=== PATIENT | female | born 1950 | race Caucasian/White ===

== ENCOUNTER → 2016-07-13 | Outpatient (CLI) | payer MEDICARE, OTHER ==
[2016-07-13 13:38] LABS: ALBUMIN 3.5 GM/DL (3.2-5.2); ALBUMIN/GLOBULIN RATIO 0.97 (1.00-1.93); BILIRUBIN,TOTAL 0.3 MG/DL (0.2-1.0); CALCIUM LEVEL 8.8 MG/DL (8.8-10.2); CREATININE FOR GFR 1.16 MG/DL (0.55-1.02); GLOMERULAR FILTRATION RATE 49.8 (>45); POTASSIUM SERUM 4.9 MEQ/L (3.5-5.1); TOTAL PROTEIN 7.1 GM/DL (6.4-8.2)
== END ==
LOC: M LAB 11:50
PROVIDERS: ATTEND Family Medicine
DX: E11.21 Type 2 diabetes mellitus with diabetic nephropathy (principal)

== ENCOUNTER → 2017-02-19 | Outpatient (CLI) | payer MEDICARE, MEDICAID ==
[2017-02-19 13:31] LABS: BASO # 0.1 10^3/uL (0.0-0.2); BASO % 0.8 % (0.0-1.0); EOS # 0.1 10^3/uL (0.0-0.50); EOS % 1.1 % (0.0-3.0); IMMATURE GRANULOCYTE % 0.3 % (0-0); LYMPH # 1.5 10^3/uL (1.5-4.5); LYMPH % 23.6 % (24.0-44.0); MEAN CORPUSCULAR HEMOGLOBIN 29.3 pg (27.0-33.0); MEAN CORPUSCULAR HGB CONC 33.2 g/dl (32.0-36.5); MEAN CORPUSCULAR VOLUME 88.4 fl (80.0-96.0); MONO # 0.5 10^3/uL (0.0-0.8); MONO % 8.2 % (0.0-5.0); NEUTROPHILS # 4.2 10^3/uL (1.8-7.7); PLATELET COUNT, AUTOMATED 325 10^3/uL (150-450); RED CELL DISTRIBUTION WIDTH 13.1 % (11.5-14.5); WHITE BLOOD COUNT 6.4 10^3/uL (4.0-10.0)
[2017-02-19 21:23] LABS: CALCIUM LEVEL 8.6 MG/DL (8.8-10.2); CREATININE FOR GFR 1.19 MG/DL (0.55-1.02); GLOMERULAR FILTRATION RATE 48.2 (>45); POTASSIUM SERUM 4.9 MEQ/L (3.5-5.1)
== END ==
LOC: M LAB 12:28
PROVIDERS: ATTEND Nurse Practitioner Family
DX: E11.65 Type 2 diabetes mellitus with hyperglycemia (principal)

== ENCOUNTER 2017-05-04 17:17 | Emergency (ER) | payer MEDICARE, MEDICAID ==
[~2017-05-04] VITALS: Ht 152.4 cm; Wt 90.9 kg
[2017-05-04] MEDS ORDERED: SIMV40TA2 (17:34)
[2017-05-04] MEDS ORDERED: INSUDET SQ (17:34)
[2017-05-04] MEDS ORDERED: RAMI5CA (17:34)
[2017-05-04] MEDS ORDERED: INSUHUMDS SQ (17:34)
[2017-05-04 18:42] LABS: MICROSCOPIC INDICATED? MAN YES (NO)
[2017-05-04 18:52] LABS: BACTERIA, URINE LARGE AMOUNT; HYALINE CAST, URINE NONE SEEN /lpf (0-1); SQUAMOUS EPITHELIAL CELL URINE SMALL AMOUNT /hpf (SMALL AMT); WBC, URINE TNTC /hpf (0-3)
[2017-05-04 18:53] LABS: MICROSCOPIC EXAM PERFORMED
[2017-05-04] MEDS ORDERED: NITROFURANTOIN (MACROBID) 100 MG CAP PO ONE (19:15)
[2017-05-04] MEDS ORDERED: MACR100C43 PO (19:17)
[2017-05-04 19:43] VITALS: BP 146/78
== END 2017-05-04 19:47 | disposition home or self-care (01) ==
LOC: M ED 17:17
DX: N39.0 Urinary tract infection, site not specified (principal); E11.9 Type 2 diabetes mellitus without complications; Z79.4 Long term (current) use of insulin

== ENCOUNTER → 2017-05-19 | Outpatient (REF) | payer MEDICARE, MEDICAID | LOC: M SFHCADAM 14:45 | DX: N39.0 Urinary tract infection, site not specified (principal) | CPT/HCPCS: 87086 ==

== ENCOUNTER → 2017-09-21 | Outpatient (REF) | payer MEDICARE, MEDICAID ==
[2017-09-21 19:53] LABS: MEAN CORPUSCULAR HEMOGLOBIN 28.3 pg (27.0-33.0); MEAN CORPUSCULAR HGB CONC 32.5 g/dl (32.0-36.5); MEAN CORPUSCULAR VOLUME 87.1 fl (80.0-96.0); PLATELET COUNT, AUTOMATED 434 10^3/uL (150-450); RED BLOOD COUNT 4.59 10^6/uL (4.00-5.40); RED CELL DISTRIBUTION WIDTH 13.1 % (11.5-14.5); WHITE BLOOD COUNT 7.6 10^3/uL (4.0-10.0)
[2017-09-21 20:06] LABS: ESTIMATED AVERAGE GLUCOSE 246 MG/DL (60-110); HEMOGLOBIN A1c 10.2 %
[2017-09-21 20:11] LABS: ALBUMIN 3.5 GM/DL (3.2-5.2); ALBUMIN/GLOBULIN RATIO 0.88 (1.00-1.93); ALKALINE PHOSPHATASE 78 U/L (45-117); ALT/SGPT 31 U/L (12-78); ANION GAP 6 MEQ/L (8-16); AST/SGOT 22 U/L (7-37); BILIRUBIN,TOTAL 0.2 MG/DL (0.2-1.0); BLOOD UREA NITROGEN 33 MG/DL (7-18); CALCIUM LEVEL 9.1 MG/DL (8.8-10.2); CARBON DIOXIDE LEVEL 29 MEQ/L (21-32); CHLORIDE LEVEL 103 MEQ/L (98-107); CHOLESTEROL LEVEL 209 MG/DL (<200); CHOLESTEROL RISK RATIO 4.976 (<5); CREATININE FOR GFR 1.51 MG/DL (0.55-1.30); FREE T4 0.92 NG/DL (0.76-1.46); GLOMERULAR FILTRATION RATE 36.6 (>45); GLUCOSE, FASTING 373 MG/DL (70-100); HDL CHOLESTEROL 42 MG/DL (>40); NON-HDL-C 167 MG/DL; SODIUM LEVEL 138 MEQ/L (136-145); THYROID STIMULATING HORMONE 0.668 uIU/ML (0.358-3.740); TOTAL PROTEIN 7.5 GM/DL (6.4-8.2); TRIGLYCERIDES LEVEL 474 MG/DL (<150)
[2017-09-21 20:19] LABS: POTASSIUM SERUM 5.6 MEQ/L (3.5-5.1)
[2017-09-21 20:43] LABS: MAU/CREAT RATIO 493.7 MCG/MG (0.0-30.0)
== END ==
LOC: M SFHCADAM 15:51
DX: E11.21 Type 2 diabetes mellitus with diabetic nephropathy (principal); E78.2 Mixed hyperlipidemia; N18.3 Chronic kidney disease, stage 3 (moderate)
CPT/HCPCS: 84443

== ENCOUNTER → 2018-03-22 | Outpatient (REF) | payer MEDICARE, MEDICAID ==
[2018-03-22 20:34] LABS: HEMATOCRIT 37.9 % (36.0-47.0); HEMOGLOBIN 12.6 g/dl (12.0-15.5); MEAN CORPUSCULAR HGB CONC 33.2 g/dl (32.0-36.5); MEAN CORPUSCULAR VOLUME 87.3 fl (80.0-96.0); PLATELET COUNT, AUTOMATED 376 10^3/uL (150-450); RED BLOOD COUNT 4.34 10^6/uL (4.00-5.40); WHITE BLOOD COUNT 7.2 10^3/uL (4.0-10.0)
[2018-03-22 20:50] LABS: ESTIMATED AVERAGE GLUCOSE 315 MG/DL (60-110); HEMOGLOBIN A1c 12.6 %
[2018-03-22 21:45] LABS: ALBUMIN 3.4 GM/DL (3.2-5.2); ALBUMIN/GLOBULIN RATIO 0.89 (1.00-1.93); ALKALINE PHOSPHATASE 86 U/L (45-117); ALT/SGPT 28 U/L (12-78); ANION GAP 6 MEQ/L (8-16); AST/SGOT 22 U/L (7-37); BILIRUBIN,TOTAL 0.2 MG/DL (0.2-1.0); BLOOD UREA NITROGEN 26 MG/DL (7-18); CARBON DIOXIDE LEVEL 27 MEQ/L (21-32); CHLORIDE LEVEL 103 MEQ/L (98-107); CHOLESTEROL LEVEL 195 MG/DL (<200); CHOLESTEROL RISK RATIO 4.239 (<5); CREATININE FOR GFR 1.32 MG/DL (0.55-1.30); FREE T4 0.87 NG/DL (0.76-1.46); GLOMERULAR FILTRATION RATE 42.6 (>45); GLUCOSE, FASTING 429 MG/DL (70-100); HDL CHOLESTEROL 46 MG/DL (>40); NON-HDL-C 149 MG/DL; POTASSIUM SERUM 5.6 MEQ/L (3.5-5.1); SODIUM LEVEL 136 MEQ/L (136-145); THYROID STIMULATING HORMONE 0.712 uIU/ML (0.358-3.740); TOTAL 25(OH) VITAMIN D 15.3 NG/ML (30.0-100.0); TOTAL PROTEIN 7.2 GM/DL (6.4-8.2); TRIGLYCERIDES LEVEL 453 MG/DL (<150)
== END ==
LOC: M SFHCADAM 15:49
DX: N18.3 Chronic kidney disease, stage 3 (moderate) (principal); E11.21 Type 2 diabetes mellitus with diabetic nephropathy; E78.2 Mixed hyperlipidemia
CPT/HCPCS: 84443

== ENCOUNTER → 2018-09-20 | Outpatient (REF) | payer MEDICARE, MEDICAID ==
[~2018-09-20] MED LIST: INSUDET SQ; INSUHUMDS SQ; MACR100C43 PO; RAMI1CAP24; SIMV40TA2
[2018-09-20 20:38] LABS: CREATININE, URINE 90.1 MG/DL; MAU/CREAT RATIO 1420.6 MCG/MG (0.0-30.0)
== END ==
LOC: M SFHCADAM 14:13
PROVIDERS: ATTEND Family Medicine
DX: E11.21 Type 2 diabetes mellitus with diabetic nephropathy (principal); N18.3 Chronic kidney disease, stage 3 (moderate)
CPT/HCPCS: 82043; 90732; 99487; G0009; G0463

== ENCOUNTER → 2019-03-14 | Outpatient (REF) | payer MEDICARE, MEDICAID ==
[2019-03-14 16:29] LABS: HEMATOCRIT 40.3 % (36.0-47.0); MEAN CORPUSCULAR HEMOGLOBIN 28.3 pg (27.0-33.0); MEAN CORPUSCULAR HGB CONC 32.3 g/dl (32.0-36.5); MEAN CORPUSCULAR VOLUME 87.6 fl (80.0-96.0); PLATELET COUNT, AUTOMATED 364 10^3/uL (150-450); WHITE BLOOD COUNT 9.2 10^3/uL (4.0-10.0)
[2019-03-14 16:38] LABS: ALBUMIN 3.2 GM/DL (3.2-5.2); BILIRUBIN,TOTAL 0.3 MG/DL (0.2-1.0); CALCIUM LEVEL 9.2 MG/DL (8.8-10.2); CHOLESTEROL RISK RATIO 4.04 (<5); CREATININE FOR GFR 1.37 MG/DL (0.55-1.30); GLOMERULAR FILTRATION RATE 40.7 (>45); POTASSIUM SERUM 4.8 MEQ/L (3.5-5.1); TOTAL PROTEIN 7.2 GM/DL (6.4-8.2)
[2019-03-14 18:10] LABS: CREATININE, URINE 65.1 MG/DL; MAU/CREAT RATIO 1643.6 MCG/MG (0.0-30.0)
== END ==
LOC: M LABDRAWP 14:19
PROVIDERS: ATTEND Internal Medicine Endocrinology, Diabetes & Metabolism
DX: E11.65 Type 2 diabetes mellitus with hyperglycemia (principal)

== ENCOUNTER → 2019-11-30 | Outpatient (CLI) | payer MEDICARE, MEDICAID ==
[~2019-11-30] MED LIST changes: -SIMV40TA2; +SIMV40TA20
[2019-11-30 13:55] LABS: HEMATOCRIT 40.9 % (36.0-47.0); HEMOGLOBIN 13.4 g/dl (12.0-15.5); MEAN CORPUSCULAR HEMOGLOBIN 28.9 pg (27.0-33.0); MEAN CORPUSCULAR HGB CONC 32.8 g/dl (32.0-36.5); MEAN CORPUSCULAR VOLUME 88.1 fl (80.0-96.0); PLATELET COUNT, AUTOMATED 376 10^3/uL (150-450); RED BLOOD COUNT 4.64 10^6/uL (4.00-5.40); WHITE BLOOD COUNT 6.8 10^3/uL (4.0-10.0)
[2019-11-30 14:38] LABS: ALBUMIN 3.3 GM/DL (3.2-5.2); BILIRUBIN,TOTAL 0.2 MG/DL (0.2-1.0); CALCIUM LEVEL 9.3 MG/DL (8.8-10.2); CHOLESTEROL RISK RATIO 3.957 (<5); CREATININE FOR GFR 1.43 MG/DL (0.55-1.30); FREE T4 0.89 NG/DL (0.76-1.46); GLOMERULAR FILTRATION RATE 38.7 (>45); POTASSIUM SERUM 5.5 MEQ/L (3.5-5.1); THYROID STIMULATING HORMONE 0.934 uIU/ML (0.358-3.740); TOTAL PROTEIN 7.4 GM/DL (6.4-8.2)
[2019-11-30 16:10] LABS: HEMOGLOBIN A1c 12.1 %
== END ==
LOC: M LAB 13:24
PROVIDERS: ATTEND Family Medicine
DX: E11.21 Type 2 diabetes mellitus with diabetic nephropathy (principal); E78.2 Mixed hyperlipidemia; F32.9 Major depressive disorder, single episode, unspecified; N18.3 Chronic kidney disease, stage 3 (moderate)

== ENCOUNTER → 2020-03-11 | Outpatient (REF) | payer MEDICARE, MEDICAID ==
[2020-03-11 17:48] LABS: HEMOGLOBIN 14.3 g/dl (12.0-15.5); MEAN CORPUSCULAR HEMOGLOBIN 28.5 pg (27.0-33.0); MEAN CORPUSCULAR HGB CONC 31.8 g/dl (32.0-36.5); MEAN CORPUSCULAR VOLUME 89.8 fl (80.0-96.0); PLATELET COUNT, AUTOMATED 435 10^3/uL (150-450); RED BLOOD COUNT 5.01 10^6/uL (4.00-5.40); WHITE BLOOD COUNT 7.9 10^3/uL (4.0-10.0)
[2020-03-11 18:12] LABS: HEMOGLOBIN A1c 10.8 %
[2020-03-11 18:25] LABS: ALBUMIN 3.4 GM/DL (3.2-5.2); BILIRUBIN,TOTAL 0.3 MG/DL (0.2-1.0); CALCIUM LEVEL 9.5 MG/DL (8.8-10.2); CHOLESTEROL RISK RATIO 3.49 (<5); CREATININE FOR GFR 1.41 MG/DL (0.55-1.30); FREE T4 0.95 NG/DL (0.76-1.46); GLOMERULAR FILTRATION RATE 39.3 (>39); POTASSIUM SERUM 5.2 MEQ/L (3.5-5.1); THYROID STIMULATING HORMONE 0.713 uIU/ML (0.358-3.740); TOTAL PROTEIN 7.5 GM/DL (6.4-8.2)
== END ==
LOC: M PLALAB 15:07
PROVIDERS: ATTEND Family Medicine
DX: E11.21 Type 2 diabetes mellitus with diabetic nephropathy (principal); E78.2 Mixed hyperlipidemia; F32.9 Major depressive disorder, single episode, unspecified; N18.30 Chronic kidney disease, stage 3 unspecified
CPT/HCPCS: 36415; 80053; 80061; 83036; 84439; 84443; 85027; 99490; G2058

== ENCOUNTER 2020-05-21 22:25 | Observation (INO) | payer MEDICAID, MEDICARE ==
[~2020-05-21] VITALS: Ht 152.4 cm; Wt 93.9 kg
[~2020-05-21 22:25] MED LIST changes: +INSUDET SC; -INSUDET SQ; +INSUHUMDS SC; -INSUHUMDS SQ; -RAMI1CAP24; +RAMI1CAP24 PO; -SIMV40TA20; +SIMV40TA20 PO
[2020-05-21] MEDS ORDERED: NS 1,000 ML IV ONE (23:00)
[2020-05-21 23:26] LABS: BASO % 0.4 % (0.0-1.0); HEMATOCRIT 40.2 % (36.0-47.0); HEMOGLOBIN 12.4 g/dl (12.0-15.5); LYMPH # 0.7 10^3/uL (1.5-5.0); LYMPH % 10.5 % (24.0-44.0); MEAN CORPUSCULAR HEMOGLOBIN 27.3 pg (27.0-33.0); MEAN CORPUSCULAR HGB CONC 30.8 g/dl (32.0-36.5); MEAN CORPUSCULAR VOLUME 88.5 fl (80.0-96.0); MONO # 0.7 10^3/uL (0.0-0.8); MONO % 10.1 % (0.0-5.0); NEUTROPHILS # 5.5 10^3/uL (1.5-8.5); NEUTROPHILS % 78.7 % (36.0-66.0); PLATELET COUNT, AUTOMATED 318 10^3/uL (150-450); RED BLOOD COUNT 4.54 10^6/uL (4.00-5.40)
[2020-05-21 23:37] LABS: INR 0.96
[2020-05-21 23:38] LABS: PARTIAL THROMBOPLASTIN TIME 34.8 SECONDS (24.2-38.5)
[2020-05-21 23:46] LABS: ERYTHROCYTE SEDIMENTATION RATE 63 mm/hr (0-30)
[2020-05-22 00:10] LABS: ALBUMIN 2.3 GM/DL (3.2-5.2); ALT/SGPT 22 U/L (12-78); BILIRUBIN,DIRECT 0.1 MG/DL (0.0-0.2); BILIRUBIN,TOTAL 0.3 MG/DL (0.2-1.0); BLOOD UREA NITROGEN 30 MG/DL (7-18); CALCIUM LEVEL 7.9 MG/DL (8.8-10.2); CARBON DIOXIDE LEVEL 24 MEQ/L (21-32); CHLORIDE LEVEL 103 MEQ/L (98-107); CK-MB VALUE MASS < 1.0 NG/ML (<3.6); CPK CREATINE PHOSPHOKINASE 70 U/L (26-192); CREATININE FOR GFR 1.46 MG/DL (0.55-1.30); GLOMERULAR FILTRATION RATE 37.7 (>39); GLUCOSE, FASTING 359 MG/DL (70-100); LIPASE 100 U/L (73-393); MB/CK RELATIVE INDEX 1.43 (< OR =4); POTASSIUM SERUM 4.9 MEQ/L (3.5-5.1); SODIUM LEVEL 130 MEQ/L (136-145); TOTAL PROTEIN 7.3 GM/DL (6.4-8.2); TROPONIN I < 0.02 NG/ML (< 0.10)
--- NOTE | 2020-05-22 00:43 | REPVR ---
PROCEDURE INFORMATION: Exam: XR Chest, 1 View Exam date and time: 05/22/2020 12:10 AM Age: 70 years old Clinical indication: Other: Weakness TECHNIQUE: Imaging protocol: XR of the chest Views: 1 view. COMPARISON: CR Chest, 2 view PA, Lat 02/05/2016 1:05 PM FINDINGS: Lungs: There are no interval infiltrates. Pleural space: Unremarkable. No pleural effusion. No pneumothorax. Heart/Mediastinum: The heart and mediastinum are unchanged in view of lordotic projection. Bones/joints: Unremarkable. Soft tissues: There are generous overlying soft tissues. IMPRESSION: Negative stable chest since 02/05/2016. Electronically signed by: Edin Dumas On 05/22/2020 00:43:37 AM
[2020-05-22] MEDS ORDERED: NS 500 ML IV ONE (03:15)
[2020-05-22] MEDS ORDERED: CETACAINE SPRAY 5GM TOP ONE (05:30)
[2020-05-22] MEDS ORDERED: ACET500T15 PO (07:21)
--- NOTE | 2020-05-22 07:34 | ECGEPIP ---
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
[2020-05-22] MEDS ORDERED: DEXTROSE 50% 50 ML SYRINGE IV PRN (10:00)
[2020-05-22] MEDS ORDERED: GLUCOSE 4GM CHEW TABLET PO PRN (10:00)
[2020-05-22] MEDS ORDERED: GLUCAGON INJ 1MG VIAL SC PRN (10:00)
[2020-05-22] MEDS ORDERED: LEVEMIR (INSULIN DETEMIR) 1 UNITS/0.01ML SC ONE (10:15)
[2020-05-22 11:47] LABS: D-DIMER QUANT 818.97 ng/ml (<500)
[2020-05-22 11:56] LABS: FERRITIN 373 NG/ML (8-252); LDH LACTATE DEHYDROGENASE 271 U/L (84-246)
[2020-05-22 11:58] LABS: HEMOGLOBIN A1c 12.2 %
--- NOTE | 2020-05-22 13:08 | HPE ---
HISTORY AND PHYSICAL DATE OF ADMISSION: 05/21/2020 PRINCIPAL DIAGNOSES: 1. COVID infection. 2. Generalized weakness. 3. Intractable diarrhea. HISTORY: Alee Coleman is a 70-year-old patient. I see her (when she shows for appointments) at [facility]. She will be admitted with the COVID infection. It was found incidentally after we had been called to admit her for generalized weakness and intractable diarrhea. She presented to the emergency room with severe weakness. She has had a bit of a sore throat. In the emergency room she had severe intractable diarrhea, to the point where she had to be taken into the [facility] area for hygienic correction. She had a COVID screening done on admission, which was positive. Currently has no shortness of breath or significant respiratory symptoms. Patient has type 2 diabetes. She is followed by Dr. Chelsea Paz. She is among the most noncompliant patients I have at my practice. Significant noncompliance with office visits. In the last year she has made about one-third of the scheduled appointments with either me or the diabetic nurse case manager. Last hemoglobin A1c on 03/11/2020 was 10.8, which was actually good for her; it usually runs in the 12s. She has a history of hyperlipidemia, diabetic marker albuminuria, for which she is on ramipril, diabetic neuropathy, chronic lower extremity edema, hypertensive heart disease, vitamin D deficiency, chronic mild anemia, for which she has declined endoscopic evaluation. She was sent home with immuno fecal occult blood testing, which she did not return. ALLERGIES: AVANDIA caused edema. JANUVIA caused dizziness. LISINOPRIL caused dizziness. METFORMIN caused abdominal pain and diarrhea. SURGICAL HISTORY: 1. Right ankle fracture in 1986. 2. Tonsillectomy. 3. Appendectomy. 4. She claims colonoscopy. FAMILY HISTORY: Father has lymphoma. Mother bladder cancer. SOCIAL HISTORY: Nonsmoker. No alcohol. She is single. Does not work. Does not exercise. REVIEW OF SYSTEMS: No rectal bleeding or epistaxis, hematemesis, melena, chest pain, shortness of breath, fever, chills. MEDICATIONS: - Levemir 90 units twice a day - Humalog sliding scale coverage - simvastatin 40 mg every night - ramipril 5 mg daily PHYSICAL EXAMINATION: She always looks chronically ill. HEENT: Pupils equal, round, reactive to light. Pharynx was not examined due to her mask. NECK: Supple. LUNGS: Clear. HEART: Regular rate and rhythm. ABDOMEN: Soft, obese, nontender. No masses. Trace peripheral edema. Decreased sensation in her lower extremities. Decreased pulses in both feet. LABORATORY DATA: White count 7, hemoglobin 12.4, platelets 318. Sodium 138, potassium 4.9, BUN 30, creatinine 1.4 (baseline creatinine 1.4). Hemoglobin A1c 12.2%. C-reactive protein 12.7. Procalcitonin 0.07. LDH 271. Fibrinogen 608. D-dimer 818. Chest x-ray: No active disease. EKG: No ischemic changes. IMPRESSION: 1. COVID infection with intractable diarrhea. Her BUN/ creatinine is elevated. She is a little bit dry. Renal function is at baseline. Ordered intravenous (IV) fluids. She can have a consistent carbohydrate diet. 2. Poorly controlled diabetes secondary to gross noncompliance. Hemoglobin A1c is 12.2%. She is followed by Dr. Paz for her diabetes. She also sees Dr. Cavazos for podiatric care. 3. COVID infection. Her inflammatory markers are mildly elevated. I have these repeated later today. She will be admitted to the COVID unit. 4. Hypertensive heart disease. Hold her angiotensin-converting enzyme (SHELBIE) inhibitor and diuretics. IV fluids have been ordered.
[2020-05-22] MEDS: LR 1,000 ML IV SCH ×2 (13:37→21:33)
[2020-05-22] MEDS: ACETAMINOPHEN TAB 650MG DOSE (2X325MG) PO PRN ×2 (13:52→21:33)
[2020-05-22] MEDS: HumaLOG INSULIN (NovoLOG) PER UNIT SC SCH ×3 (15:45→21:00)
[2020-05-22 15:48] VITALS: BP 146/65
[2020-05-22 20:00] VITALS: BP 128/78
[2020-05-22] MEDS: SIMVASTATIN 40 MG TAB PO SCH (21:33)
[2020-05-22 22:14] LABS: BASO % 0.4 % (0.0-1.0); EOS % 0.2 % (0.0-3.0); HEMATOCRIT 35.7 % (36.0-47.0); HEMOGLOBIN 11.2 g/dl (12.0-15.5); LYMPH # 1.5 10^3/uL (1.5-5.0); LYMPH % 28.6 % (24.0-44.0); MEAN CORPUSCULAR HEMOGLOBIN 28.1 pg (27.0-33.0); MEAN CORPUSCULAR HGB CONC 31.4 g/dl (32.0-36.5); MEAN CORPUSCULAR VOLUME 89.5 fl (80.0-96.0); MONO # 0.6 10^3/uL (0.0-0.8); MONO % 11.5 % (0.0-5.0); NEUTROPHILS # 3.1 10^3/uL (1.5-8.5); NEUTROPHILS % 58.7 % (36.0-66.0); PLATELET COUNT, AUTOMATED 299 10^3/uL (150-450); RED BLOOD COUNT 3.99 10^6/uL (4.00-5.40); WHITE BLOOD COUNT 5.2 10^3/uL (4.0-10.0)
[2020-05-22 22:25] LABS: D-DIMER QUANT 863.47 ng/ml (<500)
[2020-05-22 22:41] LABS: C REACTIVE PROTEIN QUANTITATIV 11.8 MG/DL (0.00-0.30)
[2020-05-23 04:00] VITALS: BP 131/60
[2020-05-23] MEDS: HumaLOG INSULIN (NovoLOG) PER UNIT SC SCH ×4 (07:30→20:24)
[2020-05-23 07:39] LABS: HEMATOCRIT 35.8 % (36.0-47.0); HEMOGLOBIN 11.2 g/dl (12.0-15.5); MEAN CORPUSCULAR HEMOGLOBIN 27.7 pg (27.0-33.0); MEAN CORPUSCULAR HGB CONC 31.3 g/dl (32.0-36.5); MEAN CORPUSCULAR VOLUME 88.6 fl (80.0-96.0); PLATELET COUNT, AUTOMATED 309 10^3/uL (150-450); RED BLOOD COUNT 4.04 10^6/uL (4.00-5.40); WHITE BLOOD COUNT 6.2 10^3/uL (4.0-10.0)
[2020-05-23 08:03] LABS: CALCIUM LEVEL 7.6 MG/DL (8.8-10.2); CREATININE FOR GFR 1.36 MG/DL (0.55-1.30); GLOMERULAR FILTRATION RATE 40.9 (>39); POTASSIUM SERUM 4.7 MEQ/L (3.5-5.1)
[2020-05-23] MEDS: LR 1,000 ML IV SCH ×2 (08:45→18:45)
[2020-05-23 14:00] VITALS: BP 146/67
[2020-05-23] MEDS ORDERED: INSUDET SC (14:25)
[2020-05-23] MEDS: SIMVASTATIN 40 MG TAB PO SCH (20:22)
[2020-05-23 20:57] VITALS: BP 139/62
--- NOTE | 2020-05-24 02:23 | DS.PDOC ---
Discharge Summary General Date of Admission May 21, 2020 at 22:26 Date of Discharge May 23, 2020 Attending Physician: ALLYSON IRVING DO Discharge Summary PROCEDURES PERFORMED DURING STAY: None ADMITTING DIAGNOSES: 1. COVID infection 2. Uncontrolled Diabetes Mellitus 3. Diarrhea 4. Hypertension DISCHARGE DIAGNOSES: 1. COVID infection 2. Uncontrolled Diabetes Mellitus 3. Diarrhea 4. Hypertension COMPLICATIONS/CHIEF COMPLAINT: Covid-19. HISTORY OF PRESENT ILLNESS: Mrs. Coleman is a 70 year old female who was placed in observation for COVID infection, generalized weakness, and intractable diarrhea. She had severe intractable diarrhea to the point where she had to be taken into the [facility] area for hygienic correction. Otherwise, she has poorly controlled diabetes mellitus. HOSPITAL COURSE: During her hospitalization, she received no antibiotics, no steroids, no oxygen, and no remdesivir. She did not have any diarrhea. This morning, she denied dyspnea, cough, or chest pain. She did report fatigue. I explained that she has a viral infection, and she will feel fatigued, but there was nothing additional were are doing here at the hospital. We discussed about discharged, and she requested to stay one night and be discharged the next morning. PFS spoke with patient and patient requested that I call her son. I spoke with the son and he was agreeable. Patient understands that she will be discharged today. DISCHARGE MEDICATIONS: Please see below. ALLERGIES: Please see below. PHYSICAL EXAMINATION ON DISCHARGE: VITAL SIGNS: Please see below. GENERAL: Comfortable, in no apparent distress HEENT: Head normocephalic, atraumatic, EOMI, sclera clear NECK: Supple CARDIOVASCULAR EXAMINATION: Regular rate and rhythm RESPIRATORY EXAMINATION: Lungs clear to auscultation bilaterally ABDOMINAL EXAMINATION: Soft, nontender, normal bowel sounds EXTREMITIES: No pitting edema bilaterally NEUROLOGICAL EXAMINATION: CN 3-12 grossly intact PSYCHIATRIC EXAMINATION: Anxious LABORATORY DATA: Please see below. IMAGING: (Radiology interpretation) CXR 05/22/2020 Negative stable chest since 02/05/2016 PROGNOSIS: Stable ACTIVITY: As tolerated. DIET: Diabetes Mellitus DISCHARGE PLAN: Home with home services DISPOSITION: Home with home services. DISCHARGE INSTRUCTIONS: 1. Follow up with your PCP within a week DISCHARGE CONDITION: Stable. Total time spent on discharge planning, discharge summary, and medication reconciliation: 45 minutes Vital Signs/I&Os Vital Signs Date Time Temp Pulse Resp B/P (MAP) Pulse Ox O2 Delivery O2 Flow Rate FiO2 05/23/20 20:57 98.1 91 18 139/62 (87) 94 Room Air I&O- Last 24 Hours up to 6 AM 05/24/20 06:00 Intake Total 720 ml Output Total 1050 ml Balance -330 ml Laboratory Data Labs 24H Laboratory Tests 2 05/23/20 07:22: Nucleated Red Blood Cells % (auto) 0.0, Anion Gap 7L, Glomerular Filtration Rate 40.9, Calcium Level 7.6L 05/23/20 11:50: Bedside Glucose (Misc Panel) 192H 05/23/20 17:11: Bedside Glucose (Misc Panel) 213H 05/23/20 20:23: Bedside Glucose (Misc Panel) 158H CBC/BMP Laboratory Tests 05/23/20 07:22 FSBS Laboratory Tests Test 05/23/20 11:50 05/23/20 17:11 05/23/20 20:23 Range/Units Bedside Glucose (Misc Panel) 192 213 158 83-110 MG/DL Microbiology Microbiology 05/21/20 Respiratory Virus Panel (PCR) (PETE) - Final, Complete SARS-CoV-2 (COVID 19) 05/21/20 Blood Culture - Preliminary, Resulted No Growth after 48 hours. All Specime... 05/21/20 Blood Culture - Preliminary, Resulted No Growth after 48 hours. All Specime... Discharge Medications Scheduled Insulin Detemir (Levemir) 100 Unit/1 Ml Vial, 45 UNITS SC DAILY Ramipril (Ramipril) 5 Mg Cap, 5 MG PO DAILY, (Reported) Simvastatin (Simvastatin) 40 Mg Tab, 40 MG PO DAILY, (Reported) Scheduled PRN Acetaminophen (Acetaminophen) 500 Mg Tablet, 500 MG PO Q6H PRN for HEADACHE, (Reported) Insulin Human Lispro (Humalog) 1 Units/0.01 Ml Inj, 1 DOSE SC AC PRN for BS >400, (Reported) Allergies Coded Allergies: No Known Allergies (Verified , 01/18/03) ALLYSON IRVING DO May 24, 2020 02:23
[2020-05-25] MEDS ORDERED: INSUDET SC (01:06)
== END 2020-05-24 03:04 | disposition home or self-care (01) ==
LOC: M ED 22:25 → M ED INP 22:26 → M 4MAIN 05-22 15:35
PROVIDERS: ADMIT Family Medicine; ATTEND Family Medicine
DX: U07.1 COVID-19 (principal); R19.7 Diarrhea, unspecified; R53.1 Weakness; E11.40 Type 2 diabetes mellitus with diabetic neuropathy, unspecified; Z91.19 Patient's noncompliance with other medical treatment and regimen; I11.9 Hypertensive heart disease without heart failure; E78.49 Other hyperlipidemia; E55.9 Vitamin D deficiency, unspecified; Z88.8 Allergy status to other drugs, medicaments and biological substances; R79.89 Other specified abnormal findings of blood chemistry; Z79.4 Long term (current) use of insulin; Z79.899 Other long term (current) drug therapy; R79.1 Abnormal coagulation profile
CPT/HCPCS: 36415; 71045; 80048; 80076; 82550; 82553; 82728; 83036; 83605; 83615; 83690; 84145; 84484; 85025; 85027; 85379; 85384; 85610; 85652; 85730; 86140; 87040; 87486; 87581; 87633; 87798; 93005; 93041; 96360; 96361; 99285; G0378

== ENCOUNTER 2020-05-24 23:00 | Emergency (ER) | payer MEDICARE ==
[~2020-05-24 23:00] MED LIST changes: +ACET500T15 PO
[2020-05-24] MEDS ORDERED: ACETAMINOPHEN TAB 650MG DOSE (2X325MG) PO ONE (23:30)
--- NOTE | 2020-05-24 23:36 | REPVR ---
PROCEDURE INFORMATION: Exam: XR Chest, 1 View Exam date and time: 05/24/2020 11:21 PM Age: 70 years old Clinical indication: Shortness of breath; Additional info: Coronavirus workup TECHNIQUE: Imaging protocol: XR of the chest Views: 1 view. COMPARISON: CR PORTABLE CHEST X-RAY 05/22/2020 12:13 AM FINDINGS: Lungs: There is decreased inflation of the lungs. Linear atelectasis or scar in the right base is unchanged. Question of minimal hazy infiltrates in the left mid lung and left base. Pleural space: Unremarkable. No pleural effusion. No pneumothorax. Heart/Mediastinum: The heart and mediastinum are unchanged. Bones/joints: Unremarkable. IMPRESSION: Question of minimal hazy infiltrates in the left mid lung and left base, slightly more pronounced since 05/22/2020 with decreased inflation. Electronically signed by: Edin Dumas On 05/24/2020 23:37:23 PM
[2020-05-25 00:10] LABS: BASO % 0.4 % (0.0-1.0); HEMATOCRIT 37.7 % (36.0-47.0); HEMOGLOBIN 11.8 g/dl (12.0-15.5); LYMPH # 1.1 10^3/uL (1.5-5.0); MEAN CORPUSCULAR HEMOGLOBIN 28.1 pg (27.0-33.0); MEAN CORPUSCULAR HGB CONC 31.3 g/dl (32.0-36.5); MEAN CORPUSCULAR VOLUME 89.8 fl (80.0-96.0); MONO # 0.8 10^3/uL (0.0-0.8); MONO % 7.9 % (0.0-5.0); NEUTROPHILS # 7.8 10^3/uL (1.5-8.5); NEUTROPHILS % 79.6 % (36.0-66.0); PLATELET COUNT, AUTOMATED 342 10^3/uL (150-450); WHITE BLOOD COUNT 9.8 10^3/uL (4.0-10.0)
[2020-05-25 00:34] LABS: ALT/SGPT 50 U/L (12-78); BILIRUBIN,TOTAL 0.4 MG/DL (0.2-1.0); BLOOD UREA NITROGEN 16 MG/DL (7-18); CALCIUM LEVEL 7.6 MG/DL (8.8-10.2); CARBON DIOXIDE LEVEL 21 MEQ/L (21-32); CHLORIDE LEVEL 105 MEQ/L (98-107); CREATININE FOR GFR 1.19 MG/DL (0.55-1.30); FERRITIN 602 NG/ML (8-252); GLOMERULAR FILTRATION RATE 47.7 (>39); GLUCOSE, FASTING 321 MG/DL (70-100); LDH LACTATE DEHYDROGENASE 527 U/L (84-246); POTASSIUM SERUM 5.4 MEQ/L (3.5-5.1); SODIUM LEVEL 133 MEQ/L (136-145); TOTAL PROTEIN 6.1 GM/DL (6.4-8.2); TROPONIN I < 0.02 NG/ML (< 0.10)
[2020-05-25] MEDS ORDERED: INSUDET SC (01:06)
[2020-05-25 02:03] VITALS: BP 169/73
== END 2020-05-25 03:50 | disposition home or self-care (01) ==
LOC: M ED 23:00 → CANBEDREQ 05-25 01:39 → M ED 05-25 03:50
DX: U07.1 COVID-19 (principal); R53.1 Weakness; R53.83 Other fatigue; R06.02 Shortness of breath; E11.9 Type 2 diabetes mellitus without complications; I10 Essential (primary) hypertension; E66.9 Obesity, unspecified; Z79.4 Long term (current) use of insulin; Z79.899 Other long term (current) drug therapy

== ENCOUNTER 2020-07-09 15:14 | Inpatient (IN) | payer MEDICARE, MEDICAID ==
[~2020-07-09] VITALS: Ht 152.4 cm; Wt 89.5 kg
[2020-07-09] MEDS: LEVEMIR (INSULIN DETEMIR) 1 UNITS/0.01ML SC SCH (00:40)
--- OUTSIDE RECORDS SUMMARY | 2020-07-09 16:04 | CCD ---
Author Author [facility] Organization [facility] Address Unknown Phone Unavailable Care Team Providers Care Brace Maker Name Role Phone Noel Ochoa Unavailable PROBLEMS Type Condition ICD9-CM Code [id number] Code Onset Dates Condition S tatus SNOMED Code Notes Problem Major depressive disorder, single episode, unspecified F32.9 Active 96709335 Problem Anxiety disorder, unspecified F41.9 Active 19 1526164 Problem detention (current) use of insulin Z79.4 Activ e 658891589 Problem Mixed hyperlipidemia E78.2 Active 114054032 Problem Chronic kidney disease, stage 3 (moderate) N18.3 Active 279187437 Problem Encounter for immunization Z23 Active 87382 4003 Problem Screening for malignant neoplasm of breast Z12.39 Active 202315890 Problem Anemia, unspecified D64.9 Active 957703584 Problem Screening for osteoporosis Z13.820 Active 34585 6005 Problem Type 2 diabetes mellitus with diabetic nephropathy E11.21 Active 527159186 Problem DKA, type 2, not at goal E11.10 Active 5245251 6 Problem Noncompliance of patient with dietary regimen Z91. 11 Active 842474933 Problem Venous insufficiency (chronic) (peripheral) I87.2 Active 70798103916854471 Problem Medicare annual wellness visit, subsequent Z00.00 Active 293964636 Problem Encounter for well adult exam with abnormal findings Z00.01 Active 281357843 Problem Type 2 diabetes mellitus with hyperglycemia E11.65 Active 713304136753690 Problem Type 2 diabetes mellitus with diabetic chronic kidney disease E11.22 Active 777732300993 Problem Severe obesity (BMI 35.0-39.9) with comorbidity E6 6.01 Active 06233798068326 Problem Vitamin D deficiency, unspecified E55.9 Active 72545934 Problem Essential (primary) hypertension I10 Active 39352062 Problem Annual physical exam Z00.00 Active 114084551 Problem Morbid (severe) obesity due to excess calories E66 .01 Active 335701070 Problem Body mass index (BMI) 40.0-44.9, adult Z68.41 A ctive 833665883 Problem Chronic kidney disease, stage 3 unspecified N18.30 Active 718112399 ALLERGIES Allergen (clinical drug ingredient) Drug/Non Drug Allergy do cumented on EMR Reaction Allergy Type Onset Date Status sitagliptin Januvia(ND Code:[address]-51) dizziness Drug Allergy Active SHELBIE (lisin) dizziness Non Drug Allergy Active metformin abd pain/diarrhea Non Drug Allergy A ctive rosiglitazone Avandia([facility] Code:[address]-52) edema Drug Allergy Active ENCOUNTERS from 1950 to 2020-05-23 Encounter Location Date Provider Diagnosis [address] [place] [address] 08 Apr, 2020 Edgar Ochoa Medicare annual wellness visit, subsequent Z00.00 ; Type 2 diabetes mellitus with diabetic nephropathy E11.21 ; Type 2 diabetes mellitus with hyperglycemia E11.65 ; Mixed hyperlipidemia E78.2 ; Major depressive disorder, single episode, unspecified F32.9 ; Essential (primary) hypertension I10 ; Chronic kidney disease, stage 3 (moderate) N18.3 ; Body mass index (BMI) 40.0-44.9, adult Z68.41 ; Morbid (severe) obesity due to excess calories E66.01 ; Chronic kidney disease, stage 3 unspecified N18.30 and Type 2 diabetes mellitus with diabetic chronic kidney disease E11.22 IMMUNIZATIONS Vaccine Route Administration Date Status Influenza (18 yrs & older) Flublok IM Intramuscular Mar 28, 2019 Administered Influenza (High Dose 65 & up) IM Intramuscular Mar 24, 2017 A dministered Influenza (High Dose 65 & up) IM Intramuscular Mar 08, 2015 A dministered Zoster 0.65mL (Zostavax) Unknown July 23, 2011 Adminis tered Pneumococcal Adult 0.5mL (Pneumovax 23) IM Intramuscular September 20, 2018 Administered Pneumococcal 0.5mL (Prevnar 13) IM Intramuscular Mar 08, 2015 Administered Influenza (6mo & up) Fluzone IM Intramuscular Feb 15, 2013 Ad ministered Influenza (6mo & up) Fluzone IM Intramuscular Mar 17, 2011 Ad ministered Influenza (6mo & up) Fluzone IM Intramuscular Apr 04, 2010 Ad ministered SOCIAL HISTORY Tobacco Use: Social History Observation Description Date Details (start date - stop date) Never Smoker Sex Assigned At : Social History Observation Description Sex Assigned At Unknown Audit Question Answer Notes Total Score: 0 Interpretation: Alcohol Education Sexual Hx: Question Answer Notes Had sex in the last 12 months (vaginal, oral, or anal)? Yes Have you ever had an STD? No with Men only Drug and Alcohol Question Answer Notes Total Score: 0 Interpretation: No problems reported Alcohol Screening: Question Answer Notes Did you have a drink containing alcohol in the past year? No Points 0 Interpretation Negative Tobacco Use: Question Answer Notes Are you a: never smoker REASON FOR REFERRAL No Information VITAL SIGNS Weight 203 lbs Apr, Height 62 in Apr, BMI 37.13 kg/m2 Apr, Heart Rate 101 /min Apr, Respiratory Rate 18 /min Apr, Temperature 97.7 degrees Fahrenheit Apr, Oximetry 99 Apr, Blood pressure systolic 128 mm Hg Apr, Blood pressure diastolic 72 mm Hg Apr, MEDICATIONS Medication SIG (Take, Route, Frequency, Duration) Notes Start Da te End Date Status Ramipril 5 MG TAKE 1 CAPSULE BY MOUTH EVERY DAY for 90 Active Tylenol Extra Strength 500 mg 1 tab(s) Orally every 6 hrs as needed for pain for 30 day(s) Active Lancet Device - as directed _ 6 times a day E11.21 for 30 Days Apr, Active Simvastatin 40 TAKE 1 TABLET BY MOUTH AT BEDTIME DAILY for 90 Not-Taking Blood Glucose Test - ONE TOUCH In Vitro DX:E11.21 four times daily for 100 days Aug, Active Glucometer as directed ELL.21 for 99 days Nov, Active Simvastatin 40 MG TAKE 1 TABLET BY MOUTH EVERY NIGHT AT BEDTIME for 9 0 Active Humalog 100 UNIT/ML 25 u/ DX 0.42 Subcutaneous 2 times a day Jun, Active One Touch Ultra 2 Strips ` 1 each topically/ diagnosis code 250.42 five times a day for 30 day(s) September, Active Lancets one touch/diag code 250.42 1 each DX: E11.9 si x times a day for 100 days Active BD Insulin Syringe U-100 1 ML 1 each subcutaneously DX :E11.21 twice a day for levemir/ 4 x's a day as needed for humalog sliding scale for 90 day(s) Jun, Active COMPRESSION STOCKINGS 15-20 mmHg as directed R60.0 Daily for 99 months Mar, Not-Taking Blood Glucose Test - as directed In Vitro dx:E11. 21 six times daily for 100 days Aug, Active BD Lancet Ultrafine 33G - 1 each six times a day DX: E11.9 90 day(s ) for 84 Active Lancets - as directed _ _6 times a day E11.21 for 30 Days Apr, Active Blood Glucose Monitor - as directed DX: E11.65 _ for 99 months Mar, Active Levemir 100 UNIT/ML 90 units Subcutaneous twice a day/DX code:E1 1.21 Jun, Active Ramipril 5 TAKE 1 CAPSULE BY MOUTH EVERY DAY for 90 Not-Taking PROCEDURES No Information RESULTS No Results REASON FOR VISIT foyer/4 month MEDICAL (GENERAL) HISTORY Type Description Date Medical History hyperlipidemia Medical History type 2 diabetes- followed by endocrinology in [place] until 2017, then Dr Tae Paz Medical History diabetic microalbuminuria, d id not tolerate lisinopril, is able to tolerate ramipril Medical History neuropathy Medical History chronic edema legs Medical History hypertension Medical History vitamin D deficiency Medical History R ankle fracture 1986 Medical History gallstones Medical History mild anemia Medical History declines colonoscpy, mammogr ams. has iFOBT sent to her by [employer], not returned by pt. risks again reviewed 04/04 Surgical History rt ankle compound fx 1986 Surgical History repeatedly declines colonoscopy Surgical History tonsillectomy Surgical History adenoidectomy Goals Section No Information Health Concerns No Information MEDICAL EQUIPMENT No Information MENTAL STATUS No Information FUNCTIONAL STATUS No Information ASSESSMENTS Encounter Date Diagnosis Assessment Notes Treatment Notes Treatm ent Clinical Notes Apr, Medicare annual wellness visit, subsequent (ICD- 10 - Z00.00) age appropriate anticipatory guidance given, per USPSTF recommendations; immunizations up to date. discussed plans for implementing improvement in identified areas Apr, Type 2 diabetes mellitus wit h diabetic nephropathy (ICD-10 - E11.21) poor control. getting CCM. risks reviewed. control has been subadequate for as long as I've known her, unliklely to change Apr, Type 2 diabetes mellitus with hyperglycemia (ICD -10 - E11.65) Apr, Mixed hyperlipidemia (ICD-10 - E78.2) based upon updated AHA/ACC cholesterol guidelines 2013, pt's LDL is reduced by current statin tx by sufficient percentage based on 10 year ASCVD risk stratification; no adjustments in statin tx needed Apr, Major depressive disorder, s amada episode, unspecified (ICD-10 - F32.9) Apr, Essential (primary) hypertension (ICD-10 - I10) Per JNC 8 guidelines, goal BP < 140/90 (150/90 if age >60), is meeting goal on current regimen. Advised heart-healthy diet, sodium restriction Apr, Chronic kidney disease, stage 3 (moderate) (ICD- 10 - N18.3) avoid NSAIDs, other nephrotoxic drugs; monitor with periodic lab work; adjust meds for GFR Apr, Body mass index (BMI) 40.0-44.9, adult (ICD-10 - Z68.41) Apr, Morbid (severe) obesity due to excess calories ( ICD-10 - E66.01) Apr, Chronic kidney disease, stage 3 unspecified (ICD -10 - N18.30) Apr, Type 2 diabetes mellitus wit h diabetic chronic kidney disease (ICD- 10 - E11.22) PLAN OF TREATMENT Treatment Notes Assessment Notes Clinical Notes Medicare annual wellness visit, subsequent age appropriate anticipatory guidance given, per USPSTF recommendations; immunizations up to date. discussed plans for implementing improvement in identified areas Type 2 diabetes mellitus with diabetic nephropathy poor control. getting CCM. risks reviewed. control has been subadequate for as long as I've known her, unliklely to change Mixed hyperlipidemia based upon updated AHA/ACC cholesterol guidelines 2013, pt's LDL is reduced by current statin tx by sufficient percentage based on 10 year ASCVD risk stratification; no adjustments in statin tx needed Essential (primary) hypertension Per JNC 8 guidelines, goal BP < 140/90 (150/90 if age >60), is meeting goal on current regimen. Advised heart-healthy diet, sodium restriction Chronic kidney disease, stage 3 (moderate) avoid NSAIDs, other nephrotoxic drugs; monitor with periodic lab work; adjust meds for GFR Future Test Test Name Order Date Basic Metabolic Profile (BMP) 20200722 HEMOGLOBIN A1c 20200722 Next Appt Details 4 Months Reason: Insurance Providers Payer Name Payer Address Payer Phone Insured Name Patient Relati onship to Insured Coverage Start Date Coverage End Date [facility] [address] [facility] [phone] DAISY JASSO self MEDICAID [employer] [address] [facility] [id number] DAISY JASSO self MEDICARE Part A and B [address] [facility] [id number] [phone] DAISY JASSO self
--- OUTSIDE RECORDS SUMMARY | 2020-07-09 16:04 | CCD ---
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 Name Role Phone Hemant BRODY DPM Unavailable Unavailable Hemant BRODY DPM Unavailable Unavailable Hemant BRODY DPM Unavailable Unavailable Hemant BRODY DPM Unavailable Unavailable Hemant BRODY DPM Unavailable Unavailable Hemant BRODY DPM Unavailable Unavailable Hemant BRODY DPM Unavailable Unavailable Hemant BRODY DPM Unavailable Unavailable Hemant BRODY DPM Unavailable Unavailable Hemant BRODY DPM Unavailable Unavailable Hemant BRODY DPM Unavailable Unavailable Hemant BRODY DPM Unavailable Unavailable Hemant BRODY DPM Unavailable Unavailable Hemant BRODY DPM Unavailable Unavailable Hemant BRODY DPM Unavailable Unavailable Hemant BRODY DPM Unavailable Unavailable Hemant BRODY DPM Unavailable Unavailable MAJAK, R LIANA DPM Unavailable Unavailable MAJAK, R LIANA DPM Unavailable Unavailable MAJAK, R LIANA DPM Unavailable Unavailable MAJAK, R LIANA DPM Unavailable Unavailable MAJAK, R LIANA DPM Unavailable Unavailable MAJAK, R LIANA DPM Unavailable Unavailable MAJAK, R LIANA DPM Unavailable Unavailable MAJAK, R LIANA DPM Unavailable Unavailable MAJAK, R LIANA DPM Unavailable Unavailable MAJAK, R LIANA DPM Unavailable Unavailable MAJAK, R LIANA DPM Unavailable Unavailable MAJAK, R LIANA DPM Unavailable Unavailable MAJAK, R LIANA DPM Unavailable Unavailable Fish, Aleah Tran MD Unavailable Unavailable Fish, Aleah Tran MD Unavailable Unavailable Fish, Aleah Tran MD Unavailable Unavailable Fish, Aleah Tran MD Unavailable Unavailable Fish, Aleah Tran MD Unavailable Unavailable Fish, Aleah Tran MD Unavailable Unavailable Fish, Aleah Tran MD Unavailable Unavailable Fish, Aleah Tran MD Unavailable Unavailable Fish, Aleah Tran MD Unavailable Unavailable Fish, Aleah Tran MD Unavailable Unavailable Fish, Aleah Tran MD Unavailable Unavailable Fish, Aleah Tran MD Unavailable Unavailable Fish, Aleah Tran MD Unavailable Unavailable Fish, Aleah Tran MD Unavailable Unavailable Fish, Aleah Tran MD Unavailable Unavailable Fish, Aleah Tran MD Unavailable Unavailable Fish, Aleah Tran MD Unavailable Unavailable Fish, Aleah Tran MD Unavailable Unavailable Fish, Aleah Tran MD Unavailable Unavailable Fish, Aleah Tran MD Unavailable Unavailable Fish, Aleah Tran MD Unavailable Unavailable Fish, Aleah Tran MD Unavailable Unavailable Fish, Aleah Tran MD Unavailable Unavailable Fish, Aleah Tran MD Unavailable Unavailable Fish, Aleah Tran MD Unavailable Unavailable Fish, Aleah Tran MD Unavailable Unavailable Fish, Aleah Tran MD Unavailable Unavailable Fish, Aleah Tran MD Unavailable Unavailable Fish, Aleah Tran MD Unavailable Unavailable Fish, Aleah Tran MD Unavailable Unavailable Fish, Aleah Tran MD Unavailable Unavailable Fish, Aleah Tran MD Unavailable Unavailable Fish, Aleah Tran MD Unavailable Unavailable Fish, Aleah Tran MD Unavailable Unavailable Fish, Aleah Tran MD Unavailable Unavailable Fish, Aleah Tran MD Unavailable Unavailable Fish, Aleah Tran MD Unavailable Unavailable Fish, Aleah Tran MD Unavailable Unavailable Fish, Aleah Tran MD Unavailable Unavailable Fish, Aleah Tran MD Unavailable Unavailable Fish, Aleah Tran MD Unavailable Unavailable Fish, Aleah Tran MD Unavailable Unavailable Fish, Aleah Tran MD Unavailable Unavailable Fish, Aleah Tran MD Unavailable Unavailable Fish, Aleah Tran MD Unavailable Unavailable Fish, Aleah Tran MD Unavailable Unavailable Fish, Aleah Tran MD Unavailable Unavailable Fish, B Chelsea MD Unavailable Unavailable Fish, B Chelsea MD Unavailable Unavailable Fish, B Chelsea MD Unavailable Unavailable Fish, B Chelsea MD Unavailable Unavailable Fish, B Chelsea MD Unavailable Unavailable Fish, B Chelsea MD Unavailable Unavailable Fish, B Chelsea MD Unavailable Unavailable Fish, B Chelsea MD Unavailable Unavailable Fish, B Chelsea MD Unavailable Unavailable Fish, B Chelsea MD Unavailable Unavailable Fish, B Chelsea MD Unavailable Unavailable Fish, B Chelsea MD Unavailable Unavailable Fish, B Chelsea MD Unavailable Unavailable Fish, B Chelsea MD Unavailable Unavailable Fish, B Chelsea MD Unavailable Unavailable Fish, B Chelsea MD Unavailable Unavailable Fish, B Chelsea MD Unavailable Unavailable Re-disclosure Warning The records that you are about to access may contain information from federally-assisted alcohol or drug abuse programs. If such information is present, then the following federally mandated warning applies: This information has been disclosed to you from records protected by federal confidentiality rules (42 CFR part 2). The federal rules prohibit you from making any further disclosure of this information unless further disclosure is expressly permitted by the written consent of the person to whom it pertains or as otherwise permitted by 42 CFR part 2. A general authorization for the release of medical or other information is NOT sufficient for this purpose. The Federal rules restrict any use of the information to criminally investigate or prosecute any alcohol or drug abuse patient.The records that you are about to access may contain highly sensitive health information, the redisclosure of which is protected by Article 27-F of the [place] Public [employer] law. If you continue you may have access to information: Regarding HIV / AIDS; Provided by facilities licensed or operated by the [place] Office of Mental Health; or Provided by the [place] Office for People With Developmental Disabilities. If such information is present, then the following [place] mandated warning applies: This information has been disclosed to you from confidential records which are protected by state law. State law prohibits you from making any further disclosure of this information without the specific written consent of the person to whom it pertains, or as otherwise permitted by law. Any unauthorized further disclosure in violation of state law may result in a fine or custodial sentence or both. A general authorization for the release of medical or other information is NOT sufficient authorization for further disc losure. Family History Family Member Name Family Member Gender Family Member Status Date o f Status Description Data Source(s) Unknown Male Problem MEDENT ([facility]) Unknown Male Problem MEDENT ([facility]) Unknown Unknown Problem MEDENT ([facility]) Unknown Unknown Problem MEDENT ([facility]) Unknown Unknown Problem MEDENT ([facility]) Encounters Encounter Providers Location Date Indications Data Source(s ) Office Visit, Est Pt., Level 4 PC [address] [place] [address] 04/23/2020 12:00:00 AM EST eCW1 ([facility]) Unknown [address] [facility] [address] 04/19/2020 12:00:00 AM EST eCW1 ([facility]) Outpatient Attender: LIANA BRODY [facility] Office 07/2019 01:45:00 PM EST MEDENT ([facility] Unknown [address] [facility] [address] 04/15/2020 12:00:00 AM EST eCW1 ([facility]) Unknown [address] [facility] [address] 03/12/2020 12:00:00 AM EDT eCW1 ([facility]) Outpatient [address] [facility] [address] 03/11/2020 12:00:00 AM EDT eCW1 ([facility]) Outpatient Attender: Chelsea Paz MD Physical Therapy 03/07 02:15:00 PM EDT MEDENT ([facility]) Outpatient Attender: Chelsea Paz MD Physical Therapy 12/31 11:30:00 AM EDT MEDENT ([facility]) TeleMedicine Est. Pt. Level [address] [place] [phone] 11/29/2019 12:00:00 AM EDT eCW1 ([facility]) [facility] [place] [address] [facility] [place] [address] 10/19/2019 12:00:00 AM EDT eCW1 ([facility]) [facility] Ramone [address] [facility] [address] 10/10/2019 12:00:00 AM EDT eCW1 ([facility]) [facility] [place]anya [address] [facility] [address] 08/29/2019 12:00:00 AM EDT eCW1 ([facility]) [facility] [address] [facility] [address] 08/29/2019 12:00:00 AM EDT eCW1 ([facility]) [facility] [place]anya [address] [facility] [address] 06/07/2019 12:00:00 AM EST eCW1 ([facility]) Medications Medication Brand Name Start Date Product Form Dose Route Admi nistrative Instructions Pharmacy Instructions Status Indications Reaction Description Data Source(s) Lancet Device - Lancet Device - 04/16/2020 12:00:00 AM EST active Lancet Device - eCW1 ([facility]) Lancets - Lancets - 04/16/2020 12:00:00 AM EST act silvio Lancets - eCW1 ([facility]) Lancet Device - Lancet Device - 04/16/2020 12:00:00 AM EST active Lancet Device - eCW1 ([facility]) Lancets - Lancets - 04/16/2020 12:00:00 AM EST act silvio Lancets - eCW1 ([facility]) Lancets - Lancets - 04/16/2020 12:00:00 AM EST act silvio Lancets - eCW1 ([facility]) Lancet Device - Lancet Device - 04/16/2020 12:00:00 AM EST active Lancet Device - eCW1 ([facility]) BD Insulin Syringe Ultra-Fine/1ML/30G X 12.7mm 02/08/2020 12:00:00 AM EDT active MEDENT ([facility]) BD Pen Needle/Mini/Ultra-Fine/31G X 5mm 02/07/2020 12:00:00 AM E DT active [facility] ([facility]) Insurance Providers Payer name Policy type / Coverage type Policy ID Covered democrat ID Covered democrat's relationship to ritchie Policy Ritchie Plan Information EMEDNY [id number] SP [id number] [facility] [id number] SP [id number] MEDICARE COMPLETE [id number] SP [id number] MEDICARE [id number] SP [id number] [facility] [id number] SP [id number] MEDICAID [id number] SP [id number] ANSI-Medicare Part B [id number] ANSI-Not a Secondary Insurance [id number] ANSI-Medicaid [id number] ANSI-Not a Secondary Insurance [id number] ANSI-Medicare Part B [id number] ANSI-Medicaid [id number] ANSI-Medicaid [id number] ANSI-Medicare Part B [id number] ANSI-Not a Secondary Insurance [id number] ANSI-Medicaid [id number] ANSI-Medicare Part B [id number] ANSI-Not a Secondary Insurance [id number] ANSI-Medicare Part B [id number] ANSI-Medicaid [id number] ANSI-Not a Secondary Insurance [id number] Medicaid [place] Medig[place] Part B [id number] Self [id number] [facility] Medicare Dual Complete Commercial [id number] Self [id number] [facility] ([facility]) Medigap Part B [id number] Self [id number] [facility] Community Plan Medigap Part B [id number] Self [id number] ANSI-Not a Secondary Insurance [id number] ANSI-Medicare Part B [id number] ANSI-Medicaid [id number] ANSI-Medicaid [id number] ANSI-Medicare Part B [id number] ANSI-Not a Secondary Insurance [id number] [place] Part [place] [id number] Self [id number] [facility] Medicare Dual Complete Commercial [id number] Self [id number] [place]ig[place] Part [place] [id number] Self [id number] [facility] Medicare Dual Complete Commercial [id number] Self [id number] ANSI-Not a Secondary Insurance [id number] ANSI-Medicaid [id number] ANSI-Medicare Part B [id number] ANSI-Not a Secondary Insurance [id number] ANSI-Medicaid [id number] ANSI-Medicare Part B [id number] ANSI-Medicare Part B [id number] ANSI-Medicaid [id number] ANSI-Not a Secondary Insurance [id number] [facility] Self () Workers Compensation [id number] Self [id number] [facility] () Workers Compensation [id number] Self [id number] Medicaid [place] Medig[place] Part B [id number] Self [id number] [facility] Community Plan Commercial [id number] Self [id number] ANSI-Medicare Part B [id number] ANSI-Medicaid [id number] ANSI-Not a Secondary Insurance [id number] ANSI-Medicaid [id number] Medicaid [facility] Part B [id number] Self [id number] [facility] Medicare Dual Complete Commercial [id number] Self [id number] ANSI-Medicaid [id number] ANSI-Not a Secondary Insurance [id number] [facility] [id number] SP [id number] MEDICARE [id number] SP [id number] Medicaid [facility] Part B [id number] Self [id number] [facility] ([facility]) Commercial [id number] Self [id number] Blue Choice Commercial [id number] Self [id number] [place] Primary [id number] Self [id number] [place] Commercial [id number] Self [id number] [facility] Commercial [id number] Self [id number] Blue Choice Commercial [id number] Self [id number] [place] Primary [id number] Self [id number] [facility] Commercial [id number] Self [id number] [facility] [id number] Self [id number] [facility] Medicare Advantage Commercial [id number] Self [id number] Medicaid [facility] Part B [id number] Self [id number] [facility] Community Plan Commercial [id number] Self [id number] MEDICARE COMPLETE [id number] SP [id number] UNHC COMMUNITY PLAN MCDO [id number] SP [id number] MEDICARE COMPLETE [id number] SP [id number] MEDICARE [id number] SP [id number] A UNHC COMMUNITY PLAN MCDHMO [id number] SP [id number] [facility] [facility] O [id number] S [id number] [employer] [facility] [id number] SP [id number] [place] Primary Self Unitedhealthcarecommunity Commercial Self Blue Choice Commercial Self Unitedhealthcarecommunity Commercial Self MEDICARE [id number] SP [id number] A [facility] P [id number] S [id number] [facility] COMMUNITY [facility]AN [facility] [id number] SP [id number] HMO BLUE [id number] SP [id number] BLUE CROSS TRAMMELL PLAN [id number] SP [id number] [place] SELF INSURED [id number] SP [id number] BLUE CROSS TRAMMELL PLAN [id number] SP [id number] [employer] BCBS P [id number] S [id number] Problems, Conditions, and Diagnoses Code Display Name Description Problem Type Effective Dates Data Source(s) N18.30 [id number] Chronic kidney disease, stage 3 unspecifi ed Problem 04/23/2020 12:00:00 AM EST eCW1 ([facility]) E11.22 [id number] 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 Problem 04/23/2020 12:00:00 AM EST eCW1 ([facility]) Z00.00 [id number] Medicare annual wellness visit, subsequen t Problem 04/23/2020 12:00:00 AM EST eCW1 ([facility]) Surgeries/Procedures Procedure Description Date Indications Data Source(s) Diabetic Foot Exam 03/07/2020 12:00:00 AM EDT MEDENT ([facility] ) CHRON CARE MGMT SRVC 20 MIN 08/29/2019 12:00:00 AM EDT eCW1 ([facility]) Ccm add 20min 08/29/2019 12:00:00 AM EDT eCW1 ([facility]) Results ID Date Data Source [id number] 05/21/2020 11:09:00 PM EST [facility] Name Value Range Interpretation Code Description Data Faith rce(s) Supporting Document(s) Respiratory pathogens identified [Type] in Nasopharynx by Probe and target amplification method SARS-CoV-2 (COVID 19) [facility] [place] This lab was ordered by [facility] a nd reported by [facility]. ID Date Data Source [id number] 03/07/2020 02:27:00 PM EDT MEDENT ([facility]) Name Value Range Interpretation Code Description Data Faith rce(s) Supporting Document(s) Hemoglobin A1c/Hemoglobin.total in Blood 10.8 MEDENT ([facility]) Glucose [Mass/volume] in Serum or Plasma 278 MEDENT ([facility]) Procedure Social History Code Duration Value Status Description Data Source(s ) Smoking 04/23/2020 12:00:00 AM EST Never Smoker completed Never S moker eCW1 ([facility]) Smoking 04/23/2020 12:00:00 AM EST Never Smoker completed Never S moker eCW1 ([facility]) Smoking 01/01/2020 12:00:00 AM EDT Patient has never smoked co mpleted Patient has never smoked MEDENT ([facility]) Smoking 11/29/2019 12:00:00 AM EDT Never Smoker completed Never S moker eCW1 ([facility]) Smoking 11/29/2019 12:00:00 AM EDT Never Smoker completed Never S moker eCW1 ([facility]) Smoking 11/29/2019 12:00:00 AM EDT Never Smoker completed Never S moker eCW1 ([facility]) Smoking 11/29/2019 12:00:00 AM EDT Never Smoker completed Never S moker eCW1 ([facility]) Vital Signs ID Date Data Source UNK Name Value Range Interpretation Code Description Data Source(s) Diastolic blood pressure 72 mm[Hg] 72 mm[Hg] eCW1 ([facility]) Systolic blood pressure 128 mm[Hg] 128 mm[Hg] e CW1 ([facility]) Body temperature 97.7 [degF] 97.7 [degF] eCW1 ( [facility]) Respiratory rate 18 /min 18 /min eCW1 ([facility]) Heart rate 101 /min 101 /min eCW1 ([facility]) Body mass index (BMI) [Ratio] 37.13 kg/m2 37.13 kg/m2 W1 ([facility]) Body height 62 [in_i] 62 [in_i] eCW1 ([facility]) Body weight 203 [lb_av] 203 [lb_av] eCW1 ([facility]) Body mass index (BMI) [Ratio] 38.3 kg/m2 38.3 k g/m2 MEDENT ([facility] Heart rate 91 /min 91 /min MEDENT ([facility] Diastolic blood pressure 78 mm[Hg] 78 mm[Hg] MEDENT ([facility] Systolic blood pressure 124 mm[Hg] 124 mm[Hg] M EDENT ([facility] Body weight 196.00 [lb_av] 196.00 [lb_av] MEDEN T ([facility] Body height 60 [in_i] 60 [in_i] MEDENT ([facility] 5'0" Oxygen saturation in Arterial blood by Pulse oximetry 99 % 99 % MEDENT ([facility] ) Body mass index (BMI) [Ratio] 37.7 kg/m2 37.7 k g/m2 MEDENT ([facility] ) Body weight 196.31 [lb_av] 196.31 [lb_av] MEDEN T ([facility] ) Body height 60.5 [in_i] 60.5 [in_i] MEDENT ([facility] 5'0.50" Body temperature 97.3 [degF] 97.3 [degF] MEDENT ([facility] ) Heart rate 75 /min 75 /min MEDENT ([facility] ) Diastolic blood pressure 70 mm[Hg] 70 mm[Hg] MEDENT ([facility]) Systolic blood pressure 122 mm[Hg] 122 mm[Hg] M EDENT ([facility]) Body mass index (BMI) [Ratio] 38.5 kg/m2 38.5 k g/m2 MEDENT ([facility] ) Body weight 200.50 [lb_av] 200.50 [lb_av] MEDEN T ([facility] ) Body height 60.5 [in_i] 60.5 [in_i] MEDENT ([facility]) 5'0.50" Heart rate 76 /min 76 /min MEDENT ([facility]) Diastolic blood pressure 60 mm[Hg] 60 mm[Hg] MEDENT ([facility]) Systolic blood pressure 124 mm[Hg] 124 mm[Hg] M EDENT ([facility]) Patient Treatment Plan of Care Planned Activity Planned Date Details Description Data Source (s) Lancets - 04/16/2020 12:00:00 AM EST e CW1 ([facility]) Lancet Device - 04/16/2020 12:00:00 AM EST eCW1 ([facility])
[2020-07-09] MEDS ORDERED: HumuLIN R (REGULAR) INSULIN (NovoLIN R) **100U/ML** PER UNIT IV ONE (16:15)
[2020-07-09 16:23] LABS: BASO # 0.1 10^3/uL (0.0-0.2); BASO % 0.4 % (0.0-1.0); EOS % 0.2 % (0.0-3.0); HEMATOCRIT 36.3 % (36.0-47.0); HEMOGLOBIN 11.3 g/dl (12.0-15.5); LYMPH % 6.4 % (24.0-44.0); MEAN CORPUSCULAR HEMOGLOBIN 27.9 pg (27.0-33.0); MEAN CORPUSCULAR HGB CONC 31.1 g/dl (32.0-36.5); MEAN CORPUSCULAR VOLUME 89.6 fl (80.0-96.0); MONO # 1.2 10^3/uL (0.0-0.8); MONO % 7.5 % (2.0-8.0); NEUTROPHILS # 13.2 10^3/uL (1.5-8.5); NEUTROPHILS % 84.9 % (36.0-66.0); PLATELET COUNT, AUTOMATED 544 10^3/uL (150-450); RED BLOOD COUNT 4.05 10^6/uL (4.00-5.40); WHITE BLOOD COUNT 15.6 10^3/uL (4.0-10.0)
[2020-07-09] MEDS ORDERED: ISOVUE-370 76% 100ML VIAL As Ordered ONE (17:00)
[2020-07-09] MEDS ORDERED: NS 1,000 ML IV ONE (17:00)
[2020-07-09 17:05] LABS: C REACTIVE PROTEIN QUANTITATIV 26.3 MG/DL (0.00-0.30); MAGNESIUM LEVEL 2.2 MG/DL (1.8-2.4)
[2020-07-09 17:28] LABS: HEMOGLOBIN A1c 12.8 %
[2020-07-09] MEDS ORDERED: NORCO, ANEXSIA 5/325MG TABLET (HYDROcodone/ACETAMINOPHEN) PO ONE (18:00)
[2020-07-09] MEDS ORDERED: ACETAMINOPHEN 325 MG TAB PO ONE (18:30)
--- NOTE | 2020-07-09 18:53 | REPVR ---
PROCEDURE INFORMATION: Exam: CT Right Lower Extremity Without Contrast, Foot Exam date and time: 07/09/2020 5:21 PM Age: 70 years old Clinical indication: Pain; Foot; Right; Additional info: Right foot trauma TECHNIQUE: Imaging protocol: CT of the Right lower extremity without contrast was performed. Exam focused on the foot. Radiation optimization: All CT scans at this facility use at least one of these dose optimization techniques: automated exposure control; mA and/or kV adjustment per patient size (includes targeted exams where dose is matched to clinical indication); or iterative reconstruction. COMPARISON: No relevant prior studies available. FINDINGS: Bones/joints: There is a probable subtle acute small nondisplaced cortical fracture through the medial aspect of the posterior malleolus. Mild osteophytes at the tibiotalar joint and spur formation at the medial and lateral malleoli as well as at the syndesmosis anteriorly. There are multiple corticated ossicles distal to the medial malleolus from remote trauma. Small subcortical cysts in the posterolateral and anteromedial talar dome and in the distal aspect of the lateral malleolus. Additional subcortical ganglion cysts in the cuneiform so particularly the proximal medial aspect of the medial cuneiform. Small cysts at the 3rd through 5th metatarsal bases. Mild narrowing where the lateral malleolus abuts the talus near the dome. Small sclerotic lesions in the talus and lateral malleolus, likely bone islands. Mild degenerative change at the 1st metatarsophalangeal joint. No dislocation. There is a small nondisplaced incomplete fracture line through the dorsal aspect of the 5th metatarsal proximally, likely an incomplete stress fracture with minimal periosteal reaction as on series 2033, image 23. There are either small subcortical cysts or small chronic erosions in the medial aspect of the 1st metatarsal head. Soft tissues: There is either bandage material or a large blister at the medial plantar aspect of the great toe, more pronounced in the plantar aspect, measuring up to 4.5 cm medial-lateral by 0.8 cm dorsal to plantar by 4.2 cm proximal to distal. This has Hounsfield units of 10, and slightly increased density raises the possibility of infected material, blood products, proteinaceous content, or potentially callus formation. Immediately deep to this the near what used to be the skin surface before being covered by a presumed blister is a slightly bent linear metallic structure which is most likely a broken off needle, typical in appearance of an insulin needle. This is between the bases of the 1st and 2nd toes as on series 2031 images 55 through 57. There is surrounding enhancing cellulitis through the plantar aspect of the forefoot and bases of the toes. [place] edema and/or cellulitis at the dorsum of the foot and throughout the remainder of the toes. No soft tissue air. Vasculature: Atherosclerotic vascular calcifications seen in the posterior tibial artery. And in small vessels of the foot. IMPRESSION: 1. Probable large blister at the plantar and slightly medial aspects of the great toe, with likely broken off needle (most likely an insulin needle) near the underlying skin surface. This suspected blister could be infected or hemorrhagic, with infected blister favored, and underlying cellulitis. 2. Soft tissue edema throughout the foot, suspected to be cellulitis at the plantar aspect of the 1st and 2nd toes and bases of the toes. Other areas could be bland edema and/or cellulitis. No soft tissue air. 3. Questionable small nondisplaced cortical fracture through the medial aspect of the posterior malleolus, and evidence of old trauma at the ankle. 4. Findings suggestive of a small nondisplaced incomplete stress fracture through the cortex at the dorsal aspect of the proximal 5th metatarsal. Subtle lucency is seen through the cortex with small amount of adjacent periosteal reaction. Suggest correlation for focal pain and tenderness. Electronically signed by: Honey Stubbs On 07/09/2020 18:53:28 PM
--- NOTE | 2020-07-09 19:29 | HPEPDOC ---
[facility] Medical History & Physical Date of Admission Jul 09, 2020 Date of Service: Jul 09, 2020 Primary Care Physician: Noel Ochoa MD Attending Physician: ARNAUD RENO MD History and Physical TIME OF SERVICE: 830PM CHIEF COMPLAINT: pain HISTORY OF PRESENT ILLNESS: This 70 ry old F hit her right toe on a dresser about 2 days ago; thereafter the toe became painful and swollen; today she pain was excruciating therefore she came to the hospital. She was told that imaging studies showed that she had stepped on a needle which she presumes is one of the needles from her insulin syringe, but she doesnt recall stepping on int. She denies having fevers, chills nausea or vomiting but has had persistent dyspnea since being diagnosed with COVID-19 in May. REVIEW OF SYSTEMS: 12-point review of systems negative except as listed in HPI PAST MEDICAL/ SURGICAL HISTORY: IDDM with microalbuminuria neuropathy DLP Essential HTN Chronic anemia (declined c-scope) Hx of vitamin D deficiency Class 2 Obesity Right ankle surgery after compound fx Tonsillectomy Adenoidectomy SOCIAL HISTORY: She doesnt smoke FAMILY HISTORY: Lymphoma, Bladder CA, DM2, Vaginal CA ALLERGIES: Please see below. HOME MEDICATIONS: Please see below. PHYSICAL EXAMINATION: VITAL SIGNS: Please see below. GENERAL APPEARANCE: well nourished / doesnt appear toxic HEENT: EOMI CARDIOVASCULAR: RRR/NMRG LUNGS: CTAB on RA/ no coughing ABDOMEN: obese /soft & NT w palpation MUSCULOSKELETAL: NCAT / DONNIE x 4 extremities / right hallux and distal part of right foot swollen INTEGUMENT: the skin on the plantar aspect of the right hallux is blue/purple in color / there appears to be a hematoma at the plantar aspect of the right hallux NEUROLOGICAL:CN 2-12 grossly intact /speech not dysarthric PSYCHIATRIC: A&Ox 3 / able to understand and follow all commands LABORATORY DATA: 07/09/20 16:04 Immature Granulocyte % (Auto) 0.6, Neutrophils (%) (Auto) 84.9H, Lymphocytes (%) (Auto) 6.4L, Monocytes (%) (Auto) 7.5, Eosinophils (%) (Auto) 0.2, Basophils (%) (Auto) 0.4, Neutrophils # (Auto) 13.2H, Lymphocytes # (Auto) 1.0L, Monocytes # (Auto) 1.2H, Eosinophils # (Auto) 0.0, Basophils # (Auto) 0.1, Nucleated Red Blood Cells % (auto) 0.0, Estimated Mean Plasma Glucose 321H, Hemoglobin A1c 12.8, Magnesium Level 2.2, C-Reactive Protein, Quantitative 26.30H 07/09/20 16:05: POC Glucose (Misc Panel) 562*H, POC Sodium (Misc Panel) 132L, POC Potassium (Misc Panel) 4.5, POC Chloride (Misc Panel) 99, POC Total CO2 (Misc Panel) 23.0, POC Blood Urea Nitrogen (Misc Panel 21, POC Ionized Calcium (Misc Panel) 4.2L, POC Creatinine (Misc Panel) 1.0, POC Hematocrit (Misc Panel) 36.0L 07/09/20 18:21: Bedside Glucose (Misc Panel) 443H IMAGING: CT foot IMPRESSION: 1. Probable large blister at the plantar and slightly medial aspects of the great toe, with likely broken off needle (most likely an insulin needle) near the underlying skin surface. This suspected blister could be infected or hemorrhagic, with infected blister favored, and underlying cellulitis.2. Soft tissue edema throughout the foot, suspected to be cellulitis at the plantar aspect of the 1st and 2nd toes and bases of the toes. Other areas could be bland edema and/or cellulitis. No soft tissue air.3. Questionable small nondis placed cortical fracture through the medial aspect of the posterior malleolus, and evidence of old trauma at the ankle. 4. Findings suggestive of a small nondisplaced incomplete stress fracture through the cortex at the dorsal aspect of the proximal 5th metatarsal. Subtle lucency is seen through the cortex with small amount of adjacent periosteal reaction. Suggest correlation for focal pain and tenderness MICROBIOLOGY: COVID 19 neg / blood cx pending.. ASSESSMENT: is a 70 yr old F w IDDM w neuropathy, HTN, Chronic anemia, & Obesity who sustained trauma to her right foot and will be admitted for management of sepsis, infected right hallux hematoma 2/2 stepping on an insulin needle & right fore-foot cellulitis. PLAN: 1 Sepsis 2/2 Infected right hallux hematoma 2/2 stepping on an insulin needle SIRS criteria include RR of 22, HR of 110 and WBC # of 15.6 qSOFA Score = 1 = not high risk Lactic acid <2 Plan: admit to medical floor / telemetry / will keep her on bed rest with fall precautions/ Zosyn and vancomycin / will hold of IVF bc her BP is high /f/u blood cx, / Acetaminophen PRN for fever / target MAP at of least 65 to 70 / f/u Is and Os with target UOP of at least 0.5 ml/kg/H / f/u FSBS Q6H w target serum glucose 140-180 while acutely ill / NPO after midnight and consult for surgery to remove needle 2 Right 1st and 2nd toe cellulitis Plan: abx as above / [place] PRN for pain 3 Stress fracture of the right proximal 5th metatarsal Plan: pending eval by the day time team may consider Ortho consult if indicated / [place] PRN for pain 4 Possible nondisplaced cortical fracture of the posterior malleolus Plan: pending eval by the day time team may consider Ortho consult if indicated / [place] PRN for pain 5 Chronic Normocytic anemia Likely 2/2 AVRIL Plan: f/u Iron studies and stool occult 6 Reactive Thrombocytosis Likely 2/2 AVRIL Plan: see above 7 Uncontrolled IDDM with microalbuminuria & neuropathy The neuropathy likely contributed to her lack of awareness that she stepped on a needle. The only symptom she had related to hyperglycemia is increased thirst. Plan: diabetic diet tonight then NPO after midnight/ f/u accuchecks / hypoglycemia protocol / sliding scale insulin / decrease long acting insulin from 90 units BID to 45 units BID while she is NPO / f/u A1C (target A1C is <7 to 6.5%) / she can f/u with to discuss switching from basal bolus injection to continuous subcutaneous insulin infusion which has been shown to produced small improvements in A1C, improve QOL and reduce episodes of severe hypoglycemia 8 Uncontrolled Essential HTN Plan: resume ACEI 9 DLP Plan: resume statin 10 Class 2 Obesity Complicates care Since the patients BMI > 40 she is a candidate for bariatric surgery Plan: she can f/u w his or her PCP for sleep apnea screening, program project analyst consult, to discuss staring Saxenda, which is indicated in patients with a BMI >27 with co-existing DM, HTN or dyslipidemia to help with weight control as an adjunct to exercise & referral to a Bariatric Surgeon / recommend cardiovascular exercise for 40 min 4-5 days a week DVT px w SCDs Dispo: home after at least 2 midnights stay Home Medications Scheduled Insulin Detemir (Levemir) 100 Unit/1 Ml Vial, 90 UNITS SC BID Insulin Human Lispro (Humalog) 1 Units/0.01 Ml Inj, 1 DOSE SC AC PER SLIDING SCALE Ramipril (Ramipril) 5 Mg Cap, 5 MG PO DAILY Simvastatin (Simvastatin) 40 Mg Tab, 40 MG PO DAILY Scheduled PRN Acetaminophen (Acetaminophen) 500 Mg Tablet, 1,000 MG PO Q6H PRN for PAIN Allergies Coded Allergies: No Known Allergies (Verified , 01/18/03) A-FIB/CHADSVASC A-FIB History Current/History of A-Fib/PAF?: No Current PO Anticoag Therapy: No ARNAUD RENO MD Jul 09, 2020 19:29
[2020-07-09] MEDS ORDERED: MAALOX 30 ML SUSP *UDC PO PRN (19:30)
[2020-07-09] MEDS ORDERED: GLUCAGON INJ 1MG VIAL SC PRN (19:30)
[2020-07-09] MEDS ORDERED: MOM 30ML SUSPENSION UDC PO PRN (19:30)
[2020-07-09] MEDS ORDERED: GLUCOSE 4GM CHEW TABLET PO PRN (19:30)
[2020-07-09] MEDS ORDERED: ramipriL 5 MG CAP PO ONE (20:00)
--- OUTSIDE RECORDS SUMMARY | 2020-07-09 20:23 | CCD ---
Author Author [facility] Organization [facility] Address Unknown Phone Unavailable Care Team Providers Care Manager Country Name Role Phone Hemant BRODY DPM Unavailable [...] is protected by Article 27-F of the [facility] Public Health law. If you continue you may have access to information: Regarding HIV / AIDS; Provided by facilities licensed or operated by the [facility] Office of Mental Health; or Provided by the [facility] Office for People With Developmental Disabilities. If such information is present, then the following [facility] mandated warning applies: This information has been [...] law may result in a fine or fpc sentence or both. A general authorization for the release of medical or other information is NOT sufficient authorization for further disc losure. Family History Family Member Name Family Member Gender Family Member Status Date o f Status Description Data Source(s) Unknown Male Problem MEDENT ([facility]) Unknown Male Problem MEDENT ([facility]) Unknown Unknown Problem MEDENT ([facility]) Unknown Unknown Problem MEDENT ([facility]) Unknown Unknown Problem MEDENT ([facility]) Encounters Encounter Providers Location Date Indications Data Source(s ) Office Visit, Est Pt., Level 4 PC [address] [place] [address] 04/23/2020 12:00:00 AM EST eCW1 ([facility]) [place] [address] [facility] [address] 04/19/2020 12:00:00 AM EST eCW1 ([facility]) Outpatient Attender: LIANA BRODY [facility] Office 07/2019 01:45:00 PM EST MEDENT ([facility] Unknown [address] [facility] [address] 04/15/2020 12:00:00 AM EST eCW1 ([facility]) Unknown [address] [facility] [address] 03/12/2020 12:00:00 AM EDT eCW1 ([facility]) Outpatient [address] [facility] [address] 03/11/2020 12:00:00 AM EDT eCW1 ([facility]) Outpatient Attender: Chelsea Paz MD Physical Therapy 03/07 02:15:00 PM EDT MEDENT ([facility]) Outpatient Attender: Chelsea Paz MD Physical Therapy 12/31 11:30:00 AM EDT MEDENT ([facility]) TeleMedicine Est. Pt. Level [address] [place] [address] 11/29/2019 12:00:00 AM EDT eCW1 ([facility]) [facility] Latanya [address] [facility] [place] [address] 10/19/2019 12:00:00 AM EDT eCW1 ([facility]) [facility] Ramone [address] [facility] [address] 10/10/2019 12:00:00 AM EDT eCW1 ([facility]) [facility] Latanya [address] [facility] [address] 08/29/2019 12:00:00 AM EDT eCW1 ([facility]) [facility] [address] [facility] [address] 08/29/2019 12:00:00 AM EDT eCW1 ([facility]) [facility] Latanya [address] [facility] [address] 06/07/2019 12:00:00 AM EST eCW1 ([facility]) Medications Medication Brand Name Start Date Product Form Dose Route Admi nistrative Instructions Pharmacy Instructions Status Indications Reaction Description Data Source(s) Lancet Device - Lancet Device - 04/16/2020 12:00:00 AM EST active Lancet Device - eCW1 ([facility]) Lancets - Lancets - 04/16/2020 12:00:00 AM EST act sivlio Lancets - eCW1 ([facility]) Lancet Device - Lancet Device - 04/16/2020 12:00:00 AM EST active Lancet Device - eCW1 ([facility]) Lancets - Lancets - 04/16/2020 12:00:00 AM EST act silvio Lancets - eCW1 ([facility]) Lancets - Lancets - 04/16/2020 12:00:00 AM EST act silvio Lancets - eCW1 ([facility]) Lancet Device - Lancet Device - 04/16/2020 12:00:00 AM EST active Lancet Device - eCW1 ([facility]) BD Insulin Syringe Ultra-Fine/1ML/30G X 12.7mm 02/08/2020 12:00:00 AM EDT active MEDENT ([facility]) BD Pen Needle/Mini/Ultra-Fine/31G X 5mm 02/07/2020 12:00:00 AM E DT active MEDENT ([facility]) Insurance Providers Payer name Policy type / Coverage type Policy ID Covered republican ID Covered republican's relationship to ritchie Policy Ritchie Plan Information EMEDNY [id number] SP [id number] [facility] [id number] SP [id number] MEDICARE COMPLETE [id number] SP [id number] MEDICARE [id number] SP [id number] [facility] [id number] SP [id number] MEDICAID [id number] SP [id number] ANSI-Medicare Part B [id number] ANSI-Not a Secondary Insurance [id number] ANSI-Medicaid [id number] ANSI-Not a Secondary Insurance [id number] ANSI-Medicare Part B [id number] ANSI-Medicaid [id number] ANSI-Medicaid [id number] ANSI-Medicare Part B [id number] ANSI-Not a Secondary Insurance [id number] ANSI-Medicaid [id number] ANSI-Medicare Part B [id number] ANSI-Not a Secondary Insurance [id number] ANSI-Medicare Part B [id number] ANSI-Medicaid [id number] ANSI-Not a Secondary Insurance [id number] Medicaid [place] Medig[place] Part B [id number] Self [id number] [facility] Medicare Dual Complete Commercial [id number] Self [id number] [facility] ([facility]) Medigap Part B [id number] Self [id number] [facility] Community Plan Medigap Part B [id number] Self [id number] ANSI-Not a Secondary Insurance [id number] ANSI-Medicare Part B [id number] ANSI-Medicaid [id number] ANSI-Medicaid [id number] ANSI-Medicare Part B [id number] ANSI-Not a Secondary Insurance [id number] [place] Part [place] [id number] Self [id number] [facility] Medicare Dual Complete Commercial [id number] Self [id number] [place] Part [place] [id number] Self [id number] [facility] Medicare Dual Complete Commercial [id number] Self [id number] ANSI-Not a Secondary Insurance [id number] ANSI-Medicaid [id number] ANSI-Medicare Part B [id number] ANSI-Not a Secondary Insurance [id number] ANSI-Medicaid [id number] ANSI-Medicare Part B [id number] ANSI-Medicare Part B [id number] ANSI-Medicaid [id number] ANSI-Not a Secondary Insurance [id number] [facility] Self () Workers Compensation [id number] Self [id number] [facility] () Workers Compensation [id number] Self [id number] Medicaid [place] Medig[place] Part B [id number] Self [id number] [facility] Community Plan Commercial [id number] Self [id number] ANSI-Medicare Part B [id number] ANSI-Medicaid [id number] ANSI-Not a Secondary Insurance [id number] ANSI-Medicaid [id number] Medicaid [employer] Part B [id number] Self [id number] [facility] Medicare Dual Complete Commercial [id number] Self [id number] ANSI-Medicaid [id number] ANSI-Not a Secondary Insurance [id number] [facility] [id number] SP [id number] MEDICARE [id number] SP [id number] Medicaid [employer] Part B [id number] Self [id number] [place] ([facility]) Commercial [id number] Self [id number] Blue Choice Commercial [id number] Self [id number] [place] [id number] Self [id number] [place] [facility] Commercial [id number] Self [id number] [employer] Commercial [id number] Self [id number] Blue Choice Commercial [id number] Self [id number] [place] Primary [id number] Self [id number] [employer] Commercial [id number] Self [id number] Medicaid [facility] Part [facility] [id number] Self [id number] [facility] Medicare Advantage Commercial [id number] Self [id number] Medicaid [employer] Part B [id number] Self [id number] [facility] Community Plan Commercial [id number] Self [id number] MEDICARE COMPLETE [id number] SP [id number] UNHC COMMUNITY PLAN MCDO [id number] SP [id number] MEDICARE COMPLETE [id number] SP [id number] MEDICARE [id number] SP [id number] A UNHC COMMUNITY PLAN MCDHMO [id number] SP [id number] [place] [employer] O [id number] S [id number] [employer] [facility] [id number] SP [id number] [place] Primary Self Unitedhealthcarecommunity Commercial Self Blue Choice Commercial Self Unitedhealthcarecommunity Commercial Self MEDICARE [id number] SP [id number] A [facility] P [id number] S [id number] [facility] COMMUNITY PLAN [facility] [id number] SP [id number] HMO BLUE [id number] SP [id number] BLUE CROSS TRAMME[employer] PLAN [id number] SP [id number] [place] SELF INSURED [id number] SP [id number] BLUE CROSS TRAMMELL PLAN [id number] SP [id number] [employer] BCBS P [id number] S [id number] Problems, Conditions, and Diagnoses Code Display Name Description Problem Type Effective Dates Data Source(s) N18.30 [id number] Chronic kidney disease, stage 3 unspecifi ed Problem 04/23/2020 12:00:00 AM EST eCW1 ([facility]) E11.22 [id number] 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 Problem 04/23/2020 12:00:00 AM EST eCW1 ([facility]) Z00.00 [id number] Medicare annual wellness visit, subsequen t Problem 04/23/2020 12:00:00 AM EST eCW1 ([facility]) Surgeries/Procedures Procedure Description Date Indications Data Source(s) Diabetic Foot Exam 03/07/2020 12:00:00 AM EDT MEDENT ([facility] CHRON CARE MGMT SRVC 20 MIN 08/29/2019 12:00:00 AM EDT eCW1 ([facility]) Ccm add 20min 08/29/2019 12:00:00 AM EDT eCW1 ([facility]) Results ID Date Data Source [id number] 05/21/2020 11:09:00 PM EST [facility] Name Value Range Interpretation Code Description Data Faith rce(s) Supporting Document(s) Respiratory pathogens identified [Type] in Nasopharynx by Probe and target amplification method SARS-CoV-2 (COVID 19) [facility] [place] This lab was ordered by [facility] a nd reported by [facility]. ID Date Data Source [id number] 03/07/2020 02:27:00 PM EDT MEDENT ([facility]) Name Value Range Interpretation Code Description Data Faith rce(s) Supporting Document(s) Hemoglobin A1c/Hemoglobin.total in Blood 10.8 MEDENT ([facility]) Glucose [Mass/volume] in Serum or Plasma 278 MEDENT ([facility]) Procedure Social History Code Duration Value Status Description Data Source(s ) Smoking 04/23/2020 12:00:00 AM EST Never Smoker completed Never S moker eCW1 ([facility]) Smoking 04/23/2020 12:00:00 AM EST Never Smoker completed Never S moker eCW1 ([facility]) Smoking 01/01/2020 12:00:00 AM EDT Patient has never smoked co mpleted Patient has never smoked MEDENT ([facility]) Smoking 11/29/2019 12:00:00 AM EDT Never Smoker completed Never S moker eCW1 ([facility]) Smoking 11/29/2019 12:00:00 AM EDT Never Smoker completed Never S moker eCW1 ([facility]) Smoking 11/29/2019 12:00:00 AM EDT Never Smoker completed Never S moker eCW1 ([facility]) Smoking 11/29/2019 12:00:00 AM EDT Never Smoker completed Never S moker eCW1 ([facility]) Vital Signs ID Date Data Source UNK Name Value Range Interpretation Code Description Data Source(s) Diastolic blood pressure 72 mm[Hg] 72 mm[Hg] eCW1 ([facility]) Systolic blood pressure 128 mm[Hg] 128 mm[Hg] e CW1 ([facility]) Body temperature 97.7 [degF] 97.7 [degF] eCW1 ( [facility]) Respiratory rate 18 /min 18 /min eCW1 ([facility]) Heart rate 101 /min 101 /min eCW1 ([facility]) Body mass index (BMI) [Ratio] 37.13 kg/m2 37.13 kg/m2 W1 ([facility]) Body height 62 [in_i] 62 [in_i] eCW1 ([facility]) Body weight 203 [lb_av] 203 [lb_av] eCW1 ([facility]) Body mass index (BMI) [Ratio] 38.3 kg/m2 [...] Pulse oximetry 99 % 99 % MEDENT ([facility] ) Body mass index (BMI) [Ratio] 37.7 kg/m2 37.7 k g/m2 MEDENT ([facility] ) Body weight 196.31 [lb_av] 196.31 [lb_av] MEDEN T ([facility] ) Body height 60.5 [in_i] 60.5 [in_i] MEDENT ([facility] 5'0.50" Body temperature 97.3 [degF] 97.3 [degF] MEDENT ([facility] ) Heart rate 75 /min 75 /min MEDENT ([facility] ) Diastolic blood pressure 70 mm[Hg] 70 mm[Hg] MEDENT ([facility]) Systolic blood pressure 122 mm[Hg] 122 mm[Hg] M EDENT ([facility]) Body mass index (BMI) [Ratio] 38.5 kg/m2 38.5 k g/m2 MEDENT ([facility] ) Body weight 200.50 [lb_av] 200.50 [lb_av] MEDEN T ([facility] ) Body height 60.5 [in_i] 60.5 [in_i] MEDENT ([facility]) 5'0.50" Heart rate 76 /min 76 /min MEDENT ([facility]) Diastolic blood pressure 60 mm[Hg] 60 mm[Hg] MEDENT ([facility]) Systolic blood pressure 124 mm[Hg] 124 mm[Hg] M EDENT ([facility]) Patient Treatment Plan of Care Planned Activity Planned Date Details Description Data Source (s) Lancets - 04/16/2020 12:00:00 AM EST e CW1 ([facility]) Lancet Device - 04/16/2020 12:00:00 AM EST eCW1 ([facility])
[2020-07-09] MEDS: PIPERACILLIN/TAZOBACTAM SOD 4.5 GM in D5W MINI-BAG PLUS 50 ML IV SCH (21:15)
[2020-07-09 21:19] LABS: RSV AMPLIFICATION NEGATIVE (NEGATIVE)
[2020-07-09 21:21] LABS: PERCENT SATURATION 9.9 % (13.2-45.0)
[2020-07-09 21:30] LABS: FOLATE 9.8 NG/ML (>5.4)
[2020-07-09] MEDS ORDERED: VANCOMYCIN HCL 1,000 MG, VIAL MATE ADAPTER 1 EACH in D5W 250 ML IV ONE (22:00)
[2020-07-09 22:45] VITALS: BP 119/63
[2020-07-09] MEDS: VANCOMYCIN HCL 1,000 MG, VIAL MATE ADAPTER 1 EACH in D5W 250 ML IV SCH (23:25)
[2020-07-10] VITALS (8 sets, daily range): BP systolic 121–155; BP diastolic 54–68
[2020-07-10] MEDS: HumaLOG INSULIN (NovoLOG) PER UNIT SC SCH ×5 (00:33→21:00)
[2020-07-10] MEDS: NORCO, ANEXSIA 5/325MG TABLET (HYDROcodone/ACETAMINOPHEN) PO PRN (02:29)
[2020-07-10] MEDS: PIPERACILLIN/TAZOBACTAM SOD 4.5 GM in D5W MINI-BAG PLUS 50 ML IV SCH ×4 (02:30→21:12)
[2020-07-10] MEDS: NS 1,000 ML IV SCH ×3 (02:31→21:12)
[2020-07-10 06:26] LABS: CALCIUM LEVEL 7.9 MG/DL (8.8-10.2); CREATININE FOR GFR 1.28 MG/DL (0.55-1.30); GLOMERULAR FILTRATION RATE 43.9 (>39); POTASSIUM SERUM 3.8 MEQ/L (3.5-5.1)
[2020-07-10 06:37] LABS: HEMATOCRIT 35.2 % (36.0-47.0); HEMOGLOBIN 10.8 g/dl (12.0-15.5); MEAN CORPUSCULAR HEMOGLOBIN 28.1 pg (27.0-33.0); MEAN CORPUSCULAR HGB CONC 30.7 g/dl (32.0-36.5); MEAN CORPUSCULAR VOLUME 91.7 fl (80.0-96.0); RED BLOOD COUNT 3.84 10^6/uL (4.00-5.40); WHITE BLOOD COUNT 12.6 10^3/uL (4.0-10.0)
[2020-07-10 06:38] LABS: PLATELET COUNT, AUTOMATED 437 10^3/uL (150-450)
[2020-07-10 07:03] LABS: HEMOGLOBIN A1c 12.6 %
--- NOTE | 2020-07-10 07:39 | IPNPDOC ---
Text Note Date of Service The patient was seen on 07/10/20. NOTE Subjective: Patient was seen and examined this morning at bedside. Patient continues to have foot and her right big toe and bottom of her foot. She says she stubbed her foot on the dresser and she wasn't aware that there might be a needle lodged in her foot. She denies any fevers or chills other than her leg pain she is otherwise feeling well. There is no acute overnight events reported to me. She denies chest pain or shortness of breath. Objective: Constitutional: Awake and alert, in no apparent distress ENT: Sclera are clear. Respiratory: Lungs CTA bilaterally. No respiratory distress. Cardiovascular: RRR S1 and S2 are normal, no murmur Gastrointestinal: Abdomen is soft, non distended, non tender, BS present. Musculoskeletal: Lower extremity pitting edema. Neurologic: No focal neurological deficit. Mental Status: A&O x3, normal affect Skin: Her right hallux blue/color looks like hematoma on the plantar aspect as well as some surrounding erythema and localized swelling she has reduced sensation over the right hallux but not in her other toes. Assessment/plan: is a 70 yr old F w IDDM w neuropathy, HTN, Chronic anemia, & Obesity who sustained trauma to her right foot and will be admitted for management of sepsis, infected right hallux hematoma 2/2 stepping on an insulin needle & right foot cellulitis. # Sepsis 2/2 Infected right hallux hematoma 2/2 stepping on an insulin needle. met SIRS. Vanc and Zosyn for now. BCx pending. Eval by Dr Cavazos today, may go to OR to remove foreign body. # Right 1st and 2nd toe cellulitis: abx as above # Stress fracture of the right proximal 5th metatarsal and Possible nondisplaced cortical fracture of the posterior malleolus eval by . May need OP ortho Fu. # Chronic Normocytic anemia, Likely 2/2 AVRIL f/u Iron studies and with PCP # Reactive Thrombocytosis Likely 2/2 AVRIL # DM: ISS. Frequent Accu-Cheks. Hypoglycemic precautions. Levemir BID. # Hypertension: Continue home meds. Monitor and titrate # HLD: statin. # Class 2 Obesity: BMI 37.5. Complicates care. Fu PCP. DVT px w SCDs A Yousef Hospitalist VS,[place], I+O Gabriel LARA I+O Laboratory Tests 07/09/20 16:04 07/10/20 05:35 Vital Signs Date Time Temp Pulse Resp B/P (MAP) Pulse Ox O2 Delivery O2 Flow Rate FiO2 07/10/20 07:19 98.4 91 18 121/54 (76) 95 Room Air I&O- Last 24 Hours up to 6 AM 07/10/20 06:00 Intake Total 1590 ml Output Total 0 ml Balance 1590 ml YANNA BARDALES MD Jul 10, 2020 07:39
[2020-07-10] MEDS: LEVEMIR (INSULIN DETEMIR) 1 UNITS/0.01ML SC SCH ×2 (08:42→21:00)
[2020-07-10] MEDS: SIMVASTATIN 40 MG TAB PO SCH (08:43)
[2020-07-10] MEDS ORDERED: ramipriL 5 MG CAP PO SCH (09:00)
--- NOTE | 2020-07-10 12:01 | CR ---
CONSULTATION DATE: 07/10/2020 REASON FOR CONSULTATION: Right foot infection. HISTORY OF PRESENT ILLNESS: Ms. Coleman is a pleasant 70-year-old female who was admitted to hospital with a right foot infection. She believes she hit her toe two days ago. It became red and swollen, very painful. Imaging studies were done which show foreign body consistent with insulin needle. PAST MEDICAL HISTORY: Significant for: 1. Diabetes with neuropathy. 2. Hypertension. 3. Hyperlipidemia. 4. Vitamin D deficiency. 5. Obesity. SURGICAL HISTORY: 1. Tonsillectomy. 2. Adenoidectomy. 3. Right ankle surgery. SOCIAL HISTORY: Negative for smoking. ALLERGIES: No known drug allergies. REVIEW OF SYSTEMS: Positive for fevers and chills. VITAL SIGNS: Maximum temperature (T-max) 99.5. LABORATORY DATA: Labs are reviewed. White count on admission 15.6, today 12.6, hemoglobin 10.6 IMAGING DATA: CT imaging studied. There is a metallic foreign body at the base of the right hallux. PHYSICAL EXAMINATION: LOWER EXTREMITY EXAMINATION: Pedal pulses are palpable. There is erythema and edema with a purulent fluid just at the right hallux with an entry point ulceration. ASSESSMENT: Diabetic female with puncture wound, cellulitis, abscess. PLAN: Blister was drained and the entry site was inspected, but foreign body was unable to be identified. Culture swabs were taken. Will bring her to the operating room for incision and drainage and removal of foreign body.
[2020-07-10] MEDS: VANCOMYCIN HCL 1,000 MG, VIAL MATE ADAPTER 1 EACH in D5W 250 ML IV SCH (16:18)
[2020-07-10] MEDS ORDERED: LIDOCAINE 1% MDV 20ML VIAL As Ordered ONE (16:48)
[2020-07-10] MEDS ORDERED: BUPIVACAINE HCL 0.5% 10ML VIAL As Ordered ONE (16:49)
[2020-07-10] MEDS: DEXTROSE 50% 50 ML SYRINGE IV PRN (18:29)
[2020-07-10] MEDS ORDERED: LIDOCAINE 2% 100MG/5ML SDV (FOR ANES.) As Ordered ONE (18:38)
[2020-07-10] MEDS ORDERED: ONDANSETRON 4MG/2ML VIAL As Ordered ONE (18:38)
[2020-07-10] MEDS ORDERED: fentaNYL 100 MCG/2 ML INJECTION (J3010) As Ordered ONE (18:39)
[2020-07-10] MEDS ORDERED: MIDAZOLAM INJ 2MG/2ML VIAL (J2250 PER 1MG) As Ordered ONE (18:39)
[2020-07-10] MEDS ORDERED: propofoL 500 MG/50 ML VIAL As Ordered ONE (18:39)
[2020-07-10] MEDS ORDERED: ONDANSETRON 4MG/2ML VIAL IV PRN (20:25)
[2020-07-10] MEDS ORDERED: fentaNYL 100 MCG/2 ML INJECTION (J3010) IV PRN (20:25)
[2020-07-10] MEDS ORDERED: LR 1,000 ML IV SCH (20:25)
[2020-07-10] MEDS ORDERED: METOCLOPRAMIDE INJ 10MG/2ML VIAL (J2765 PER 1) IV PRN (20:25)
[2020-07-10] MEDS ORDERED: PERCOCET 5MG/325MG TAB PO PRN (20:25)
[2020-07-10] MEDS: ACETAMINOPHEN TAB 650MG DOSE (2X325MG) PO PRN (23:02)
[2020-07-11] VITALS (7 sets, daily range): BP systolic 124–178; BP diastolic 60–88
[2020-07-11] MEDS: NORCO, ANEXSIA 5/325MG TABLET (HYDROcodone/ACETAMINOPHEN) PO PRN ×3 (00:15→18:26)
[2020-07-11] MEDS: PIPERACILLIN/TAZOBACTAM SOD 4.5 GM in D5W MINI-BAG PLUS 50 ML IV SCH ×4 (02:58→20:36)
[2020-07-11] MEDS: ACETAMINOPHEN TAB 650MG DOSE (2X325MG) PO PRN ×2 (04:15→10:47)
[2020-07-11 06:14] LABS: CALCIUM LEVEL 8.2 MG/DL (8.8-10.2); CREATININE FOR GFR 1.4 MG/DL (0.55-1.30); GLOMERULAR FILTRATION RATE 39.6 (>39)
[2020-07-11 07:35] LABS: HEMATOCRIT 32.4 % (36.0-47.0); HEMOGLOBIN 9.9 g/dl (12.0-15.5); MEAN CORPUSCULAR HEMOGLOBIN 27.2 pg (27.0-33.0); MEAN CORPUSCULAR HGB CONC 30.6 g/dl (32.0-36.5); PLATELET COUNT, AUTOMATED 498 10^3/uL (150-450); RED BLOOD COUNT 3.64 10^6/uL (4.00-5.40); WHITE BLOOD COUNT 17.9 10^3/uL (4.0-10.0)
[2020-07-11] MEDS: SIMVASTATIN 40 MG TAB PO SCH (08:17)
[2020-07-11] MEDS: LEVEMIR (INSULIN DETEMIR) 1 UNITS/0.01ML SC SCH ×2 (08:18→20:36)
[2020-07-11] MEDS: HumaLOG INSULIN (NovoLOG) PER UNIT SC SCH ×4 (08:18→20:35)
[2020-07-11] MEDS: NS 1,000 ML IV SCH ×2 (08:18→16:25)
--- NOTE | 2020-07-11 09:40 | RO ---
OPERATIVE NOTE DATE OF OPERATION: 07/10/2020 PREOPERATIVE DIAGNOSIS: Right foot infection, foreign body. POSTOPERATIVE DIAGNOSIS: Right foot infection, foreign body. PROCEDURE: Right foot incision and drainage with removal of foreign body. SURGEON: Mingo Cavazos MD AWNING FRAME MAKER: None. ANESTHESIA: Monitored anesthesia care. Preop injection of 20 mL of 1:1 mix of 1% Lidocaine plain and 0.5% Marcaine plain. ESTIMATED BLOOD LOSS: Minimal. MATERIALS: None. COMPLICATIONS: None. SPECIMEN: Foreign body and necrotic tissue. INDICATION FOR PROCEDURE: Alee Coleman is a 70-year-old female who was admitted with worsening right foot infection for approximately two days. She believes she stepped on a needle which was confirmed on CT and x-rays. Decision was made to bring her to the operating room for incision and drainage. Patient, site and side were identified and marked preoperatively. Consent was reviewed and obtained. All risks, complications and alternatives to the procedure were explained to the patient in detail, and all questions were answered. DESCRIPTION OF PROCEDURE: The patient was brought to the operating room on a stretcher in the supine position. Monitored anesthesia care was delivered by the anesthesia team. Preop injection of 20 mL of 1:1 mix of 1% Lidocaine plain and 0.5% Marcaine plain injected in the right foot. The right foot was prepped and draped in sterile fashion. Tourniquet was applied to the right ankle and inflated to 250 mmHg. A linear incision was made with a #15 blade along the entry wound. A metallic foreign body was identified and removed in total. There was significant purulent drainage to both the inner space and under the plantar surface of the first metatarsal head. Some necrotic tissue was removed using a rongeur and the incision was irrigated with bulb syringe and normal saline until no further purulent tissue could be expressed. The site was packed with saline-soaked gauze and sterile dressings were applied. The patient was brought to PACU with vital signs stable and neurovascular status intact. She will be readmitted to the floor for continued antibiotics and monitoring. We will follow.
[2020-07-11] MEDS: VANCOMYCIN HCL 1,000 MG, VIAL MATE ADAPTER 1 EACH in D5W 250 ML IV SCH (09:43)
--- NOTE | 2020-07-11 12:28 | IPNPDOC ---
Text Note Date of Service The patient was seen on 07/11/20. NOTE Subjective: Patient was seen and examined this morning at bedside. Patient says she's feeling better her foot pain is better. She had a fever overnight but she didn't feel feverish or have chills. She feels her leg is better when she elevates it. There was no acute overnight events reported to me. She denies chest pain or shortness of breath. Objective: Constitutional: Awake and alert, in no apparent distress ENT: Sclera are clear. Respiratory: Lungs CTA bilaterally. No respiratory distress. Cardiovascular: RRR S1 and S2 are normal, no murmur Gastrointestinal: Abdomen is soft, non distended, non tender, BS present. Musculoskeletal: Lower extremity pitting edema. Neurologic: No focal neurological deficit. Mental Status: A&O x3, normal affect Skin: Right foot now dressed post op, not examined today. Assessment/plan: is a 70 yr old F w IDDM w neuropathy, HTN, Chronic anemia, & Obesity who sustained trauma to her right foot and will be admitted for management of sepsis, infected right hallux hematoma 2/2 stepping on an insulin needle & right foot cellulitis. # Sepsis 2/2 Infected right hallux hematoma 2/2 stepping on an insulin needle. met SIRS. Vanc and Zosyn for now. Dr Cavazos took her to OR to remove foreign body and debride the foot on 07/10/20. Repeat Bcx. Febrile overnight. WBC elevated could post post operative reactive. Clinically doing better. If continued to be febrile with unresolving leukocytosis will consult ID. # Right 1st and 2nd toe cellulitis: abx as above # Stress fracture of the right proximal 5th metatarsal and Possible nondisplaced cortical fracture of the posterior malleolus eval by . May need OP ortho Fu. # Chronic Normocytic anemia, Likely 2/2 AVRIL f/u Iron studies and with PCP # Reactive Thrombocytosis Likely 2/2 AVRIL # DM: ISS. Frequent Accu-Cheks. Hypoglycemic precautions. Levemir BID. # Hypertension: Continue home meds. Monitor and titrate # HLD: statin. # Class 2 Obesity: BMI 37.5. Complicates care. Fu PCP. DVT px w SCDs A [facility] Hospitalist VS,Fishbone, I+O VS, Fishbone, I+O Laboratory Tests 07/11/20 05:20 Vital Signs Date Time Temp Pulse Resp B/P (MAP) Pulse Ox O2 Delivery O2 Flow Rate FiO2 07/11/20 11:48 18 07/11/20 11:38 100.4 93 178/88 (118) 93 Room Air I&O- Last 24 Hours up to 6 AM 07/11/20 06:00 Intake Total 1320 ml Output Total 300 ml Balance 1020 ml YANNA BARDALES MD Jul 11, 2020 12:28
[2020-07-12] VITALS: BP 144/65
[2020-07-12] MEDS: NS 1,000 ML IV SCH ×3 (00:04→20:00)
[2020-07-12] MEDS: NORCO, ANEXSIA 5/325MG TABLET (HYDROcodone/ACETAMINOPHEN) PO PRN ×3 (02:18→20:55)
[2020-07-12] MEDS: PIPERACILLIN/TAZOBACTAM SOD 4.5 GM in D5W MINI-BAG PLUS 50 ML IV SCH ×4 (02:18→20:53)
[2020-07-12 04:00] VITALS: BP 142/63
[2020-07-12] MEDS: VANCOMYCIN HCL 1,000 MG, VIAL MATE ADAPTER 1 EACH in D5W 250 ML IV SCH (04:09)
[2020-07-12 04:42] LABS: HEMATOCRIT 27.6 % (36.0-47.0); HEMOGLOBIN 8.8 g/dl (12.0-15.5); MEAN CORPUSCULAR HEMOGLOBIN 28.4 pg (27.0-33.0); MEAN CORPUSCULAR HGB CONC 31.9 g/dl (32.0-36.5); PLATELET COUNT, AUTOMATED 453 10^3/uL (150-450)
[2020-07-12 04:57] LABS: CALCIUM LEVEL 7.6 MG/DL (8.8-10.2); CREATININE FOR GFR 1.48 MG/DL (0.55-1.30); GLOMERULAR FILTRATION RATE 37.1 (>39); POTASSIUM SERUM 4.2 MEQ/L (3.5-5.1)
[2020-07-12] MEDS: ACETAMINOPHEN TAB 650MG DOSE (2X325MG) PO PRN ×2 (05:46→12:10)
[2020-07-12 08:00] VITALS: BP 131/59
[2020-07-12] MEDS: SIMVASTATIN 40 MG TAB PO SCH (08:27)
[2020-07-12] MEDS: HumaLOG INSULIN (NovoLOG) PER UNIT SC SCH ×4 (08:27→20:54)
[2020-07-12] MEDS: LEVEMIR (INSULIN DETEMIR) 1 UNITS/0.01ML SC SCH ×2 (08:28→20:54)
--- NOTE | 2020-07-12 10:00 | IPNPDOC ---
Text Note Date of Service The patient was seen on 07/12/20. NOTE Subjective: Patient was seen and examined this morning at bedside. She tried working with physical therapy yesterday but it was uncomfortable for her. She says she feels better although of note is she did have a fever overnight and her white count is still elevated. But clinically she appears well sitting up and then have breakfast. Having regular bowel movements not having any chest pain or shortness of breath. There is no acute events reported to me. Objective: Constitutional: Awake and alert, in no apparent distress ENT: Sclera are clear. Respiratory: Lungs CTA bilaterally. No respiratory distress. Cardiovascular: RRR S1 and S2 are normal, no murmur Gastrointestinal: Abdomen is soft, non distended, non tender, BS present. Musculoskeletal: Lower extremity pitting edema. Neurologic: No focal neurological deficit. Mental Status: A&O x3, normal affect Skin: Right foot now dressed post op, not examined today. Assessment/plan: is a 70 yr old F w IDDM w neuropathy, HTN, Chronic anemia, & Obesity who sustained trauma to her right foot and will be admitted for management of sepsis, infected right hallux hematoma 2/2 stepping on an insulin needle & right foot cellulitis. # Sepsis 2/2 Infected right hallux hematoma 2/2 stepping on an insulin needle. met SIRS. Vanc only, Dc vanc given wound culture results and worsening renal function. Dr Cavazos took her to OR to remove foreign body and debride the foot on 07/10/20. Repeat Bcx. Febrile overnight again. WBC still elevated. Clinically doing better. Will discuss with Dr Casarez today. # Right 1st and 2nd toe cellulitis: abx as above # LATOYA: could be from vancomycin which was discontinued. Avoid nephrotoxins. IVFs. Trend BMP. If continues to worsen consult nephrology. # Stress fracture of the right proximal 5th metatarsal and Possible nondisplaced cortical fracture of the posterior malleolus eval by . May need OP ortho Fu. # Chronic Normocytic anemia, Likely 2/2 AVRIL f/u Iron studies and with PCP # Reactive Thrombocytosis Likely 2/2 AVRIL # DM: ISS. Frequent Accu-Cheks. Hypoglycemic precautions. Levemir BID. # Hypertension: Continue home meds. Monitor and titrate # HLD: statin. # Class 2 Obesity: BMI 37.5. Complicates care. Fu PCP. DVT px w SCDs A [facility] Hospitalist VSGabriel, I+O VSGabriel I+O Laboratory Tests 07/12/20 04:12 Vital Signs Date Time Temp Pulse Resp B/P (MAP) Pulse Ox O2 Delivery O2 Flow Rate FiO2 07/12/20 08:00 97.6 72 20 131/59 (83) 93 Room Air I&O- Last 24 Hours up to 6 AM 07/12/20 06:00 Intake Total 3765 ml Output Total 300 ml Balance 3465 ml YANNA BARDALES MD Jul 12, 2020 10:00
[2020-07-12 12:00] VITALS: BP 160/74
[2020-07-12] MEDS: NYSTATIN 100,000 UNITS/GM TOPICAL PWD 15 GM TOP SCH ×2 (12:09→20:55)
[2020-07-12 16:00] VITALS: BP 158/82
--- NOTE | 2020-07-12 18:14 | CR ---
INFECTIOUS DISEASE CONSULTATION DATE: 07/12/2020 CONSULTATION REQUESTED BY: Dr. Penaloza. REASON FOR CONSULTATION: Evaluation of right foot infection with abscess in a patient with diabetes. HISTORY OF PRESENT ILLNESS: Mrs. Coleman is a pleasant 70-year-old obese female, who hit her right toe on a dresser at night about two days prior to admission. She developed severe pain and swelling. The patient had a fever after admission. She had an x-ray which showed an insulin needle in her foot and she was complaining of excruciating pain. She was taken to the Operating Room by Dr. Cavazos yesterday for an I and D and removal of the foreign body. Cultures are positive for E. coli and MSSA. Patient continues to be febrile in spite of being on appropriate antibiotics and has severe pain. She does feel a little better than yesterday. She also stated that she had COVID-19 in May, was hospitalized for five days at [facility], and has had persistent dyspnea since then. 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 PAST SURGICAL HISTORY: Right ankle surgery after a compound fracture many years ago; status post ORIF and then removal of the hardware a year later, tonsillectomy, adenoidectomy, recent I and D of the toe by Dr. Cavazos between the first and second toe. FAMILY HISTORY: Lymphoma, bladder cancer and diabetes. SOCIAL HISTORY: She does not smoke. She lives at home, is independent. ALLERGIES: No known drug allergies. MEDICATIONS: 1. Zosyn 4.5 grams I.V. every 6 hours. 2. Vancomycin 1 gram I.V. every 18 hours. 3. Simvastatin 40 mg p.o. daily. 4. Insulin sliding scale. 5. Nystatin under the breast b.i.d. 6. Milk of Magnesia p.r.n. 7. Levemir 45 units subcutaneously b.i.d. LABORATORY DATA: White count on admission 15.6 and today 17. Hemoglobin 8.8, hematocrit 27.6, platelets 453,000. Sodium 136, potassium 4.2, chloride 110, bicarb 20, BUN 21, creatinine 1.48, glucose 243, calcium 7.6. HbA1c 12.6. CRP 24.4 down from 26.3. Wound culture has E. Coli and Staph Aureus, MSSA and anaerobic cultures are negative. Blood cultures three sets are negative. IMAGING STUDIES: Foot CT showed a foreign body and large blister at the plantar aspect of the foot where the broken insulin needle was near the surface, consistent with an infected blister and cellulitis. Soft tissue edema throughout the foot. A nondisplaced cortical fracture of the posterior malleolus. There is nondisplaced incomplete stress fracture to the cortex of the fifth metatarsal. PHYSICAL EXAMINATION: GENERAL: She is a pleasant healthy looking female, in no acute distress. VITAL SIGNS: Temperature 98.7, pulse 88, respirations 18, blood pressure 158/82, O2 sat 96% on room air. HEART: Normal S1, S2. No murmurs, rubs or gallops. LUNGS: Clear. No wheezes, rales or rhonchi. ABDOMEN: Morbidly obese, soft, nontender. BACK: No CVA or lumbosacral tenderness. EXTREMITIES: No cyanosis, clubbing or edema. Thin lower extremity +2 dorsalis pedis pulses bilaterally. Right foot has an open incision measuring about 6 cm between the third and the second toe. The ball of the foot is purplish in color and very tender to touch. The toe is erythematous. The plantar aspect of the foot about 3 cm has erythema diffusely. There is packing in the wound with the depth of the wound about 2 cm. There was no purulent discharge in the wound. IMPRESSION: A 78-year-old female admitted with abscess of the right foot, diabetic foot infection and an insulin needle that was removed from the wound. Patient's cultures were positive for MSSA and E. Coli. Patient has been treated appropriately with I.V. Zosyn. Vancomycin was discontinued as there was no MRSA in the wound. She has persistent fever, although today seems to have improved. Her CRP remains quite elevated. PLAN: Continue with I.V. Zosyn. Agree with discontinuing Vancomycin. Start Probiotics three times a day to decrease the risk of C. difficile. If fever recurs tomorrow, would suggest obtaining an MRI of the foot to see if there is bone involvement or any further debridement that needs to be done. Will discuss the case with Dr. Cavazos to see if he suspects osteomyelitis. The CT did not suggest any bone involvement.
[2020-07-12 20:00] VITALS: BP 152/90
[2020-07-12] MEDS: LACTOBACILLUS ACIDOPHILUS CAP (BACID) PO SCH (20:54)
[2020-07-13] VITALS: BP 156/94
[2020-07-13] MEDS: PIPERACILLIN/TAZOBACTAM SOD 4.5 GM in D5W MINI-BAG PLUS 50 ML IV SCH ×4 (03:17→20:28)
[2020-07-13] MEDS: NORCO, ANEXSIA 5/325MG TABLET (HYDROcodone/ACETAMINOPHEN) PO PRN ×3 (03:18→17:03)
[2020-07-13 04:00] VITALS: BP 166/98
[2020-07-13 04:41] LABS: HEMATOCRIT 29.2 % (36.0-47.0); HEMOGLOBIN 9.1 g/dl (12.0-15.5); MEAN CORPUSCULAR HEMOGLOBIN 27.5 pg (27.0-33.0); MEAN CORPUSCULAR HGB CONC 31.2 g/dl (32.0-36.5); MEAN CORPUSCULAR VOLUME 88.2 fl (80.0-96.0); PLATELET COUNT, AUTOMATED 516 10^3/uL (150-450); RED BLOOD COUNT 3.31 10^6/uL (4.00-5.40); WHITE BLOOD COUNT 16.2 10^3/uL (4.0-10.0)
[2020-07-13 05:06] LABS: C REACTIVE PROTEIN QUANTITATIV 17.4 MG/DL (0.00-0.30); CALCIUM LEVEL 8.6 MG/DL (8.8-10.2); CREATININE FOR GFR 1.35 MG/DL (0.55-1.30); GLOMERULAR FILTRATION RATE 41.3 (>39); POTASSIUM SERUM 4.2 MEQ/L (3.5-5.1)
[2020-07-13 05:12] LABS: ERYTHROCYTE SEDIMENTATION RATE 128 mm/hr (0-30)
[2020-07-13] MEDS: HumaLOG INSULIN (NovoLOG) PER UNIT SC SCH ×4 (07:30→20:49)
[2020-07-13 07:45] VITALS: BP 150/70
[2020-07-13] MEDS: SIMVASTATIN 40 MG TAB PO SCH (08:07)
[2020-07-13] MEDS: LACTOBACILLUS ACIDOPHILUS CAP (BACID) PO SCH ×3 (08:07→20:29)
[2020-07-13] MEDS: NYSTATIN 100,000 UNITS/GM TOPICAL PWD 15 GM TOP SCH ×2 (08:10→20:29)
[2020-07-13] MEDS: LEVEMIR (INSULIN DETEMIR) 1 UNITS/0.01ML SC SCH ×2 (08:10→20:29)
[2020-07-13] MEDS: NS 1,000 ML IV SCH ×2 (08:11→20:29)
--- NOTE | 2020-07-13 08:17 | IPNPDOC ---
Text Note Date of Service The patient was seen on 07/13/20. NOTE Subjective: Patient was sitting in the bed. She is pleasant, and seems to be feeling a little better. She still has aching pain in the foot & occasional sharp stabs, especially when she tries to move the toes (particularily the great toe). Otherwise, she has no other complaints or issues at this time. Remainder of ROS was negative. Objective: Constitutional: Awake and alert, in no apparent distress ENT: Sclera are clear. Respiratory: Lungs CTA bilaterally. No respiratory distress. Cardiovascular: RRR, no murmur, rubs, gallops Gastrointestinal: Abdomen is soft, non distended, non tender, BS present. Musculoskeletal: 1+ Lower extremity pitting edema. Neurologic: No focal neurological deficit. Mental Status: A&O x3, normal affect Skin: Right foot with dressing in place, without removing the dressing I peeked into the distal edge. The large toe is mildly erythematous and edematous, the would appears clean and without discharge, very tender to touch. Assessment/plan: is a 70 yr old F w IDDM w neuropathy, HTN, Chronic anemia, & Obesity who sustained trauma to her right foot and will be admitted for management of sepsis, infected right hallux hematoma 2/2 stepping on an insulin needle & right foot cellulitis. # Sepsis 2/2 Infected right hallux hematoma 2/2 stepping on an insulin needle. met SIRS. Was started on Vanc only, but subsequently Dc vanc given wound culture results and worsening renal function. Dr Cavazos took her to OR to remove foreign body and debride the foot on 07/10/20. Repeat Bcx. No fevers overnight, WBC & CRP trending down, therefore will hold off on MRI today & continue with Zosyn monotherapy. ID has been consulted, their input is greatly appreciated. # Right 1st and 2nd toe cellulitis: abx as above # LATOYA: could be from vancomycin which was discontinued. Avoid nephrotoxins. Trend BMP. Improving today, but not yet back to normal. IVF lowered to 75/hr today. # Stress fracture of the right proximal 5th metatarsal and Possible nondisplaced cortical fracture of the posterior malleolus eval by . May need OP ortho Fu. # Chronic Normocytic anemia, Likely 2/2 AVRIL f/u Iron studies and with PCP # Reactive Thrombocytosis Likely 2/2 AVRIL # DM: ISS. Frequent Accu-Cheks. Hypoglycemic precautions. Levemir BID. # Hypertension: Continue home meds. Monitor and titrate # HLD: statin. # Class 2 Obesity: BMI 37.5. Complicates care. Fu PCP. DVT px w SCDs VS,Fishbone, I+O VS, Fishbone, I+O Laboratory Tests 07/13/20 04:08 Vital Signs Date Time Temp Pulse Resp B/P (MAP) Pulse Ox O2 Delivery O2 Flow Rate FiO2 07/13/20 07:45 99.2 86 18 92 Room Air 07/13/20 04:00 166/98 (120) I&O- Last 24 Hours up to 6 AM 07/13/20 06:00 Intake Total 2840 ml Output Total 1800 ml Balance 1040 ml MARJ MAO DO Jul 13, 2020 08:17
[2020-07-13 12:00] VITALS: BP 154/78
[2020-07-13 16:00] VITALS: BP 158/82
[2020-07-13 20:00] VITALS: BP 154/80
[2020-07-14] VITALS (8 sets, daily range): BP systolic 148–176; BP diastolic 78–102
[2020-07-14] MEDS: PIPERACILLIN/TAZOBACTAM SOD 4.5 GM in D5W MINI-BAG PLUS 50 ML IV SCH ×4 (00:45→20:40)
[2020-07-14] MEDS: ACETAMINOPHEN TAB 650MG DOSE (2X325MG) PO PRN ×2 (00:45→11:58)
[2020-07-14] MEDS: NORCO, ANEXSIA 5/325MG TABLET (HYDROcodone/ACETAMINOPHEN) PO PRN ×4 (00:46→20:41)
[2020-07-14 05:16] LABS: HEMATOCRIT 28.6 % (36.0-47.0); HEMOGLOBIN 8.9 g/dl (12.0-15.5); MEAN CORPUSCULAR HGB CONC 31.1 g/dl (32.0-36.5); MEAN CORPUSCULAR VOLUME 89.9 fl (80.0-96.0); PLATELET COUNT, AUTOMATED 466 10^3/uL (150-450); RED BLOOD COUNT 3.18 10^6/uL (4.00-5.40); WHITE BLOOD COUNT 13.9 10^3/uL (4.0-10.0)
[2020-07-14 05:54] LABS: C REACTIVE PROTEIN QUANTITATIV 14.3 MG/DL (0.00-0.30); CALCIUM LEVEL 8.3 MG/DL (8.8-10.2); CREATININE FOR GFR 1.35 MG/DL (0.55-1.30); GLOMERULAR FILTRATION RATE 41.3 (>39); POTASSIUM SERUM 4.4 MEQ/L (3.5-5.1)
[2020-07-14] MEDS: HumaLOG INSULIN (NovoLOG) PER UNIT SC SCH ×4 (07:30→21:00)
[2020-07-14] MEDS: NYSTATIN 100,000 UNITS/GM TOPICAL PWD 15 GM TOP SCH ×2 (08:17→21:00)
[2020-07-14] MEDS: LACTOBACILLUS ACIDOPHILUS CAP (BACID) PO SCH ×3 (08:17→20:41)
[2020-07-14] MEDS: SIMVASTATIN 40 MG TAB PO SCH (08:18)
[2020-07-14] MEDS: LEVEMIR (INSULIN DETEMIR) 1 UNITS/0.01ML SC SCH ×2 (09:07→20:41)
[2020-07-14] MEDS: NS 1,000 ML IV SCH (11:59)
--- NOTE | 2020-07-14 12:14 | REP ---
INDICATION: Suspect Osteomyelitis. COMPARISON: CT 07/09/2020. TECHNIQUE: Multiple sequences obtained in the axial, coronal and sagittal planes prior to and following the intravenous administration of 9 cc ProHance. FINDINGS: In the 1st proximal and distal phalanges there is low signal on T1 and high signal on T2 weighted images diffusely, with associated diffuse marrow enhancement, consistent with osteomyelitis. The remaining osseous structures appear unremarkable with no acute fracture or evidence for osteomyelitis. Diffuse edema is seen throughout the soft tissues of the right foot. There is ill-defined enhancement throughout the soft tissues in the region of the 1st toe and medial forefoot compatible with cellulitis. No discrete abscess collection is seen. There is a small joint effusion at the 1st metatarsophalangeal joint. Mild diffuse arthritic changes are seen at the intertarsal and tarsal/metatarsal joints.There appears to be a soft tissue ulceration in the plantar soft tissues at the lateral base of the 1st toe. Metallic artifact is seen in the region of the distal 2nd metatarsal, where there is a linear metallic foreign body along the lateral aspect, seen on the prior CT scan. 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 Associated diffuse cellulitis in that region. No discrete abscess collection. <Electronically signed by Tano Cuevas > 07/14/20 1210
--- NOTE | 2020-07-14 14:50 | REP ---
INDICATION: infection, eval for remaining metallic foreign body COMPARISON: CT 07/09/2020, MRI today. TECHNIQUE: Four views right foot. FINDINGS: There is no acute fracture or dislocation. No osseous destruction is seen, although on today's MRI there was evidence of osteomyelitis of the phalanges of the 1st toe. There is air in the soft tissues of the lateral aspect of the 1st toe. There is a linear metallic foreign body approximately 9 mm in length adjacent to the distal 2nd metatarsal. There is a tiny inferior calcaneal spur. IMPRESSION: No radiographic evidence of acute osseous change. However, on today's MRI there was evidence of osteomyelitis of the 1st toe phalanges. Thin linear metallic structure 9 mm in length is seen along the distal aspect of the 2nd metatarsal. <Electronically signed by Tano Cuevas > 07/14/20 [id number]
--- NOTE | 2020-07-14 15:40 | IPNPDOC ---
Text Note Date of Service The patient was seen on 07/14/20. NOTE Subjective: Patient is still complaining of pain in the foot, she actually reports that it is somewhat worse today than yesterday, and she seems to be getting the sharp stabbing pains in the center of her foot more often. She did spike a fever overnight, therefore an MRI with contrast was ordered to determine if she had osteomyelitis. The MRI did show some involvement of the bone, and it appears that a metallic density is still in the foot. Dr. Leonard is aware. Other then fever she denies any chills, nausea, vomiting, muscle aches. She just has the increased pain as described above. Objective: Constitutional: Awake and alert, in no apparent distress ENT: Sclera are clear. Respiratory: Lungs CTA bilaterally. No respiratory distress. Cardiovascular: RRR, no murmur, rubs, gallops Gastrointestinal: Abdomen is soft, non distended, non tender, BS present. Musculoskeletal: 1+ Lower extremity pitting edema. Neurologic: No focal neurological deficit. Mental Status: A&O x3, normal affect Skin: Right foot with dressing in place, I did not remove it today. Assessment/plan: is a 70 yr old F w IDDM w neuropathy, HTN, Chronic anemia, & Obesity who sustained trauma to her right foot and will be admitted for management of sepsis, infected right hallux hematoma 2/2 stepping on an insulin needle & right foot cellulitis. # Sepsis 2/2 Infected right hallux hematoma 2/2 stepping on an insulin needle. met SIRS. Was started on Vanc only, but subsequently D/c vanc given wound culture results and worsening renal function. Dr Cavazos took her to OR to remove foreign body and debride the foot on 07/10/20. Repeat Bcx negative. ID has been consulted, their input is greatly appreciated. -Patient spiked a fever last night, MRI performed today indicated involvement of the bone. Dr. Capri Lima has been notified, and he plans on taking her to the OR tomorrow. We will make her nothing by mouth after midnight in anticipation of this. # Right 1st and 2nd toe cellulitis: abx as above # LATOYA: could be from vancomycin which was discontinued. Avoid nephrotoxins. Im proved, but we will continue with IV fluids for today in this patient of her going to the OR tomorrow. # History of chronic kidney disease: It appears that she is likely back to her baseline creatinine of approximately 1.3 # Stress fracture of the right proximal 5th metatarsal and Possible nondispl aced cortical fracture of the posterior malleolus eval by . May need OP ortho Fu. # Chronic Normocytic anemia, Likely 2/2 AVRIL f/u Iron studies and with PCP # Reactive Thrombocytosis Likely 2/2 AVRIL # DM: ISS. Frequent Accu-Cheks. Hypoglycemic precautions. Levemir BID. # Hypertension: Continue home meds. Monitor and titrate # HLD: statin. # Class 2 Obesity: BMI 37.5. Complicates care. Fu PCP. DVT px w SCDs VS,Fishbone, I+O VS, Fishbone, I+O Laboratory Tests 07/14/20 04:52 Vital Signs Date Time Temp Pulse Resp B/P (MAP) Pulse Ox O2 Delivery O2 Flow Rate FiO2 07/14/20 15:06 18 Room Air 07/14/20 12:00 98.7 87 158/92 (114) 94 I&O- Last 24 Hours up to 6 AM 07/14/20 06:00 Intake Total 2620 ml Output Total 1300 ml Balance 1320 ml MARJ MAO DO Jul 14, 2020 15:40
--- NOTE | 2020-07-14 15:51 | IPN ---
PROGRESS NOTE DATE: 07/14/2020 SUBJECTIVE: The patient is seen and examined. She was noted to have fever overnight. She states her foot has been sore, has not really improved in the last 2 days; had initially improved after initial incision and drainage. LABORATORY STUDIES: Reviewed. White blood cell count is elevated at 13.9, slowly trending down. Most recent ESR was 128. CRP 14.3. IMAGING: Studies were taken. The foot MRI shows findings suggestive of osteomyelitis of the hallux and some cellulitis. No discreet abscess is noted. There was some suggestion that there was metallic artifact near 2nd metatarsal head. A repeat foot x-ray was taken to confirm this, which is again seen near the second metatarsal. OBJECTIVE: On lower extremity examination, the erythema and edema of the foot as a whole are reduced, however this is significant erythema, edema and pain surrounding largely the first metatarsal phalangeal joint and interspace. There is some necrotic tissue in wound. No purulence is expressed ASSESSMENT: Diabetic female with abscess from foreign body, possible osteomyelitis. PLAN: Will bring her to the Operating Room for repeat incision and drainage and inspection for retained foreign body and likely bone biopsy. She is to be n.p.o. after morning breakfast. [facility]ITAL[facility]
[2020-07-15] VITALS: BP 166/74
[2020-07-15] MEDS: PIPERACILLIN/TAZOBACTAM SOD 4.5 GM in D5W MINI-BAG PLUS 50 ML IV SCH ×4 (02:48→19:31)
[2020-07-15 04:00] VITALS: BP 158/84
[2020-07-15 04:41] LABS: HEMATOCRIT 29.3 % (36.0-47.0); HEMOGLOBIN 9.3 g/dl (12.0-15.5); MEAN CORPUSCULAR HEMOGLOBIN 27.8 pg (27.0-33.0); MEAN CORPUSCULAR HGB CONC 31.7 g/dl (32.0-36.5); MEAN CORPUSCULAR VOLUME 87.5 fl (80.0-96.0); PLATELET COUNT, AUTOMATED 540 10^3/uL (150-450); RED BLOOD COUNT 3.35 10^6/uL (4.00-5.40); WHITE BLOOD COUNT 14.2 10^3/uL (4.0-10.0)
[2020-07-15] MEDS: NORCO, ANEXSIA 5/325MG TABLET (HYDROcodone/ACETAMINOPHEN) PO PRN ×2 (04:45→19:31)
[2020-07-15 05:00] LABS: C REACTIVE PROTEIN QUANTITATIV 14.2 MG/DL (0.00-0.30); CALCIUM LEVEL 8.5 MG/DL (8.8-10.2); CREATININE FOR GFR 1.38 MG/DL (0.55-1.30); GLOMERULAR FILTRATION RATE 40.2 (>39); POTASSIUM SERUM 4.1 MEQ/L (3.5-5.1)
[2020-07-15] MEDS: NS 1,000 ML IV SCH ×3 (05:06→17:19)
[2020-07-15] MEDS: HumaLOG INSULIN (NovoLOG) PER UNIT SC SCH ×4 (07:30→20:34)
[2020-07-15 07:36] VITALS: BP 180/78
[2020-07-15] MEDS: LEVEMIR (INSULIN DETEMIR) 1 UNITS/0.01ML SC SCH ×2 (07:44→20:34)
[2020-07-15] MEDS: SIMVASTATIN 40 MG TAB PO SCH (08:04)
[2020-07-15] MEDS: LACTOBACILLUS ACIDOPHILUS CAP (BACID) PO SCH ×3 (08:04→20:34)
[2020-07-15] MEDS: NYSTATIN 100,000 UNITS/GM TOPICAL PWD 15 GM TOP SCH ×2 (08:04→20:33)
[2020-07-15] MEDS ORDERED: LEVEMIR (INSULIN DETEMIR) 1 UNITS/0.01ML SC ONE (09:00)
[2020-07-15] MEDS: ACETAMINOPHEN TAB 650MG DOSE (2X325MG) PO PRN (11:59)
[2020-07-15 12:00] VITALS: BP 170/82
[2020-07-15] MEDS ORDERED: LIDOCAINE 1% MDV 20ML VIAL As Ordered ONE (15:35)
[2020-07-15] MEDS ORDERED: BUPIVACAINE HCL 0.5% 10ML VIAL As Ordered ONE (15:35)
[2020-07-15] MEDS ORDERED: propofoL 200 MG/20 ML VIAL As Ordered ONE (16:19)
[2020-07-15] MEDS ORDERED: fentaNYL 100 MCG/2 ML INJECTION (J3010) As Ordered ONE (16:19)
[2020-07-15] MEDS ORDERED: MIDAZOLAM INJ 2MG/2ML VIAL (J2250 PER 1MG) As Ordered ONE (16:19)
[2020-07-15] MEDS ORDERED: oxyCODONE 5MG TAB PO PRN (17:25)
[2020-07-15] MEDS ORDERED: LR 1,000 ML IV SCH (17:25)
[2020-07-15] MEDS ORDERED: fentaNYL 100 MCG/2 ML INJECTION (J3010) IV PRN (17:25)
[2020-07-15] MEDS ORDERED: ONDANSETRON 4MG/2ML VIAL IV PRN (17:25)
[2020-07-15] MEDS ORDERED: HYDROMORPHONE HCL 0.5 MG/ 0.5 ML SYRINGE (J1170 PER 1) IV PRN (17:25)
[2020-07-15 18:09] VITALS: BP 170/88
--- NOTE | 2020-07-15 19:36 | IPNPDOC ---
Text Note Date of Service The patient was seen on 07/15/20. NOTE Subjective: The patient reports that she does still have a considerable amount of pain in her foot. She will be nothing by mouth after breakfast this morning, and will be taken to the OR later this afternoon for evaluation regarding osteomyelitis and additional foreign body. She knows and understands the plan, she does not have any particular questions at this time. She does not have any other acute complaints at this time, the remainder of her review systems is negative. Objective: Constitutional: Awake and alert, in no apparent distress ENT: Sclera are clear. Respiratory: Lungs CTA bilaterally. No respiratory distress. Cardiovascular: RRR, no murmur, rubs, gallops Gastrointestinal: Abdomen is soft, non distended, non tender, BS present. Musculoskeletal: 1+ Lower extremity pitting edema. Neurologic: No focal neurological deficit. Mental Status: A&O x3, normal affect Skin: Right foot with dressing in place, I did not remove it today. Assessment/plan: is a 70 yr old F w IDDM w neuropathy, HTN, Chronic anemia, & Obesity who sustained trauma to her right foot and will be admitted for management of sepsis, infected right hallux hematoma 2/2 stepping on an insulin needle & right foot cellulitis. # Sepsis 2/2 Infected right hallux hematoma 2/2 stepping on an insulin needle. met SIRS. Was started on Vanc only, but subsequently D/c vanc given wound culture results and worsening renal function. Dr Cavazos took her to OR to remove foreign body and debride the foot on 07/10/20. Repeat Bcx negative. ID has been consulted, their input is greatly appreciated. -Plan apparently is to take her to the OR today for evaluation regarding osteomyelitis and second foreign body # Right 1st and 2nd toe cellulitis: abx as above # LATOYA in setting of CKD: could be from vancomycin which was discontinued. Avoid nephrotoxins. She appears to be at her baseline creatinine now, however we will continue her IV fluids since she will be nothing by mouth and is going to the OR today. # History of chronic kidney disease: It appears that she is likely back to her baseline creatinine of approximately 1.3 # Stress fracture of the right proximal 5th metatarsal and Possible nondisplaced cortical fracture of the posterior malleolus eval by . May need OP ortho Fu. # Chronic Normocytic anemia, Likely 2/2 AVRIL f/u Iron studies and with PCP # Reactive Thrombocytosis Likely 2/2 AVRIL # DM: ISS. Frequent Accu-Cheks. Hypoglycemic precautions. Levemir BID. # Hypertension: Continue home meds. Monitor and titrate # HLD: statin. # Class 2 Obesity: BMI 37.5. Complicates care. Fu PCP. DVT px w SCDs VS,Fishbone, I+O VS, Fishbone, I+O Laboratory Tests 07/15/20 04:06 Vital Signs Date Time Temp Pulse Resp B/P (MAP) Pulse Ox O2 Delivery O2 Flow Rate FiO2 07/15/20 18:09 96.6 91 18 170/88 (115) 97 07/15/20 17:30 Room Air I&O- Last 24 Hours up to 6 AM 07/15/20 06:00 Intake Total 2880 ml Output Total 1100 ml Balance 1780 ml MARJ MAO DO Jul 15, 2020 19:36
[2020-07-15 20:00] VITALS: BP 153/66
[2020-07-15] MEDS ORDERED: MORPHINE 2 MG/ML 1ML VIAL (J2270) IV ONE (21:50)
[2020-07-16] VITALS: BP 166/72
[2020-07-16] MEDS: PIPERACILLIN/TAZOBACTAM SOD 4.5 GM in D5W MINI-BAG PLUS 50 ML IV SCH ×4 (02:23→20:01)
[2020-07-16] MEDS: ACETAMINOPHEN TAB 650MG DOSE (2X325MG) PO PRN ×3 (02:26→13:19)
[2020-07-16 04:00] VITALS: BP 162/72
[2020-07-16 04:41] LABS: HEMATOCRIT 26.6 % (36.0-47.0); HEMOGLOBIN 8.5 g/dl (12.0-15.5); MEAN CORPUSCULAR HEMOGLOBIN 27.6 pg (27.0-33.0); MEAN CORPUSCULAR VOLUME 86.4 fl (80.0-96.0); PLATELET COUNT, AUTOMATED 513 10^3/uL (150-450); RED BLOOD COUNT 3.08 10^6/uL (4.00-5.40)
[2020-07-16 05:00] LABS: C REACTIVE PROTEIN QUANTITATIV 14.1 MG/DL (0.00-0.30); CALCIUM LEVEL 7.5 MG/DL (8.8-10.2); CREATININE FOR GFR 1.46 MG/DL (0.55-1.30); GLOMERULAR FILTRATION RATE 37.7 (>39); POTASSIUM SERUM 4.2 MEQ/L (3.5-5.1)
[2020-07-16 06:59] VITALS: BP 179/82
[2020-07-16] MEDS: NYSTATIN 100,000 UNITS/GM TOPICAL PWD 15 GM TOP SCH ×2 (08:05→20:02)
[2020-07-16] MEDS: HumaLOG INSULIN (NovoLOG) PER UNIT SC SCH ×4 (08:05→20:12)
[2020-07-16] MEDS: LACTOBACILLUS ACIDOPHILUS CAP (BACID) PO SCH ×3 (08:06→20:01)
[2020-07-16] MEDS: SIMVASTATIN 40 MG TAB PO SCH (08:06)
[2020-07-16] MEDS: LEVEMIR (INSULIN DETEMIR) 1 UNITS/0.01ML SC SCH ×2 (08:06→20:02)
--- NOTE | 2020-07-16 09:46 | RO ---
OPERATIVE NOTE DATE OF OPERATION: 07/15/2020 PREOPERATIVE DIAGNOSIS: Right foot infection. POSTOPERATIVE DIAGNOSIS: Right foot infection. PROCEDURE: Right foot incision and drainage. SURGEON: Mingo Cavazos MD TOB[employer] PACKING MACHINE OPERATOR: ANESTHESIA: Monitored anesthesia care. Preop injection of 20 mL 1:1 mix of 1% Lidocaine plain and 0.5% Marcaine plain. ESTIMATED BLOOD LOSS: 10 mL. MATERIALS: 3-0 nylon. INJECTABLES: None. COMPLICATIONS: None. CONDITION: Stable. INDICATION: Alee Coleman is a 70-year-old female who underwent previous incision and drainage with removal of foreign body. She was noted to have persisting fevers, elevated white blood cell count, and increased elevated CRP as well as persisting redness and pain around the plantar aspect of her right foot. It was decided to bring her to the operating room for further irrigation and debridement. The patient's site and side were identified and marked in the preoperative area. Consent was reviewed and obtained. The risks, complications and alternatives to the procedure were explained to the patient in detail and all questions were answered. DESCRIPTION OF PROCEDURE: The patient was brought to the operating room and placed on the operating room table in the supine position. Monitored anesthesia care was delivered by the anesthesia team. Preop injection of 20 mL of 1:1 mix of 1% Lidocaine plain and 0.5% Marcaine plain was injected in the right foot. The right foot was prepped and draped in sterile fashion. A tourniquet was applied to the right ankle and inflated to 250 mmHg. The wound was inspected. There was some necrotic and purulent tissue in the first inner space as well as tenseness into the plantar second and third inner space. A linear incision was made at the plantar second and third inner space and purulence was expressed. The plantar first inner space incision was extended proximally and distally and there was some purulence tracking along the flexor hallucis longus tendon. Using a C-arm, the small metallic wire was triangulated but was not identified in the surgical field and was unable to be found without causing further undo damage. The area where the wire was located did not appear to be a source of the infection and there was not significant purulence or necrotic tissue in that area. The site was irrigated with pulse lavage and normal saline 2000 mL. Partial wound closure was performed with 3-0 nylon. The remaining wounds were packed with saline gauze. The patient was brought to PACU with vital signs stable and neurovascular status intact. She will be readmitted to the floor for continued antibiotics and monitoring. We will follow.
--- NOTE | 2020-07-16 10:05 | IPN ---
PROGRESS NOTE DATE: 07/16/2020 SUBJECTIVE: Alee is seen on PCU. She is a patient of mine from the office. She has poorly controlled diabetes, among the most poorly controlled diabetics in my career. She goes long stretches without taking her medications including her insulin and she frequently drops out of care. She has been referred to our chronic condition management service but no-shows for most of those appointments as well. She has not had a hemoglobin A1c under 10 in the last 4 years. She has seen a number of endocrinologists but does not follow up consistently with their care. The patient was admitted with a diabetic foot ulcer and has undergone two procedures for retained metallic foreign body after stepping on a diabetic needle. She is septic with a presumed osteomyelitis. Infectious Disease is consulted. She has developed acute kidney injury superimposed on chronic kidney disease, presumably from Vancomycin. Renal function has returned to baseline. She apparently has a stress fracture of the right proximal fifth metatarsal and possible nondisplaced cortical fracture of the posterior malleolus. PAST MEDICAL HISTORY: The patient's other history includes: 1. Hyperlipidemia. 2. Hypertension. 3. Obesity. 4. Anemia of chronic inflammation. REVIEW OF SYSTEMS: She denies fever or chills. Overall she feels better since her surgery. She is agreeable to ARU if accepted. PHYSICAL EXAMINATION: VITAL SIGNS: Blood pressure 179/82, pulse 88, respirations 18, 94% O2 saturation, afebrile. HEENT: Alert, conversant, in no distress. LUNGS: Clear upper. ABDOMEN: Soft, nontender, trace peripheral edema. EXTREMITIES: Foot is dressed. IMPRESSION: 1. Infected diabetic foot from retained metallic foreign body - currently on Zosyn. Infectious Disease has been consulted. Appreciate Podiatry's help as well. I think the patient would benefit from ARU. 2. Diabetes Blood sugars are normal. I.'s within forced compliance. We might have to back off on her insulin. She had a blood sugar of 76 last night. Her compliance was poor at home, and as her blood sugar improves, it would be expected that we would have to reduce her insulin use in the hospital. 3. Hypertension her blood pressure is mildly elevated. If it does not improve, we will adjust her medications. 4. Hyperlipidemia - continue her Simvastatin 40 mg daily. 5. Acute kidney injury her renal function is watched on a daily basis. Creatinine is actually not significantly improved, it is still 1.46. She was on reese inhibitor therapy as an outpatient for her blood pressure, which has been held. If renal function declines further, we will ask Nephrology to see her. ARU review has been ordered.
[2020-07-16] MEDS: NORCO, ANEXSIA 5/325MG TABLET (HYDROcodone/ACETAMINOPHEN) PO PRN (11:20)
--- NOTE | 2020-07-16 11:48 | IPN ---
PROGRESS NOTE DATE: 07/16/2020 SUBJECTIVE: The patient is seen and examined at bedside. States her foot is feeling better, but still sore. Denies new complaints. OBJECTIVE: Vitals are reviewed. T-max was 99. On lower extremity examination erythema and edema are reduced. No purulence noted in the wound. LABORATORY DATA: Reviewed. White cell count slightly elevated today up to 15. CRP is 14.1. ASSESSMENT: A 78-year-old female with abscess status post incision and drainage. PLAN: We will bring her to the operating room tomorrow for a partial wound closure and implantation of antibiotic beads. She is to be n.p.o. at midnight. Will follow.
[2020-07-16 12:00] VITALS: BP 173/78
[2020-07-16 16:00] VITALS: BP 147/72
--- NOTE | 2020-07-16 18:13 | IPN ---
INFECTIOUS DISEASE PROGRESS NOTE DATE: 07/16/2020 SUBJECTIVE: Alee was seen today in the PCU. She was telling me that she does not have a bed in her apartment which is very small and she has a broken reclining chair. She is concerned about going home as she does not have adequate care. She also is worried about not being able to wait bear on that foot. She denies any fevers, chills, nausea, vomiting or diarrhea. Her foot pain is getting better, but she still has significant pain. The patient is even wondering about moving to an independent living situation. She has had no fever or chills. Last temperature was on 07/14. She went back to the Operating Room yesterday where there was more I&D done and an incision was cut between the second and third metatarsals and more pus was expressed. The patient is going back to the O.R. tomorrow for antibiotic beads and closure of her wound. LABORATORY STUDIES: White count 15, hemoglobin 8.5, hematocrit 26.6, platelet count 513, ESR 128, sodium 136, potassium 4.2, chloride 105, bicarbonate 23, BUN 17, creatinine 1.46, glucose 189, calcium 7.5, CRP 14.1. No repeat wound cultures were done from the O.R. yesterday. Cultures from 07/10 were positive for E-coli and MSSA. IMPRESSION: 1. Diabetic foot infection, probable osteomyelitis of the first proximal phalanx and distal phalanges associated with diffuse cellulitis in that area. She has had two I&D's done with culture positive for MSSA and E-coli on admission. 2. Insulin dependent diabetes with very poor control, patient of Dr. Ochoa. 3. Poor housing situation. PLAN: 1. Continue with IV Zosyn. 2. Continue to monitor inflammatory markers. 3. I would at least suggest 2-3 weeks of IV antibiotics and possible acute rehab or care home as the patient will not be able to do home IV antibiotics. She has a very poor living situation. She does not have a bed and has only a reclining chair to sleep in which is broken. I have discussed the case with her primary attending as well as Angélica, her nurse, who will consult PFS and discuss the situation. 4. I would suggest also placing mid/ picc line for continued IV antibiotic. ANN
[2020-07-16 20:00] VITALS: BP 147/68
[2020-07-16] MEDS ORDERED: ONDANSETRON 4 MG ORAL DISINTEGRATING TAB SL PRN (22:05)
[2020-07-17] VITALS: BP_SYST 0
[2020-07-17] MEDS: PIPERACILLIN/TAZOBACTAM SOD 4.5 GM in D5W MINI-BAG PLUS 50 ML IV SCH ×4 (01:38→20:49)
[2020-07-17] MEDS: ACETAMINOPHEN TAB 650MG DOSE (2X325MG) PO PRN (01:41)
[2020-07-17 04:00] VITALS: BP 147/68
[2020-07-17 04:34] LABS: HEMATOCRIT 27.9 % (36.0-47.0); HEMOGLOBIN 8.9 g/dl (12.0-15.5); MEAN CORPUSCULAR HEMOGLOBIN 27.9 pg (27.0-33.0); MEAN CORPUSCULAR HGB CONC 31.9 g/dl (32.0-36.5); MEAN CORPUSCULAR VOLUME 87.5 fl (80.0-96.0); PLATELET COUNT, AUTOMATED 564 10^3/uL (150-450); RED BLOOD COUNT 3.19 10^6/uL (4.00-5.40); WHITE BLOOD COUNT 9.3 10^3/uL (4.0-10.0)
[2020-07-17 05:09] LABS: CALCIUM LEVEL 8.7 MG/DL (8.8-10.2); CREATININE FOR GFR 1.32 MG/DL (0.55-1.30); GLOMERULAR FILTRATION RATE 42.4 (>39)
[2020-07-17] MEDS: DEXTROSE 50% 50 ML SYRINGE IV PRN ×3 (05:16→10:39)
[2020-07-17] MEDS ORDERED: NS 1,000 ML IV SCH (05:30)
[2020-07-17] MEDS ORDERED: D5W/0.45% SODIUM CHLORIDE 1,000 ML IV SCH ×2 (05:50→19:15)
[2020-07-17] MEDS: HumaLOG INSULIN (NovoLOG) PER UNIT SC SCH ×4 (07:30→21:00)
[2020-07-17] MEDS: LEVEMIR (INSULIN DETEMIR) 1 UNITS/0.01ML SC SCH ×2 (09:00→20:50)
[2020-07-17] MEDS: NYSTATIN 100,000 UNITS/GM TOPICAL PWD 15 GM TOP SCH ×2 (09:34→21:12)
[2020-07-17] MEDS: SIMVASTATIN 40 MG TAB PO SCH (09:34)
[2020-07-17] MEDS: LACTOBACILLUS ACIDOPHILUS CAP (BACID) PO SCH ×3 (09:34→20:49)
--- NOTE | 2020-07-17 09:43 | IPN ---
PROGRESS NOTE DATE: 07/17/2020 SUBJECTIVE: Alee is seen in the PCU. She is going back to the Operating Room today for antibiotic beads. She is seen by Infectious Disease, recommends 2-3 weeks of IV antibiotics, needs acute rehab or chcf and also a very poor living situation, does not even have a bed and a reclining chair is broken. OBJECTIVE: VITAL SIGNS: Afebrile, vital signs are stable. GENERAL APPEARANCE: Alert, conversant, in no distress. LUNGS: Clear. HEART: Regular rate and rhythm. ABDOMEN: Soft, nontender. EXTREMITIES: The left lower extremity is dressed. LABORATORY DATA: White count is 9.3, hemoglobin is 8.9. Blood sugar was 51 this morning. IMPRESSION: 1. Osteomyelitis of the right foot. Treatment per Podiatry and Infectious Disease, appreciate their input. 2. Diabetes, as noted above. Her compliance as an outpatient is frankly invisible, now on an enforced diabetic diet with enforced insulin dosing, she is becoming hypoglycemic. Will reduce the dose of her Detemir insulin to 25 units twice a day, continue sliding scale with coverage. 3. Hyperlipidemia, continue her simvastatin. 4. Acute kidney injury, renal function is approaching her baseline. She is still off her SHELBIE inhibitor. 5. History of hypertension. She is off SHELBIE inhibitor therapy because of her renal situation. If blood pressure stays elevated, will probably add some amlodipine. 6. Hypoglycemia secondary to enforced diabetic diet and enforced compliance with insulin. Insulin dosing has been reduced.
[2020-07-17] MEDS ORDERED: DEXTROSE 50% 50 ML SYRINGE IV STA (10:47)
[2020-07-17 12:00] VITALS: BP 170/80
[2020-07-17] MEDS: NORCO, ANEXSIA 5/325MG TABLET (HYDROcodone/ACETAMINOPHEN) PO PRN (12:52)
[2020-07-17 16:00] VITALS: BP 160/72
[2020-07-17] MEDS ORDERED: ONDANSETRON 4MG/2ML VIAL IV PRN (17:00)
[2020-07-17] MEDS ORDERED: PERCOCET 5MG/325MG TAB PO PRN (17:00)
[2020-07-17] MEDS ORDERED: METOCLOPRAMIDE INJ 10MG/2ML VIAL (J2765 PER 1) IV PRN (17:00)
[2020-07-17] MEDS ORDERED: fentaNYL 100 MCG/2 ML INJECTION (J3010) IV PRN (17:00)
[2020-07-17] MEDS ORDERED: MIDAZOLAM INJ 2MG/2ML VIAL (J2250 PER 1MG) As Ordered ONE (17:18)
[2020-07-17] MEDS ORDERED: fentaNYL 100 MCG/2 ML INJECTION (J3010) As Ordered ONE (17:18)
[2020-07-17] MEDS ORDERED: LIDOCAINE 2% 100MG/5ML SDV (FOR ANES.) As Ordered ONE (17:22)
[2020-07-17] MEDS ORDERED: propofoL 200 MG/20 ML VIAL As Ordered ONE ×2 (17:22→18:10)
[2020-07-17] MEDS ORDERED: LIDOCAINE 1% MDV 20ML VIAL As Ordered ONE (17:23)
[2020-07-17] MEDS ORDERED: BUPIVACAINE HCL 0.5% 10ML VIAL As Ordered ONE (17:23)
[2020-07-17] MEDS ORDERED: VANCOMYCIN 500MG/10ML VIAL As Ordered ONE (17:29)
[2020-07-17] MEDS ORDERED: NORCO, ANEXSIA 5/325MG TABLET (HYDROcodone/ACETAMINOPHEN) As Ordered ONE (19:18)
[2020-07-17] MEDS ORDERED: NORCO, ANEXSIA 5/325MG TABLET (HYDROcodone/ACETAMINOPHEN) PO PRN (19:30)
[2020-07-17 19:45] VITALS: BP 110/54
[2020-07-18] MEDS: PIPERACILLIN/TAZOBACTAM SOD 4.5 GM in D5W MINI-BAG PLUS 50 ML IV SCH ×5 (01:30→20:17)
[2020-07-18 02:00] VITALS: BP 136/78
[2020-07-18] MEDS: NORCO, ANEXSIA 5/325MG TABLET (HYDROcodone/ACETAMINOPHEN) PO PRN ×2 (05:53→17:36)
[2020-07-18 06:00] VITALS: BP 146/75
[2020-07-18 06:38] LABS: HEMATOCRIT 26.8 % (36.0-47.0); HEMOGLOBIN 8.4 g/dl (12.0-15.5); MEAN CORPUSCULAR HEMOGLOBIN 28.1 pg (27.0-33.0); MEAN CORPUSCULAR HGB CONC 31.3 g/dl (32.0-36.5); MEAN CORPUSCULAR VOLUME 89.6 fl (80.0-96.0); PLATELET COUNT, AUTOMATED 592 10^3/uL (150-450); RED BLOOD COUNT 2.99 10^6/uL (4.00-5.40); WHITE BLOOD COUNT 8.2 10^3/uL (4.0-10.0)
[2020-07-18 06:57] LABS: CALCIUM LEVEL 8.7 MG/DL (8.8-10.2); CREATININE FOR GFR 1.58 MG/DL (0.55-1.30); GLOMERULAR FILTRATION RATE 34.4 (>39)
--- NOTE | 2020-07-18 08:14 | RO ---
OPERATIVE NOTE DATE OF OPERATION: 07/17/2020 PREOPERATIVE DIAGNOSIS: Right foot infection and ulceration. POSTOPERATIVE DIAGNOSIS: Right foot infection and ulceration. PROCEDURE: Right foot incision and drainage with antibiotic bead placement. SURGEON: Mingo Cavazos DPM ROOFING SALES REPRESENTATIVE: None. ANESTHESIA: Monitored anesthesia care, preop injection of 20 mL of 1:1 mix of 1% Lidocaine plain and 0.5% Marcaine plain. ESTIMATED BLOOD LOSS: Minimal. MATERIALS: Tobramycin antibiotic beads mixed with Vancomycin powder, 3-0 nylon. INJECTABLES: None. COMPLICATIONS: None. CONDITION: Stable. INDICATIONS: Alee Coleman is a 70-year-old diabetic female who had abscess and underwent incision and drainage. She states her pain has improved but is still sore over the last few days. Decision made to bring her to the operating room for repeat incision and drainage with antibiotic bead placement. The patient's site and side were identified and marked in preoperative area. Consent was reviewed and obtained. All risks, complications and alternatives to the procedure were explained to the patient in detail, all questions were answered. DESCRIPTION OF PROCEDURE: The patient was brought to the operating room on a stretcher. In the supine position monitored anesthesia care was delivered by the anesthesia team. Preop injection of 20 mL of 1:1 mixture of 1% Lidocaine plain and 0.5% Marcaine plain were injected into the right foot. The right foot was prepped and draped in usual sterile fashion. No tourniquet was used during the procedure. Previous incisions were inspected. There was no active purulence noted. There was some necrotic tissue which was removed using a rongeur. Site was irrigated with normal saline with bulb syringe. Once wound base was improved the antibiotic beads were placed in the wound bed. The plantar 2nd interspace incision was closed with 3-0 nylon and partial closure to the plantar 1st metatarsal incision was performed. Sterile dressings were applied. The patient was brought to PACU with vital signs stable, neurovascular status intact. She will continue on antibiotics. Most likely will be a good candidate for rehab placement.
[2020-07-18] MEDS ORDERED: INSUDET SC (08:25)
[2020-07-18] MEDS ORDERED: ZOSY1SOL6 IV (08:25)
[2020-07-18] MEDS ORDERED: RISATAB3 PO (08:25)
[2020-07-18] MEDS ORDERED: INSUHUMDS SC ×2 (08:25)
[2020-07-18] MEDS ORDERED: HYDR-3715 PO (08:25)
[2020-07-18 09:00] VITALS: BP 152/90
[2020-07-18] MEDS: LEVEMIR (INSULIN DETEMIR) 1 UNITS/0.01ML SC SCH ×2 (09:23→20:17)
[2020-07-18] MEDS: HumaLOG INSULIN (NovoLOG) PER UNIT SC SCH ×4 (09:24→20:24)
[2020-07-18] MEDS: LACTOBACILLUS ACIDOPHILUS CAP (BACID) PO SCH ×3 (09:25→20:17)
[2020-07-18] MEDS: SIMVASTATIN 40 MG TAB PO SCH (09:25)
[2020-07-18] MEDS: NYSTATIN 100,000 UNITS/GM TOPICAL PWD 15 GM TOP SCH ×2 (09:27→20:24)
--- NOTE | 2020-07-18 10:24 | DSES ---
DISCHARGE SUMMARY DATE OF ADMISSION: 07/09/2020 DATE OF DISCHARGE: 07/18/2020 PRINCIPAL DIAGNOSIS: Osteomyelitis of the right foot. SECONDARY DIAGNOSES: 1. Diabetes. Poor compliance as outpatient. 2. Diabetic neuropathy. 3. Hyperlipidemia. 4. Acute kidney injury. 5. Chronic kidney disease stage III. 6. Hypertensive heart disease. 7. Hypoglycemia secondary to enforced diabetic diet and enforced compliance with insulin regimen. CONSULTANTS: 1. Mingo Cavazos MD 2. Selene Casarez MD PRINCIPAL PROCEDURE: Right foot incision and drainage with removal of metallic foreign body on 07/10/2020, and right foot incision and drainage of wound on 07/15/2020 (small metallic wire located radiographically but could not be found surgically, not felt to be the source or site of infection). HISTORY: Alee Coleman is a patient of mine who is notable for very poor compliance with diabetic regimen who was admitted with a diabetic foot ulcer. She apparently stepped on one of her insulin syringes and it had embedded in her foot, showed up with osteomyelitis. She frequently drops out of care. She often does not take her insulin. She does not follow a diabetic diet. She has a hemoglobin A1c under 10 in the last four years. HOSPITAL COURSE: She was admitted to a medical bed, underwent incision and drainage, was placed on intravenous antibiotics with IV Zosyn, grew out Methicillin-sensitive Staph and Esherisha (E.) coli from the wound. She had two procedures as noted above. She went back to the operating room yesterday and had antibiotic beads placed into the wound. She saw Dr. Casarez yesterday and it was thought that two to three weeks of IV antibiotics would be in order and was stable for transfer to ARU today. SIGNIFICANT LABS TODAY: White count 8.2, hemoglobin 8.4, platelets 592. Sodium 136, potassium 4, BUN 15, creatinine 1.5, glucose 251. Hemoglobin A1c was 12.8 on admission, apparently it was repeated the next day and it was 12.6 which was interesting. She had occasional hypoglycemic episodes with blood sugars down to 56 requiring decreasing doses of basal insulin. DISPOSITION: She is discharged to ARU on Zosyn 4.5 gm every 6 six, Detemir Insulin 25 units twice a day, probiotic, [place] 5/325 every 6 hours as needed, Simvastatin 20 mg daily, sliding scale Insulin with coverage for hypoglycemic protocol, Milk of Magnesia as needed. She has not required restarting her Ramipril 5 mg daily that she uses as an outpatient. She is currently on day nine of an anticipated 21-day course of Zosyn. At the time of this dictation there are no pending labs.
[2020-07-18 14:00] VITALS: BP 145/75
[2020-07-18] MEDS ORDERED: LIDOCAINE 1% MDV 20ML VIAL As Ordered ONE (14:40)
--- NOTE | 2020-07-18 17:05 | REP ---
PROCEDURE NAME: MIDLINE INSERTION W/ SITERITE CLINICAL INFORMATION: prolonged IV atbx, poor IV access. COMPARISON: None. PROCEDURE DESCRIPTION: The procedure was performed by ASHLYN Torres, under the direct supervision of Dr. Cuevas. The risks and benefits of the procedure were explained to the patient and an informed consent was obtained both verbally and written. Directly prior to the start of the procedure a formal time-out was completed in the procedure room. The left cephalic, and basilic veins were localized using ultrasound guidance. The skin was prepped and draped in sterile fashion. Two mL of 1% lidocaine 10 mg/mL was used as a local anesthetic in total. Using ultrasound guidance multiple attempts were made to gain access to 1 of the left upper arm veins. All attempts failed and the procedure was stopped. The patient does not want the right arm to be utilized and the decision was made to wait 24 hours before Re attempting. The patient tolerated the procedure well and there were no immediate complications. CONCLUSION: Attempted mid line insertion into the left basilic and cephalic vein. <Electronically signed by Usha Vazquez > 07/18/20 1652 <Electronically signed by Tano Cuevas > 07/18/20 1701
[2020-07-18 19:48] VITALS: BP 158/90
[2020-07-18] MEDS: ACETAMINOPHEN TAB 650MG DOSE (2X325MG) PO PRN (20:18)
[2020-07-19] MEDS: PIPERACILLIN/TAZOBACTAM SOD 4.5 GM in D5W MINI-BAG PLUS 50 ML IV SCH ×2 (01:35→08:23)
[2020-07-19 05:26] LABS: HEMOGLOBIN 8.2 g/dl (12.0-15.5); MEAN CORPUSCULAR HEMOGLOBIN 27.8 pg (27.0-33.0); MEAN CORPUSCULAR HGB CONC 31.5 g/dl (32.0-36.5); MEAN CORPUSCULAR VOLUME 88.1 fl (80.0-96.0); PLATELET COUNT, AUTOMATED 616 10^3/uL (150-450); RED BLOOD COUNT 2.95 10^6/uL (4.00-5.40); WHITE BLOOD COUNT 7.9 10^3/uL (4.0-10.0)
[2020-07-19 05:52] LABS: C REACTIVE PROTEIN QUANTITATIV 8.73 MG/DL (0.00-0.30); CREATININE FOR GFR 1.53 MG/DL (0.55-1.30); GLOMERULAR FILTRATION RATE 35.7 (>39); POTASSIUM SERUM 4.4 MEQ/L (3.5-5.1)
[2020-07-19 06:31] VITALS: BP 178/80
[2020-07-19] MEDS: SIMVASTATIN 40 MG TAB PO SCH (08:23)
[2020-07-19] MEDS: LACTOBACILLUS ACIDOPHILUS CAP (BACID) PO SCH ×3 (08:24→20:16)
[2020-07-19] MEDS: NORCO, ANEXSIA 5/325MG TABLET (HYDROcodone/ACETAMINOPHEN) PO PRN ×2 (08:24→18:47)
[2020-07-19] MEDS: NYSTATIN 100,000 UNITS/GM TOPICAL PWD 15 GM TOP SCH ×2 (08:25→20:16)
[2020-07-19] MEDS: HumaLOG INSULIN (NovoLOG) PER UNIT SC SCH ×4 (08:32→20:16)
[2020-07-19] MEDS: LEVEMIR (INSULIN DETEMIR) 1 UNITS/0.01ML SC SCH ×2 (08:33→20:16)
--- NOTE | 2020-07-19 08:39 | IPN ---
PROGRESS NOTE DATE: 07/19/2020 SUBJECTIVE: Alee apparently did not go to the ARU yesterday, they had trouble getting midline vascular access established and are trying again today before transfer. Overall, she feels well. Blood sugars are still moderately elevated, and it does not look like she has had any hypoglycemic events recently, so I am titrating up her basal insulin. OBJECTIVE: VITAL SIGNS: Stable. LUNGS: Clear. HEART: Regular rate and rhythm. ABDOMEN: Soft and nontender. EXTREMITIES: Foot is dressed. LABORATORY DATA: BMP is stable. Creatinine is 1.5. CBC is stable. Hemoglobin is 8.2. IMPRESSION/PLAN: 1. Diabetes. Will increase her detemir insulin to 3 units twice a day. Continue her sliding scale. 2. History of hypertension. She was on Ramipril as an outpatient. This has been held during this admission. Blood pressure is still reasonably well controlled. 3. Osteomyelitis. She is now on day 10 out of a 21 day course of Zosyn.
--- NOTE | 2020-07-19 13:00 | IPN ---
INFECTIOUS DISEASE PROGRESS NOTE DATE: 07/19/2020 SUBJECTIVE: Alee was seen this morning with the nurse at the bedside. She could not have the midline placed yesterday. They could not find a vein. They were going to try today, but patient is reluctant to having a midline or a peripherally inserted central catheter (PICC) line. She does not like to have any foreign bodies in her. She still has peripheral IVs that are acceptable and she is willing to have those, even though she has required multiple sticks at that time. She has been afebrile. No fever or chills. No nausea, vomiting or diarrhea. PHYSICAL EXAMINATION: Temperature is 98.3, pulse 90, respirations 20, blood pressure 178/80, oxygen saturation 96% on room air. HEART: Normal S1, S2. No murmurs, rubs or gallops. LUNGS: Clear. No wheezes, rales or rhonchi. ABDOMEN: Morbidly obese. Soft, nontender. EXTREMITIES: No edema, clubbing or cyanosis. Right foot incision between first and second and between second and third metatarsal, there are two incisions that have been closed except for a small area at the ball of the foot that has antibiotic beads. There are no purulent areas. There is no redness or cellulitis around the wound. That has all resolved. LABORATORY DATA: White count 7.9, hemoglobin 8.2, hematocrit 26 Sodium 139, potassium 4.4, chloride 106, bicarbonate 26, BUN 24, creatinine 1.53, glucose 181, calcium 8. C-reactive protein (CRP) 8.73. Erythrocyte sedimentation rate (ESR) 35.7. IMPRESSION: 1. Acute osteomyelitis with abscess of right foot with osteomyelitis at the first proximal and distal phalanges on MRI foot Culture positive for methicillin sensitive Streptococcus aureus (MSSA) and Staphylococcus aureus. Patient doing well on IV Zosyn. She will be transferred to acute rehabilitation for rehabilitation and IV antibiotics. 2. Insulin dependent diabetes with poor control. Patient advised that she needs to be more compliant with her diabetes diet as well as her insulin. Plan : transfer to acute rehabilitation unit (ARU) for IV Zosyn. Will decrease the dose to 3.375 grams IV every 6 hours. Patient will be treated with another couple weeks IV while in acute rehabilitation, then discharged home on oral medication to finish the six week course. Monitor CBC, basic profile, CRP, ESR weekly. Discontinue order for PICC line or midline as the patient does not want it. Will continue using peripheral IV until we run out of access, then will reconsider. MTDD
[2020-07-19] MEDS: PIPERACILLIN/TAZOBACTAM SOD 3.375 GM in D5W MINI-BAG PLUS 50 ML IV SCH ×2 (13:19→21:19)
[2020-07-20] MEDS: NORCO, ANEXSIA 5/325MG TABLET (HYDROcodone/ACETAMINOPHEN) PO PRN ×3 (01:08→17:11)
[2020-07-20] MEDS: PIPERACILLIN/TAZOBACTAM SOD 3.375 GM in D5W MINI-BAG PLUS 50 ML IV SCH ×4 (01:41→20:46)
[2020-07-20 05:41] VITALS: BP 152/83
[2020-07-20 06:12] LABS: HEMATOCRIT 27.5 % (36.0-47.0); HEMOGLOBIN 8.8 g/dl (12.0-15.5); MEAN CORPUSCULAR HEMOGLOBIN 28.2 pg (27.0-33.0); MEAN CORPUSCULAR VOLUME 88.1 fl (80.0-96.0); PLATELET COUNT, AUTOMATED 702 10^3/uL (150-450); RED BLOOD COUNT 3.12 10^6/uL (4.00-5.40)
[2020-07-20 06:31] LABS: CALCIUM LEVEL 8.4 MG/DL (8.8-10.2); CREATININE FOR GFR 1.38 MG/DL (0.55-1.30); GLOMERULAR FILTRATION RATE 40.2 (>39); POTASSIUM SERUM 4.8 MEQ/L (3.5-5.1)
[2020-07-20] MEDS: LACTOBACILLUS ACIDOPHILUS CAP (BACID) PO SCH ×3 (08:10→20:46)
[2020-07-20] MEDS: SIMVASTATIN 40 MG TAB PO SCH (08:10)
[2020-07-20] MEDS: HumaLOG INSULIN (NovoLOG) PER UNIT SC SCH ×4 (08:11→20:47)
[2020-07-20] MEDS: NYSTATIN 100,000 UNITS/GM TOPICAL PWD 15 GM TOP SCH ×2 (08:12→20:47)
--- NOTE | 2020-07-20 08:40 | IPN ---
PROGRESS NOTE DATE: 07/20/2020 SUBJECTIVE: Alee is seen on [address] [facility]. Her insurance rejected her for ARU. She cannot go home, she does not have a bed, she sleeps in a chair. Her hygiene is poor and she does not have any support services at home. Blood sugars are trending down, we have been adjusting her insulin on a daily basis. She has been both hyper and hypoglycemic during this admission. OBJECTIVE: VITAL SIGNS: Afebrile. Vital signs are stable. LUNGS: Clear. HEART: Regular rate and rhythm. ABDOMEN: Soft, nontender. EXTREMITIES: Trace peripheral edema. Her right foot is dressed. LABORATORY DATA: White count 8, hemoglobin 8.8, platelets 702,000, sodium 138, potassium 4.8, BUN 24, creatinine 1.38. Glucose this morning is 148. Glucose range has been in the 200s the last 24 hours. IMPRESSION: 1. Osteomyelitis of right foot. Continue her IV Zosyn, this is day #11. She was seen by Dr. Casarez from Infectious Disease yesterday who adjusted the dose of her Zosyn. Recommended "another couple of weeks" of IV antibiotics followed by oral medicine to finish a six week course. IV access has been a problem, midline insertion was unsuccessful. Apparently, it took a significant amount of effort to get a peripheral IV in, if she loses that she will have to reconsider the midline. 2. Diabetes, poor control as an outpatient. Good control with an enforced diet and insulin therapy. I will slightly increase her basal insulin dose. She has been hypoglycemic this admission, so I am increasing these doses with caution. 3. Poor social situation. I spent quite a bit of time on the phone with the reviewer yesterday who declined patient for ARU. She should not go home. Her situation there is not good and not conducive towards her healing this foot. She really needs a supervised medical arrangement until this is healed.
[2020-07-20] MEDS: LEVEMIR (INSULIN DETEMIR) 1 UNITS/0.01ML SC SCH ×2 (09:52→20:46)
[2020-07-20 14:39] VITALS: BP 153/70
[2020-07-20] MEDS: ACETAMINOPHEN TAB 650MG DOSE (2X325MG) PO PRN (20:47)
[2020-07-20 22:00] VITALS: BP 150/80
[2020-07-21] MEDS: PIPERACILLIN/TAZOBACTAM SOD 3.375 GM in D5W MINI-BAG PLUS 50 ML IV SCH ×4 (02:26→21:26)
[2020-07-21] MEDS: NORCO, ANEXSIA 5/325MG TABLET (HYDROcodone/ACETAMINOPHEN) PO PRN ×2 (03:20→17:04)
[2020-07-21 06:00] VITALS: BP 164/84
[2020-07-21 06:23] LABS: HEMATOCRIT 27.2 % (36.0-47.0); HEMOGLOBIN 8.7 g/dl (12.0-15.5); MEAN CORPUSCULAR HEMOGLOBIN 27.8 pg (27.0-33.0); MEAN CORPUSCULAR VOLUME 86.9 fl (80.0-96.0); PLATELET COUNT, AUTOMATED 655 10^3/uL (150-450); RED BLOOD COUNT 3.13 10^6/uL (4.00-5.40); WHITE BLOOD COUNT 7.5 10^3/uL (4.0-10.0)
[2020-07-21 06:45] LABS: CALCIUM LEVEL 8.4 MG/DL (8.8-10.2); CREATININE FOR GFR 1.41 MG/DL (0.55-1.30); GLOMERULAR FILTRATION RATE 39.3 (>39); POTASSIUM SERUM 4.7 MEQ/L (3.5-5.1)
[2020-07-21] MEDS: SIMVASTATIN 40 MG TAB PO SCH (08:10)
[2020-07-21] MEDS: LACTOBACILLUS ACIDOPHILUS CAP (BACID) PO SCH ×3 (08:10→21:26)
[2020-07-21] MEDS: LEVEMIR (INSULIN DETEMIR) 1 UNITS/0.01ML SC SCH ×2 (08:11→21:26)
[2020-07-21] MEDS: HumaLOG INSULIN (NovoLOG) PER UNIT SC SCH ×4 (08:11→21:00)
[2020-07-21] MEDS: NYSTATIN 100,000 UNITS/GM TOPICAL PWD 15 GM TOP SCH ×2 (08:12→21:00)
--- NOTE | 2020-07-21 10:58 | IPN ---
PROGRESS NOTE DATE: 07/21/2020 SUBJECTIVE: Alee is seen on [facility], no change in clinical status. OBJECTIVE: VITAL SIGNS: Stable. LUNGS: Clear. HEART: Regular rate and rhythm. ABDOMEN: Soft, nontender. EXTREMITIES: Foot is dressed. LABORATORY DATA: CBC is unchanged. Electrolytes are unchanged. Creatinine is 1.4 which is baseline. Blood sugars have been under better control. No hypoglycemia. No significant hyperglycemia over the last day. PLAN: Tomorrow I think podiatry is revisiting her. She was rejected for ARU. PFS will have to get involved with placement tomorrow. Her diabetes has finally come under somewhat controlled which unfortunately will be short-lived upon discharge if she continues her current lifelong pattern.
[2020-07-21 14:48] VITALS: BP 154/72
[2020-07-21] MEDS: ACETAMINOPHEN TAB 650MG DOSE (2X325MG) PO PRN (21:26)
[2020-07-21 22:00] VITALS: BP 171/80
[2020-07-22] MEDS: PIPERACILLIN/TAZOBACTAM SOD 3.375 GM in D5W MINI-BAG PLUS 50 ML IV SCH ×4 (02:19→20:28)
[2020-07-22] MEDS: NORCO, ANEXSIA 5/325MG TABLET (HYDROcodone/ACETAMINOPHEN) PO PRN ×3 (02:20→15:06)
[2020-07-22 06:00] VITALS: BP 115/53
[2020-07-22 06:13] LABS: HEMATOCRIT 29.3 % (36.0-47.0); HEMOGLOBIN 9.2 g/dl (12.0-15.5); MEAN CORPUSCULAR HEMOGLOBIN 27.5 pg (27.0-33.0); MEAN CORPUSCULAR HGB CONC 31.4 g/dl (32.0-36.5); MEAN CORPUSCULAR VOLUME 87.5 fl (80.0-96.0); PLATELET COUNT, AUTOMATED 723 10^3/uL (150-450); RED BLOOD COUNT 3.35 10^6/uL (4.00-5.40); WHITE BLOOD COUNT 6.5 10^3/uL (4.0-10.0)
[2020-07-22 06:38] LABS: CREATININE FOR GFR 1.56 MG/DL (0.55-1.30); GLOMERULAR FILTRATION RATE 34.9 (>39)
[2020-07-22 08:28] LABS: C REACTIVE PROTEIN QUANTITATIV 3.09 MG/DL (0.00-0.30)
[2020-07-22] MEDS: LACTOBACILLUS ACIDOPHILUS CAP (BACID) PO SCH ×3 (08:37→20:29)
[2020-07-22] MEDS: SIMVASTATIN 40 MG TAB PO SCH (08:37)
[2020-07-22] MEDS: LEVEMIR (INSULIN DETEMIR) 1 UNITS/0.01ML SC SCH ×2 (08:38→20:28)
[2020-07-22] MEDS: HumaLOG INSULIN (NovoLOG) PER UNIT SC SCH ×4 (08:38→20:28)
[2020-07-22] MEDS: NYSTATIN 100,000 UNITS/GM TOPICAL PWD 15 GM TOP SCH ×2 (08:39→20:29)
--- NOTE | 2020-07-22 09:54 | IPN ---
PROGRESS NOTE DATE: 07/22/2020 SUBJECTIVE: Alee is seen on [address] [facility]. Her blood sugars have come under better control. Her osteomyelitis of the right foot is being treated with Zosyn 3.375 grams every 6 hours and she has a probiotic provided as well. Her insurance rejected her application for ARU on Wednesday. This now becomes an outpatient management issue. Her home situation is not hygienic or healthful. She does not have a bed, she sleeps in a recliner, there is no one to help her. She walked around with an insulin needle embedded in her foot long enough to get osteomyelitis. OBJECTIVE: VITAL SIGNS: Afebrile. Vital signs are stable. GENERAL APPEARANCE: Alert, conversant, in no distress. LUNGS: Clear. HEART: Regular rate and rhythm. ABDOMEN: Soft, nontender. EXTREMITIES: Trace peripheral edema. Foot is dressed. LABORATORY DATA: CBC is stable. Chem profile is stable. Creatinine is stable at 1.56. Blood sugars are finally under reasonably good control in the 150 to 200 range. IMPRESSION: 1. Osteomyelitis of her right foot. She needs six weeks of IV antibiotics. She currently just has a peripheral IV access. She declined a midline access catheter on Wednesday, when she loosens this peripheral IV access, she will need to reconsider that decision as peripheral IV access is apparently exceedingly difficult to obtain on her. Continue her Zosyn. I think Dr. Cavazos is coming by tomorrow to recheck her foot. Infectious Disease is also involved. 2. Diabetes, under increasingly good control. As noted previously, outpatient control is challenging for Alee. I am nudging up the dose of her basal insulin, continue sliding scale. 3. Hyperlipidemia, continue her current dose of simvastatin. 4. Peripheral neuropathy, she has a heat treating operator seeing her in the hospital and will see her as an outpatient.
--- NOTE | 2020-07-22 12:02 | IPN ---
PROGRESS NOTE DATE: 07/22/2020 SUBJECTIVE: The patient is seen and examined. She denies new complaints. She states her foot is continuing to feel better. OBJECTIVE: Vitals are reviewed. T-max 99.8. LABORATORY DATA: Labs are reviewed. White cell count is 6.5, CRP has trended down to 3.09. Lower extremity examination: Erythema and edema are nearly resolved. Wound base has antibiotic beads in it, no necrotic tissue. ASSESSMENT: A 73-year-old diabetic female status post incision and drainage with antibiotic bead placement. PLAN: Patient's insurance apparently will not cover acute rehab. She states she no longer wants to go to a nursing facility. She would rather go home. Per notes, her home situation is not ideal. Ultimately, if patient refused nursing facility, she will have to be discharged home, she will have to have home health nurses come in ideally three times a week for wound care. Would continue IV antibiotics while patient is in hospital. She could be discharged on oral antibiotics if agreeable with Infectious Disease. Continue current wound care.
[2020-07-22 14:00] VITALS: BP 135/83
[2020-07-22] MEDS: ACETAMINOPHEN TAB 650MG DOSE (2X325MG) PO PRN (20:29)
[2020-07-22 22:00] VITALS: BP 128/78
[2020-07-23] MEDS: NORCO, ANEXSIA 5/325MG TABLET (HYDROcodone/ACETAMINOPHEN) PO PRN ×3 (01:37→20:28)
[2020-07-23] MEDS: PIPERACILLIN/TAZOBACTAM SOD 3.375 GM in D5W MINI-BAG PLUS 50 ML IV SCH ×4 (01:38→20:28)
[2020-07-23 05:34] LABS: HEMATOCRIT 30.4 % (36.0-47.0); HEMOGLOBIN 9.5 g/dl (12.0-15.5); MEAN CORPUSCULAR HEMOGLOBIN 27.7 pg (27.0-33.0); MEAN CORPUSCULAR HGB CONC 31.3 g/dl (32.0-36.5); MEAN CORPUSCULAR VOLUME 88.6 fl (80.0-96.0); PLATELET COUNT, AUTOMATED 677 10^3/uL (150-450); RED BLOOD COUNT 3.43 10^6/uL (4.00-5.40); WHITE BLOOD COUNT 6.5 10^3/uL (4.0-10.0)
[2020-07-23 06:01] LABS: CALCIUM LEVEL 8.4 MG/DL (8.8-10.2); CREATININE FOR GFR 1.65 MG/DL (0.55-1.30); GLOMERULAR FILTRATION RATE 32.7 (>39); POTASSIUM SERUM 5.5 MEQ/L (3.5-5.1)
[2020-07-23 06:15] VITALS: BP 112/66
[2020-07-23] MEDS: HumaLOG INSULIN (NovoLOG) PER UNIT SC SCH ×4 (07:54→20:28)
[2020-07-23 08:08] VITALS: BP 155/70
[2020-07-23] MEDS: LACTOBACILLUS ACIDOPHILUS CAP (BACID) PO SCH ×3 (08:52→20:27)
[2020-07-23] MEDS: SIMVASTATIN 40 MG TAB PO SCH (08:52)
[2020-07-23] MEDS: LEVEMIR (INSULIN DETEMIR) 1 UNITS/0.01ML SC SCH ×2 (08:54→20:27)
[2020-07-23] MEDS: NYSTATIN 100,000 UNITS/GM TOPICAL PWD 15 GM TOP SCH ×2 (08:55→20:28)
[2020-07-23] MEDS ORDERED: PATIROMER SORBITEX CALCIUM 8.4 GM POWDER PACKET (VELTASSA) PO ONE ×2 (09:00→15:05)
[2020-07-23 13:58] LABS: CALCIUM LEVEL 9.3 MG/DL (8.8-10.2); CREATININE FOR GFR 1.52 MG/DL (0.55-1.30); POTASSIUM SERUM 5.4 MEQ/L (3.5-5.1)
[2020-07-23 14:00] VITALS: BP 171/79
--- NOTE | 2020-07-23 19:40 | IPNPDOC ---
Subjective Date Seen The patient was seen on 07/23/20. Subjective Chief Complaint/HPI Mrs. Coleman is a 70 year old female who is here with osteomyelitis of the right foot. This morning, she denies any chest pain or dyspnea. Otherwise, potassium was elevated this morning, gave a dose of [place] Objective Physical Examination General Exam: Positive: Alert, Cooperative Eye Exam: Positive: EOMI; Negative: Sclera icteric ENT Exam: Positive: Atraumatic Neck Exam: Positive: Supple Chest Exam: Positive: Clear to auscultation Heart Exam: Positive: Rate Normal, Regular Rhythm Abdomen Exam: Positive: Normal bowel sounds, Soft; Negative: Tenderness Neuro Exam: Positive: Normal Speech Psych Exam: Positive: Anxiety Assessment /Plan Assessment Mrs. Coleman is a 70 year old female who is here with osteomyelitis of the right foot. Patient was initially taken to the OR on 07/11/2020 for infected foreign body removal. Patient was again taken to the OR on 07/16/2020 and 07/18/2020 for I&D and antibiotic bead placement. Patient will need a total of 6 weeks of antibiotics. Plan/VTE VTE Prophylaxis Ordered?: Yes Plan 1. Osteomyelitis and abscess of right foot -S/P surgery on 07/11, 07/16, and 07/18 by Podiatry -ID following, patient will need a total of 6 weeks of antibiotics -Currently on Zosyn for MSSA 2. Diabetes mellitus -HbA1c 12.6 -Continue basal insulin and sliding sale insulin -On carbohydrate consistent diet 3. LATOYA on CKD -Creatinine mildly elevated -Baseline creatinine around 1.2 -Creatinine today 1.52 -Supportive care -Trend CMP 4. Poor social situation -Patient not safe to go home -[facility]U declined -Will need to figure out placement 5. DVT ppx -SCD and TEDs VS, I&O, 24H, Fishbone Vital Signs/I&O Vital Signs Date Time Temp Pulse Resp B/P (MAP) Pulse Ox O2 Delivery O2 Flow Rate FiO2 07/23/20 14:00 98.6 82 18 171/79 (109) 96 Room Air I&O- Last 24 Hours up to 6 AM 07/23/20 06:00 Intake Total 790 ml Balance 790 ml Laboratory Data 24H LABS Laboratory Tests 2 07/22/20 19:34: Bedside Glucose (Misc Panel) 323H 07/23/20 05:12: Nucleated Red Blood Cells % (auto) 0.0, Anion Gap 5L, Glomerular Filtration Rate 32.7L, Calcium Level 8.4L 07/23/20 11:22: Bedside Glucose (Misc Panel) 207H 07/23/20 12:53: Anion Gap 7L, Glomerular Filtration Rate 36.0L, Calcium Level 9.3 07/23/20 16:41: Bedside Glucose (Misc Panel) 239H CBC/BMP Laboratory Tests 07/23/20 05:12 07/23/20 12:53 07/23/20 15:31 ALLYSON IRVING 9, 2021 19:40
[2020-07-23 22:00] VITALS: BP 171/77
[2020-07-24] MEDS: PIPERACILLIN/TAZOBACTAM SOD 3.375 GM in D5W MINI-BAG PLUS 50 ML IV SCH ×5 (01:59→22:14)
[2020-07-24 06:00] VITALS: BP 161/73
[2020-07-24 06:32] LABS: HEMATOCRIT 30.3 % (36.0-47.0); HEMOGLOBIN 9.5 g/dl (12.0-15.5); MEAN CORPUSCULAR HEMOGLOBIN 27.5 pg (27.0-33.0); MEAN CORPUSCULAR HGB CONC 31.4 g/dl (32.0-36.5); MEAN CORPUSCULAR VOLUME 87.8 fl (80.0-96.0); PLATELET COUNT, AUTOMATED 667 10^3/uL (150-450); RED BLOOD COUNT 3.45 10^6/uL (4.00-5.40); WHITE BLOOD COUNT 5.3 10^3/uL (4.0-10.0)
[2020-07-24 07:01] LABS: C REACTIVE PROTEIN QUANTITATIV 3.19 MG/DL (0.00-0.30); CALCIUM LEVEL 9.2 MG/DL (8.8-10.2); CREATININE FOR GFR 1.55 MG/DL (0.55-1.30); GLOMERULAR FILTRATION RATE 35.2 (>39)
[2020-07-24] MEDS: LACTOBACILLUS ACIDOPHILUS CAP (BACID) PO SCH ×3 (07:53→22:14)
[2020-07-24] MEDS: NORCO, ANEXSIA 5/325MG TABLET (HYDROcodone/ACETAMINOPHEN) PO PRN ×2 (07:53→22:16)
[2020-07-24] MEDS: LEVEMIR (INSULIN DETEMIR) 1 UNITS/0.01ML SC SCH ×2 (07:54→22:16)
[2020-07-24] MEDS: NYSTATIN 100,000 UNITS/GM TOPICAL PWD 15 GM TOP SCH ×2 (07:54→22:15)
[2020-07-24] MEDS: HumaLOG INSULIN (NovoLOG) PER UNIT SC SCH ×4 (07:54→21:00)
[2020-07-24] MEDS: SIMVASTATIN 40 MG TAB PO SCH (07:54)
[2020-07-24 14:00] VITALS: BP 172/86
[2020-07-24 14:34] LABS: CALCIUM LEVEL 9.3 MG/DL (8.8-10.2); CREATININE FOR GFR 1.65 MG/DL (0.55-1.30); GLOMERULAR FILTRATION RATE 32.7 (>39); POTASSIUM SERUM 4.8 MEQ/L (3.5-5.1)
--- NOTE | 2020-07-24 17:48 | IPNPDOC ---
Subjective Date Seen The patient was seen on 07/24/20. Subjective Chief Complaint/HPI Mrs. Coleman is a 70 year old female who is here with osteomyelitis of the right foot. This morning, her potassium continued to be mildly elevated. Will make her diet low potassium. Otherwise, she denies any chest pain or dyspnea. Revisited the idea of midline, but she was adamant against midline. Spoke with her about disposition, but she wants to hear from Dr. Cavazos. Reached out to Dr. Cavazos, and he spoke with patient. She would be amenable to local rehab. If not available the home with home services. Objective Physical Examination General Exam: Positive: Alert, Cooperative Eye Exam: Positive: EOMI; Negative: Sclera icteric ENT Exam: Positive: Atraumatic Neck Exam: Positive: Supple Chest Exam: Positive: Clear to auscultation Heart Exam: Positive: Rate Normal, Regular Rhythm Abdomen Exam: Positive: Normal bowel sounds, Soft; Negative: Tenderness Neuro Exam: Positive: Normal Speech Psych Exam: Positive: Anxiety Assessment /Plan Assessment Mrs. Coleman is a 70 year old female who is here with osteomyelitis of the right foot. Patient was initially taken to the OR on 07/11/2020 for infected foreign body removal. Patient was again taken to the OR on 07/16/2020 and 07/18/2020 for I&D and antibiotic bead placement. Patient will need a total of 6 weeks of antibiotics. Plan/VTE VTE Prophylaxis Ordered?: Yes Plan 1. Osteomyelitis and abscess of right foot -S/P surgery on 07/11, 07/16, and 07/18 by Podiatry -ID following, patient will need a total of 6 weeks of antibiotics -Currently on Zosyn for MSSA 2. Diabetes mellitus -HbA1c 12.6 -Continue basal insulin and sliding sale insulin -On carbohydrate consistent diet and low potassium diet. 3. LATOYA on CKD -Creatinine mildly elevated -Supportive care -Trend CMP 4. Poor social situation -Patient not safe to go home -[facility]U declined -Will need to figure out placement 5. Hypertension -Blood pressure elevated the past 2 days -Discontinue simvastatin and start amlodipine 6. Dyslipidemia -Switch simvastatin to rosuvastatin -Rosuvastatin would not interact with amlodipine 7. DVT ppx -SCD and TEDs Disposition: [facility] looking at patient for rehab, but patient would need to be off of IV antibiotics per PFS. Will touch base with ID tomorrow when we would be able to do oral antibiotics. VS, I&O, 24H, Fishbone Vital Signs/I&O Vital Signs Date Time Temp Pulse Resp B/P (MAP) Pulse Ox O2 Delivery O2 Flow Rate FiO2 07/24/20 14:00 97.8 86 21 172/86 (114) 97 Room Air I&O- Last 24 Hours up to 6 AM 07/24/20 06:00 Intake Total 2120 ml Balance 2120 ml Laboratory Data 24H LABS Laboratory Tests 2 07/23/20 20:17: Bedside Glucose (Misc Panel) 237H 07/24/20 05:45: Nucleated Red Blood Cells % (auto) 0.0, Anion Gap 6L, Glomerular Filtration Rate 35.2L, Calcium Level 9.2, C-Reactive Protein, Quantitative 3.19H 07/24/20 11:50: Bedside Glucose (Misc Panel) 217H 07/24/20 13:51: Anion Gap 5L, Glomerular Filtration Rate 32.7L, Calcium Level 9.3 CBC/BMP Laboratory Tests 07/24/20 05:45 07/24/20 13:51 ALLYSON IRVING DO Jul 24, 2020 17:48
[2020-07-24 22:00] VITALS: BP 173/88
[2020-07-25] MEDS: ACETAMINOPHEN TAB 650MG DOSE (2X325MG) PO PRN (01:33)
[2020-07-25] MEDS: PIPERACILLIN/TAZOBACTAM SOD 3.375 GM in D5W MINI-BAG PLUS 50 ML IV SCH ×3 (01:33→14:57)
[2020-07-25 06:00] VITALS: BP 119/60
[2020-07-25 07:10] LABS: HEMATOCRIT 31.7 % (36.0-47.0); HEMOGLOBIN 10.2 g/dl (12.0-15.5); MEAN CORPUSCULAR HEMOGLOBIN 27.9 pg (27.0-33.0); MEAN CORPUSCULAR HGB CONC 32.2 g/dl (32.0-36.5); MEAN CORPUSCULAR VOLUME 86.8 fl (80.0-96.0); PLATELET COUNT, AUTOMATED 655 10^3/uL (150-450); RED BLOOD COUNT 3.65 10^6/uL (4.00-5.40); WHITE BLOOD COUNT 4.7 10^3/uL (4.0-10.0)
[2020-07-25] MEDS: HumaLOG INSULIN (NovoLOG) PER UNIT SC SCH ×4 (07:30→21:00)
[2020-07-25 07:33] LABS: CALCIUM LEVEL 9.1 MG/DL (8.8-10.2); CREATININE FOR GFR 1.58 MG/DL (0.55-1.30); GLOMERULAR FILTRATION RATE 34.4 (>39); POTASSIUM SERUM 4.6 MEQ/L (3.5-5.1)
[2020-07-25 08:10] LABS: ERYTHROCYTE SEDIMENTATION RATE 108 mm/hr (0-30)
[2020-07-25] MEDS: LEVEMIR (INSULIN DETEMIR) 1 UNITS/0.01ML SC SCH ×2 (08:36→21:48)
[2020-07-25] MEDS: amLODIPine 5 MG TAB PO SCH (08:36)
[2020-07-25] MEDS: LACTOBACILLUS ACIDOPHILUS CAP (BACID) PO SCH ×3 (08:36→21:47)
[2020-07-25] MEDS: ROSUVASTATIN 10 MG TAB (CRESTOR) PO SCH (08:36)
[2020-07-25] MEDS: NYSTATIN 100,000 UNITS/GM TOPICAL PWD 15 GM TOP SCH ×2 (08:37→21:48)
--- NOTE | 2020-07-25 14:02 | IPNPDOC ---
Subjective Date Seen The patient was seen on 07/25/20. Subjective Chief Complaint/HPI Mrs. Coleman is a 70 year old female who is here with osteomyelitis of the right foot. This morning, denies chest pain or dyspnea. Touched base with ID. Patient can be switched to Keflex 1g q8h for 28 days upon discharge. Discussed with PFS for discharge planning. Potential placement in [facility]. Objective Physical Examination General Exam: Positive: Alert, Cooperative Eye Exam: Positive: EOMI; Negative: Sclera icteric ENT Exam: Positive: Atraumatic Neck Exam: Positive: Supple Chest Exam: Positive: Clear to auscultation Heart Exam: Positive: Rate Normal, Regular Rhythm Abdomen Exam: Positive: Normal bowel sounds, Soft; Negative: Tenderness Neuro Exam: Positive: Normal Speech Psych Exam: Positive: Anxiety Assessment /Plan Assessment Mrs. Coleman is a 70 year old female who is here with osteomyelitis of the right foot. Patient was initially taken to the OR on 07/11/2020 for infected foreign body removal. Patient was again taken to the OR on 07/16/2020 and 07/18/2020 for I&D and antibiotic bead placement. Patient will need a total of 6 weeks of antibiotics. Anticipated end date on 08/22/2020. Continue Zosyn while inpatient. Switch to cephalexin 1gm q8h on discharge Plan/VTE VTE Prophylaxis Ordered?: Yes Plan 1. Osteomyelitis and abscess of right foot -S/P surgery on 07/11, 07/16, and 07/18 by Podiatry -ID following, patient will need a total of 6 weeks of antibiotics -Currently on Zosyn for MSSA -On discharge, can be switched to Keflex 1gm q8h for 28 days, anticipated end date on 09/11 2. Diabetes mellitus -HbA1c 12.6 -Continue basal insulin and sliding sale insulin -On carbohydrate consistent diet and low potassium diet. 3. LATOYA on CKD -Creatinine mildly elevated -Supportive care -Trend CMP 4. Poor social situation -Patient not safe to go home -[facility] declined -Will need to figure out placement 5. Hypertension -Blood pressure elevated the past 2 days -Discontinue simvastatin and start amlodipine 6. Dyslipidemia -Switch simvastatin to rosuvastatin -Rosuvastatin would not interact with amlodipine 7. DVT ppx -SCD and TEDs Disposition: Potential placement at [facility] tomorrow. VS, I&O, 24H, [place] Vital Signs/I&O Vital Signs Date Time Temp Pulse Resp B/P (MAP) Pulse Ox O2 Delivery O2 Flow Rate FiO2 07/25/20 08:36 141/67 07/25/20 06:00 98.7 72 20 97 Room Air I&O- Last 24 Hours up to 6 AM 07/25/20 06:00 Intake Total 1260 ml Balance 1260 ml Laboratory Data 24H LABS Laboratory Tests 2 07/24/20 16:30: Bedside Glucose (Misc Panel) 126H 07/24/20 20:32: Bedside Glucose (Misc Panel) 200H 07/25/20 06:38: Nucleated Red Blood Cells % (auto) 0.0, Erythrocyte Sedimentation Rate 108H, Anion Gap 8, Glomerular Filtration Rate 34.4L, Calcium Level 9.1 07/25/20 11:50: Bedside Glucose (Misc Panel) 195H CBC/BMP Laboratory Tests 07/25/20 06:38 ALLYSON IRVING 11, 2021 14:02
[2020-07-25 14:25] VITALS: BP 141/68
[2020-07-25] MEDS: CEPHALEXIN 500 MG CAP PO SCH (21:46)
[2020-07-25] MEDS: NORCO, ANEXSIA 5/325MG TABLET (HYDROcodone/ACETAMINOPHEN) PO PRN (21:49)
[2020-07-25 22:00] VITALS: BP 150/72
[2020-07-26] MEDS: CEPHALEXIN 500 MG CAP PO SCH ×3 (05:43→21:22)
[2020-07-26 06:00] VITALS: BP 161/78
[2020-07-26 06:18] LABS: HEMATOCRIT 30.7 % (36.0-47.0); HEMOGLOBIN 9.7 g/dl (12.0-15.5); MEAN CORPUSCULAR HEMOGLOBIN 27.6 pg (27.0-33.0); MEAN CORPUSCULAR HGB CONC 31.6 g/dl (32.0-36.5); MEAN CORPUSCULAR VOLUME 87.5 fl (80.0-96.0); PLATELET COUNT, AUTOMATED 641 10^3/uL (150-450); RED BLOOD COUNT 3.51 10^6/uL (4.00-5.40); WHITE BLOOD COUNT 4.2 10^3/uL (4.0-10.0)
[2020-07-26 06:40] LABS: CALCIUM LEVEL 9.1 MG/DL (8.8-10.2); CREATININE FOR GFR 1.56 MG/DL (0.55-1.30); GLOMERULAR FILTRATION RATE 34.9 (>39); POTASSIUM SERUM 5.1 MEQ/L (3.5-5.1)
[2020-07-26] MEDS: HumaLOG INSULIN (NovoLOG) PER UNIT SC SCH ×4 (07:31→20:57)
[2020-07-26] MEDS: NORCO, ANEXSIA 5/325MG TABLET (HYDROcodone/ACETAMINOPHEN) PO PRN (07:34)
--- NOTE | 2020-07-26 08:11 | IPN ---
PROGRESS NOTE DATE: 07/23/2020 SUBJECTIVE: OBJECTIVE: HEART: Normal S1, S2. No murmurs, rubs, or gallop. LUNGS: Clear. No wheezes, rales, or rhonchi. ABDOMEN: Obese, soft, and nontender. EXTREMITIES: No clubbing, cyanosis, or edema. Right foot showed two healing incisions without surrounding cellulitis. There is an open wound about 2 x 2 cm with antibiotic beads at the bases. LABORATORY DATA: July 23 white count 6.5, hemoglobin 9.5, hematocrit 30.4, platelets 677,000. Sodium 133, potassium 5.4, chloride 99, bicarb 27, BUN 32, creatinine 1.52, glucose 226, calcium 9.3. CRP 3.09. Wound cultures were positive MSSA and E. coli. IMPRESSION: 1. Acute osteomyelitis of the right foot status post incision and drainage (I&D) on two different occasions. The patient has been on IV Zosyn for a total of 14 days doing much better. She has refused a midline and she is not a candidate for acute rehab. Due to her clinical improvement, I think the patient could be switched to oral antibiotics to finish her six week course. I would suggest Keflex 1 gram p.o. t.i.d. That will improve bioavailability. 2. Insulin-dependent diabetes with poor control. PLAN: Case will be discussed with Dr. Cavazos tomorrow regarding home antibiotics. If he agrees, will switch her to p.o. Keflex 1 gram p.o. t.i.d. Continue with probiotics two to three times a day. The patient will need four more weeks of oral antibiotics. Will monitor CBC, ESR, CRP, and basic profile weekly. She will need to follow-up with infectious disease in two weeks.
[2020-07-26] MEDS: LACTOBACILLUS ACIDOPHILUS CAP (BACID) PO SCH ×3 (08:25→21:22)
[2020-07-26] MEDS: ROSUVASTATIN 10 MG TAB (CRESTOR) PO SCH (08:25)
[2020-07-26] MEDS: LEVEMIR (INSULIN DETEMIR) 1 UNITS/0.01ML SC SCH ×2 (08:26→21:22)
[2020-07-26] MEDS: amLODIPine 5 MG TAB PO SCH (08:26)
[2020-07-26] MEDS: NYSTATIN 100,000 UNITS/GM TOPICAL PWD 15 GM TOP SCH ×2 (08:26→21:23)
[2020-07-26] MEDS ORDERED: CRES10TA PO (09:02)
[2020-07-26] MEDS ORDERED: AMLO1TAB24 PO (09:02)
[2020-07-26] MEDS ORDERED: INSUDET SC (09:02)
[2020-07-26] MEDS ORDERED: CEPH500C PO (09:02)
--- NOTE | 2020-07-26 12:36 | IPNPDOC ---
Subjective Date Seen The patient was seen on 07/26/20. Subjective Chief Complaint/HPI Mrs. Coleman is a 70 year old female who is here with osteomyelitis of the right foot. This morning, she was feeling better. Denies chest pain or dyspnea. She was arranged to go to [facility] today, but tested positive for COVID. She was COVID positive in April. She was given COVID vaccine later on. She had negative respiratory panel on admission. Will have to wait until Wednesday to retest Objective Physical Examination General Exam: Positive: Alert, Cooperative Eye Exam: Positive: EOMI; Negative: Sclera icteric ENT Exam: Positive: Atraumatic Neck Exam: Positive: Supple Chest Exam: Positive: Clear to auscultation Heart Exam: Positive: Rate Normal, Regular Rhythm Abdomen Exam: Positive: Normal bowel sounds, Soft; Negative: Tenderness Neuro Exam: Positive: Normal Speech Psych Exam: Positive: Anxiety Assessment /Plan Assessment Mrs. Coleman is a 70 year old female who is here with osteomyelitis of the right foot. Patient was initially taken to the OR on 07/11/2020 for infected foreign body removal. Patient was again taken to the OR on 07/16/2020 and 07/18/2020 for I&D and antibiotic bead placement. Patient will need a total of 6 weeks of antibiotics. Anticipated end date on 08/22/2020. Continue Zosyn while inpatient. Switch to cephalexin 1gm q8h on discharge. Planning to go to [facility] for rehab, but she had tested positive for COVID. She was positive in April 2020 and subsequently had COVID vaccination later. Cannot retest until Wednesday. Plan/VTE VTE Prophylaxis Ordered?: Yes Plan 1. Osteomyelitis and abscess of right foot -S/P surgery on 07/11, 07/16, and 07/18 by Podiatry -ID following, patient will need a total of 6 weeks of antibiotics -Currently on Zosyn for MSSA -On discharge, can be switched to Keflex 1gm q8h for 28 days, anticipated end date on 09/11 2. Diabetes mellitus -HbA1c 12.6 -Continue basal insulin and sliding sale insulin -On carbohydrate consistent diet and low potassium diet. 3. LATOYA on CKD -Creatinine mildly elevated -Supportive care -Trend CMP 4. Poor social situation -Patient not safe to go home -ARU declined -Will need to figure out placement 5. Hypertension -Blood pressure elevated the past 2 days -Discontinue simvastatin and start amlodipine 6. Dyslipidemia -Switch simvastatin to rosuvastatin -Rosuvastatin would not interact with amlodipine 7. COVID positive -She was positive in Apr 2020 and subsequently had COVID vaccination later -She has had negative respiratory panel, but may be false negative due to swabbing technique -Cannot retest until Wednesday 8. DVT ppx -SCD and TEDs Disposition: Made [facility] status today. Will retest for COVID on Wednesday to see if she can go to [facility]. VS, I&O, 24H, Fishbone Vital Signs/I&O Vital Signs Date Time Temp Pulse Resp B/P (MAP) Pulse Ox O2 Delivery O2 Flow Rate FiO2 07/26/20 08:26 78 161/78 07/26/20 08:04 18 07/26/20 06:00 97.5 98 Room Air I&O- Last 24 Hours up to 6 AM 07/26/20 06:00 Intake Total 930 ml Balance 930 ml Laboratory Data 24H LABS Laboratory Tests 2 07/25/20 16:52: Bedside Glucose (Misc Panel) 156H 07/25/20 20:43: Bedside Glucose (Misc Panel) 222H 07/26/20 05:16: Nucleated Red Blood Cells % (auto) 0.0, Anion Gap 8, Glomerular Filtration Rate 34.9L, Calcium Level 9.1 07/26/20 09:34: Coronavirus (COVID-19)(PCR) POSITIVEA 07/26/20 12:22: Bedside Glucose (Misc Panel) 241H CBC/BMP Laboratory Tests 07/26/20 05:16 ALLYSON IRVING DO Jul 26, 2020 12:36
[2020-07-26 14:00] VITALS: BP 126/64
[2020-07-26 22:00] VITALS: BP 146/65
[2020-07-27 06:00] VITALS: BP 131/70
[2020-07-27] MEDS: CEPHALEXIN 500 MG CAP PO SCH ×3 (06:07→21:00)
[2020-07-27 06:47] LABS: HEMATOCRIT 31.1 % (36.0-47.0); HEMOGLOBIN 9.8 g/dl (12.0-15.5); MEAN CORPUSCULAR HEMOGLOBIN 27.6 pg (27.0-33.0); MEAN CORPUSCULAR HGB CONC 31.5 g/dl (32.0-36.5); MEAN CORPUSCULAR VOLUME 87.6 fl (80.0-96.0); PLATELET COUNT, AUTOMATED 609 10^3/uL (150-450); RED BLOOD COUNT 3.55 10^6/uL (4.00-5.40); WHITE BLOOD COUNT 5.6 10^3/uL (4.0-10.0)
[2020-07-27 07:12] LABS: CALCIUM LEVEL 9.4 MG/DL (8.8-10.2); CREATININE FOR GFR 1.46 MG/DL (0.55-1.30); GLOMERULAR FILTRATION RATE 37.7 (>39); POTASSIUM SERUM 5.1 MEQ/L (3.5-5.1)
[2020-07-27] MEDS: ROSUVASTATIN 10 MG TAB (CRESTOR) PO SCH (08:39)
[2020-07-27] MEDS: LACTOBACILLUS ACIDOPHILUS CAP (BACID) PO SCH ×3 (08:39→20:56)
[2020-07-27] MEDS: LEVEMIR (INSULIN DETEMIR) 1 UNITS/0.01ML SC SCH ×2 (08:39→20:57)
[2020-07-27] MEDS: HumaLOG INSULIN (NovoLOG) PER UNIT SC SCH ×4 (08:39→20:57)
[2020-07-27] MEDS: NYSTATIN 100,000 UNITS/GM TOPICAL PWD 15 GM TOP SCH ×2 (08:40→20:58)
[2020-07-27] MEDS: amLODIPine 5 MG TAB PO SCH (08:40)
[2020-07-27] MEDS: ACETAMINOPHEN TAB 650MG DOSE (2X325MG) PO PRN (08:41)
[2020-07-27 14:00] VITALS: BP 132/61
[2020-07-27 22:00] VITALS: BP 141/66
[2020-07-28] MEDS: CEPHALEXIN 500 MG CAP PO SCH ×3 (05:50→20:58)
[2020-07-28 06:00] VITALS: BP 153/76
[2020-07-28] MEDS: HumaLOG INSULIN (NovoLOG) PER UNIT SC SCH ×4 (08:40→20:58)
[2020-07-28] MEDS: ROSUVASTATIN 10 MG TAB (CRESTOR) PO SCH (08:41)
[2020-07-28] MEDS: LEVEMIR (INSULIN DETEMIR) 1 UNITS/0.01ML SC SCH ×2 (08:41→20:59)
[2020-07-28] MEDS: LACTOBACILLUS ACIDOPHILUS CAP (BACID) PO SCH ×3 (08:41→20:57)
[2020-07-28] MEDS: amLODIPine 5 MG TAB PO SCH (08:41)
[2020-07-28] MEDS: NYSTATIN 100,000 UNITS/GM TOPICAL PWD 15 GM TOP SCH ×2 (08:42→20:59)
[2020-07-28 14:00] VITALS: BP 137/71
[2020-07-28 22:00] VITALS: BP 136/70
[2020-07-29 06:01] VITALS: BP 139/70
[2020-07-29] MEDS: CEPHALEXIN 500 MG CAP PO SCH ×3 (06:03→20:29)
[2020-07-29] MEDS: HumaLOG INSULIN (NovoLOG) PER UNIT SC SCH ×4 (07:30→20:30)
[2020-07-29] MEDS: LACTOBACILLUS ACIDOPHILUS CAP (BACID) PO SCH ×3 (08:01→20:29)
[2020-07-29] MEDS: LEVEMIR (INSULIN DETEMIR) 1 UNITS/0.01ML SC SCH ×2 (08:01→20:30)
[2020-07-29] MEDS: amLODIPine 5 MG TAB PO SCH (08:05)
[2020-07-29] MEDS: ROSUVASTATIN 10 MG TAB (CRESTOR) PO SCH (08:06)
[2020-07-29] MEDS: NYSTATIN 100,000 UNITS/GM TOPICAL PWD 15 GM TOP SCH ×2 (08:10→20:29)
[2020-07-29 08:30] VITALS: BP 145/61
[2020-07-29 22:00] VITALS: BP 142/62
--- NOTE | 2020-07-30 01:01 | DS.PDOC ---
Discharge Summary General Date of Admission Jul 09, 2020 at 20:17 Date of Discharge Jul 30, 2020 Specialist/[facility]ult[facility], Dr. Dirk GARCIA, Dr. Casarez Discharge Summary PROCEDURES PERFORMED DURING STAY: 1. Incision and drainage of right foot with removal of foreign body on 07/11/2020 2. Right foot incision and drainage on 07/15/2020 3. Right foot incision and drainage with antibiotic bead placement on 07/17/2020 ADMITTING DIAGNOSES: 1. Sepsis secondary to infected right hallux hematoma secondary to stepping on insulin needle 2. Right first and second toe cellulitis 3. Stress fracture of the right proximal 5th metatarsal 4. Chronic normocytic anemia 5. IDDM with microalbuminuria and neuropathy 6. Hypertension 7. Dyslipidemia 8. Obesity class 2 DISCHARGE DIAGNOSES: 1. Sepsis secondary to infected right hallux hematoma secondary to stepping on insulin needle 2. Right first and second toe cellulitis 3. Stress fracture of the right proximal 5th metatarsal 4. Chronic normocytic anemia 5. IDDM with microalbuminuria and neuropathy 6. Hypertension 7. Dyslipidemia 8. Obesity class 2 9. Acute on chronic kidney disease COMPLICATIONS/CHIEF COMPLAINT: Sepsis, Foreign Body Foot/Toe. HISTORY OF PRESENT ILLNESS: Patient is a 70 year old female with poorly controlled diabetes mellitus who presents with a painful swollen toe. About 2 days prior to admission, she stub her right toe into the dresser which subsequently caused the pain and swelling. On day of admission, the pain was excruciating and she came to the ED. Imaging demonstrated she had stepped on one of her insulin needles. Patient was admitted for sepsis secondary to right toe cellulitis and osteomyelitis. HOSPITAL COURSE: During patient's hospital course, patient was taken to the OR three times for I&D and removal of foreign object. In addition antibiotic beads were placed. Cultures from the I&D grew E.coli and MSSA. Infectious disease was consulted for bed bug exterminator antibiotic management. Agreed to John while inpatient. Patient would need 6 weeks of antibiotics with anticipated end date being 08/22/2020. It was felt that she would be a good candidate for [facility], but her bed offer at [facility] was declined. It was felt she had a poor living situation at home. She lives alone and had thrown away her bed after it was soiled. She was sle eping on her couch. She has not been managing her diabetes, and her HbA1c was 12.8%. PFS looked for short term rehab. During this time, a PICC line was offered but patient refused. She did not want a foreign object in her. Spoke with ID. After two weeks, patient could be switched from IV Zosyn to PO cefazolin. Patient was to be transferred to [facility] on 07/26/2020, but her COVID test was positive. Patient was COVID positive in May. On admission, she was tested COVID negative. Repeated COVID test on 07/29/2020, and she tested COVID negative. DISCHARGE MEDICATIONS: Please see below. ALLERGIES: Please see below. PHYSICAL EXAMINATION ON DISCHARGE: VITAL SIGNS: Please see below. To be completed by discharging provider LABORATORY DATA: Please see below. IMAGING: XR right foot No radiographic evidence of acute osseous change. However, on today's MRI there was evidence of osteomyelitis of the 1st toe phalanges. Thin linear metallic structure 9 mm in length is seen along the distal aspect of the 2nd metatarsal. CT right foot 1. Probable large blister at the plantar and slightly medial aspects of the great toe, with likely broken off needle (most likely an insulin needle) near the underlying skin surface. This suspected blister could be infected or hemorrhagic, with infected blister favored, and underlying cellulitis. 2. Soft tissue edema throughout the foot, suspected to be cellulitis at the plantar aspect of the 1st and 2nd toes and bases of the toes. Other areas could be bland edema and/or cellulitis. No soft tissue air. 3. Questionable small nondisplaced cortical fracture through the medial aspect of the posterior malleolus, and evidence of old trauma at the ankle. 4. Findings suggestive of a small nondisplaced incomplete stress fracture through the cortex at the dorsal aspect of the proximal 5th metatarsal. Subtle lucency is seen through the cortex with small amount of adjacent periosteal reaction. Suggest correlation for focal pain and tenderness. MRI right foot Osteomyelitis of the 1st proximal and distal phalanges. Associated diffuse cellulitis in that region. No discrete abscess collection. PROGNOSIS: Good ACTIVITY: As tolerated. DIET: Carbohydrate consistent diet DISCHARGE PLAN: [facility] DISPOSITION: [facility]. DISCHARGE INSTRUCTIONS: 1. Continue antibiotics until 08/22/2020 2. Follow up with ID in 2 weeks 3. Follow up with Podiatry in 2 weeks 4. Follow up with PCP 1 week after discharge from [facility] DISCHARGE CONDITION: Stable. TIME SPENT ON DISCHARGE: Greater than 45 minutes. Vital Signs/I&Os Vital Signs Date Time Temp Pulse Resp B/P (MAP) Pulse Ox O2 Delivery O2 Flow Rate FiO2 07/29/20 22:00 98.7 82 18 142/62 (88) 97 Room Air I&O- Last 24 Hours up to 6 AM 07/29/20 06:00 Intake Total 1700 ml Output Total 6 ml Balance 1694 ml Laboratory Data Labs 24H Laboratory Tests 2 07/29/20 05:58: Bedside Glucose (Misc Panel) 94 07/29/20 11:39: Bedside Glucose (Misc Panel) 236H 07/29/20 16:46: Bedside Glucose (Misc Panel) 244H 07/29/20 17:32: C-Reactive Protein, Quantitative 1.30H 07/29/20 20:25: Bedside Glucose (Misc Panel) 210H FSBS Laboratory Tests Test 07/29/20 05:58 07/29/20 11:39 07/29/20 16:46 07/29/20 20:25 Range/Units Bedside Glucose (Misc Panel) 94 236 244 210 83-110 MG/DL Microbiology Microbiology 07/29/20 Respiratory Virus Panel (PCR) (PETE) - Final, Complete Discharge Medications Scheduled Amlodipine Besylate (Amlodipine Besylate) 5 Mg Tablet, 5 MG PO DAILY Cephalexin (Cephalexin) 500 Mg Capsule, 1,000 MG PO Q8H Insulin Detemir (Levemir) 100 Unit/1 Ml Vial, 38 UNITS SC BID Insulin Human Lispro (Humalog) 1 Units/0.01 Ml Inj, 1 DOSE SC AC, (Reported) PER SLIDING SCALE Insulin Human Lispro (Humalog) 100 Unit/1 Ml Vial, 0 UNITS SC QHS Insulin Human Lispro (Humalog) 100 Unit/1 Ml Vial, 0 UNITS SC AC L.acidoph/L.bulg/B.bif/S.therm (Laura-Bid Caplet) 1 Each Tablet, 1 EA PO TID Rosuvastatin Calcium (Crestor) 10 Mg Tablet, 20 MG PO DAILY Scheduled PRN Acetaminophen (Acetaminophen) 500 Mg Tablet, 1,000 MG PO Q6H PRN for PAIN, (Reported) Hydrocodone/Acetaminophen (Hydrocodone-Acetamin 5-325 mg) 1 Each Tablet, 1 TAB PO Q6HP PRN for MILD/MODERATE PAIN (PS 1-7) Allergies Coded Allergies: No Known Allergies (Verified , 01/18/03) ALLYSON IRVING DO Jul 30, 2020 01:01
[2020-07-30] MEDS: CEPHALEXIN 500 MG CAP PO SCH (05:21)
[2020-07-30] MEDS: ACETAMINOPHEN TAB 650MG DOSE (2X325MG) PO PRN (05:22)
[2020-07-30] MEDS: HumaLOG INSULIN (NovoLOG) PER UNIT SC SCH ×2 (07:22→12:27)
[2020-07-30] MEDS: NYSTATIN 100,000 UNITS/GM TOPICAL PWD 15 GM TOP SCH (09:00)
[2020-07-30 09:40] VITALS: BP 145/61
[2020-07-30] MEDS: LACTOBACILLUS ACIDOPHILUS CAP (BACID) PO SCH (09:40)
[2020-07-30] MEDS: ROSUVASTATIN 10 MG TAB (CRESTOR) PO SCH (09:40)
[2020-07-30] MEDS: amLODIPine 5 MG TAB PO SCH (09:40)
[2020-07-30] MEDS: LEVEMIR (INSULIN DETEMIR) 1 UNITS/0.01ML SC SCH (09:41)
--- NOTE | 2020-07-30 10:59 | DS.PDOC ---
Discharge Summary General Date of Admission Jul 09, 2020 at 20:17 Date of Discharge 07/30/20 DISCHARGED T0 [facility] Discharge Summary HOSPITALIST DISCHARGE SUMMARY ADDENDUM DICTATED IF NEEDED URGENTLY,PLS CALL HYPERTYPE TO STAT TRANSCRIBE DC SUMMARY ADDENDUM BY DR. MCCLELLAND JOB #[id number] Vital Signs/I&Os Vital Signs Date Time Temp Pulse Resp B/P (MAP) Pulse Ox O2 Delivery O2 Flow Rate FiO2 07/29/20 22:00 98.7 82 18 142/62 (88) 97 Room Air I&O- Last 24 Hours up to 6 AM 07/30/20 06:00 Intake Total 1510 ml Balance 1510 ml Laboratory Data Labs 24H Laboratory Tests 2 07/29/20 11:39: Bedside Glucose (Misc Panel) 236H 07/29/20 16:46: Bedside Glucose (Misc Panel) 244H 07/29/20 17:32: C-Reactive Protein, Quantitative 1.30H 07/29/20 20:25: Bedside Glucose (Misc Panel) 210H 07/30/20 06:02: Bedside Glucose (Misc Panel) 137H FSBS Laboratory Tests Test 07/29/20 11:39 07/29/20 16:46 07/29/20 20:25 07/30/20 06:02 Range/Units Bedside Glucose (Misc Panel) 236 244 210 137 83-110 MG/DL Microbiology Microbiology 07/29/20 Respiratory Virus Panel (PCR) (PETE) - Final, Complete Discharge Medications Scheduled Amlodipine Besylate (Amlodipine Besylate) 5 Mg Tablet, 5 MG PO DAILY Cephalexin (Cephalexin) 500 Mg Capsule, 1,000 MG PO Q8H Insulin Detemir (Levemir) 100 Unit/1 Ml Vial, 38 UNITS SC BID Insulin Human Lispro (Humalog) 1 Units/0.01 Ml Inj, 1 DOSE SC AC, (Reported) PER SLIDING SCALE Insulin Human Lispro (Humalog) 100 Unit/1 Ml Vial, 0 UNITS SC QHS Insulin Human Lispro (Humalog) 100 Unit/1 Ml Vial, 0 UNITS SC AC L.acidoph/L.bulg/B.bif/S.therm (Laura-Bid Caplet) 1 Each Tablet, 1 EA PO TID Rosuvastatin Calcium (Crestor) 10 Mg Tablet, 20 MG PO DAILY Scheduled PRN Acetaminophen (Acetaminophen) 500 Mg Tablet, 1,000 MG PO Q6H PRN for PAIN, (Reported) Hydrocodone/Acetaminophen (Hydrocodone-Acetamin 5-325 mg) 1 Each Tablet, 1 TAB PO Q6HP PRN for MILD/MODERATE PAIN (PS 1-7) Allergies Coded Allergies: No Known Allergies (Verified , 01/18/03) SUKHWINDER MCCLELLAND MD Jul 30, 2020 08:15
--- NOTE | 2020-07-30 11:52 | DSES ---
DISCHARGE SUMMARY ADDENDUM This is a Discharge Addendum to Discharge Summary done by Dr. Jhony Cowan. DISCHARGE PHYSICAL EXAMINATION: Vital signs: Temperature 98.7, pulse 82, respiratory rate 18, blood pressure 142/62, 97% on room air. General: Awake, alert, oriented times 3, answering questions appropriately, in no distress. Neck: No JVD, thyromegaly or cervical lymphadenopathy. Lungs: Clear to auscultation. No wheezes, rhonchi or rales. Abdomen: Soft, nontender, nondistended, positive bowel sounds times 4 quadrants, no guarding or rebound. Extremities: No cyanosis, clubbing or edema. Right foot has 2 incisions without erythema bandaged. DISCHARGE LABORATORY DATA: 07/27/2020 CBC and metabolic panel have been reviewed, please see below. ASSESSMENT/PLAN: Patient had no acute issues overnight, no fever or chills, no new issues per nursing. Patient is discharged in stable condition. Time spent on discharge: Thirty minutes.
== END 2020-07-30 12:50 | DRG 872 ==
LOC: M ED 15:14 → EDBD 15:14 → M ED INP 20:17 → ENRESERV 22:32 → M PCU 22:45 → M MS5PR 07-17 17:05
PROVIDERS: ADMIT Internal Medicine; ATTEND General Practice
PROC: 0JCQ0ZZ Extirpation of Matter from Right Foot Subcutaneous Tissue and Fascia, Open Approach (ICD-10-PCS; principal; 2020-07-10 16:00)
PROC: 0Y9M0ZZ Drainage of Right Foot, Open Approach (ICD-10-PCS; 2020-07-15)
PROC: 0HDMXZZ Extraction of Right Foot Skin, External Approach (ICD-10-PCS; 2020-07-17)
PROC: B54MZZZ Ultrasonography of Right Upper Extremity Veins (ICD-10-PCS; 2020-07-18)
DX: A41.9 Sepsis, unspecified organism (principal); N17.9 Acute kidney failure, unspecified; M86.171 Other acute osteomyelitis, right ankle and foot; L03.031 Cellulitis of right toe; E11.40 Type 2 diabetes mellitus with diabetic neuropathy, unspecified; D50.9 Iron deficiency anemia, unspecified; I10 Essential (primary) hypertension; E55.9 Vitamin D deficiency, unspecified; M84.377A Stress fracture, right toe(s), initial encounter for fracture; E11.65 Type 2 diabetes mellitus with hyperglycemia; S91.141A Puncture wound with foreign body of right great toe without damage to nail, initial encounter; E11.649 Type 2 diabetes mellitus with hypoglycemia without coma; E78.5 Hyperlipidemia, unspecified; E66.9 Obesity, unspecified; T36.8X5A Adverse effect of other systemic antibiotics, initial encounter; E11.69 Type 2 diabetes mellitus with other specified complication; W46.0XXA Contact with hypodermic needle, initial encounter; Z79.4 Long term (current) use of insulin; Z68.37 Body mass index [BMI] 37.0-37.9, adult; Z79.899 Other long term (current) drug therapy; Y92.009 Unspecified place in unspecified non-institutional (private) residence as the place of occurrence of the external cause; Z86.16 Personal history of COVID-19; B96.20 Unspecified Escherichia coli [E. coli] as the cause of diseases classified elsewhere; B95.61 Methicillin susceptible Staphylococcus aureus infection as the cause of diseases classified elsewhere; Z91.14 Patient's other noncompliance with medication regimen; Z91.19 Patient's noncompliance with other medical treatment and regimen; Z53.20 Procedure and treatment not carried out because of patient's decision for unspecified reasons; Z59.8 Other problems related to housing and economic circumstances; W22.03XA Walked into furniture, initial encounter; Y99.8 Other external cause status

== ENCOUNTER → 2020-07-31 | Outpatient (REF) ==
[~2020-07-31] MED LIST changes: +AMLO1TAB24 PO; +CEPH500C PO; +CRES10TA PO; +HYDR-3715 PO; +RISATAB3 PO; +ZOSY1SOL6 IV
[2020-07-31 10:14] LABS: HEMATOCRIT 30.8 % (36.0-47.0); HEMOGLOBIN 9.8 g/dl (12.0-15.5); MEAN CORPUSCULAR HEMOGLOBIN 28.1 pg (27.0-33.0); MEAN CORPUSCULAR HGB CONC 31.8 g/dl (32.0-36.5); MEAN CORPUSCULAR VOLUME 88.3 fl (80.0-96.0); PLATELET COUNT, AUTOMATED 576 10^3/uL (150-450); RED BLOOD COUNT 3.49 10^6/uL (4.00-5.40); WHITE BLOOD COUNT 7.9 10^3/uL (4.0-10.0)
[2020-07-31 10:32] LABS: C REACTIVE PROTEIN QUANTITATIV 1.16 MG/DL (0.00-0.30); CREATININE FOR GFR 1.63 MG/DL (0.55-1.30); GLOMERULAR FILTRATION RATE 33.2 (>39); POTASSIUM SERUM 5.1 MEQ/L (3.5-5.1)
[2020-07-31 10:39] LABS: ERYTHROCYTE SEDIMENTATION RATE 109 mm/hr (0-30)
== END ==
LOC: SKLAB2 16:04
PROVIDERS: ATTEND Internal Medicine
DX: M86.9 Osteomyelitis, unspecified (principal)

== ENCOUNTER → 2020-08-26 | Outpatient (CLI) | payer MEDICARE, MEDICAID ==
--- NOTE | 2020-08-26 13:28 | REPPI ---
INDICATION: ACUTE OSTEOMYELITIS OF RIGHT FOOT. COMPARISON: 07/14/2020 a four view exam. TECHNIQUE: AP and lateral FINDINGS: There are degenerative changes seen throughout the foot status quo. The linear metallic radiodensity superimposed over the distal aspect of the 2nd metatarsal is unchanged. There is evidence of diffuse soft tissue swelling of the toes particularly the 1st digit. In the central aspect of the proximal phalanx of the 1st digit there is a small area of bone lucency. IMPRESSION: Small lucency seen in the mid aspect of the proximal phalanx of the 1st digit seen along with diffuse soft tissue swelling consistent with the patient's diagnosis of osteomyelitis. <Electronically signed by Carlos Ruelas > 08/26/20 [id number]
== END ==
LOC: M PLAIMG 12:09
PROVIDERS: ATTEND Internal Medicine Infectious Disease
DX: M86.171 Other acute osteomyelitis, right ankle and foot (principal); E11.21 Type 2 diabetes mellitus with diabetic nephropathy
CPT/HCPCS: 36415; 73620; 80053; 83036; 85025; 85652; 86140; 99490; G0463

== ENCOUNTER → 2020-08-26 | Outpatient (REF) | payer MEDICARE, MEDICAID ==
[2020-08-26 14:23] LABS: BASO # 0.1 10^3/uL (0.0-0.2); BASO % 1.2 % (0.0-1.0); EOS # 0.1 10^3/uL (0.0-0.5); EOS % 1.6 % (0.0-3.0); HEMATOCRIT 34.6 % (36.0-47.0); HEMOGLOBIN 11.1 g/dl (12.0-15.5); LYMPH # 1.5 10^3/uL (1.5-5.0); LYMPH % 21.3 % (24.0-44.0); MEAN CORPUSCULAR HEMOGLOBIN 28.1 pg (27.0-33.0); MEAN CORPUSCULAR HGB CONC 32.1 g/dl (32.0-36.5); MEAN CORPUSCULAR VOLUME 87.6 fl (80.0-96.0); MONO # 0.4 10^3/uL (0.0-0.8); MONO % 6.2 % (2.0-8.0); NEUTROPHILS # 4.8 10^3/uL (1.5-8.5); PLATELET COUNT, AUTOMATED 418 10^3/uL (150-450); RED BLOOD COUNT 3.95 10^6/uL (4.00-5.40); WHITE BLOOD COUNT 6.9 10^3/uL (4.0-10.0)
[2020-08-26 14:36] LABS: HEMOGLOBIN A1c 10.4 %
[2020-08-26 14:58] LABS: ALBUMIN 3.4 GM/DL (3.2-5.2); BILIRUBIN,TOTAL 0.3 MG/DL (0.2-1.0); C REACTIVE PROTEIN QUANTITATIV 3.28 MG/DL (0.00-0.30); CALCIUM LEVEL 9.1 MG/DL (8.8-10.2); CREATININE FOR GFR 1.38 MG/DL (0.55-1.30); GLOMERULAR FILTRATION RATE 40.2 (>39); POTASSIUM SERUM 5.2 MEQ/L (3.5-5.1); TOTAL PROTEIN 8.1 GM/DL (6.4-8.2)
[2020-08-26 15:30] LABS: ERYTHROCYTE SEDIMENTATION RATE 71 mm/hr (0-30)
== END ==
LOC: M SFHCPLAZ 12:15
PROVIDERS: ATTEND Internal Medicine Infectious Disease
DX: M86.171 Other acute osteomyelitis, right ankle and foot (principal); E11.21 Type 2 diabetes mellitus with diabetic nephropathy

== ENCOUNTER → 2020-10-24 | Outpatient (REF) | payer MEDICARE, MEDICAID ==
[2020-10-24 18:49] LABS: HEMATOCRIT 35.7 % (36.0-47.0); HEMOGLOBIN 11.5 g/dl (12.0-15.5); MEAN CORPUSCULAR HGB CONC 32.2 g/dl (32.0-36.5); MEAN CORPUSCULAR VOLUME 86.9 fl (80.0-96.0); PLATELET COUNT, AUTOMATED 385 10^3/uL (150-450); RED BLOOD COUNT 4.11 10^6/uL (4.00-5.40); WHITE BLOOD COUNT 7.7 10^3/uL (4.0-10.0)
[2020-10-24 19:01] LABS: BILIRUBIN,TOTAL 0.2 MG/DL (0.2-1.0); CALCIUM LEVEL 8.8 MG/DL (8.8-10.2); CHOLESTEROL RISK RATIO 4.698 (<5); CREATININE FOR GFR 1.42 MG/DL (0.55-1.30); FREE T4 0.81 NG/DL (0.76-1.46); GLOMERULAR FILTRATION RATE 38.9 (>39); POTASSIUM SERUM 4.8 MEQ/L (3.5-5.1); THYROID STIMULATING HORMONE 0.659 uIU/ML (0.358-3.740); TOTAL PROTEIN 6.9 GM/DL (6.4-8.2)
[2020-10-24 19:27] LABS: HEMOGLOBIN A1c 9.7 %
== END ==
LOC: M SFHCADAM 14:28
PROVIDERS: ATTEND Family Medicine
DX: E11.22 Type 2 diabetes mellitus with diabetic chronic kidney disease (principal); E78.2 Mixed hyperlipidemia; M86.171 Other acute osteomyelitis, right ankle and foot; F32.9 Major depressive disorder, single episode, unspecified
CPT/HCPCS: 80053; 80061; 83036; 84439; 84443; 85027; G0463

== ENCOUNTER 2021-02-24 06:15 | Inpatient (IN) | payer MEDICARE, MEDICAID ==
[~2021-02-24] VITALS: Ht 152.4 cm; Wt 98.5 kg
[2021-02-24] MEDS ORDERED: NS 1,000 ML IV ONE (06:40)
[2021-02-24 07:06] LABS: BASO # 0.1 10^3/uL (0.0-0.2); HEMATOCRIT 41.4 % (36.0-47.0); HEMOGLOBIN 12.8 g/dl (12.0-15.5); LYMPH # 0.8 10^3/uL (1.5-5.0); LYMPH % 10.4 % (24.0-44.0); MEAN CORPUSCULAR HEMOGLOBIN 28.1 pg (27.0-33.0); MEAN CORPUSCULAR HGB CONC 30.9 g/dl (32.0-36.5); MONO # 0.5 10^3/uL (0.0-0.8); MONO % 6.7 % (2.0-8.0); NEUTROPHILS # 6.5 10^3/uL (1.5-8.5); NEUTROPHILS % 81.2 % (36.0-66.0); PLATELET COUNT, AUTOMATED 476 10^3/uL (150-450); RED BLOOD COUNT 4.55 10^6/uL (4.00-5.40); WHITE BLOOD COUNT 8.1 10^3/uL (4.0-10.0)
[2021-02-24 07:54] LABS: OSMOLALITY SERUM 351 MOSM/KG (280-301)
[2021-02-24 07:59] LABS: ALBUMIN 2.4 GM/DL (3.2-5.2); ALT/SGPT 20 U/L (12-78); BILIRUBIN,DIRECT 0.1 MG/DL (0.0-0.2); BILIRUBIN,TOTAL 0.3 MG/DL (0.2-1.0); BLOOD UREA NITROGEN 49 MG/DL (7-18); CALCIUM LEVEL 8.5 MG/DL (8.8-10.2); CARBON DIOXIDE LEVEL 23 MEQ/L (21-32); CHLORIDE LEVEL 89 MEQ/L (98-107); CK-MB VALUE MASS 2.6 NG/ML (<3.6); CPK CREATINE PHOSPHOKINASE 184 U/L (26-192); CREATININE FOR GFR 1.89 MG/DL (0.55-1.30); ETHYL ALCOHOL (ETHANOL) < 0.003 % (0.000-0.010); GLOMERULAR FILTRATION RATE 27.9 (>39); LIPASE 332 U/L (73-393); MB/CK RELATIVE INDEX 1.41 (< OR =4); SODIUM LEVEL 121 MEQ/L (136-145); TOTAL PROTEIN 7.2 GM/DL (6.4-8.2); TROPONIN I < 0.02 NG/ML (< 0.10)
[2021-02-24] MEDS ORDERED: LIDOCAINE 2% 5ML JELLY UROJET TOP ONE ×2 (08:00→08:20)
--- NOTE | 2021-02-24 08:03 | REP ---
INDICATION: syncope COMPARISON: 05/22/2020 TECHNIQUE: Portable AP view of the chest FINDINGS: The mediastinum and cardiac silhouette are stable and within normal limits for portable technique. The lung alvarenga are clear without acute consolidation, effusion, or pneumothorax. Skeletal structures are intact. IMPRESSION: No acute cardiopulmonary process appreciated. <Electronically signed by Kevon Paulson > 02/24/21 0723
[2021-02-24 08:14] LABS: POTASSIUM SERUM 8.2 MEQ/L (3.5-5.1)
[2021-02-24] MEDS ORDERED: SODIUM BICARBONATE 8.4% INJ 50 ML SYRINGE IV STA (08:19)
[2021-02-24] MEDS ORDERED: DEXTROSE 50% 50 ML SYRINGE IV STA (08:19)
[2021-02-24] MEDS ORDERED: SOD POLYSTYRENE SULFONATE SUSP 15 GM/60 ML UD PO ONE (08:20)
[2021-02-24] MEDS ORDERED: IPRATROPIUM 0.5MG/ALBUTEROL 2.5MG INH SOL UD 3ML (DUONEB) NEB ONE (08:20)
[2021-02-24] MEDS ORDERED: HumuLIN R (REGULAR) INSULIN (NovoLIN R) **100U/ML** PER UNIT IV ONE (08:20)
[2021-02-24] MEDS ORDERED: CALCIUM GLUCONATE 1,000 MG in D5W MINI-BAG PLUS 100 ML IV ONE (08:20)
[2021-02-24] MEDS ORDERED: INSUDET SC (08:39)
[2021-02-24] MEDS ORDERED: SIMV40TA20 PO (08:39)
[2021-02-24] MEDS ORDERED: HOME MED LIST COMPLETE! XX SCH (08:40)
--- NOTE | 2021-02-24 09:26 | REP ---
INDICATION: syncope COMPARISON: 09/11/2014 TECHNIQUE: Axial noncontrast images from the skull base to the thoracic inlet with coronal reformations. This CT examination was performed using the following dose reduction techniques: Automated exposure control, adjustment of mA and/or kv according to the patient's size, and use of iterative reconstruction technique. FINDINGS: Atrophy with periventricular leukomalacia and microvascular ischemic changes are appreciated. The ventricles and sulci are symmetric. Cuevas-white differentiation is maintained. There is no evidence for acute intracranial hemorrhage, mass/mass effect, pathology or infarction. No extra-axial fluid collection. Calvarium is intact. Paranasal sinuses and mastoid air cells are clear. IMPRESSION: Atrophy and microvascular ischemic changes. No acute intracranial hemorrhage, infarction, or mass/mass effect. <Electronically signed by Kevon Paulson > 02/24/21 0909
[2021-02-24 10:00] LABS: AMPHETAMINES LEVEL URINE NEGATIVE (NEGATIVE); BARBITURATES URINE NEGATIVE (NEGATIVE); BENZODIAZEPINES URINE NEGATIVE (NEGATIVE); CANNABINOIDS URINE NEGATIVE (NEGATIVE); COCAINE METABOLITE URINE NEGATIVE (NEGATIVE); METHADONE URINE NEGATIVE (NEGATIVE); OPIATES URINE NEGATIVE (NEGATIVE); PHENCYCLIDINE URINE NEGATIVE (NEGATIVE)
[2021-02-24 10:01] LABS: GLUCOSE, FASTING 1205 MG/DL (70-100)
[2021-02-24 10:36] LABS: RSV AMPLIFICATION NEGATIVE (NEGATIVE)
[2021-02-24] MEDS ORDERED: ACETAMINOPHEN TAB 650MG DOSE (2X325MG) PO PRN (11:45)
[2021-02-24 11:52] LABS: ALBUMIN 2.2 GM/DL (3.2-5.2); BILIRUBIN,TOTAL 0.3 MG/DL (0.2-1.0); CALCIUM LEVEL 8.4 MG/DL (8.8-10.2); CREATININE FOR GFR 1.76 MG/DL (0.55-1.30); GLOMERULAR FILTRATION RATE 30.3 (>39); POTASSIUM SERUM 6.1 MEQ/L (3.5-5.1); TOTAL PROTEIN 6.8 GM/DL (6.4-8.2)
[2021-02-24] MEDS ORDERED: LEVEMIR (INSULIN DETEMIR) 1 UNITS/0.01ML SC ONE ×2 (11:55→17:15)
[2021-02-24] MEDS ORDERED: HumaLOG INSULIN (NovoLOG) PER UNIT SC SCH ×2 (12:00→17:30)
[2021-02-24] MEDS ORDERED: SODIUM CHLORIDE 0.9% 1000ML IV ONE ×2 (12:00→14:10)
[2021-02-24] MEDS ORDERED: NS 1,000 ML IV SCH (14:10)
[2021-02-24 15:20] VITALS: BP 144/69
[2021-02-24] MEDS: HEPARIN SOD (PORCINE) 5000UNITS/ML 1ML VIAL/SYRINGE SC SCH ×2 (15:42→20:55)
[2021-02-24 15:52] VITALS: BP 153/72
[2021-02-24 15:53] VITALS: BP 144/70
[2021-02-24] MEDS ORDERED: GLUCAGON INJ 1MG VIAL SC PRN ×2 (16:25→22:10)
[2021-02-24] MEDS ORDERED: GLUCOSE 4GM CHEW TABLET PO PRN ×2 (16:25→22:10)
[2021-02-24] MEDS ORDERED: DEXTROSE 50% 50 ML SYRINGE IV PRN ×2 (16:25→22:10)
[2021-02-24] MEDS: NS 1,000 ML IV SCH (16:37)
[2021-02-24 16:43] LABS: CREATININE FOR GFR 1.6 MG/DL (0.55-1.30); GLOMERULAR FILTRATION RATE 33.8 (>39); POTASSIUM SERUM 4.9 MEQ/L (3.5-5.1)
--- NOTE | 2021-02-24 18:55 | HPEPDOC ---
[facility] Medical History & Physical Date of Admission Feb 24, 2021 Date of Service: Feb 24, 2021 Attending Physician: THIERRY PETERSON MD History and Physical CHIEF COMPLAINT: Lightheadedness HISTORY OF PRESENT ILLNESS: This is a 71 year old female who presents to the [facility] ER with chief complaints of dizziness and fall. The patient states that she takes her long-acting insulin (Levemir) and does not usually take her Humalog short acting insulin. She states that over the past few days she has had de creased p.o. intake and increased polyuria. She reports that yesterday evening she became lightheaded and sustained a fall however denies any loss of consciousness and was able to catch her self with an arm and did not report any head trauma. She also reports that she has been having more dyspnea on exertion ever since her foot surgery approximately 6 months ago. She also states that she has noticed some mild increased lower extremity edema. She denies cough, fever, any potassium supplementation or any increased artificial salt intake. She denies any known heart disease. In the ER, her fasting glucose was 1205 and her potassium was 8.2 at 06:53. She was given one IV fluid bolus of NS followed by Dextrose 50% 50mL IV, calcium gluconate, 7 units IV regular insulin and 30gm SPS suspension. Her repeat potassium at 10:57 is 6.1 and glucose is 939. EKG on presentation to the ER shows possible junctional rhythm with sinus tachycardia on exam. REVIEW OF SYSTEMS: General: Denies fever, shaking chills, unintentional weight loss. Extreme increased thirst. HEENT: States there is some blurry vision. Denies any hearing loss nasal congestion or sore throat or lumps and bumps in neck and axillary region Heart: Denies chest pain or chest pressure or discomfort, or palpitations. mild increase in lower extr edema Pulm: Denies cough or sputum production or shortness of breath GI: Denies nausea vomiting diarrhea abdominal pain or bloody stools : increased polyuria and increased thirst. PAST MEDICAL HISTORY: 1. IDDM with microalbuminuria neuropathy 2. CKD stage 3 3. DLP 4. Essential HTN 5. Chronic anemia 6. Obesity 7. Hx COVID-19 (May 2020) 8. Legal blindness PAST SURGICAL HISTORY: 1. Repair of compound fracture right ankle 1986 2. Tonsillectomy/Adenoidectomy in childhood SOCIAL HISTORY: Marital status: Single Children: 4 grown children Tobacco use: denies ETOH: rarely (reports ~1/year) Illicit drug use: denies IV drug use: denies FAMILY HISTORY: Father: Lymphoma Mother: Bladder CA Maternal aunt: Vaginal CA Paternal aunt: Lung cancer Maternal grandmother: Spinal cancer ALLERGIES: Please see below. HOME MEDICATIONS: Reviewed please see below PHYSICAL EXAMINATION: VITAL SIGNS: See below GENERAL: The patient is a well-developed, dehydrated looking, however in no ap parent distress. AAOx3 NEURO: No focal neurological deficits HEENT: Head is normocephalic and atraumatic. Extraocular muscles are intact. Pupils are equal, round, and reactive to light and accommodation. Nares appears normal. Dry mucous membranes. Decreased skin turgor PULM: Clear to auscultation bilaterally. No wheezing, rhonchi or rales appreciated. CARDIO: Normal S1, S2. no significant murmurs, gallops, rubs or clicks. Trace peripheral edema ABDOMEN: Obese, soft, nontender, and nondistended. Normal bowel sounds. No significant organomegaly appreciated. EXTREMITIES: No cyanosis, clubbing, rash, lesions. PSYCH: Appropriate mood and affect. LABORATORY DATA: See below. Head CT w/o contrast 02/24/21 IMPRESSION: Atrophy and microvascular ischemic changes. No acute intracranial hemorrhage, infarction, or mass/mass effect. CXR portable AP view 02/24/21 IMPRESSION: No acute cardiopulmonary process appreciated. MICROBIOLOGY: Please see below. ASSESSMENT AND PLAN: This is a 71 year old female who presents to the [facility] ER on 02/24 with complaints of dizziness and fall. Patient states that she only takes her long-acting (Levemir) insulin at home but has not been taking her short acting Humalog. She has had some decreased p.o. intake but reports polyuria as well as extreme thirst. She states that yesterday evening she had felt dizzy and fell. Patient denies loss of consciousness was able to catch herself with an arm and did not sustain any head injury. In the ER she was noted to have profound hypoglycemia along with hyperkalemia status post 1 L of normal saline bolus as well as calcium gluconate 1 dose of IV insulin and albuterol. The hospitalist service asked to admit the patient for further management of her Dizziness and fall Initial EKG shows some potential junctional rhythm along with hyperkalemia we did obtain another EKG which does show sinus rhythm without any significant ST-T abnormalities. Patient was very dehydrated with profound hyperglycemia and this is likely a presyncopal episode due to severe dehydration. Patient also reports decreased p.o. intake and increased polyuria which likely contributed to the dehydration. Will admit to ICU with telemetry for close monitoring to rule out arrhythmias and start aggressive fluid resuscitation. Patient did receive 1 bolus of normal saline. Will order for another 3 L and continue her on maintenance at 100 cc/h Will order for orthostatics LATOYA with profound hyperkalemia Patient is severely dehydrated and this is likely prerenal. Patient is status post 2 L normal saline bolus. She will be given another bolus and continue on maintenance fluids at 100 cc/h. We will continue to monitor her renal function with daily labs. K 8.2 on presentation and was given calcium gluconate for cardiac stabilization as well as sodium bicarb and 3 mL albuterol neb, 1 dose of 7 units IV insulin as well as SPS and Kayexalate. repeat potassium was 6.1 with the latest repeat 4.9. We will continue to monitor her electrolytes closely and replete as necessary. History of insulin-dependent diabetes, uncontrolled/hyperglycemia Patient's blood sugar on admission was 1205 with profound hyperkalemia. She was given 1 dose of insulin in the ER as well as a one-time dose of 50 units of Levemir. We will place her on Levemir 70 units twice daily with 1 dose given tonight and another given tomorrow and place her sliding scale with FSBS every 2 hours plus hypoglycemic protocol in place Patient is being fluid resuscitated currently. Her potassium has normalized and her sugars are improving as well. Dehydration Hyponatremia on admission however within normal limits with sodium corrected for hyperglycemia. Patient also had profound increased serum osmol and currently being fluid resuscitated with 3 l of normal saline boluses and maintenance fluids at 100 cc/h DVT prophylaxis Heparin CODE STATUS full Vital Signs Vital Signs Date Time Temp Pulse Resp B/P (MAP) Pulse Ox O2 Delivery O2 Flow Rate FiO2 02/24/21 15:53 102 144/70 (94) 02/24/21 12:16 95 02/24/21 11:01 98.6 25 Laboratory Data Labs 24H Laboratory Tests 2 02/24/21 06:53: Immature Granulocyte % (Auto) 0.7, Neutrophils (%) (Auto) 81.2H, Lymphocytes (%) (Auto) 10.4L, Monocytes (%) (Auto) 6.7, Eosinophils (%) (Auto) 0.0, Basophils (%) (Auto) 1.0, Neutrophils # (Auto) 6.5, Lymphocytes # (Auto) 0.8L, Monocytes # (Auto) 0.5, Eosinophils # (Auto) 0.0, Basophils # (Auto) 0.1, Nucleated Red Blood Cells % (auto) 0.0, Anion Gap 9, Glomerular Filtration Rate 27.9L, Osmolality 351H, Lactic Acid Level 2.7*H, Calcium Level 8.5L, Total Bilirubin 0.3, Direct Bilirubin 0.1, Aspartate Amino Transf (AST/SGOT) 26, Alanine Aminotransferase (ALT/SGPT) 20, Alkaline Phosphatase 108, Total Creatine Kinase 184, Creatine Kinase MB 2.6, Creatine Kinase MB Relative Index 1.41, Troponin I < 0.02, Total Protein 7.2, Albumin 2.4L, Albumin/Globulin Ratio 0.5L, Lipase 332, Ethyl Alcohol Level < 0.003 02/24/21 08:28: Coronavirus (COVID-19)(PCR) NEGATIVE, Influenza Type A (RT-PCR) NEGATIVE, Influenza Type B (RT-PCR) NEGATIVE, Respiratory Syncytial Virus (PCR) NEGATIVE 02/24/21 09:22: Urine Color STRAW, Urine Appearance HAZY, Urine pH 7.0, Urine Specific [place] 1.021, Urine Protein 2+H, Urine Glucose (UA) 3+H, Urine Ketones TRACEH, Urine Blood NEGATIVE, Urine Nitrite NEGATIVE, Urine Bilirubin NEGATIVE, Urine Urobilinogen 0.2, Urine Leukocyte Esterase 1+H, Urine WBC (Auto) 40H, Urine RBC (Auto) 1, Urine Hyaline Casts (Auto) 0, Urine Bacteria (Auto) 1+H, Urine Squamous Epithelial Cells 0, Urine Mucus (Auto) SMALL, Urine Sperm (Auto) , Urine Opiates Screen NEGATIVE, Urine Methadone Screen NEGATIVE, Urine Barbiturates Screen NEGATIVE, Urine Phencyclidine Screen NEGATIVE, Urine Amphetamines Screen NEGATIVE, Urine Benzodiazepines Screen NEGATIVE, Urine Cocaine Metabolite Screen NEGATIVE, Urine Cannabinoids Screen NEGATIVE 02/24/21 10:57: Anion Gap 9, Glomerular Filtration Rate 30.3L, Calcium Level 8.4L, Total Bilirubin 0.3, Aspartate Amino Transf (AST/SGOT) 19, Alanine Aminotransferase (ALT/SGPT) 19, Alkaline Phosphatase 105, Total Protein 6.8, Albumin 2.2L, Albumin/Globulin Ratio 0.5L 02/24/21 13:30: Lactic Acid Level 2.0, Lactic Acid Followup at 4 Hours 1.8 02/24/21 15:47: Bedside Glucose Confirm (Misc) 803*H, Anion Gap 11, Glomerular Filtration Rate 33.8L, Calcium Level 9.0 CBC/BMP Laboratory Tests 02/24/21 06:53 02/24/21 10:57 02/24/21 15:47 Microbiology Microbiology 02/24/21 Blood Culture, Received Pending 02/24/21 Blood Culture, Received Pending 02/24/21 Urine Culture, Received Pending 02/24/21 Blood Culture, Received Pending 02/24/21 Blood Culture, Received Pending Home Medications Scheduled Insulin Detemir (Levemir) 100 Unit/1 Ml Vial, 90 UNITS SC BID Insulin Human Lispro (Humalog) 1 Units/0.01 Ml Inj, 1 DOSE SC AC PER SLIDING SCALE Simvastatin (Simvastatin) 40 Mg Tablet, 40 MG PO QHS Scheduled PRN Acetaminophen (Acetaminophen) 500 Mg Tablet, 1,000 MG PO Q6H PRN for PAIN LEVEL 1-4 Allergies Coded Allergies: No Known Allergies (Verified , 01/18/03) GME ATTESTATION GME ATTESTATION My faculty preceptor for this patient encounter was physically present during the encounter and was fully available. All aspects of the patient interview, examination, medical decision making process, and medical care plan development were reviewed and approved by the faculty preceptor. The faculty preceptor is aware and concurs with the plan as stated in the body of this note and will attest to such by his/her cosignature. ATTENDING NOTE I, Thierry Peterson MD, have independently examined this patient and performed my own physical exam, as well as reviewed the documentation and edited where necessary. I have discussed in detail with the resident / student the findings and plan of treatment as documented by the resident / student and edited their n ote. I agree with their findings and treatment plan and have edited their documentation. Jhon Thao DO Feb 24, 2021 18:55 THIERRY PETERSON MD Feb 28, 2021 12:42
--- NOTE | 2021-02-24 19:17 | ECGEPIP ---
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
--- NOTE | 2021-02-24 19:31 | ECGEPIP ---
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
[2021-02-24 20:00] VITALS: BP 150/73
[2021-02-24] MEDS: LEVEMIR (INSULIN DETEMIR) 1 UNITS/0.01ML SC SCH (20:55)
[2021-02-24] MEDS ORDERED: LEVEMIR (INSULIN DETEMIR) 1 UNITS/0.01ML SC SCH (21:00)
[2021-02-24] MEDS: HumaLOG INSULIN (NovoLOG) PER UNIT SC SCH (22:24)
[2021-02-25] VITALS: BP 120/57
[2021-02-25] MEDS: NS 1,000 ML IV SCH (00:44)
[2021-02-25] MEDS: HumaLOG INSULIN (NovoLOG) PER UNIT SC SCH ×6 (02:00→20:43)
[2021-02-25 04:00] VITALS: BP 127/61
[2021-02-25 05:15] LABS: HEMATOCRIT 32.4 % (36.0-47.0); HEMOGLOBIN 10.9 g/dl (12.0-15.5); MEAN CORPUSCULAR HEMOGLOBIN 28.5 pg (27.0-33.0); MEAN CORPUSCULAR HGB CONC 33.6 g/dl (32.0-36.5); MEAN CORPUSCULAR VOLUME 84.8 fl (80.0-96.0); PLATELET COUNT, AUTOMATED 412 10^3/uL (150-450); RED BLOOD COUNT 3.82 10^6/uL (4.00-5.40); WHITE BLOOD COUNT 10.1 10^3/uL (4.0-10.0)
[2021-02-25 05:37] LABS: CALCIUM LEVEL 8.5 MG/DL (8.8-10.2); CREATININE FOR GFR 1.47 MG/DL (0.55-1.30); GLOMERULAR FILTRATION RATE 37.3 (>39); MAGNESIUM LEVEL 2.1 MG/DL (1.8-2.4); POTASSIUM SERUM 3.6 MEQ/L (3.5-5.1)
[2021-02-25] MEDS: HEPARIN SOD (PORCINE) 5000UNITS/ML 1ML VIAL/SYRINGE SC SCH ×3 (06:13→20:43)
[2021-02-25 08:00] VITALS: BP 139/63
[2021-02-25] MEDS: LEVEMIR (INSULIN DETEMIR) 1 UNITS/0.01ML SC SCH ×2 (09:11→20:43)
--- NOTE | 2021-02-25 11:58 | IPNPDOC ---
Text Note Date of Service The patient was seen on 02/25/21. NOTE Subjective: Patient is a 71-year-old female presented to the emergency depar tment chief complaint of dizziness and fall. Patient states that she takes her long-acting insulin but has not been taking her Humalog. Patient is feeling better today and her electrolytes have stabilized. Patient still says she is feeling dizzy and refused to work with physical therapy in order to walk upstairs. Patient does states she is feeling much better than she did yesterday but is still confused about how exactly to use her insulin at home. Patient states that she was seeing [facility] locally but is no longer seeing them and is waiting to transfer to endocrinology in [place] but this will not happen until the beginning of April. Patient is otherwise feeling well today. Review of systems: General: Patient denies fevers HEENT: Patient denies headaches Cardiovascular: Patient denies chest pain Respiratory: Patient denies shortness of breath, cough GI: Patient denies abdominal pain, nausea, vomiting, diarrhea : Patient denies increased frequency or pain with urination Extremities: Patient denies swelling or pain in extremities Neurological: Patient denies numbness or tingling in legs Physical exam: Vitals: See below General: Alert and oriented female patient who was sitting up in bed when I walked in. Patient did not appear to be in any acute distress. HEENT: Normocephalic, atraumatic, moist mucous membranes. Neck: No lymphadenopathy or thyromegaly Cardiac: Regular rate and rhythm, no murmurs, normal S1, normal S2 Pulm: Clear to auscultation bilaterally. No wheezes, rhonchi, rales Abd: Nondistended, nontender to palpation, normal bowel sounds Ext: No edema bilateral lower extremities Labs: See below Imaging: No new imaging is been performed Assessment/plan: 71-year-old female presented to the [facility] emergency department on 1010 with complaints of dizziness and fall. Patient was found to have profound hyperglycemia and hyperkalemia which have since resolved. 1. Hyperkalemia. Patient's potassium was 8.2 on presentation. Patient's potassium is now within the normal range. Patient will be continue to monitor. Patient will be transferred to the medical surgical floor. 2. Acute kidney injury on chronic renal disease. Patient's creatinine baseline appears to be about 1.3-1.4. Patient's creatinine was 1.8 on admission. Jenifer ent also had hyperkalemia which is since resolved. 3. Hyperglycemia. Patient's initial blood sugar was 1205. Patient was given insulin as well as her home dose of Levemir. Patient's blood sugar is now within normal range and we will continue with sliding scale coverage. Patient will need diabetic teaching so the patient can be discharged. 4. Dizziness. Patient still says she is mildly dizzy and refused to work a physical therapy to move up the stairs. We will keep the patient for 1 add itional night and be discharging the patient tomorrow after working with physical therapy. 5. Dehydration., Resolved. 6. Type 2 diabetes mellitus, insulin-dependent. Patient will need diabetic t eaching as above. DVT Prophylaxis: Heparin Disposition: Pending improvement in dizziness, most likely discharge tomorrow VS,Gabriel, I+O VS, Gabriel, I+O Laboratory Tests 02/24/21 15:47 02/25/21 04:22 Vital Signs Date Time Temp Pulse Resp B/P (MAP) Pulse Ox O2 Delivery O2 Flow Rate FiO2 02/25/21 08:00 98.5 83 16 139/63 (88) 96 Room Air I&O- Last 24 Hours up to 6 AM 02/25/21 06:00 Intake Total 3610 ml Balance 3610 ml PRECIOUS PEOPLES DO Feb 25, 2021 11:58
[2021-02-25 15:05] VITALS: BP 143/83
[2021-02-25 22:00] VITALS: BP 157/84
[2021-02-26] MEDS: HEPARIN SOD (PORCINE) 5000UNITS/ML 1ML VIAL/SYRINGE SC SCH ×3 (05:52→21:53)
[2021-02-26 06:00] VITALS: BP 143/72
[2021-02-26 06:29] LABS: HEMATOCRIT 33.1 % (36.0-47.0); MEAN CORPUSCULAR HEMOGLOBIN 28.6 pg (27.0-33.0); MEAN CORPUSCULAR HGB CONC 33.2 g/dl (32.0-36.5); PLATELET COUNT, AUTOMATED 411 10^3/uL (150-450); RED BLOOD COUNT 3.85 10^6/uL (4.00-5.40); WHITE BLOOD COUNT 8.6 10^3/uL (4.0-10.0)
[2021-02-26 06:58] LABS: CALCIUM LEVEL 8.5 MG/DL (8.8-10.2); CREATININE FOR GFR 1.38 MG/DL (0.55-1.30); GLOMERULAR FILTRATION RATE 40.1 (>39); POTASSIUM SERUM 4.4 MEQ/L (3.5-5.1)
[2021-02-26] MEDS: HumaLOG INSULIN (NovoLOG) PER UNIT SC SCH ×4 (07:30→21:55)
[2021-02-26] MEDS: LEVEMIR (INSULIN DETEMIR) 1 UNITS/0.01ML SC SCH ×2 (10:08→21:54)
[2021-02-26 14:00] VITALS: BP 164/88
--- NOTE | 2021-02-26 15:52 | IPNPDOC ---
Text Note Date of Service The patient was seen on 02/26/21. NOTE Subjective: Patient is a 71-year-old female presented the emergency department chief complaint of dizziness and fall. Patient states that she was having difficulty with her insulins and she had not been taking her Humalog. Patient's blood sugar and electrolytes are within normal range however, patient continues to complain of dizziness. Patient was working physical therapy and after about 50 feet, patient became very unsteady and nearly fell. Patient states that she is "lightheaded and feels like she is wobbly". Patient was seen by vestibular PT today who stated that this did not appear to be a vestibular problem causing this. When the patient moves her neck in extension and flexion, she feels more lightheaded and foggy than when she is holding her neck in a normal position. Patient also states that she has quite a bit of neck pain with this as well. Patient denies any changes to the lightheadedness when she goes from laying down to standing up. Review of systems: General: Patient denies fevers HEENT: Patient denies headaches Cardiovascular: Patient denies chest pain Respiratory: Patient denies shortness of breath, cough GI: Patient denies abdominal pain, nausea, vomiting, diarrhea : Patient denies increased frequency or pain with urination Extremities: Patient denies swelling or pain in extremities Neurological: Patient denies numbness or tingling in legs Physical exam: Vitals: See below General: Alert and oriented female patient who was laying in bed when I walked in. Patient was a sit up without any difficulty. Patient not appear to be in any acute distress. HEENT: Normocephalic, atraumatic, moist mucous membranes. Neck: No lymphadenopathy or thyromegaly Cardiac: Regular rate and rhythm, no murmurs, normal S1, normal S2 Pulm: Clear to auscultation bilaterally. No wheezes, rhonchi, rales Abd: Nondistended, nontender to palpation, normal bowel sounds Ext: No edema bilateral lower extremities Neuro: Patient had equal strength in upper and lower extremities. Patient complained of a foggy lightheaded feeling especially with flexion and extension of the neck. No nystagmus at this time. No changes in the patient's lighthead edness with rotation of the neck or side bending of the neck. Labs: See below Imaging: No new imaging has been performed Assessment/plan: 71-year-old female presented to [facility] emergency department on 02/25/2020 with complaints of dizziness and fall. Patient was found to have profound hyperglycemia and hyperkalemia which is since resolved. 1. Hyperkalemia. Patient potassium is 8.2 on admission. This is since resolved and within normal range. We will continue to monitor. 2. Acute kidney injury and chronic renal disease. Patient's creatinine appears to be back at baseline. We will continue to monitor. 3. Hyperglycemia. Patient initial blood sugar was 1205. This is most likely secondary to patient not taking her insulin correctly. Patient will continue with her home doses of insulin with sliding scale insulin. Patient will need diabetic teaching. 4. Dizziness. Patient did not do well physical therapy today nearly fell while walking on the hallway. Patient will have MRI of her neck as this appears to be the cause the patient's dizziness received any pathology that could explain why the patient is dizzy. Patient will need to continue work on physical therapy. 5. Dehydration, resolved. 6. Type 2 diabetes mellitus, insulin-dependent. Patient will need diabetic teaching as above. DVT Prophylaxis: Heparin Disposition: Pending improvement in dizziness. VS,Fishbone, I+O VS, Fishbone, I+O Laboratory Tests 02/26/21 06:07 Vital Signs Date Time Temp Pulse Resp B/P (MAP) Pulse Ox O2 Delivery O2 Flow Rate FiO2 02/26/21 06:00 97.7 74 16 143/72 (95) 97 Room Air I&O- Last 24 Hours up to 6 AM 02/26/21 06:00 Intake Total 1230 ml Output Total 0 ml Balance 1230 ml PRECIOUS PEOPLES DO Feb 26, 2021 15:52
[2021-02-26 22:00] VITALS: BP 154/72
[2021-02-27] MEDS: HEPARIN SOD (PORCINE) 5000UNITS/ML 1ML VIAL/SYRINGE SC SCH (05:59)
[2021-02-27 06:00] VITALS: BP 167/78
[2021-02-27 06:32] LABS: HEMATOCRIT 34.5 % (36.0-47.0); HEMOGLOBIN 11.1 g/dl (12.0-15.5); MEAN CORPUSCULAR HEMOGLOBIN 28.1 pg (27.0-33.0); MEAN CORPUSCULAR HGB CONC 32.2 g/dl (32.0-36.5); MEAN CORPUSCULAR VOLUME 87.3 fl (80.0-96.0); PLATELET COUNT, AUTOMATED 422 10^3/uL (150-450); RED BLOOD COUNT 3.95 10^6/uL (4.00-5.40); WHITE BLOOD COUNT 7.3 10^3/uL (4.0-10.0)
[2021-02-27 06:50] LABS: CALCIUM LEVEL 8.7 MG/DL (8.8-10.2); CREATININE FOR GFR 1.28 MG/DL (0.55-1.30); GLOMERULAR FILTRATION RATE 43.8 (>39); POTASSIUM SERUM 4.4 MEQ/L (3.5-5.1)
[2021-02-27] MEDS: HumaLOG INSULIN (NovoLOG) PER UNIT SC SCH ×2 (07:30→12:12)
[2021-02-27] MEDS ORDERED: lisinopriL 5 MG TAB PO SCH (09:00)
[2021-02-27 09:02] VITALS: BP_SYST 140; BP_SYST 163; BP_DIAS 75; BP_DIAS 76
[2021-02-27 09:03] VITALS: BP 136/75
[2021-02-27] MEDS: LEVEMIR (INSULIN DETEMIR) 1 UNITS/0.01ML SC SCH (09:21)
[2021-02-27 09:22] VITALS: BP_SYST 144
[2021-02-27 09:23] VITALS: BP 144/59
[2021-02-27] MEDS ORDERED: NS 500 ML IV ONE (09:55)
--- NOTE | 2021-02-27 16:14 | DS.PDOC ---
Discharge Summary General Date of Admission Feb 24, 2021 at 09:30 Date of Discharge February 27, 2021 Primary Care Physician: Noel Ochoa MD Attending Physician: PRECIOUS PEOPLES DO Discharge Summary PROCEDURES PERFORMED DURING STAY: None. ADMITTING DIAGNOSES: 1. Dizziness and fall. 2. LATOYA with profound hyperkalemia 3. Hyperglycemia 4. Dehydration 5. History of insulin-dependent diabetes mellitus DISCHARGE DIAGNOSES: 1. Hyperkalemia, resolved. 2. Acute kidney injury on top of chronic renal disease, resolved 3. Hyperglycemia, resolved 4. Dizziness, improved 5. Dehydration, resolved 6. Type 2 diabetes mellitus, insulin-dependent COMPLICATIONS/CHIEF COMPLAINT: Arf,Hyperkalemia, Hyponatremia, Weakness. HISTORY OF PRESENT ILLNESS: Patient is a 71-year-old female presented to the [facility] emergency department she complains of dizziness and fall. Patient states that she has been taking her long-acting insulin but does not usually take her Humalog. Patient states over the past few days she is at decrease p.o. intake and increased polyuria. Patient reports that yesterday evening she and lightheaded sustained a fall however denied any loss of consciousness and was able to catch herself with her arm does not report any head trauma. Reports that she has been having more dyspnea on exertion ever since her foot surgery approximately 6 months ago. She also states she is noted some mild increased lower extremity edema. She denies cough, fever, any potassium supplementation or increase artificial salt intake. She denies any known heart disease. Patient glucose was 1205 and her potassium is 8.2. She was given IV fluid bolus followed by D50, calcium gluconate, 7 units of insulin, 30 g of Kayexalate in the emergency department. Repeat potassium was 6.1 glucose was 939. EKG on presentation to the ER shows possible junctional rhythm with sinus tachycardia on exam. HOSPITAL COURSE: Patient received her long-acting insulin and fluid boluses which continue to decrease the patient's potassium and blood sugar. Patient was initially placed in the intensive care unit for close monitoring of her blood sugar. Patient had normal blood sugar, potassium and improve kidney function on hospital course day 2. Patient was still complaining of some dizziness. Patient worked physical therapy who said the patient was doing well but did complain of dizziness. Patient was going to be discharged on February 26, 2021 however, patient felt very dizzy and was unable to walk up any stairs. Patient had dizziness when the patient would move her neck especially in neck extension and flexion. Patient did not describe any headaches or numbness of the lips. Vestibular physical therapy saw the patient and stated that the patient does not appear to have any benign positional vertigo based on their evaluation. Patient was offered MRI of the cervical spine in order to evaluate however, she declined this. Patient did well overnight and her kidney function had returned to normal along with her blood sugar and electrolytes. Patient did well physical therapy and stated the dizziness had improved to the point where she felt very comfortable going home. Patient was discharged from the hospital on February 27, 2021. DISCHARGE MEDICATIONS: Please see below. ALLERGIES: Please see below. PHYSICAL EXAMINATION ON DISCHARGE: VITAL SIGNS: Please see below. General: Alert and oriented female patient who was sitting up in bed when I walked in. Patient not appear to be in any acute distress. HEENT: Normocephalic, atraumatic, moist mucous membranes. Neck: No lymphadenopathy or thyromegaly Cardiac: Regular rate and rhythm, no murmurs, normal S1, normal S2 Pulm: Clear to auscultation bilaterally. No wheezes, rhonchi, rales Abd: Nondistended, nontender to palpation, normal bowel sounds Ext: No edema bilateral lower extremities LABORATORY DATA: Please see below. IMAGING: Chest x-ray performed on February 24, 2021 was reported to show no acute cardiopulmonary process appreciated. CT of the head performed without contrast on February 24, 2021 is reported to show atrophy and microvascular ischemic changes. No acute intracranial hemorrhage, infarction, or mass/mass-effect. PROGNOSIS: Good ACTIVITY: As tolerated. DIET: Consistent carbohydrate DISCHARGE PLAN: Discharge home with services DISPOSITION: 06-[facility] DISCHARGE INSTRUCTIONS: 1. Follow-up with your primary care provider within 3 to 5 days of discharge. 2. Continue taking insulin as prescribed 3. Return to the emergency department if symptoms worsen ITEMS TO FOLLOWUP ON ON OUTPATIENT: 1. Dizziness. DISCHARGE CONDITION: Stable. TIME SPENT ON DISCHARGE: 32 minutes. Vital Signs/I&Os Vital Signs Date Time Temp Pulse Resp B/P (MAP) Pulse Ox O2 Delivery O2 Flow Rate FiO2 02/27/21 09:23 79 144/59 (87) 02/27/21 06:00 97.8 16 94 Room Air I&O- Last 24 Hours up to 6 AM 02/27/21 06:00 Intake Total 2250 ml Output Total 0 ml Balance 2250 ml Laboratory Data Labs 24H Laboratory Tests 2 02/26/21 16:36: Bedside Glucose (Misc Panel) 242H 02/26/21 20:33: Bedside Glucose (Misc Panel) 296H 02/27/21 06:14: Nucleated Red Blood Cells % (auto) 0.0, Anion Gap 5L, Glomerular Filtration Rate 43.8, Calcium Level 8.7L 02/27/21 11:50: Bedside Glucose (Misc Panel) 167H CBC/BMP Laboratory Tests 02/27/21 06:14 FSBS Laboratory Tests Test 02/26/21 16:36 02/26/21 20:33 02/27/21 11:50 Range/Units Bedside Glucose (Misc Panel) 242 296 167 83-110 MG/DL Microbiology Microbiology 02/24/21 Blood Culture - Preliminary, Resulted No Growth after 72 hours. All specime... 02/24/21 Blood Culture - Preliminary, Resulted No Growth after 72 hours. All specime... 02/24/21 Urine Culture - Final, Complete 02/24/21 Blood Culture - Preliminary, Resulted No Growth after 72 hours. All specime... 02/24/21 Blood Culture - Preliminary, Resulted No Growth after 72 hours. All specime... Discharge Medications Scheduled Insulin Detemir (Levemir) 100 Unit/1 Ml Vial, 90 UNITS SC BID, (Reported) Insulin Human Lispro (Humalog) 1 Units/0.01 Ml Inj, 1 DOSE SC AC, (Reported) PER SLIDING SCALE Simvastatin (Simvastatin) 40 Mg Tablet, 40 MG PO QHS, (Reported) Scheduled PRN Acetaminophen (Acetaminophen) 500 Mg Tablet, 1,000 MG PO Q6H PRN for PAIN LEVEL 1-4, (Reported) Allergies Coded Allergies: No Known Allergies (Verified , 01/18/03) PRECIOUS PEOPLES DO Feb 27, 2021 16:14
[2021-02-27] MEDS ORDERED: SIMVASTATIN 40 MG TAB PO SCH (21:00)
== END 2021-02-27 12:19 | disposition home health service (06) | DRG 638 ==
LOC: M ED 06:15 → M ED INP 09:30 → ENRESERV 11:35 → M PCU 15:20 → M MSPAV 02-25 15:07
PROVIDERS: ADMIT Internal Medicine; ATTEND Family Medicine
DX: E11.65 Type 2 diabetes mellitus with hyperglycemia (principal); N17.9 Acute kidney failure, unspecified; E87.1 Hypo-osmolality and hyponatremia; E11.40 Type 2 diabetes mellitus with diabetic neuropathy, unspecified; E11.22 Type 2 diabetes mellitus with diabetic chronic kidney disease; N18.30 Chronic kidney disease, stage 3 unspecified; E78.5 Hyperlipidemia, unspecified; I12.9 Hypertensive chronic kidney disease with stage 1 through stage 4 chronic kidney disease, or unspecified chronic kidney disease; D63.1 Anemia in chronic kidney disease; E66.9 Obesity, unspecified; Z86.16 Personal history of COVID-19; H54.8 Legal blindness, as defined in USA; R42 Dizziness and giddiness; E87.5 Hyperkalemia; E86.0 Dehydration; Z20.822 Contact with and (suspected) exposure to COVID-19; Z79.4 Long term (current) use of insulin; Z79.899 Other long term (current) drug therapy

== ENCOUNTER → 2021-03-05 | Outpatient (REF) | payer MEDICARE, MEDICAID ==
[2021-03-05 17:15] LABS: ALBUMIN 2.5 GM/DL (3.2-5.2); BILIRUBIN,TOTAL 0.2 MG/DL (0.2-1.0); CHOLESTEROL RISK RATIO 4.982 (<5); CREATININE FOR GFR 1.44 MG/DL (0.55-1.30); GLOMERULAR FILTRATION RATE 38.2 (>39); TOTAL PROTEIN 6.9 GM/DL (6.4-8.2)
[2021-03-05 19:30] LABS: HEMOGLOBIN A1c > 14.0 %
== END ==
LOC: M SFHCADAM 15:11
PROVIDERS: ATTEND Family Medicine
DX: E78.2 Mixed hyperlipidemia (principal); E11.65 Type 2 diabetes mellitus with hyperglycemia; E87.5 Hyperkalemia

== ENCOUNTER 2021-05-14 09:20 | Observation (INO) | payer MEDICARE, MEDICAID ==
[~2021-05-14] VITALS: Ht 154.9 cm; Wt 89.1 kg
[2021-05-14] MEDS ORDERED: RAMI1CAP24 (09:33)
--- NOTE | 2021-05-14 13:15 | REP ---
INDICATION: CHEST PAIN COMPARISON: 02/24/2021 TECHNIQUE: Portable AP view of the chest FINDINGS: The mediastinum and cardiac silhouette are stable and within normal limits for portable technique. The lung alvarenga are clear without acute consolidation, effusion, or pneumothorax. Skeletal structures are intact. IMPRESSION: No acute cardiopulmonary process appreciated. <Electronically signed by Kevon Paulson > 05/14/21 [id number]
[2021-05-14 13:50] LABS: BASO # 0.1 10^3/uL (0.0-0.2); EOS # 0.1 10^3/uL (0.0-0.5); EOS % 1.2 % (0.0-3.0); LYMPH # 1.7 10^3/uL (1.5-5.0); MEAN CORPUSCULAR HEMOGLOBIN 28.8 pg (27.0-33.0); MEAN CORPUSCULAR HGB CONC 33.3 g/dl (32.0-36.5); MEAN CORPUSCULAR VOLUME 86.5 fl (80.0-96.0); MONO # 0.4 10^3/uL (0.0-0.8); MONO % 6.1 % (2.0-8.0); NEUTROPHILS # 4.5 10^3/uL (1.5-8.5); NEUTROPHILS % 66.6 % (36.0-66.0); PLATELET COUNT, AUTOMATED 391 10^3/uL (150-450); RED BLOOD COUNT 4.51 10^6/uL (4.00-5.40); WHITE BLOOD COUNT 6.7 10^3/uL (4.0-10.0)
[2021-05-14] MEDS ORDERED: ISOVUE-370 76% 100ML VIAL As Ordered ONE (13:56)
[2021-05-14 14:18] LABS: ALBUMIN 2.6 GM/DL (3.2-5.2); ALT/SGPT 19 U/L (12-78); BILIRUBIN,DIRECT < 0.1 MG/DL (0.0-0.2); BILIRUBIN,TOTAL 0.1 MG/DL (0.2-1.0); FREE T4 0.99 NG/DL (0.76-1.46); LIPASE 372 U/L (73-393); NT-PRO BNP 310 PG/ML (<125); THYROID STIMULATING HORMONE 0.991 uIU/ML (0.358-3.740); TOTAL PROTEIN 6.6 GM/DL (6.4-8.2)
[2021-05-14 14:23] LABS: RSV AMPLIFICATION NEGATIVE (NEGATIVE)
--- NOTE | 2021-05-14 14:28 | REP ---
INDICATION: dizziness COMPARISON: 02/24/2021 TECHNIQUE: Axial noncontrast images from the skull base to the thoracic inlet with coronal reformations. This CT examination was performed using the following dose reduction techniques: Automated exposure control, adjustment of mA and/or kv according to the patient's size, and use of iterative reconstruction technique. FINDINGS: Atrophy with periventricular leukomalacia and microvascular ischemic changes are appreciated. The ventricles and sulci are symmetric. Cuevas-white differentiation is maintained. There is no evidence for acute intracranial hemorrhage, mass/mass effect, pathology or infarction. No extra-axial fluid collection. Calvarium is intact. Paranasal sinuses and mastoid air cells are clear. IMPRESSION: Atrophy and microvascular ischemic changes. No acute intracranial hemorrhage, infarction, or mass/mass effect. <Electronically signed by Kevon Paulson > 05/14/21 [id number]
--- NOTE | 2021-05-14 14:31 | REP ---
INDICATION: chest pain radiating through back; r/o TAA COMPARISON: None. TECHNIQUE: CT angiography chest after the intravenous administration of 75 cc Isovue 370 attention thoracic aorta. FINDINGS: There is excellent visualization of the thoracic aorta. There is no aneurysmal dilatation or dissection. There is no abnormal Betsy aortic soft tissue density. The visualized pulmonary arteries show no abnormalities. There is a 3 cm sized mixed enhancing left thyroid gland nodule. There is no mediastinal or hilar adenopathy. There are no pleural or pericardial effusions. The imaged upper abdomen shows cholelithiasis. The imaged osseous structures are within normal limits. Evaluation of the lung alvarenga shows bibasilar opacities likely subsegmental atelectatic changes. There are no abnormal nodules masses. IMPRESSION: 1. There is no evidence of a thoracic aortic abnormality. Findings as described above. 2. Cholelithiasis. 3. Subsegmental atelectatic changes in the lung bases. 4. Large thyroid gland nodule as described above. Follow-up with thyroid ultrasonography. <Electronically signed by Carlos Ruelas > 05/14/21 [id number]
[2021-05-14 15:09] LABS: CK-MB VALUE MASS 2.4 NG/ML (<3.6); MB/CK RELATIVE INDEX 2.73 (< OR =4)
[2021-05-14] MEDS ORDERED: DEXTROSE 50% 50 ML SYRINGE IV PRN (16:00)
[2021-05-14] MEDS ORDERED: GLUCAGON INJ 1MG VIAL SC PRN (16:00)
[2021-05-14] MEDS ORDERED: GLUCOSE 4GM CHEW TABLET PO PRN (16:00)
[2021-05-14] MEDS ORDERED: INSUHUMDS SC (16:16)
[2021-05-14] MEDS ORDERED: RAMI1CAP24 PO (16:17)
[2021-05-14] MEDS ORDERED: SIMV40TA20 PO (16:17)
[2021-05-14] MEDS ORDERED: HOME MED LIST COMPLETE! XX SCH (16:20)
[2021-05-14] MEDS ORDERED: ACETAMINOPHEN 500 MG TAB PO PRN (17:00)
--- NOTE | 2021-05-14 17:14 | HPEPDOC ---
General Date of Admission 05/14/21 Date of Service: May 14, 2021 Chief Complaint The patient is a 71-year-old female admitted with a reason for visit of Dizziness, Diff Breathing. Source: Patient, RN/MD History of Present Illness 71-year-old female with insulin-dependent diabetes, legal blindness, hypertension, dyslipidemia, obesity was called by her behavioral health case manager for the daily welfare check as usual when patient reported that her house was very cold at 48 degree as her furnace had gone out during the night. Patient also complained of dizziness, lightheadedness chest pain in between the 2 scapula and shortness of breath so was brought to the emergency room. Her pain is located at the mid back and between the 2 tips of the 2 scapula at midline worse when she moves and walks about 4/10 in intensity, dull aching in nature. She reports that Tylenol helps with the pain. She reported that after she woke up this morning at around 8:30 AM and was doing her ADLs she started feeling dizzy and lightheaded. She does not feel dizzy or lightheaded when she is laying down in bed. She denied any spinning of the room. Denied any nausea or vomiting. In the ED cardiac enzymes has been negative, EKG sinus rhythm with no signs of ischemia, CT angio of the chest was negative for any aneurysm or dissection it did show large thyroid nodule. CT head has been negative. Patient did not have any hypoxia. Patient continued to complain of dizziness and lightheadedness. MRI of the spine was offered however patient refused to do it as she has claustrophobia and cannot tolerate MRIs. APS called back to the ED saying that her home is not safe for her to go back in at this point. Patient reported to me that her furnace has now been fixed. Patient is being admitted for evaluation for dizziness and lightheadedness. Home Medications Scheduled Insulin Detemir (Levemir) 100 Unit/1 Ml Vial, 90 UNITS SC BID, (Reported) Insulin Human Lispro (Humalog) 100 Unit/1 Ml Vial, 10 UNITS SQ AC, (Reported) per sliding scale Ramipril (Ramipril) 5 Mg Capsule, 5 MG PO DAILY, (Reported) Simvastatin (Simvastatin) 40 Mg Tablet, 40 MG PO DAILY, (Reported) Scheduled PRN Acetaminophen (Acetaminophen) 500 Mg Tablet, 1,000 MG PO Q6H PRN for PAIN LEVEL 1-4, (Reported) Allergies Coded Allergies: No Known Allergies (Verified , 01/18/03) Past Medical History Medical History IDDM with microalbuminuria and neuropathy Hypertension Dyslipidemia Obesity class 2 Covid infection in July 2020 CKD stage III Legal blindness Surgical History Tonsillectomy and adenoidectomy Incision and drainage of an infected right hallux Repair of compound fracture of right ankle 1986 Family History Father lymphoma mother bladder cancer Maternal aunt vaginal cancer Paternal aunt lung cancer Maternal grandmother spinal cancer Social History * Smoker: Denies Alcohol: Denies Drugs: denies A-FIB/CHADSVASC A-FIB History Current/History of A-Fib/PAF?: No Review of Systems Constitutional: Reports: Chills; Denies: Fever, Night Sweats Eyes: Denies: Pain, Vision change ENT: Denies: Head Aches, Ear Pain, Dysphagia Skin: Denies: Rash, Lesions Pulmonary: Denies: Dyspnea, Cough Cardiovascular: Reports: Chest Pain, Lt Headedness; Denies: Palpitations, Orthopnea, Paroxysmal Noc. Dyspnea Gastrointestinal: Denies: Nausea, Vomiting, Abdominal Pain, Diarrhea Genitourinary: Denies: Dysuria, Frequency, Incontinence, Retention Hematologic: Denies: Bruising, Bleeding Excessively Musculoskeletal: Reports: Back Pain Physical Examination General Exam: Positive: Alert, Cooperative, No Acute Distress Eye Exam: Positive: PERRLA, Conjunctiva & lids normal, EOMI; Negative: Sclera icteric ENT Exam: Positive: Atraumatic, Mucous membr. moist/pink, Pharynx Normal Neck Exam: Positive: Supple; Negative: JVD, thyromegaly Chest Exam: Positive: Clear to auscultation, Normal air movement Heart Exam: Positive: Rate Normal, Regular Rhythm, Normal S1, Normal S2; Negative: Murmurs, Rubs Telemetry: Positive: No significant arrhythmia Abdomen Exam: Positive: Normal bowel sounds, Soft, Other (Obese); Negative: Tenderness Extremity Exam: Negative: Clubbing, Cyanosis, Edema Psych Exam: Positive: Memory Intact, Oriented x 3 Vital Signs Vital Signs Date Time Temp Pulse Resp B/P (MAP) Pulse Ox O2 Delivery O2 Flow Rate FiO2 05/14/21 13:36 92 18 146/99 (115) 99 Room Air 05/14/21 09:21 97.5 Laboratory Data Labs 24H Laboratory Tests 2 05/14/21 12:59: Immature Granulocyte % (Auto) 0.1, Neutrophils (%) (Auto) 66.6H, Lymphocytes (%) (Auto) 25.0, Monocytes (%) (Auto) 6.1, Eosinophils (%) (Auto) 1.2, Basophils (%) (Auto) 1.0, Neutrophils # (Auto) 4.5, Lymphocytes # (Auto) 1.7, Monocytes # (Au to) 0.4, Eosinophils # (Auto) 0.1, Basophils # (Auto) 0.1, Nucleated Red Blood Cells % (auto) 0.0, Total Bilirubin 0.1L, Direct Bilirubin < 0.1, Aspartate Amino Transf (AST/SGOT) 18, Alanine Aminotransferase (ALT/SGPT) 19, Alkaline Phosphatase 78, Total Creatine Kinase 88, Creatine Kinase MB 2.4, Creatine Kinase MB Relative Index 2.73, Troponin I High Sensitivity 13.0, FS-Wpn-O-Type Natriuretic Peptide 310H, Total Protein 6.6, Albumin 2.6L, Albumin/Globulin Ratio 0.7L, Lipase 372, Thyroid Stimulating Hormone (TSH) 0.991, Free Thyroxine 0.99 05/14/21 13:28: Coronavirus (COVID-19)(PCR) NEGATIVE, Influenza Type A (RT-PCR) NEGATIVE, Influenza Type B (RT-PCR) NEGATIVE, Respiratory Syncytial Virus (PCR) NEGATIVE 05/14/21 13:41: POC Glucose (Misc Panel) 301H, POC Sodium (Misc Panel) 137, POC Potassium (Misc Panel) 4.7, POC Chloride (Misc Panel) 108, POC Total CO2 (Misc Panel) 21.0L, POC Blood Urea Nitrogen (Misc Panel 35H, POC Ionized Calcium (Misc Panel) 4.6, POC Creatinine (Misc Panel) 1.2, POC Hematocrit (Misc Panel) 39.0 CBC/BMP Laboratory Tests 05/14/21 12:59 Assessment/Plan 71-year-old female with insulin-dependent diabetes, legal blindness, hypertension, dyslipidemia, obesity was called by her behavioral health case manager for the daily welfare check as usual when patient reported that her house was very cold at 48 degree as her furnace had gone out during the night. Patient also complained of dizziness, lightheadedness, chest/back pain and shortness of breath so was brought to the emergency room. Her pain is located at the mid back and between the tips of the 2 scapulae at the midline worse when she moves and walks about 4/10 in intensity, dull aching in nature. She reports that Tylenol helps with the pain. She reported that after she woke up and was doing her ADLs she started feeling dizzy and lightheaded in standing position. APS called back to the ED saying that her home is not safe for her to go back to at present. Patient reported to me that her furnace has now been fixed. Patient is being admitted for evaluation for dizziness and lightheadedness. Back pain Patient described this is chest pain but actually the pain is located at the mid back in between the tips of the [address] angio of the chest was negative for any aneurysmal dilatation, dissection, any mediastinal pathology. It also did not show any gross chest abnormality except for some bilateral basilar atelectasis and large left thyroid lobe nodule for which patient needs an ultrasound. We will get CT of the thoracic and lumbar spine. Patient reported that she cannot tolerate MRIs pulse We will continue with Tylenol as needed for pain. Dizziness and lightheadedness This is a chronic complaint for the patient for the past 1 year. We will check orthostatic blood pressures, monitor on telemetry, will evaluate for vestibular function. No cardiac murmurs heard. We will check carotid ultrasound and also echo Diabetes with peripheral neuropathy and retinopathy Sugars are uncontrolled We will continue with Levemir and lispro as per sliding scale Patient is legally blind Hypertension Blood pressures are uncontrolled in the ED however I am not sure how accurate the measurement is as the cuff sized seem to be too small for the patient. For now we will continue with ramipril. Will add hydralazine if needed Hyperlipidemia Continue with statin Obesity type 2 BMI of 37.1 Social issues APS felt that her home was not safe for her to return to today Patient tells me her furnace has been repaired and working fine full PFS consulted regarding patient's home situation. Plan / VTE VTE Prophylaxis Ordered?: Yes Elsa Avina MD May 14, 2021 15:53
--- NOTE | 2021-05-14 17:51 | REPVR ---
PROCEDURE INFORMATION: Exam: CT Thoracic Spine Without Contrast Exam date and time: 05/14/2021 5:10 PM Age: 71 years old Clinical indication: Pain in thoracic spine TECHNIQUE: Imaging protocol: Computed tomography images of the thoracic spine without contrast. Radiation optimization: All CT scans at this facility use at least one of these dose optimization techniques: automated exposure control; mA and/or kV adjustment per patient size (includes targeted exams where dose is matched to clinical indication); or iterative reconstruction. COMPARISON: CT ANGIO CHEST 05/14/2021 1:56 PM FINDINGS: Vertebrae: Exaggeration of the thoracic kyphosis. Mild dextroconvex scoliosis. No acute fracture seen. The upper and midthoracic spine demonstrates diffuse idiopathic skeletal hyperostosis. No high-grade disc height loss. Moderate multilevel thoracic facet arthropathy. No severe stenoses identified. Discs/Spinal canal/Neural foramina: See "Vertebrae" finding. Soft tissues: Unremarkable. Gallbladder and bile ducts: There are calcified gallstones. Kidneys and ureters: The kidneys demonstrate nonobstructing calculi. IMPRESSION: Moderate degenerative changes. Electronically signed by: Isela Darling On 05/14/2021 17:50:28 PM
--- NOTE | 2021-05-14 17:55 | REPVR ---
PROCEDURE INFORMATION: Exam: CT Lumbar Spine Without Contrast Exam date and time: 05/14/2021 5:10 PM Age: 71 years old Clinical indication: Low back pain TECHNIQUE: Imaging protocol: Computed tomography images of the lumbar spine without contrast. Radiation optimization: All CT scans at this facility use at least one of these dose optimization techniques: automated exposure control; mA and/or kV adjustment per patient size (includes targeted exams where dose is matched to clinical indication); or iterative reconstruction. COMPARISON: No relevant prior studies available. FINDINGS: Vertebrae: Lucent L1 vertebral body lesions probably represent hemangiomas. Anatomic alignment. No acute fracture seen. Discs/Spinal canal/Neural foramina: No significant lumbar disc height loss. Moderate to marked lower lumbar facet arthropathy. At L4-L5, disc bulge as well as marked facet arthropathy and ligamentum flavum buckling causing moderate central spinal canal stenosis. The lateral recesses are narrowed near the L5 nerve roots. [id number] bilateral neural foraminal stenoses. Soft tissues: Unremarkable. IMPRESSION: 1. No acute findings identified. 2. Degenerative central spinal canal and lateral recess stenoses at L4-L5. Electronically signed by: Isela Darling On 05/14/2021 17:55:34 PM
[2021-05-14] MEDS: HumaLOG INSULIN (NovoLOG) PER UNIT SC SCH (18:12)
--- NOTE | 2021-05-14 18:55 | REP ---
INDICATION: Dizziness COMPARISON: None. TECHNIQUE: Real-time ultrasound evaluation and duplex Doppler interrogation of the extracranial carotid vasculature is performed. FINDINGS: There is mild plaquing and narrowing in both carotid bulbs extending into the internal and external carotid arteries. Luminal narrowing is less than 50%. There is no evidence of hemodynamically significant stenosis of either internal carotid artery. Normal flow velocities are seen. The vertebral arteries demonstrate normal direction of flow. RIGHT LEFT Peak systolic velocity ICA 95.7 cm/s 94.4 cm/s End diastolic velocity ICA 19.9 cm/s 16.8 cm/s Peak systolic velocity CCA 85.1 cm/s 98.2cm/s Peak systolic velocity ECA 95.7 cm/s 80.8 cm/s ICA/CCA ratio 1.1 0.9 IMPRESSION: Bilateral luminal narrowing of the internal carotid arteries less than 50%. No evidence of hemodynamically significant stenosis. <Electronically signed by Tano Cuevas > 05/14/21 [id number]
--- NOTE | 2021-05-14 19:43 | ECGEPIP ---
[facility] - ED Test Date: 2021-05-14 Pat Name: DAISY JASSO Department: Room: - Gender: Female Vice Chancellor: VC : 1950 Requested By: DAGO HAQ Order Number: [id number] Reading MD: Akanksha Hope Measurements Intervals [place] Rate: 87 P: 36 OK: 178 QRS: -5 QRSD: 86 T: 24 QT: 360 QTc: 433 Interpretive Statements Normal sinus rhythm Minimal voltage criteria for LVH, may be normal variant ( R in aVL ) decreased rate 02/24/21 Electronically Signed on 05-14-2021 19:43:31 EST by Akanksha Hope
[2021-05-14] MEDS ORDERED: HumaLOG INSULIN (NovoLOG) PER UNIT SC SCH (21:00)
[2021-05-14] MEDS: LEVEMIR (INSULIN DETEMIR) 1 UNITS/0.01ML SC SCH (21:08)
[2021-05-14 22:30] VITALS: BP 149/76
[2021-05-15 04:00] VITALS: BP_SYST 121; BP_SYST 126; BP_SYST 99; BP_DIAS 61; BP_DIAS 64; BP_DIAS 82
[2021-05-15] MEDS ORDERED: NS 1,000 ML IV SCH (05:35)
[2021-05-15 06:00] VITALS: BP 145/70
[2021-05-15 06:09] LABS: BASO # 0.1 10^3/uL (0.0-0.2); BASO % 1.3 % (0.0-1.0); EOS # 0.2 10^3/uL (0.0-0.5); EOS % 3.1 % (0.0-3.0); HEMATOCRIT 36.1 % (36.0-47.0); HEMOGLOBIN 11.7 g/dl (12.0-15.5); LYMPH # 2.5 10^3/uL (1.5-5.0); LYMPH % 41.1 % (24.0-44.0); MEAN CORPUSCULAR HEMOGLOBIN 28.2 pg (27.0-33.0); MEAN CORPUSCULAR HGB CONC 32.4 g/dl (32.0-36.5); MONO # 0.6 10^3/uL (0.0-0.8); MONO % 9.1 % (2.0-8.0); NEUTROPHILS # 2.8 10^3/uL (1.5-8.5); NEUTROPHILS % 45.1 % (36.0-66.0); PLATELET COUNT, AUTOMATED 362 10^3/uL (150-450); RED BLOOD COUNT 4.15 10^6/uL (4.00-5.40); WHITE BLOOD COUNT 6.2 10^3/uL (4.0-10.0)
[2021-05-15 06:39] LABS: CALCIUM LEVEL 8.2 MG/DL (8.8-10.2); CREATININE FOR GFR 1.44 MG/DL (0.55-1.30); GLOMERULAR FILTRATION RATE 38.2 (>39); POTASSIUM SERUM 3.9 MEQ/L (3.5-5.1)
[2021-05-15] MEDS: HumaLOG INSULIN (NovoLOG) PER UNIT SC SCH ×3 (07:30→13:17)
[2021-05-15] MEDS ORDERED: SIMVASTATIN 40 MG TAB PO SCH (09:00)
[2021-05-15] MEDS: ramipriL 5 MG CAP PO SCH ×2 (10:34→10:53)
[2021-05-15] MEDS: LEVEMIR (INSULIN DETEMIR) 1 UNITS/0.01ML SC SCH (10:35)
[2021-05-15 10:37] VITALS: BP 102/70
[2021-05-15 10:53] VITALS: BP 102/70
--- NOTE | 2021-05-15 13:17 | DS.PDOC ---
Discharge Summary General Date of Admission May 14, 2021 at 09:21 Date of Discharge 05/15/21 Discharge Summary PROCEDURES PERFORMED DURING STAY: [None]. DISCHARGE DIAGNOSES: Orthostatic hypotension causing dizziness Thoracic kyphoscoliosis Diffuse idiopathic skeletal hyperostosis. Kidney stones asymptomatic Calcified gallstones asymptomatic Left thyroid nodule. Secondary diagnoses: IDDM with microalbuminuria and neuropathy Hypertension Dyslipidemia Obesity class 2 Covid infection in July 2020 CKD stage III Legal blindness COMPLICATIONS/CHIEF COMPLAINT: Dizziness. HOSPITAL COURSE: 71-year-old female with insulin-dependent diabetes, legal blindness, hypertension, dyslipidemia, obesity was called by her catalytic case operator for the daily welfare check as usual when patient reported that her house was v hanh cold at 48 degree as her furnace had gone out during the night. Patient also complained of dizziness, lightheadedness, chest/back pain and shortness of breath so was brought to the emergency room. Her pain is located at the mid back and between the tips of the 2 scapulae at the midline worse when she moves and walks about 4/10 in intensity, dull aching in nature. She reports that Tylenol helps with the pain. She reported that after she woke up and was doing her ADLs she started feeling dizzy and lightheaded in standing position. APS called back to the ED saying that her home is not safe for her to go back to at present. Patient reported to me that her furnace has now been fixed. Patient is being admitted for evaluation for dizziness and lightheadedness. Dizziness and lightheadedness Due to orthostatic hypotension. No arrhythmias on telemetry Echo has been No significant obstruction in carotid US Back pain due to kyphoscoliosis and DISH. CT thoracic and lumbar spine as below CT angio of the chest negative for any aneurysm or dissection. Patient described this is chest pain but actually the pain is located at the mid back in between the tips of the 2 scapula. We will continue with Tylenol as needed for pain. Left thyroid nodule Ultrasound done. Results pending. Depending upon the results may need FNAC Diabetes with peripheral neuropathy and retinopathy Continue Levemir and lispro as per home dose Patient is legally blind Hypertension Continue ramipril Hyperlipidemia Continue with statin Obesity type 2 BMI of 37.1 DISCHARGE MEDICATIONS: Please see below. ALLERGIES: Please see below. PHYSICAL EXAMINATION ON DISCHARGE: VITAL SIGNS: Please see below. General Exam: Positive: Alert, Cooperative, No Acute Distress Eye Exam: Positive: PERRLA, Conjunctiva & lids normal, EOMI; Negative: Sclera icteric ENT Exam: Positive: Atraumatic, Mucous membr. moist/pink, Pharynx Normal Neck Exam: Positive: Supple; Negative: JVD, thyromegaly Chest Exam: Positive: Clear to auscultation, Normal air movement Heart Exam: Positive: Rate Normal, Regular Rhythm, Normal S1, Normal S2; Negative: Murmurs, Rubs Telemetry: Positive: No significant arrhythmia Abdomen Exam: Positive: Normal bowel sounds, Soft, Other (Obese); Negative: Tenderness Extremity Exam: Negative: Clubbing, Cyanosis, Edema Psych Exam: Positive: Memory Intact, Oriented x 3 LABORATORY DATA: Please see below. IMAGING: Thoracic spine CT scan: FINDINGS: Vertebrae: Exaggeration of the thoracic kyphosis. Mild dextroconvex scoliosis. No acute fracture seen. The upper and midthoracic spine demonstrates diffuse idiopathic skeletal hyperostosis. No high-grade disc height loss. Moderate multilevel thoracic facet arthropathy. No severe stenoses identified. Discs/Spinal canal/Neural foramina: See "Vertebrae" finding. Soft tissues: Unremarkable. Gallbladder and bile ducts: There are calcified gallstones. Kidneys and ureters: The kidneys demonstrate nonobstructing calculi. IMPRESSION: Moderate degenerative changes. Lumbar spine CT scan: FINDINGS: Vertebrae: Lucent L1 vertebral body lesions probably represent hemangiomas. Anatomic alignment. No acute fracture seen. Discs/Spinal canal/Neural foramina: No significant lumbar disc height loss. Moderate to marked lower lumbar facet arthropathy. At L4-L5, disc bulge as well as marked facet arthropathy and ligamentum flavum buckling causing moderate central spinal canal stenosis. The lateral recesses are narrowed near the L5 nerve roots. [id number] bilateral neural foraminal stenoses. Soft tissues: Unremarkable. IMPRESSION: 1. No acute findings identified. 2. Degenerative central spinal canal and lateral recess stenoses at L4-L5. Carotid vascular ultrasound: Bilateral luminal narrowing of the internal carotid arteries less than 50%. No evidence of hemodynamically significant stenosis. ACTIVITY: [As tolerated]. DIET: Consistent carbohydrate DISCHARGE PLAN: Home DISCHARGE INSTRUCTIONS: Follow-up with PMD in 1 week ITEMS TO FOLLOWUP ON ON OUTPATIENT: Follow-up with a cortisone Follow-up thyroid ultrasound DISCHARGE CONDITION: [Stable]. TIME SPENT ON DISCHARGE: 35 minutes. Vital Signs/I&Os Vital Signs Date Time Temp Pulse Resp B/P (MAP) Pulse Ox O2 Delivery O2 Flow Rate FiO2 05/15/21 10:53 102/70 05/15/21 10:37 86 05/15/21 06:00 98.6 20 97 05/14/21 19:30 Room Air I&O- Last 24 Hours up to 6 AM 05/15/21 06:00 Intake Total 150 ml Output Total 200 ml Balance -50 ml Laboratory Data Labs 24H Laboratory Tests 2 05/14/21 13:28: Coronavirus (COVID-19)(PCR) NEGATIVE, Influenza Type A (RT-PCR) NEGATIVE, Influenza Type B (RT-PCR) NEGATIVE, Respiratory Syncytial Virus (PCR) NEGATIVE 05/14/21 13:41: POC Glucose (Misc Panel) 301H, POC Sodium (Misc Panel) 137, POC Potassium (Misc Panel) 4.7, POC Chloride (Misc Panel) 108, POC Total CO2 (Misc Panel) 21.0L, POC Blood Urea Nitrogen (Misc Panel 35H, POC Ionized Calcium (Misc Panel) 4.6, POC Creatinine (Misc Panel) 1.2, POC Hematocrit (Misc Panel) 39.0 05/14/21 17:23: Bedside Glucose (Misc Panel) 234H 05/14/21 19:59: Bedside Glucose (Misc Panel) 384H 05/15/21 05:30: Immature Granulocyte % (Auto) 0.3, Neutrophils (%) (Auto) 45.1, Lymphocytes (%) (Auto) 41.1, Monocytes (%) (Auto) 9.1H, Eosinophils (%) (Auto) 3.1H, Basophils (%) (Auto) 1.3H, Neutrophils # (Auto) 2.8, Lymphocytes # (Auto) 2.5, Monocytes # (Auto) 0.6, Eosinophils # (Auto) 0.2, Basophils # (Auto) 0.1, Nucleated Red Blood Cells % (auto) 0.0, Anion Gap 7L, Glomerular Filtration Rate 38.2L, Calcium Level 8.2L 05/15/21 07:11: Bedside Glucose (Misc Panel) 83 05/15/21 11:39: Bedside Glucose (Misc Panel) 166H CBC/BMP Laboratory Tests 05/15/21 05:30 FSBS Laboratory Tests Test 05/14/21 17:23 05/14/21 19:59 05/15/21 07:11 05/15/21 11:39 Range/Units Bedside Glucose (Misc Panel) 234 384 83 166 83-110 MG/DL Discharge Medications Scheduled Insulin Detemir (Levemir) 100 Unit/1 Ml Vial, 90 UNITS SC BID, (Reported) Insulin Human Lispro (Humalog) 100 Unit/1 Ml Vial, 10 UNITS SQ AC, (Reported) per sliding scale Ramipril (Ramipril) 5 Mg Capsule, 5 MG PO DAILY, (Reported) Simvastatin (Simvastatin) 40 Mg Tablet, 40 MG PO DAILY, (Reported) Scheduled PRN Acetaminophen (Acetaminophen) 500 Mg Tablet, 1,000 MG PO Q6H PRN for PAIN LEVEL 1-4, (Reported) Allergies Coded Allergies: No Known Allergies (Verified , 01/18/03) Elsa Avina MD May 15, 2021 13:17
--- NOTE | 2021-05-18 13:19 | ECHO ---
ECHOCARDIOGRAM DATE OF PROCEDURE: 05/15/2021 Age: 71 Gender: Female Height: 155 cm Weight: 89 kg REFERRING PROVIDER: Elsa Avina M.D. PATIENT LOCATION: Room 4234. REASON FOR THE STUDY: Chest pain, unspecified. MEASUREMENTS: 2D Measurements: IVS 1.4 cm LV 5.2 cm LVPW 1.4 cm LA 4.0 cm Aorta 2.9 cm Doppler Measurements: Peak velocity across the aortic valve 1.6 m/sec Peak velocity across the LVOT 0.86 m/sec Mitral E 1.0 Mitral A 1.3with a ratio of 0.8 Maximum tricuspid valve velocity 2.3 m/sec 2D COMMENTS: 1. Normal left ventricular size with mildly increased left ventricular wall thickness. Left ventricular systolic function is normal. Left ventricular systolic ejection fraction estimated at 60-65%. 2. The left atrium appeared to be mildly enlarged. Normal right atrium and right ventricle. 3. The atrial septum appeared to be normal without defect or shunt. 4. Normal aortic root. 5. Trace pericardial effusion noted. No evidence of cardiac tamponade. 6. Mildly calcified aortic valve with normal leaflet excursion. Mildly calcified mitral annulus with normal anterior mitral valve leaflet motion. Normal tricuspid valve and pulmonic valve. The proximal pulmonary artery branches were not well visualized. 7. The inferior vena cava was not visualized. DOPPLER: It detects trace aortic regurgitation, mild mitral regurgitation and trace to mild tricuspid regurgitation. The calculated pulmonary artery systolic pressure is about 10 mmHg. Abnormal relaxation pattern was noted across the mitral valve leaflets as well as the mitral valve annulus consistent with grade 1 left ventricular diastolic dysfunction. IMPRESSION: 1. Normal global left ventricular systolic function with mild concentric left ventricular hypertrophy. There are some features of grade 1 left ventricular diastolic dysfunction manifested by abnormal relaxation. 2. Aortic valve sclerosis with trace aortic regurgitation, but no aortic stenosis. 3. Mitral annulus calcification with mild mitral regurgitation and a mildly enlarged left atrium. 4. Trace to mild tricuspid regurgitation. Very mild pulmonary hypertension. 5. Trace pericardial effusion. No evidence of cardiac tamponade.
== END 2021-05-15 14:50 | disposition home or self-care (01) ==
LOC: M ED 09:20 → M ED INP 09:21 → M MSPAV 20:11
PROVIDERS: ADMIT Internal Medicine Nephrology; ATTEND Internal Medicine Nephrology
DX: I95.1 Orthostatic hypotension (principal); M41.9 Scoliosis, unspecified; M48.10 Ankylosing hyperostosis [Forestier], site unspecified; N20.0 Calculus of kidney; K80.20 Calculus of gallbladder without cholecystitis without obstruction; E04.1 Nontoxic single thyroid nodule; E11.40 Type 2 diabetes mellitus with diabetic neuropathy, unspecified; R80.9 Proteinuria, unspecified; E11.22 Type 2 diabetes mellitus with diabetic chronic kidney disease; I12.9 Hypertensive chronic kidney disease with stage 1 through stage 4 chronic kidney disease, or unspecified chronic kidney disease; E78.5 Hyperlipidemia, unspecified; H54.8 Legal blindness, as defined in USA; E66.9 Obesity, unspecified; Z68.37 Body mass index [BMI] 37.0-37.9, adult; M54.6 Pain in thoracic spine; I67.82 Cerebral ischemia; G31.1 Senile degeneration of brain, not elsewhere classified; I65.23 Occlusion and stenosis of bilateral carotid arteries; R53.1 Weakness; R06.02 Shortness of breath; E11.319 Type 2 diabetes mellitus with unspecified diabetic retinopathy without macular edema; M47.814 Spondylosis without myelopathy or radiculopathy, thoracic region; M48.061 Spinal stenosis, lumbar region without neurogenic claudication; Z79.899 Other long term (current) drug therapy; Z79.4 Long term (current) use of insulin; Z86.16 Personal history of COVID-19; N18.30 Chronic kidney disease, stage 3 unspecified
CPT/HCPCS: 36415; 70450; 71045; 71275; 72128; 72131; 80047; 80048; 80076; 82550; 82553; 83690; 83880; 84439; 84443; 84484; 85025; 87631; 93005; 93041; 93306; 93880; 94760; 97112; 97161; 99285; G0378; Q9967

== ENCOUNTER 2021-05-19 15:34 | Observation (INO) | payer MEDICARE, MEDICAID ==
[~2021-05-19] VITALS: Ht 152.4 cm; Wt 97.8 kg
[~2021-05-19 15:34] MED LIST changes: +RAMI1CAP24
[2021-05-19 20:45] LABS: BASO # 0.1 10^3/uL (0.0-0.2); BASO % 0.9 % (0.0-1.0); EOS # 0.1 10^3/uL (0.0-0.5); EOS % 1.3 % (0.0-3.0); HEMATOCRIT 41.3 % (36.0-47.0); HEMOGLOBIN 13.3 g/dl (12.0-15.5); LYMPH # 1.7 10^3/uL (1.5-5.0); LYMPH % 19.8 % (24.0-44.0); MEAN CORPUSCULAR HEMOGLOBIN 28.4 pg (27.0-33.0); MEAN CORPUSCULAR HGB CONC 32.2 g/dl (32.0-36.5); MEAN CORPUSCULAR VOLUME 88.1 fl (80.0-96.0); MONO # 0.6 10^3/uL (0.0-0.8); MONO % 7.1 % (2.0-8.0); NEUTROPHILS # 6.1 10^3/uL (1.5-8.5); NEUTROPHILS % 70.6 % (36.0-66.0); PLATELET COUNT, AUTOMATED 409 10^3/uL (150-450); RED BLOOD COUNT 4.69 10^6/uL (4.00-5.40); WHITE BLOOD COUNT 8.6 10^3/uL (4.0-10.0)
[2021-05-19 21:03] LABS: APPEARANCE, URINE CLOUDY (CLEAR); BACTERIA, URINE AUTO 2+ (NEGATIVE); BILIRUBIN, URINE AUTO NEGATIVE (NEGATIVE); BLOOD, URINE BLOOD 1+ (NEGATIVE); COLOR, URINE YELLOW (YELLOW); GLUCOSE, URINE (UA) AUTO 3+ mg/dL (NEGATIVE); KETONE, URINE AUTO NEGATIVE (NEGATIVE); LEUKOCYTE ESTERASE, URINE AUTO TRACE (NEGATIVE); MUCUS, URINE SMALL (NEGATIVE); NITRITE, URINE AUTO POSITIVE (NEGATIVE); PROTEIN, URINE AUTO 3+ mg/dL (NEGATIVE); RBC, URINE AUTO 9 /HPF (0-3); SQUAMOUS EPITHELIAL CELL UR AU 4 /HPF (0-6); UROBILINOGEN, URINE AUTO 0.2 mg/dL (0.0-2.0); WBC, URINE AUTO 80 /HPF (0-3)
[2021-05-19 21:12] LABS: ALBUMIN 2.9 GM/DL (3.2-5.2); BILIRUBIN,TOTAL 0.2 MG/DL (0.2-1.0); CALCIUM LEVEL 8.7 MG/DL (8.8-10.2); CREATININE FOR GFR 1.57 MG/DL (0.55-1.30); GLOMERULAR FILTRATION RATE 34.6 (>39); POTASSIUM SERUM 4.6 MEQ/L (3.5-5.1); TOTAL PROTEIN 7.5 GM/DL (6.4-8.2)
[2021-05-19 21:42] LABS: RSV AMPLIFICATION NEGATIVE (NEGATIVE)
[2021-05-19] MEDS ORDERED: FOSFOMYCIN TROMETHAMINE 3 GM POWDER PACKET (MONUROL) PO ONE (22:40)
[2021-05-19 22:48] LABS: ABG BASE EXCESS -1.8 (-2.0-2.0); ABG HCO3 23.1 MEQ/L (22.0-26.0); ABG O2 SATURATION 98.1 % (95.0-99.0); ABG PARTIAL PRESSURE CO2 39.7 mmHg (35.0-45.0); ABG PARTIAL PRESSURE O2 102.7 mmHg (75.0-100.0); ABG TOTAL CO2 24.3 MEQ/L (23.0-31.0); ABG pH (ARTERIAL) 7.382 UNITS (7.350-7.450)
[2021-05-20] MEDS ORDERED: LEVEMIR (INSULIN DETEMIR) 1 UNITS/0.01ML SC ONE (00:25)
[2021-05-20 00:52] LABS: CK-MB VALUE MASS 4.5 NG/ML (<3.6); MB/CK RELATIVE INDEX 3.04 (< OR =4)
[2021-05-20] MEDS ORDERED: HOME MED LIST COMPLETE! XX SCH (04:10)
[2021-05-20] MEDS: HEPARIN SOD (PORCINE) 5000UNITS/ML 1ML VIAL/SYRINGE SQ SCH ×3 (06:34→21:23)
[2021-05-20] MEDS: HumaLOG INSULIN (NovoLOG) PER UNIT SC SCH ×3 (07:30→18:23)
[2021-05-20] MEDS ORDERED: GLUCAGON INJ 1MG VIAL SC PRN (08:00)
[2021-05-20] MEDS ORDERED: DEXTROSE 50% 50 ML SYRINGE IV PRN (08:00)
[2021-05-20] MEDS ORDERED: GLUCOSE 4GM CHEW TABLET PO PRN (08:00)
[2021-05-20 08:17] LABS: HEMATOCRIT 36.1 % (36.0-47.0); HEMOGLOBIN 11.5 g/dl (12.0-15.5); MEAN CORPUSCULAR HEMOGLOBIN 28.3 pg (27.0-33.0); MEAN CORPUSCULAR HGB CONC 31.9 g/dl (32.0-36.5); MEAN CORPUSCULAR VOLUME 88.9 fl (80.0-96.0); PLATELET COUNT, AUTOMATED 352 10^3/uL (150-450); RED BLOOD COUNT 4.06 10^6/uL (4.00-5.40); WHITE BLOOD COUNT 6.6 10^3/uL (4.0-10.0)
[2021-05-20 08:59] LABS: ALBUMIN 2.4 GM/DL (3.2-5.2); BILIRUBIN,TOTAL 0.2 MG/DL (0.2-1.0); CALCIUM LEVEL 8.4 MG/DL (8.8-10.2); CREATININE FOR GFR 1.34 MG/DL (0.55-1.30); GLOMERULAR FILTRATION RATE 41.5 (>39); POTASSIUM SERUM 3.9 MEQ/L (3.5-5.1); TOTAL PROTEIN 6.7 GM/DL (6.4-8.2)
[2021-05-20] MEDS ORDERED: LEVEMIR (INSULIN DETEMIR) 1 UNITS/0.01ML SC SCH (09:00)
[2021-05-20] MEDS ORDERED: HumaLOG INSULIN (NovoLOG) PER UNIT SC SCH ×2 (12:00→21:00)
[2021-05-20 14:30] VITALS: BP 129/73
[2021-05-20] MEDS: SIMVASTATIN 40 MG TAB PO SCH (15:49)
[2021-05-20] MEDS: ramipriL 5 MG CAP PO SCH (15:49)
[2021-05-20] MEDS ORDERED: ACETAMINOPHEN TAB 650MG DOSE (2X325MG) PO PRN (16:30)
[2021-05-20 19:40] VITALS: BP 142/63
[2021-05-20] MEDS: LEVEMIR (INSULIN DETEMIR) 1 UNITS/0.01ML SC SCH (21:23)
[2021-05-20 23:00] VITALS: BP 119/56
[2021-05-20 23:10] VITALS: BP 123/55
[2021-05-20 23:30] VITALS: BP 118/61
[2021-05-21 06:00] VITALS: BP 112/52
[2021-05-21] MEDS: HEPARIN SOD (PORCINE) 5000UNITS/ML 1ML VIAL/SYRINGE SQ SCH ×2 (06:02→12:47)
[2021-05-21 06:15] LABS: HEMATOCRIT 33.6 % (36.0-47.0); HEMOGLOBIN 10.7 g/dl (12.0-15.5); MEAN CORPUSCULAR HEMOGLOBIN 28.8 pg (27.0-33.0); MEAN CORPUSCULAR HGB CONC 31.8 g/dl (32.0-36.5); MEAN CORPUSCULAR VOLUME 90.6 fl (80.0-96.0); PLATELET COUNT, AUTOMATED 323 10^3/uL (150-450); RED BLOOD COUNT 3.71 10^6/uL (4.00-5.40); WHITE BLOOD COUNT 6.5 10^3/uL (4.0-10.0)
[2021-05-21 06:49] LABS: CALCIUM LEVEL 8.2 MG/DL (8.8-10.2); CREATININE FOR GFR 1.67 MG/DL (0.55-1.30); GLOMERULAR FILTRATION RATE 32.2 (>39); POTASSIUM SERUM 4.3 MEQ/L (3.5-5.1)
[2021-05-21] MEDS: HumaLOG INSULIN (NovoLOG) PER UNIT SC SCH ×2 (07:30→12:47)
[2021-05-21] MEDS: LEVEMIR (INSULIN DETEMIR) 1 UNITS/0.01ML SC SCH (09:00)
[2021-05-21] MEDS: SIMVASTATIN 40 MG TAB PO SCH (10:52)
[2021-05-21 10:57] VITALS: BP 149/88
[2021-05-21] MEDS: ramipriL 5 MG CAP PO SCH (10:57)
[2021-05-21 14:00] VITALS: BP 178/88
== END 2021-05-21 15:26 | disposition home or self-care (01) ==
LOC: M ED 15:34 → M ED INP 15:35 → ENRESERV 05-20 14:10 → M MSPAV 05-20 15:15
PROVIDERS: ADMIT Family Medicine; ATTEND Internal Medicine
DX: R42 Dizziness and giddiness (principal); R78.81 Bacteremia; R53.1 Weakness; R06.02 Shortness of breath; E11.22 Type 2 diabetes mellitus with diabetic chronic kidney disease; I12.9 Hypertensive chronic kidney disease with stage 1 through stage 4 chronic kidney disease, or unspecified chronic kidney disease; E78.5 Hyperlipidemia, unspecified; N18.30 Chronic kidney disease, stage 3 unspecified; H54.415A Blindness right eye category 5, normal vision left eye; Z86.16 Personal history of COVID-19; E66.9 Obesity, unspecified; R60.0 Localized edema; Z79.899 Other long term (current) drug therapy; Z79.4 Long term (current) use of insulin
CPT/HCPCS: 36415; 36600; 71045; 80048; 80053; 81001; 82375; 82550; 82553; 82803; 83605; 83690; 84484; 85025; 85027; 87040; 87077; 87186; 87631; 93005; 96372; 97161; 97165; 97530; 97535; 99285; G0378; J1644

== ENCOUNTER → 2021-05-27 | Outpatient (REF) | payer MEDICARE, MEDICAID | LOC: M SFHCADAM 11:44 | PROVIDERS: ATTEND Physician Assistant | DX: E11.65 Type 2 diabetes mellitus with hyperglycemia (principal); I12.9 Hypertensive chronic kidney disease with stage 1 through stage 4 chronic kidney disease, or unspecified chronic kidney disease; N18.32 Chronic kidney disease, stage 3b ==

== ENCOUNTER → 2021-06-04 | Outpatient (CLI) | payer MEDICARE, MEDICAID ==
[2021-06-04 18:06] LABS: ALBUMIN 2.7 GM/DL (3.2-5.2); BILIRUBIN,TOTAL 0.2 MG/DL (0.2-1.0); CALCIUM LEVEL 8.7 MG/DL (8.8-10.2); CREATININE FOR GFR 1.7 MG/DL (0.55-1.30); GLOMERULAR FILTRATION RATE 31.5 (>39); TOTAL PROTEIN 6.6 GM/DL (6.4-8.2)
[2021-06-04 18:40] LABS: HEMOGLOBIN A1c 12.1 %
== END ==
LOC: M PLALAB 14:57
PROVIDERS: ATTEND Physician Assistant
DX: E11.65 Type 2 diabetes mellitus with hyperglycemia (principal); I12.9 Hypertensive chronic kidney disease with stage 1 through stage 4 chronic kidney disease, or unspecified chronic kidney disease; N18.32 Chronic kidney disease, stage 3b

== ENCOUNTER 2021-12-11 19:20 | Inpatient (IN) | payer MEDICARE, MEDICAID ==
[~2021-12-11] VITALS: Ht 152.4 cm; Wt 90.3 kg
[2021-12-11 19:48] LABS: BASO # 0.1 10^3/uL (0.0-0.2); BASO % 0.8 % (0.0-1.0); EOS % 0.3 % (0.0-3.0); HEMATOCRIT 42.5 % (36.0-47.0); LYMPH # 1.3 10^3/uL (1.5-5.0); LYMPH % 17.3 % (24.0-44.0); MEAN CORPUSCULAR HEMOGLOBIN 28.7 pg (27.0-33.0); MEAN CORPUSCULAR HGB CONC 32.9 g/dl (32.0-36.5); MEAN CORPUSCULAR VOLUME 87.3 fl (80.0-96.0); MONO # 0.5 10^3/uL (0.0-0.8); MONO % 7.1 % (2.0-8.0); NEUTROPHILS # 5.5 10^3/uL (1.5-8.5); NEUTROPHILS % 74.1 % (36.0-66.0); PLATELET COUNT, AUTOMATED 419 10^3/uL (150-450); RED BLOOD COUNT 4.87 10^6/uL (4.00-5.40); WHITE BLOOD COUNT 7.4 10^3/uL (4.0-10.0)
[2021-12-11 20:17] LABS: ALBUMIN 2.8 GM/DL (3.2-5.2); BILIRUBIN,DIRECT 0.1 MG/DL (0.0-0.2); BILIRUBIN,TOTAL 0.4 MG/DL (0.2-1.0); CALCIUM LEVEL 9.7 MG/DL (8.8-10.2); CREATININE FOR GFR 2.24 MG/DL (0.55-1.30); GLOMERULAR FILTRATION RATE 22.9 (>39); POTASSIUM SERUM 5.7 MEQ/L (3.5-5.1); TOTAL PROTEIN 6.8 GM/DL (6.4-8.2)
[2021-12-11] MEDS ORDERED: LABETALOL 100MG/20ML VIAL IV STA (20:38)
[2021-12-11] MEDS ORDERED: HumuLIN R (REGULAR) INSULIN (NovoLIN R) **100U/ML** PER UNIT SC ONE (20:40)
[2021-12-11] MEDS ORDERED: NS 1,000 ML IV ONE (20:40)
[2021-12-11 21:10] LABS: VENOUS BASE EXCESS -9.3 (-2.0-2.0); VENOUS PARTIAL PRESSURE CO2 43.7 mmHg (38.0-50.0); VENOUS PARTIAL PRESSURE O2 35.2 mmHg (30.0-50.0); VENOUS PH 7.232 UNITS (7.330-7.430); VENOUS STANDARD HCO3 16.5 MEQ/L; VENOUS TOTAL CO2 19.3 MEQ/L (24.0-28.0)
[2021-12-11 21:29] LABS: HEMOGLOBIN A1c 13.6 %
[2021-12-11 21:34] LABS: ACETONE/KETONE 41.13 MG/DL (<2.81)
[2021-12-11 21:45] LABS: MB/CK RELATIVE INDEX 3.12 (< OR =4)
[2021-12-11] MEDS ORDERED: NS 1,180 ML in IV 1 EA IV ONE (21:55)
[2021-12-11] MEDS ORDERED: HumuLIN R (REGULAR) INSULIN (NovoLIN R) **100U/ML** PER UNIT IV ONE (22:55)
[2021-12-11 23:56] LABS: RSV AMPLIFICATION NEGATIVE (NEGATIVE)
[2021-12-12] VITALS (7 sets, daily range): BP systolic 125–162; BP diastolic 59–73
[2021-12-12] MEDS ORDERED: DEXTROSE 50% 50 ML SYRINGE IV PRN (00:10)
[2021-12-12] MEDS ORDERED: GLUCAGON INJ 1MG VIAL SC PRN (00:10)
[2021-12-12] MEDS ORDERED: GLUCOSE 4GM CHEW TABLET PO PRN (00:10)
[2021-12-12] MEDS ORDERED: HOME MED LIST COMPLETE! XX SCH (01:40)
[2021-12-12 02:04] LABS: CALCIUM LEVEL 8.8 MG/DL (8.8-10.2); CREATININE FOR GFR 2.14 MG/DL (0.55-1.30); GLOMERULAR FILTRATION RATE 24.2 (>39); MAGNESIUM LEVEL 2.1 MG/DL (1.8-2.4); POTASSIUM SERUM 4.4 MEQ/L (3.5-5.1)
[2021-12-12] MEDS: NS 1,000 ML IV SCH ×2 (03:03→10:08)
[2021-12-12] MEDS: INSULIN LISPRO (NovoLOG) PER UNIT SC SCH ×6 (03:19→21:00)
[2021-12-12] MEDS: HEPARIN SOD (PORCINE) 5000UNITS/ML 1ML VIAL/SYRINGE SQ SCH ×3 (06:01→21:29)
[2021-12-12] MEDS: **hydrALAZINE** 10 MG TAB PO PRN (06:05)
[2021-12-12 06:44] LABS: VENOUS BASE EXCESS -5.3 (-2.0-2.0); VENOUS HCO3 20.8 MEQ/L (23.0-27.0); VENOUS O2 SATURATION 83.3 % (60.0-80.0); VENOUS PARTIAL PRESSURE CO2 43.1 mmHg (38.0-50.0); VENOUS PARTIAL PRESSURE O2 49.3 mmHg (30.0-50.0); VENOUS PH 7.302 UNITS (7.330-7.430); VENOUS STANDARD HCO3 19.8 MEQ/L; VENOUS TOTAL CO2 22.1 MEQ/L (24.0-28.0)
[2021-12-12 06:47] LABS: HEMATOCRIT 34.3 % (36.0-47.0); MEAN CORPUSCULAR HEMOGLOBIN 28.8 pg (27.0-33.0); MEAN CORPUSCULAR HGB CONC 33.2 g/dl (32.0-36.5); MEAN CORPUSCULAR VOLUME 86.6 fl (80.0-96.0); PLATELET COUNT, AUTOMATED 332 10^3/uL (150-450); RED BLOOD COUNT 3.96 10^6/uL (4.00-5.40); WHITE BLOOD COUNT 7.3 10^3/uL (4.0-10.0)
[2021-12-12 06:51] LABS: HEMOGLOBIN 11.4 g/dl (12.0-15.5)
[2021-12-12 07:11] LABS: CALCIUM LEVEL 8.5 MG/DL (8.8-10.2); CREATININE FOR GFR 1.89 MG/DL (0.55-1.30); GLOMERULAR FILTRATION RATE 27.9 (>39); MAGNESIUM LEVEL 2.1 MG/DL (1.8-2.4); POTASSIUM SERUM 3.9 MEQ/L (3.5-5.1)
[2021-12-12] MEDS: LEVEMIR (INSULIN DETEMIR) 1 UNITS/0.01ML SC SCH ×2 (08:05→21:29)
[2021-12-12] MEDS ORDERED: LEVEMIR (INSULIN DETEMIR) 1 UNITS/0.01ML SC SCH (21:00)
[2021-12-13] VITALS (7 sets, daily range): BP systolic 159–184; BP diastolic 70–84
[2021-12-13] MEDS: **hydrALAZINE** 10 MG TAB PO PRN ×3 (00:23→17:43)
[2021-12-13 05:53] LABS: HEMATOCRIT 37.9 % (36.0-47.0); HEMOGLOBIN 12.8 g/dl (12.0-15.5); MEAN CORPUSCULAR HEMOGLOBIN 29.3 pg (27.0-33.0); MEAN CORPUSCULAR HGB CONC 33.8 g/dl (32.0-36.5); MEAN CORPUSCULAR VOLUME 86.7 fl (80.0-96.0); PLATELET COUNT, AUTOMATED 360 10^3/uL (150-450); RED BLOOD COUNT 4.37 10^6/uL (4.00-5.40); WHITE BLOOD COUNT 7.4 10^3/uL (4.0-10.0)
[2021-12-13 06:24] LABS: CALCIUM LEVEL 8.7 MG/DL (8.8-10.2); CREATININE FOR GFR 1.48 MG/DL (0.55-1.30); POTASSIUM SERUM 3.6 MEQ/L (3.5-5.1)
[2021-12-13] MEDS: HEPARIN SOD (PORCINE) 5000UNITS/ML 1ML VIAL/SYRINGE SQ SCH ×3 (06:28→22:20)
[2021-12-13] MEDS: INSULIN LISPRO (NovoLOG) PER UNIT SC SCH ×4 (07:30→21:00)
[2021-12-13] MEDS: LEVEMIR (INSULIN DETEMIR) 1 UNITS/0.01ML SC SCH ×2 (07:48→22:20)
[2021-12-13] MEDS ORDERED: amLODIPine 5 MG TAB PO SCH (11:15)
[2021-12-14] VITALS (7 sets, daily range): BP systolic 150–210; BP diastolic 70–87
[2021-12-14] MEDS: HEPARIN SOD (PORCINE) 5000UNITS/ML 1ML VIAL/SYRINGE SQ SCH ×3 (05:43→22:10)
[2021-12-14] MEDS: **hydrALAZINE** 10 MG TAB PO PRN ×2 (05:43→12:14)
[2021-12-14 06:13] LABS: HEMATOCRIT 38.8 % (36.0-47.0); HEMOGLOBIN 12.8 g/dl (12.0-15.5); MEAN CORPUSCULAR HEMOGLOBIN 28.7 pg (27.0-33.0); PLATELET COUNT, AUTOMATED 369 10^3/uL (150-450); RED BLOOD COUNT 4.46 10^6/uL (4.00-5.40); WHITE BLOOD COUNT 5.4 10^3/uL (4.0-10.0)
[2021-12-14 06:41] LABS: CREATININE FOR GFR 1.65 MG/DL (0.55-1.30); GLOMERULAR FILTRATION RATE 32.6 (>39); POTASSIUM SERUM 4.1 MEQ/L (3.5-5.1)
[2021-12-14] MEDS: LIDOCAINE 5% (LIDODERM) PATCH TD SCH (09:46)
[2021-12-14] MEDS: INSULIN LISPRO (NovoLOG) PER UNIT SC SCH ×4 (09:46→21:00)
[2021-12-14] MEDS: LEVEMIR (INSULIN DETEMIR) 1 UNITS/0.01ML SC SCH ×2 (09:48→22:11)
[2021-12-14] MEDS: atenoloL 25 MG TAB PO SCH (10:38)
[2021-12-14 10:45] LABS: FREE T3 2.1 PG/ML (2.2-4.0); THYROID STIMULATING HORMONE 1.2 uIU/ML (0.358-3.740)
[2021-12-14] MEDS: **NOTE PATIENT COMMENT** MISC XX SCH (21:00)
[2021-12-15] VITALS: BP 164/74
[2021-12-15 04:00] VITALS: BP 157/78
[2021-12-15 06:09] LABS: HEMATOCRIT 38.6 % (36.0-47.0); HEMOGLOBIN 12.7 g/dl (12.0-15.5); MEAN CORPUSCULAR HEMOGLOBIN 28.3 pg (27.0-33.0); MEAN CORPUSCULAR HGB CONC 32.9 g/dl (32.0-36.5); PLATELET COUNT, AUTOMATED 350 10^3/uL (150-450); RED BLOOD COUNT 4.49 10^6/uL (4.00-5.40); WHITE BLOOD COUNT 6.3 10^3/uL (4.0-10.0)
[2021-12-15] MEDS: HEPARIN SOD (PORCINE) 5000UNITS/ML 1ML VIAL/SYRINGE SQ SCH ×3 (06:29→22:30)
[2021-12-15 06:34] LABS: CALCIUM LEVEL 8.9 MG/DL (8.8-10.2); CREATININE FOR GFR 1.58 MG/DL (0.55-1.30); GLOMERULAR FILTRATION RATE 34.3 (>39); POTASSIUM SERUM 4.1 MEQ/L (3.5-5.1)
[2021-12-15 07:29] VITALS: BP 162/72
[2021-12-15] MEDS: LIDOCAINE 5% (LIDODERM) PATCH TD SCH (09:02)
[2021-12-15] MEDS: LEVEMIR (INSULIN DETEMIR) 1 UNITS/0.01ML SC SCH ×2 (09:03→22:30)
[2021-12-15] MEDS: INSULIN LISPRO (NovoLOG) PER UNIT SC SCH ×4 (09:03→21:00)
[2021-12-15] MEDS: atenoloL 25 MG TAB PO SCH (09:04)
[2021-12-15] MEDS ORDERED: CALCIUM CARBONATE 500 MG CHEW U/D PO PRN (12:25)
[2021-12-15] MEDS ORDERED: ONDANSETRON 4MG 2ML VIAL IV PRN (12:25)
[2021-12-15 12:26] VITALS: BP 124/78
[2021-12-15 15:46] VITALS: BP 159/71
[2021-12-15 20:00] VITALS: BP 154/78
[2021-12-15] MEDS: **NOTE PATIENT COMMENT** MISC XX SCH (21:00)
[2021-12-16] VITALS (8 sets, daily range): BP systolic 131–184; BP diastolic 61–89
[2021-12-16] MEDS: HEPARIN SOD (PORCINE) 5000UNITS/ML 1ML VIAL/SYRINGE SQ SCH ×3 (05:48→21:06)
[2021-12-16 05:56] LABS: HEMATOCRIT 38.7 % (36.0-47.0); HEMOGLOBIN 12.7 g/dl (12.0-15.5); MEAN CORPUSCULAR HEMOGLOBIN 28.7 pg (27.0-33.0); MEAN CORPUSCULAR HGB CONC 32.8 g/dl (32.0-36.5); MEAN CORPUSCULAR VOLUME 87.6 fl (80.0-96.0); PLATELET COUNT, AUTOMATED 340 10^3/uL (150-450); RED BLOOD COUNT 4.42 10^6/uL (4.00-5.40); WHITE BLOOD COUNT 6.8 10^3/uL (4.0-10.0)
[2021-12-16 06:44] LABS: CALCIUM LEVEL 8.9 MG/DL (8.8-10.2); CREATININE FOR GFR 1.55 MG/DL (0.55-1.30); GLOMERULAR FILTRATION RATE 35.1 (>39); POTASSIUM SERUM 4.4 MEQ/L (3.5-5.1)
[2021-12-16] MEDS: LEVEMIR (INSULIN DETEMIR) 1 UNITS/0.01ML SC SCH ×2 (08:11→21:05)
[2021-12-16] MEDS: INSULIN LISPRO (NovoLOG) PER UNIT SC SCH ×4 (08:11→20:14)
[2021-12-16] MEDS: LIDOCAINE 5% (LIDODERM) PATCH TD SCH (08:12)
[2021-12-16] MEDS: atenoloL 25 MG TAB PO SCH ×2 (08:12→21:05)
[2021-12-16] MEDS: **NOTE PATIENT COMMENT** MISC XX SCH (21:06)
[2021-12-17] VITALS: BP 144/65
[2021-12-17 04:00] VITALS: BP 122/59
[2021-12-17] MEDS: HEPARIN SOD (PORCINE) 5000UNITS/ML 1ML VIAL/SYRINGE SQ SCH ×3 (05:55→20:50)
[2021-12-17 06:30] LABS: HEMATOCRIT 38.5 % (36.0-47.0); HEMOGLOBIN 12.4 g/dl (12.0-15.5); MEAN CORPUSCULAR HEMOGLOBIN 28.2 pg (27.0-33.0); MEAN CORPUSCULAR HGB CONC 32.2 g/dl (32.0-36.5); MEAN CORPUSCULAR VOLUME 87.7 fl (80.0-96.0); PLATELET COUNT, AUTOMATED 362 10^3/uL (150-450); RED BLOOD COUNT 4.39 10^6/uL (4.00-5.40); WHITE BLOOD COUNT 8.6 10^3/uL (4.0-10.0)
[2021-12-17 07:17] LABS: CALCIUM LEVEL 8.8 MG/DL (8.8-10.2); CREATININE FOR GFR 1.44 MG/DL (0.55-1.30); GLOMERULAR FILTRATION RATE 38.2 (>39); POTASSIUM SERUM 4.3 MEQ/L (3.5-5.1)
[2021-12-17 08:00] VITALS: BP 130/78
[2021-12-17] MEDS: LIDOCAINE 5% (LIDODERM) PATCH TD SCH (08:27)
[2021-12-17] MEDS: LEVEMIR (INSULIN DETEMIR) 1 UNITS/0.01ML SC SCH ×2 (08:27→20:51)
[2021-12-17] MEDS: INSULIN LISPRO (NovoLOG) PER UNIT SC SCH ×4 (08:28→20:50)
[2021-12-17] MEDS: atenoloL 25 MG TAB PO SCH ×2 (08:29→20:50)
[2021-12-17 16:00] VITALS: BP 118/53
[2021-12-17 20:00] VITALS: BP 129/58
[2021-12-17] MEDS: **NOTE PATIENT COMMENT** MISC XX SCH (20:51)
[2021-12-18 04:00] VITALS: BP 129/60
[2021-12-18] MEDS: HEPARIN SOD (PORCINE) 5000UNITS/ML 1ML VIAL/SYRINGE SQ SCH ×3 (06:13→21:44)
[2021-12-18 06:32] LABS: HEMATOCRIT 36.6 % (36.0-47.0); HEMOGLOBIN 12.1 g/dl (12.0-15.5); MEAN CORPUSCULAR HEMOGLOBIN 28.5 pg (27.0-33.0); MEAN CORPUSCULAR HGB CONC 33.1 g/dl (32.0-36.5); MEAN CORPUSCULAR VOLUME 86.3 fl (80.0-96.0); PLATELET COUNT, AUTOMATED 364 10^3/uL (150-450); RED BLOOD COUNT 4.24 10^6/uL (4.00-5.40); WHITE BLOOD COUNT 8.6 10^3/uL (4.0-10.0)
[2021-12-18 07:03] LABS: CALCIUM LEVEL 8.2 MG/DL (8.8-10.2); CREATININE FOR GFR 1.78 MG/DL (0.55-1.30); GLOMERULAR FILTRATION RATE 29.9 (>39); POTASSIUM SERUM 4.6 MEQ/L (3.5-5.1)
[2021-12-18] MEDS: INSULIN LISPRO (NovoLOG) PER UNIT SC SCH ×4 (07:30→20:05)
[2021-12-18 08:00] VITALS: BP 141/57
[2021-12-18] MEDS: LEVEMIR (INSULIN DETEMIR) 1 UNITS/0.01ML SC SCH ×2 (09:29→20:42)
[2021-12-18] MEDS: atenoloL 25 MG TAB PO SCH ×2 (09:29→20:40)
[2021-12-18] MEDS: LIDOCAINE 5% (LIDODERM) PATCH TD SCH (09:31)
[2021-12-18] MEDS ORDERED: LEVE1INJ5 SC (13:33)
[2021-12-18] MEDS ORDERED: ATEN25TA PO (13:33)
[2021-12-18] MEDS ORDERED: HUMA100I5 SC (13:33)
[2021-12-18] MEDS ORDERED: AMLO1TAB25 PO (13:33)
[2021-12-18 16:00] VITALS: BP 155/65
[2021-12-18 20:00] VITALS: BP 152/71
[2021-12-18 20:39] VITALS: BP 161/67
[2021-12-18] MEDS: **NOTE PATIENT COMMENT** MISC XX SCH (20:42)
[2021-12-19 02:05] VITALS: BP 137/63
[2021-12-19 04:00] VITALS: BP 138/60
[2021-12-19] MEDS: HEPARIN SOD (PORCINE) 5000UNITS/ML 1ML VIAL/SYRINGE SQ SCH ×2 (05:17→12:20)
[2021-12-19 06:41] LABS: HEMOGLOBIN 12.1 g/dl (12.0-15.5); MEAN CORPUSCULAR HEMOGLOBIN 29.3 pg (27.0-33.0); MEAN CORPUSCULAR HGB CONC 32.7 g/dl (32.0-36.5); MEAN CORPUSCULAR VOLUME 89.6 fl (80.0-96.0); PLATELET COUNT, AUTOMATED 367 10^3/uL (150-450); RED BLOOD COUNT 4.13 10^6/uL (4.00-5.40); WHITE BLOOD COUNT 7.5 10^3/uL (4.0-10.0)
[2021-12-19 07:15] LABS: CALCIUM LEVEL 8.4 MG/DL (8.8-10.2); CREATININE FOR GFR 1.65 MG/DL (0.55-1.30); GLOMERULAR FILTRATION RATE 32.6 (>39); POTASSIUM SERUM 4.9 MEQ/L (3.5-5.1)
[2021-12-19] MEDS: INSULIN LISPRO (NovoLOG) PER UNIT SC SCH ×2 (08:34→12:20)
[2021-12-19] MEDS: LEVEMIR (INSULIN DETEMIR) 1 UNITS/0.01ML SC SCH (08:35)
[2021-12-19 08:38] VITALS: BP 130/59
[2021-12-19] MEDS: atenoloL 25 MG TAB PO SCH (08:38)
[2021-12-19] MEDS: LIDOCAINE 5% (LIDODERM) PATCH TD SCH (08:39)
[2021-12-19 12:12] VITALS: BP 145/65
== END 2021-12-19 15:57 | disposition home health service (06) | DRG 638 ==
LOC: M ED 19:20 → M ED INP 23:52 → ENRESERV 12-12 05:58 → M PCU 12-12 06:57 → M 4MAIN 12-19 02:10
PROVIDERS: ADMIT Internal Medicine; ATTEND Internal Medicine
DX: E11.65 Type 2 diabetes mellitus with hyperglycemia (principal); N17.9 Acute kidney failure, unspecified; N18.30 Chronic kidney disease, stage 3 unspecified; R42 Dizziness and giddiness; E11.40 Type 2 diabetes mellitus with diabetic neuropathy, unspecified; E11.22 Type 2 diabetes mellitus with diabetic chronic kidney disease; E78.5 Hyperlipidemia, unspecified; I12.9 Hypertensive chronic kidney disease with stage 1 through stage 4 chronic kidney disease, or unspecified chronic kidney disease; D64.9 Anemia, unspecified; E66.9 Obesity, unspecified; H54.8 Legal blindness, as defined in USA; R53.81 Other malaise; E86.0 Dehydration; R53.1 Weakness; Z79.4 Long term (current) use of insulin; Z68.31 Body mass index [BMI] 31.0-31.9, adult

== ENCOUNTER 2022-01-22 15:18 | Observation (INO) | payer MEDICARE, MEDICAID ==
[~2022-01-22] VITALS: Ht 152.4 cm; Wt 82.7 kg
[~2022-01-22 15:18] MED LIST changes: +AMLO1TAB25 PO; +ATEN25TA PO; +HUMA100I5 SC; +LEVE1INJ5 SC
[2022-01-22] MEDS ORDERED: LEVE1INJ5 SC (15:43)
[2022-01-22 18:04] LABS: BASO # 0.1 10^3/uL (0.0-0.2); EOS % 0.4 % (0.0-3.0); HEMATOCRIT 41.1 % (36.0-47.0); HEMOGLOBIN 13.7 g/dl (12.0-15.5); LYMPH # 1.3 10^3/uL (1.5-5.0); LYMPH % 16.5 % (24.0-44.0); MEAN CORPUSCULAR HEMOGLOBIN 28.7 pg (27.0-33.0); MEAN CORPUSCULAR HGB CONC 33.3 g/dl (32.0-36.5); MEAN CORPUSCULAR VOLUME 86.2 fl (80.0-96.0); MONO # 0.6 10^3/uL (0.0-0.8); NEUTROPHILS # 5.9 10^3/uL (1.5-8.5); NEUTROPHILS % 74.5 % (36.0-66.0); PLATELET COUNT, AUTOMATED 446 10^3/uL (150-450); RED BLOOD COUNT 4.77 10^6/uL (4.00-5.40)
[2022-01-22 18:16] LABS: CK-MB VALUE MASS 1.1 NG/ML (<3.6); MB/CK RELATIVE INDEX 2.75 (< OR =4)
[2022-01-22 18:25] LABS: ALT/SGPT 15 U/L (12-78); BILIRUBIN,DIRECT < 0.1 MG/DL (0.0-0.2); BILIRUBIN,TOTAL 0.3 MG/DL (0.2-1.0); BLOOD UREA NITROGEN 37 MG/DL (7-18); CALCIUM LEVEL 9.2 MG/DL (8.8-10.2); CARBON DIOXIDE LEVEL 20 MEQ/L (21-32); CHLORIDE LEVEL 98 MEQ/L (98-107); CREATININE FOR GFR 2.15 MG/DL (0.55-1.30); ETHYL ALCOHOL (ETHANOL) < 0.003 % (0.000-0.010); GLOMERULAR FILTRATION RATE 24.1 (>39); GLUCOSE, FASTING 615 MG/DL (70-100); POTASSIUM SERUM 5.7 MEQ/L (3.5-5.1); SODIUM LEVEL 128 MEQ/L (136-145); THYROID STIMULATING HORMONE 0.691 uIU/ML (0.358-3.740)
[2022-01-22] MEDS ORDERED: HumuLIN R (REGULAR) INSULIN (NovoLIN R) **100U/ML** PER UNIT IV ONE (18:45)
[2022-01-22] MEDS ORDERED: NS 1,000 ML IV SCH (18:45)
[2022-01-22] MEDS ORDERED: CALCIUM GLUCONATE 1,000 MG in D5W MINI-BAG PLUS 100 ML IV ONE (18:45)
[2022-01-22] MEDS: LIDOCAINE 5% (LIDODERM) PATCH TD SCH (21:00)
[2022-01-22] MEDS: LEVEMIR (INSULIN DETEMIR) 1 UNITS/0.01ML SC SCH (21:00)
[2022-01-22] MEDS: INSULIN LISPRO (NovoLOG) PER UNIT SC SCH (21:00)
[2022-01-22] MEDS ORDERED: GLUCOSE 4GM CHEW TABLET PO PRN (21:40)
[2022-01-22] MEDS ORDERED: DEXTROSE 50% 50 ML SYRINGE IV PRN (21:40)
[2022-01-22] MEDS ORDERED: GLUCAGON INJ 1MG VIAL SC PRN (21:40)
[2022-01-22] MEDS: HEPARIN SOD (PORCINE) 5000UNITS/ML 1ML VIAL/SYRINGE SC SCH (22:00)
[2022-01-22] MEDS ORDERED: HOME MED LIST COMPLETE! XX SCH (22:20)
[2022-01-23] MEDS: NORCO, ANEXSIA 5/325MG TABLET (HYDROcodone/ACETAMINOPHEN) PO PRN ×3 (00:31→17:42)
[2022-01-23] MEDS: INSULIN LISPRO (NovoLOG) PER UNIT SC SCH ×4 (00:32→21:00)
[2022-01-23 01:08] VITALS: BP 116/76
[2022-01-23] MEDS ORDERED: HumuLIN R (REGULAR) INSULIN (NovoLIN R) **100U/ML** PER UNIT IV STA (01:15)
[2022-01-23] MEDS ORDERED: HumuLIN R (REGULAR) INSULIN (NovoLIN R) **100U/ML** PER UNIT SC ONE (03:00)
[2022-01-23] MEDS ORDERED: HumuLIN R (REGULAR) INSULIN (NovoLIN R) **100U/ML** PER UNIT IV ONE (04:00)
[2022-01-23 06:30] VITALS: BP 116/83
[2022-01-23] MEDS: HEPARIN SOD (PORCINE) 5000UNITS/ML 1ML VIAL/SYRINGE SC SCH ×3 (06:40→22:44)
[2022-01-23 08:48] LABS: HEMATOCRIT 38.7 % (36.0-47.0); HEMOGLOBIN 12.8 g/dl (12.0-15.5); MEAN CORPUSCULAR HEMOGLOBIN 28.5 pg (27.0-33.0); MEAN CORPUSCULAR HGB CONC 33.1 g/dl (32.0-36.5); MEAN CORPUSCULAR VOLUME 86.2 fl (80.0-96.0); PLATELET COUNT, AUTOMATED 428 10^3/uL (150-450); RED BLOOD COUNT 4.49 10^6/uL (4.00-5.40); WHITE BLOOD COUNT 6.5 10^3/uL (4.0-10.0)
[2022-01-23] MEDS: LEVEMIR (INSULIN DETEMIR) 1 UNITS/0.01ML SC SCH ×2 (08:48→22:45)
[2022-01-23] MEDS: **NOTE PATIENT COMMENT** MISC XX SCH (08:49)
[2022-01-23 09:04] LABS: HEMOGLOBIN A1c 13.6 %
[2022-01-23 09:35] LABS: ALBUMIN 2.8 GM/DL (3.2-5.2); BILIRUBIN,TOTAL 0.2 MG/DL (0.2-1.0); C REACTIVE PROTEIN QUANTITATIV 1.61 MG/DL (0.00-0.30); CREATININE FOR GFR 1.67 MG/DL (0.55-1.30); GLOMERULAR FILTRATION RATE 32.2 (>39); POTASSIUM SERUM 4.5 MEQ/L (3.5-5.1); TOTAL PROTEIN 6.5 GM/DL (6.4-8.2)
[2022-01-23] MEDS ORDERED: LORazepam 1 MG TAB PO ONE (13:55)
[2022-01-23 14:00] VITALS: BP 127/53
[2022-01-23 20:35] VITALS: BP 124/54
[2022-01-23] MEDS: LIDOCAINE 5% (LIDODERM) PATCH TD SCH (22:51)
[2022-01-24] MEDS: HEPARIN SOD (PORCINE) 5000UNITS/ML 1ML VIAL/SYRINGE SC SCH ×3 (05:45→21:21)
[2022-01-24 06:01] LABS: APPEARANCE, URINE MANUAL CLOUDY (CLEAR); COLOR, URINE MANUAL YELLOW (YELLOW)
[2022-01-24 06:02] LABS: BILIRUBIN, URINE MANUAL NEGATIVE (NEGATIVE); BLOOD URINE MANUAL POSITIVE (NEGATIVE); GLUCOSE, URINE (UA) MANUAL NEGATIVE (NEGATIVE); KETONE, URINE MANUAL NEGATIVE (NEGATIVE); LEUKOCYTE ESTERASE, URINE MAN POSITIVE (NEGATIVE); NITRITE, URINE MANUAL NEGATIVE (NEGATIVE); PROTEIN, URINE MANUAL 2+ mg/dL (NEGATIVE); SPECIFIC GRAVITY,URINE MANUAL 1.015 (1.002-1.035); UROBILINOGEN, URINE MANUAL NORMAL (NORMAL)
[2022-01-24 06:04] LABS: HEMATOCRIT 34.5 % (36.0-47.0); HEMOGLOBIN 11.6 g/dl (12.0-15.5); MEAN CORPUSCULAR HEMOGLOBIN 29.1 pg (27.0-33.0); MEAN CORPUSCULAR HGB CONC 33.6 g/dl (32.0-36.5); MEAN CORPUSCULAR VOLUME 86.5 fl (80.0-96.0); PLATELET COUNT, AUTOMATED 372 10^3/uL (150-450); RED BLOOD COUNT 3.99 10^6/uL (4.00-5.40); WHITE BLOOD COUNT 7.7 10^3/uL (4.0-10.0)
[2022-01-24 06:09] LABS: WBC, URINE TNTC /hpf (0-3)
[2022-01-24 06:15] LABS: BACTERIA, URINE LARGE AMOUNT; HYALINE CAST, URINE NONE SEEN /lpf (0-1); SQUAMOUS EPITHELIAL CELL URINE MOD AMOUNT /hpf (SMALL AMT); YEAST, URINE LARGE AMOUNT
[2022-01-24 06:19] VITALS: BP 125/56
[2022-01-24 06:36] LABS: ALBUMIN 2.6 GM/DL (3.2-5.2); BILIRUBIN,TOTAL 0.1 MG/DL (0.2-1.0); CALCIUM LEVEL 9.1 MG/DL (8.8-10.2); CREATININE FOR GFR 1.9 MG/DL (0.55-1.30); GLOMERULAR FILTRATION RATE 27.7 (>39); POTASSIUM SERUM 4.2 MEQ/L (3.5-5.1)
[2022-01-24] MEDS: NORCO, ANEXSIA 5/325MG TABLET (HYDROcodone/ACETAMINOPHEN) PO PRN ×2 (08:05→14:11)
[2022-01-24] MEDS: INSULIN LISPRO (NovoLOG) PER UNIT SC SCH ×4 (08:06→21:22)
[2022-01-24] MEDS: LEVEMIR (INSULIN DETEMIR) 1 UNITS/0.01ML SC SCH ×2 (08:06→21:22)
[2022-01-24] MEDS: **NOTE PATIENT COMMENT** MISC XX SCH (08:07)
[2022-01-24 14:07] VITALS: BP 126/58
[2022-01-24 20:00] VITALS: BP 126/63
[2022-01-24] MEDS: LIDOCAINE 5% (LIDODERM) PATCH TD SCH (21:21)
[2022-01-25] MEDS: HEPARIN SOD (PORCINE) 5000UNITS/ML 1ML VIAL/SYRINGE SC SCH ×3 (05:25→22:24)
[2022-01-25 05:26] VITALS: BP 132/62
[2022-01-25 05:58] VITALS: BP 153/75
[2022-01-25 07:46] LABS: HEMATOCRIT 36.1 % (36.0-47.0); HEMOGLOBIN 12.4 g/dl (12.0-15.5); MEAN CORPUSCULAR HEMOGLOBIN 29.7 pg (27.0-33.0); MEAN CORPUSCULAR HGB CONC 34.3 g/dl (32.0-36.5); MEAN CORPUSCULAR VOLUME 86.4 fl (80.0-96.0); PLATELET COUNT, AUTOMATED 400 10^3/uL (150-450); RED BLOOD COUNT 4.18 10^6/uL (4.00-5.40)
[2022-01-25 08:14] LABS: ALBUMIN 2.6 GM/DL (3.2-5.2); BILIRUBIN,TOTAL 0.2 MG/DL (0.2-1.0); CALCIUM LEVEL 8.8 MG/DL (8.8-10.2); CREATININE FOR GFR 1.78 MG/DL (0.55-1.30); GLOMERULAR FILTRATION RATE 29.9 (>39); POTASSIUM SERUM 4.7 MEQ/L (3.5-5.1); TOTAL PROTEIN 6.2 GM/DL (6.4-8.2)
[2022-01-25] MEDS: INSULIN LISPRO (NovoLOG) PER UNIT SC SCH ×4 (08:57→20:20)
[2022-01-25] MEDS: **NOTE PATIENT COMMENT** MISC XX SCH (08:58)
[2022-01-25] MEDS: LEVEMIR (INSULIN DETEMIR) 1 UNITS/0.01ML SC SCH ×2 (08:58→20:19)
[2022-01-25 14:00] VITALS: BP 138/68
[2022-01-25 20:00] VITALS: BP 158/76
[2022-01-25] MEDS: LIDOCAINE 5% (LIDODERM) PATCH TD SCH (20:21)
[2022-01-26] MEDS: HEPARIN SOD (PORCINE) 5000UNITS/ML 1ML VIAL/SYRINGE SC SCH (05:56)
[2022-01-26 06:00] VITALS: BP 136/59
[2022-01-26 07:12] LABS: HEMATOCRIT 37.8 % (36.0-47.0); HEMOGLOBIN 12.3 g/dl (12.0-15.5); MEAN CORPUSCULAR HEMOGLOBIN 28.2 pg (27.0-33.0); MEAN CORPUSCULAR HGB CONC 32.5 g/dl (32.0-36.5); MEAN CORPUSCULAR VOLUME 86.7 fl (80.0-96.0); PLATELET COUNT, AUTOMATED 382 10^3/uL (150-450); RED BLOOD COUNT 4.36 10^6/uL (4.00-5.40); WHITE BLOOD COUNT 5.9 10^3/uL (4.0-10.0)
[2022-01-26 08:11] LABS: ALBUMIN 2.5 GM/DL (3.2-5.2); BILIRUBIN,TOTAL 0.3 MG/DL (0.2-1.0); CALCIUM LEVEL 9.1 MG/DL (8.8-10.2); CREATININE FOR GFR 1.66 MG/DL (0.55-1.30); GLOMERULAR FILTRATION RATE 32.3 (>39); POTASSIUM SERUM 4.6 MEQ/L (3.5-5.1); TOTAL PROTEIN 6.6 GM/DL (6.4-8.2)
[2022-01-26] MEDS: LEVEMIR (INSULIN DETEMIR) 1 UNITS/0.01ML SC SCH (09:20)
[2022-01-26] MEDS: INSULIN LISPRO (NovoLOG) PER UNIT SC SCH ×2 (09:21→12:26)
[2022-01-26] MEDS: **NOTE PATIENT COMMENT** MISC XX SCH (09:22)
[2022-01-26] MEDS ORDERED: LIDO5TD TD (10:26)
== END 2022-01-26 14:45 | disposition home or self-care (01) ==
LOC: M ED 15:18 → EDBD 15:18 → M ED INP 15:19 → M MS5PR 01-23 01:06
PROVIDERS: ADMIT Internal Medicine; ATTEND Family Medicine
DX: M51.34 Other intervertebral disc degeneration, thoracic region (principal); M46.84 Other specified inflammatory spondylopathies, thoracic region; M46.87 Other specified inflammatory spondylopathies, lumbosacral region; M51.37 Other intervertebral disc degeneration, lumbosacral region; E11.65 Type 2 diabetes mellitus with hyperglycemia; Z91.19 Patient's noncompliance with other medical treatment and regimen; E87.5 Hyperkalemia; N17.9 Acute kidney failure, unspecified; E55.9 Vitamin D deficiency, unspecified; E78.5 Hyperlipidemia, unspecified; I10 Essential (primary) hypertension; R60.0 Localized edema; R32 Unspecified urinary incontinence; E11.40 Type 2 diabetes mellitus with diabetic neuropathy, unspecified; Z79.4 Long term (current) use of insulin
CPT/HCPCS: 36415; 70450; 71046; 72128; 72131; 80048; 80053; 80076; 81000; 82077; 82550; 82553; 82947; 83036; 84132; 84443; 84484; 85025; 85027; 86140; 87040; 87086; 87486; 87581; 87633; 87798; 93005; 93041; 94760; 96372; 96374; 96376; 97161; 97165; 97530; 99285; G0378; J0610; J1644; J1815

== ENCOUNTER 2022-02-15 04:51 | Observation (INO) | payer MEDICARE, MEDICAID ==
[~2022-02-15] VITALS: Ht 152.4 cm; Wt 86.4 kg
[~2022-02-15 04:51] MED LIST changes: +LIDO5TD TD
[2022-02-15] MEDS ORDERED: NS 1,000 ML IV ONE ×2 (05:00→07:55)
[2022-02-15 05:14] LABS: VENOUS HCO3 21.4 MEQ/L (23.0-27.0); VENOUS O2 SATURATION 70.2 % (60.0-80.0); VENOUS PARTIAL PRESSURE CO2 44.5 mmHg (38.0-50.0); VENOUS PARTIAL PRESSURE O2 37.1 mmHg (30.0-50.0); VENOUS PH 7.299 UNITS (7.330-7.430); VENOUS STANDARD HCO3 19.8 MEQ/L; VENOUS TOTAL CO2 22.7 MEQ/L (24.0-28.0)
[2022-02-15 05:19] LABS: BASO # 0.1 10^3/uL (0.0-0.2); BASO % 1.3 % (0.0-1.0); EOS # 0.1 10^3/uL (0.0-0.5); EOS % 1.8 % (0.0-3.0); HEMATOCRIT 37.6 % (36.0-47.0); HEMOGLOBIN 12.5 g/dl (12.0-15.5); LYMPH # 1.7 10^3/uL (1.5-5.0); LYMPH % 28.9 % (24.0-44.0); MEAN CORPUSCULAR HEMOGLOBIN 28.9 pg (27.0-33.0); MEAN CORPUSCULAR HGB CONC 33.2 g/dl (32.0-36.5); MONO # 0.7 10^3/uL (0.0-0.8); MONO % 12.1 % (2.0-8.0); NEUTROPHILS # 3.3 10^3/uL (1.5-8.5); NEUTROPHILS % 55.4 % (36.0-66.0); PLATELET COUNT, AUTOMATED 421 10^3/uL (150-450); RED BLOOD COUNT 4.32 10^6/uL (4.00-5.40)
[2022-02-15 05:42] LABS: HEMOGLOBIN A1c 13.6 %
[2022-02-15 05:44] LABS: OSMOLALITY SERUM 313 MOSM/KG (280-301)
[2022-02-15 05:48] LABS: ACETONE/KETONE 4.56 MG/DL (<2.81); ALBUMIN 2.8 GM/DL (3.2-5.2); ALT/SGPT 19 U/L (12-78); BILIRUBIN,DIRECT < 0.1 MG/DL (0.0-0.2); BILIRUBIN,TOTAL 0.3 MG/DL (0.2-1.0); BLOOD UREA NITROGEN 25 MG/DL (7-18); CALCIUM LEVEL 8.7 MG/DL (8.8-10.2); CARBON DIOXIDE LEVEL 24 MEQ/L (21-32); CHLORIDE LEVEL 102 MEQ/L (98-107); CK-MB VALUE MASS 1.1 NG/ML (<3.6); CREATININE FOR GFR 1.52 MG/DL (0.55-1.30); GLOMERULAR FILTRATION RATE 35.8 (>39); GLUCOSE, FASTING 613 MG/DL (70-100); LIPASE 302 U/L (73-393); MB/CK RELATIVE INDEX 1.86 (< OR =4); POTASSIUM SERUM 5.1 MEQ/L (3.5-5.1); SODIUM LEVEL 133 MEQ/L (136-145); TOTAL PROTEIN 6.9 GM/DL (6.4-8.2)
[2022-02-15 05:52] LABS: RSV AMPLIFICATION NEGATIVE (NEGATIVE)
[2022-02-15 08:15] LABS: CK-MB VALUE MASS < 1.0 NG/ML (<3.6); CPK CREATINE PHOSPHOKINASE 48 U/L (26-192); MB/CK RELATIVE INDEX 2.08 (< OR =4)
[2022-02-15] MEDS ORDERED: HUMA100I5 SQ (09:24)
[2022-02-15] MEDS ORDERED: ACET-897 PO (09:25)
[2022-02-15] MEDS ORDERED: LIDO1PAD TOP (09:26)
[2022-02-15] MEDS ORDERED: HOME MED LIST COMPLETE! XX SCH (09:30)
[2022-02-15] MEDS ORDERED: cefTRIAXone SOD 1 GM in D5W MINI-BAG PLUS 50 ML IV ONE (09:45)
[2022-02-15] MEDS ORDERED: HumuLIN R (REGULAR) INSULIN (NovoLIN R) **100U/ML** PER UNIT IV ONE (11:10)
[2022-02-15 12:49] LABS: CALCIUM LEVEL 7.9 MG/DL (8.8-10.2); CREATININE FOR GFR 1.18 MG/DL (0.55-1.30); GLOMERULAR FILTRATION RATE 47.9 (>39); POTASSIUM SERUM 4.1 MEQ/L (3.5-5.1)
[2022-02-15] MEDS ORDERED: DEXTROSE 50% 50 ML SYRINGE IV PRN (13:30)
[2022-02-15] MEDS ORDERED: GLUCAGON INJ 1MG VIAL SC PRN (13:30)
[2022-02-15] MEDS ORDERED: GLUCOSE 4GM CHEW TABLET PO PRN (13:30)
[2022-02-15 16:25] VITALS: BP 174/83
[2022-02-15] MEDS ORDERED: INSULIN LISPRO (NovoLOG) PER UNIT SC SCH (18:00)
[2022-02-15 21:15] VITALS: BP 107/66
[2022-02-15] MEDS: LEVEMIR (INSULIN DETEMIR) 1 UNITS/0.01ML SC SCH (21:53)
[2022-02-15] MEDS: INSULIN LISPRO (NovoLOG) PER UNIT SC SCH (21:53)
[2022-02-15] MEDS: ENOXAPARIN 40MG/0.4ML SYRINGE (J1650 PER 10MG) SC SCH (21:53)
[2022-02-15] MEDS: ACETAMINOPHEN TAB 650MG DOSE (2X325MG) PO PRN (21:54)
[2022-02-16 06:00] VITALS: BP 117/68
[2022-02-16 06:52] LABS: HEMATOCRIT 35.2 % (36.0-47.0); HEMOGLOBIN 11.7 g/dl (12.0-15.5); MEAN CORPUSCULAR HGB CONC 33.2 g/dl (32.0-36.5); MEAN CORPUSCULAR VOLUME 87.3 fl (80.0-96.0); PLATELET COUNT, AUTOMATED 371 10^3/uL (150-450); RED BLOOD COUNT 4.03 10^6/uL (4.00-5.40); WHITE BLOOD COUNT 6.4 10^3/uL (4.0-10.0)
[2022-02-16 07:42] LABS: ALBUMIN 2.5 GM/DL (3.2-5.2); BILIRUBIN,TOTAL 0.1 MG/DL (0.2-1.0); CALCIUM LEVEL 8.8 MG/DL (8.8-10.2); CREATININE FOR GFR 1.45 MG/DL (0.55-1.30); GLOMERULAR FILTRATION RATE 37.8 (>39); MAGNESIUM LEVEL 2.2 MG/DL (1.8-2.4); POTASSIUM SERUM 4.3 MEQ/L (3.5-5.1); TOTAL PROTEIN 6.1 GM/DL (6.4-8.2)
[2022-02-16] MEDS: LEVEMIR (INSULIN DETEMIR) 1 UNITS/0.01ML SC SCH ×2 (08:25→20:18)
[2022-02-16] MEDS: INSULIN LISPRO (NovoLOG) PER UNIT SC SCH ×4 (08:26→20:19)
[2022-02-16] MEDS: ACETAMINOPHEN TAB 650MG DOSE (2X325MG) PO PRN (08:27)
[2022-02-16 14:00] VITALS: BP 143/74
[2022-02-16 19:57] VITALS: BP 154/66
[2022-02-16] MEDS: ENOXAPARIN 40MG/0.4ML SYRINGE (J1650 PER 10MG) SC SCH (20:18)
[2022-02-17 05:32] VITALS: BP 147/69
[2022-02-17 06:43] LABS: BASO # 0.1 10^3/uL (0.0-0.2); BASO % 0.9 % (0.0-1.0); EOS # 0.2 10^3/uL (0.0-0.5); EOS % 2.9 % (0.0-3.0); HEMOGLOBIN 11.9 g/dl (12.0-15.5); LYMPH # 2.4 10^3/uL (1.5-5.0); LYMPH % 31.8 % (24.0-44.0); MEAN CORPUSCULAR HGB CONC 33.1 g/dl (32.0-36.5); MEAN CORPUSCULAR VOLUME 87.8 fl (80.0-96.0); MONO % 12.6 % (2.0-8.0); NEUTROPHILS # 3.9 10^3/uL (1.5-8.5); NEUTROPHILS % 51.3 % (36.0-66.0); PLATELET COUNT, AUTOMATED 431 10^3/uL (150-450); WHITE BLOOD COUNT 7.6 10^3/uL (4.0-10.0)
[2022-02-17 07:01] LABS: ALBUMIN 2.6 GM/DL (3.2-5.2); BILIRUBIN,TOTAL 0.1 MG/DL (0.2-1.0); CALCIUM LEVEL 8.7 MG/DL (8.8-10.2); CREATININE FOR GFR 1.6 MG/DL (0.55-1.30); GLOMERULAR FILTRATION RATE 33.7 (>39); MAGNESIUM LEVEL 2.2 MG/DL (1.8-2.4); POTASSIUM SERUM 4.1 MEQ/L (3.5-5.1); TOTAL PROTEIN 6.2 GM/DL (6.4-8.2)
[2022-02-17] MEDS: INSULIN LISPRO (NovoLOG) PER UNIT SC SCH ×2 (07:30→13:17)
[2022-02-17] MEDS ORDERED: LEVEMIR (INSULIN DETEMIR) 1 UNITS/0.01ML SC SCH ×2 (09:00→21:00)
[2022-02-17 10:09] VITALS: BP 147/69
[2022-02-17] MEDS ORDERED: AMLO1TAB25 PO (13:18)
[2022-02-17] MEDS ORDERED: HEPARIN SOD (PORCINE) 5000UNITS/ML 1ML VIAL/SYRINGE SQ SCH (22:00)
== END 2022-02-17 16:05 | disposition home or self-care (01) ==
LOC: M ED 04:51 → EDBD 04:51 → M ED INP 13:28 → ENRESERV 15:13 → M MS5PR 16:25
PROVIDERS: ADMIT Family Medicine; ATTEND Family Medicine
DX: E11.65 Type 2 diabetes mellitus with hyperglycemia (principal); R29.6 Repeated falls; R42 Dizziness and giddiness; H53.8 Other visual disturbances; R61 Generalized hyperhidrosis; R82.90 Unspecified abnormal findings in urine; N17.9 Acute kidney failure, unspecified; M25.571 Pain in right ankle and joints of right foot; N18.9 Chronic kidney disease, unspecified; I12.9 Hypertensive chronic kidney disease with stage 1 through stage 4 chronic kidney disease, or unspecified chronic kidney disease; Z91.14 Patient's other noncompliance with medication regimen; Z79.899 Other long term (current) drug therapy; Z79.4 Long term (current) use of insulin
CPT/HCPCS: 36415; 70450; 71045; 72080; 72125; 73502; 73600; 80048; 80053; 80076; 81000; 81015; 82010; 82550; 82553; 82803; 83036; 83690; 83735; 83930; 84484; 85025; 85027; 87086; 87631; 93005; 93041; 94760; 96361; 96365; 96372; 96375; 97116; 97161; 99285; G0378; J0696; J1650; J1815

== ENCOUNTER 2022-03-07 11:54 | Observation (INO) | payer MEDICARE, MEDICAID ==
[~2022-03-07] VITALS: Ht 152.4 cm; Wt 84.1 kg
[~2022-03-07 11:54] MED LIST changes: +ACET-897 PO; +HUMA100I5 SQ; +LIDO1PAD TOP
[2022-03-07 12:46] LABS: BASO # 0.1 10^3/uL (0.0-0.2); BASO % 1.2 % (0.0-1.0); EOS # 0.1 10^3/uL (0.0-0.5); EOS % 1.8 % (0.0-3.0); HEMATOCRIT 38.7 % (36.0-47.0); HEMOGLOBIN 12.7 g/dl (12.0-15.5); LYMPH # 1.2 10^3/uL (1.5-5.0); LYMPH % 16.2 % (24.0-44.0); MEAN CORPUSCULAR HEMOGLOBIN 28.7 pg (27.0-33.0); MEAN CORPUSCULAR HGB CONC 32.8 g/dl (32.0-36.5); MEAN CORPUSCULAR VOLUME 87.4 fl (80.0-96.0); MONO # 0.9 10^3/uL (0.0-0.8); MONO % 11.7 % (2.0-8.0); NEUTROPHILS % 68.7 % (36.0-66.0); PLATELET COUNT, AUTOMATED 461 10^3/uL (150-450); RED BLOOD COUNT 4.43 10^6/uL (4.00-5.40); WHITE BLOOD COUNT 7.3 10^3/uL (4.0-10.0)
[2022-03-07 13:00] LABS: INR 0.95; PROTHROMBIN TIME 12.9 SECONDS (12.5-14.5)
[2022-03-07 13:01] LABS: PARTIAL THROMBOPLASTIN TIME 29.1 SECONDS (24.8-34.2)
[2022-03-07 13:03] LABS: D-DIMER QUANT 1033.42 ng/ml (<500)
[2022-03-07 13:18] LABS: CK-MB VALUE MASS 1.9 NG/ML (<3.6); MB/CK RELATIVE INDEX 3.73 (< OR =4)
[2022-03-07 13:19] LABS: RSV AMPLIFICATION NEGATIVE (NEGATIVE)
[2022-03-07 13:26] LABS: CALCIUM LEVEL 9.1 MG/DL (8.8-10.2); CREATININE FOR GFR 1.53 MG/DL (0.55-1.30); FREE T4 1.14 NG/DL (0.76-1.46); GLOMERULAR FILTRATION RATE 35.5 (>39); MAGNESIUM LEVEL 2.3 MG/DL (1.8-2.4); POTASSIUM SERUM 4.9 MEQ/L (3.5-5.1); THYROID STIMULATING HORMONE 0.718 uIU/ML (0.358-3.740)
[2022-03-07] MEDS ORDERED: HumuLIN R (REGULAR) INSULIN (NovoLIN R) **100U/ML** PER UNIT IV ONE (13:35)
[2022-03-07] MEDS ORDERED: NS 500 ML IV ONE (13:35)
[2022-03-07] MEDS ORDERED: ISOVUE-370 76% 100ML VIAL As Ordered ONE (13:43)
[2022-03-07 14:39] LABS: CK-MB VALUE MASS 1.5 NG/ML (<3.6); MB/CK RELATIVE INDEX 2.78 (< OR =4)
[2022-03-07 16:14] LABS: CK-MB VALUE MASS 1.5 NG/ML (<3.6); MB/CK RELATIVE INDEX 2.34 (< OR =4)
[2022-03-07] MEDS ORDERED: AMLO1TAB25 PO (16:42)
[2022-03-07] MEDS ORDERED: HOME MED LIST COMPLETE! XX SCH (16:45)
[2022-03-07] MEDS ORDERED: GLUCOSE 4GM CHEW TABLET PO PRN (17:15)
[2022-03-07] MEDS ORDERED: GLUCAGON INJ 1MG VIAL SC PRN (17:15)
[2022-03-07] MEDS ORDERED: DEXTROSE 50% 50 ML SYRINGE IV PRN (17:15)
[2022-03-07] MEDS: NS 1,000 ML IV SCH (18:25)
[2022-03-07] MEDS: INSULIN LISPRO (NovoLOG) PER UNIT SC SCH ×2 (18:52→21:00)
[2022-03-07] MEDS: LEVEMIR (INSULIN DETEMIR) 1 UNITS/0.01ML SC SCH (21:00)
[2022-03-08 00:02] LABS: CK-MB VALUE MASS 1.8 NG/ML (<3.6); MB/CK RELATIVE INDEX 2.61 (< OR =4)
[2022-03-08] MEDS: NS 1,000 ML IV SCH ×2 (07:08→21:02)
[2022-03-08 07:37] LABS: HEMATOCRIT 37.6 % (36.0-47.0); HEMOGLOBIN 12.5 g/dl (12.0-15.5); MEAN CORPUSCULAR HEMOGLOBIN 28.8 pg (27.0-33.0); MEAN CORPUSCULAR HGB CONC 33.2 g/dl (32.0-36.5); MEAN CORPUSCULAR VOLUME 86.6 fl (80.0-96.0); PLATELET COUNT, AUTOMATED 417 10^3/uL (150-450); RED BLOOD COUNT 4.34 10^6/uL (4.00-5.40); WHITE BLOOD COUNT 6.6 10^3/uL (4.0-10.0)
[2022-03-08] MEDS: INSULIN LISPRO (NovoLOG) PER UNIT SC SCH ×4 (07:47→21:03)
[2022-03-08 08:05] LABS: CALCIUM LEVEL 8.5 MG/DL (8.8-10.2); CREATININE FOR GFR 1.25 MG/DL (0.55-1.30); GLOMERULAR FILTRATION RATE 44.8 (>39); MAGNESIUM LEVEL 2.2 MG/DL (1.8-2.4); POTASSIUM SERUM 4.1 MEQ/L (3.5-5.1)
[2022-03-08 08:08] LABS: CK-MB VALUE MASS 1.7 NG/ML (<3.6); MB/CK RELATIVE INDEX 2.54 (< OR =4)
[2022-03-08] MEDS: LEVEMIR (INSULIN DETEMIR) 1 UNITS/0.01ML SC SCH ×2 (09:03→21:03)
[2022-03-08] MEDS: ENOXAPARIN 40MG/0.4ML SYRINGE (J1650 PER 10MG) SC SCH (09:03)
[2022-03-08 09:44] LABS: HEMOGLOBIN A1c 13.5 %
[2022-03-08 15:48] VITALS: BP 142/79
[2022-03-08 16:50] LABS: CK-MB VALUE MASS 1.7 NG/ML (<3.6); MB/CK RELATIVE INDEX 2.39 (< OR =4)
[2022-03-08 18:00] VITALS: BP_SYST 144; BP_SYST 147; BP_DIAS 76; BP_DIAS 77
[2022-03-08 22:43] VITALS: BP 152/73
[2022-03-09 02:59] VITALS: BP_SYST 132; BP_SYST 148; BP_SYST 149; BP_DIAS 67; BP_DIAS 72; BP_DIAS 84
[2022-03-09 06:00] VITALS: BP 149/71
[2022-03-09 06:31] LABS: HEMATOCRIT 37.1 % (36.0-47.0); HEMOGLOBIN 12.3 g/dl (12.0-15.5); MEAN CORPUSCULAR HEMOGLOBIN 29.2 pg (27.0-33.0); MEAN CORPUSCULAR HGB CONC 33.2 g/dl (32.0-36.5); MEAN CORPUSCULAR VOLUME 88.1 fl (80.0-96.0); PLATELET COUNT, AUTOMATED 435 10^3/uL (150-450); RED BLOOD COUNT 4.21 10^6/uL (4.00-5.40); WHITE BLOOD COUNT 5.8 10^3/uL (4.0-10.0)
[2022-03-09 07:05] LABS: CALCIUM LEVEL 8.3 MG/DL (8.8-10.2); CREATININE FOR GFR 1.5 MG/DL (0.55-1.30); GLOMERULAR FILTRATION RATE 36.3 (>39); MAGNESIUM LEVEL 1.9 MG/DL (1.8-2.4); POTASSIUM SERUM 4.6 MEQ/L (3.5-5.1)
[2022-03-09 08:14] VITALS: BP 143/57
[2022-03-09] MEDS: ENOXAPARIN 40MG/0.4ML SYRINGE (J1650 PER 10MG) SC SCH (08:14)
[2022-03-09] MEDS: LEVEMIR (INSULIN DETEMIR) 1 UNITS/0.01ML SC SCH (08:15)
[2022-03-09] MEDS: INSULIN LISPRO (NovoLOG) PER UNIT SC SCH ×2 (08:15→12:02)
[2022-03-09] MEDS: NS 1,000 ML IV SCH (08:15)
[2022-03-09 14:00] VITALS: BP 140/82
== END 2022-03-09 14:44 | disposition home or self-care (01) ==
LOC: EDBD 11:54 → M ED 11:54 → M MSPAV 17:18 → M ED INP 17:18 → ENRESERV 03-08 14:53 → M MSPAV 03-08 16:17
PROVIDERS: ADMIT Family Medicine; ATTEND Family Medicine
DX: I95.1 Orthostatic hypotension (principal); E11.65 Type 2 diabetes mellitus with hyperglycemia; E86.0 Dehydration; G90.9 Disorder of the autonomic nervous system, unspecified; E11.42 Type 2 diabetes mellitus with diabetic polyneuropathy; Z91.199 Patient's noncompliance with other medical treatment and regimen due to unspecified reason; R06.02 Shortness of breath; I10 Essential (primary) hypertension; R60.0 Localized edema; E04.1 Nontoxic single thyroid nodule; D59.9 Acquired hemolytic anemia, unspecified; S00.83XA Contusion of other part of head, initial encounter; W22.09XA Striking against other stationary object, initial encounter; Z79.899 Other long term (current) drug therapy; Z88.8 Allergy status to other drugs, medicaments and biological substances
CPT/HCPCS: 36415; 70450; 71045; 71275; 72125; 80048; 82550; 82553; 83036; 83735; 84439; 84443; 84484; 85025; 85027; 85379; 85610; 85730; 87631; 93005; 93041; 94760; 96361; 96372; 96374; 99285; G0378; J1650; J1815; Q9967

== ENCOUNTER 2022-03-11 15:22 | Inpatient (IN) | payer MEDICARE, MEDICAID ==
[~2022-03-11] VITALS: Ht 152.4 cm; Wt 87.8 kg
[2022-03-11 16:40] LABS: BASO # 0.1 10^3/uL (0.0-0.2); EOS # 0.1 10^3/uL (0.0-0.5); EOS % 1.7 % (0.0-3.0); HEMOGLOBIN 11.5 g/dl (12.0-15.5); LYMPH # 1.4 10^3/uL (1.5-5.0); LYMPH % 17.9 % (24.0-44.0); MEAN CORPUSCULAR HEMOGLOBIN 28.9 pg (27.0-33.0); MEAN CORPUSCULAR HGB CONC 32.9 g/dl (32.0-36.5); MEAN CORPUSCULAR VOLUME 87.9 fl (80.0-96.0); MONO # 0.7 10^3/uL (0.0-0.8); MONO % 8.7 % (2.0-8.0); NEUTROPHILS # 5.4 10^3/uL (1.5-8.5); NEUTROPHILS % 69.9 % (36.0-66.0); PLATELET COUNT, AUTOMATED 428 10^3/uL (150-450); RED BLOOD COUNT 3.98 10^6/uL (4.00-5.40); WHITE BLOOD COUNT 7.7 10^3/uL (4.0-10.0)
[2022-03-11 16:45] LABS: VENOUS HCO3 22.2 MEQ/L (23.0-27.0); VENOUS O2 SATURATION 65.3 % (60.0-80.0); VENOUS PARTIAL PRESSURE CO2 44.5 mmHg (38.0-50.0); VENOUS PARTIAL PRESSURE O2 33.5 mmHg (30.0-50.0); VENOUS PH 7.315 UNITS (7.330-7.430); VENOUS STANDARD HCO3 20.5 MEQ/L; VENOUS TOTAL CO2 23.5 MEQ/L (24.0-28.0)
[2022-03-11 17:17] LABS: RSV AMPLIFICATION NEGATIVE (NEGATIVE)
[2022-03-11 17:26] LABS: APPEARANCE, URINE MANUAL HAZY (CLEAR); COLOR, URINE MANUAL YELLOW (YELLOW)
[2022-03-11 17:27] LABS: BILIRUBIN, URINE MANUAL NEGATIVE (NEGATIVE); BLOOD URINE MANUAL POSITIVE (NEGATIVE); GLUCOSE, URINE (UA) MANUAL 4+(1000 MG/DL) mg/dL (NEGATIVE); KETONE, URINE MANUAL 1+ mg/dL (NEGATIVE); LEUKOCYTE ESTERASE, URINE MAN POSITIVE (NEGATIVE); NITRITE, URINE MANUAL NEGATIVE (NEGATIVE); PROTEIN, URINE MANUAL 3+ mg/dL (NEGATIVE); UROBILINOGEN, URINE MANUAL NORMAL (NORMAL)
[2022-03-11 17:36] LABS: WBC, URINE TNTC /hpf (0-3)
[2022-03-11 17:37] LABS: BACTERIA, URINE LARGE AMOUNT; HYALINE CAST, URINE NONE SEEN /lpf (0-1); SQUAMOUS EPITHELIAL CELL URINE SMALL AMOUNT /hpf (SMALL AMT); YEAST, URINE MOD AMOUNT
[2022-03-11 17:42] LABS: ALBUMIN 2.4 GM/DL (3.2-5.2); ALT/SGPT 17 U/L (12-78); BILIRUBIN,DIRECT < 0.1 MG/DL (0.0-0.2); BILIRUBIN,TOTAL 0.2 MG/DL (0.2-1.0); BLOOD UREA NITROGEN 29 MG/DL (7-18); CALCIUM LEVEL 8.8 MG/DL (8.8-10.2); CARBON DIOXIDE LEVEL 23 MEQ/L (21-32); CHLORIDE LEVEL 106 MEQ/L (98-107); CREATININE FOR GFR 1.53 MG/DL (0.55-1.30); GLOMERULAR FILTRATION RATE 35.5 (>39); GLUCOSE, FASTING 436 MG/DL (70-100); LIPASE 141 U/L (73-393); MAGNESIUM LEVEL 2.2 MG/DL (1.8-2.4); PHOSPHORUS LEVEL 3.6 MG/DL (2.5-4.9); POTASSIUM SERUM 5.1 MEQ/L (3.5-5.1); SODIUM LEVEL 136 MEQ/L (136-145); TOTAL PROTEIN 6.3 GM/DL (6.4-8.2)
[2022-03-11 17:56] LABS: OSMOLALITY SERUM 312 MOSM/KG (280-301)
[2022-03-11 18:11] LABS: ACETONE/KETONE 12.96 MG/DL (<2.81)
[2022-03-11 18:19] LABS: VENOUS HCO3 22.7 MEQ/L (23.0-27.0); VENOUS O2 SATURATION 85.8 % (60.0-80.0); VENOUS PARTIAL PRESSURE CO2 43.4 mmHg (38.0-50.0); VENOUS PARTIAL PRESSURE O2 51.5 mmHg (30.0-50.0); VENOUS PH 7.337 UNITS (7.330-7.430); VENOUS STANDARD HCO3 21.7 MEQ/L; VENOUS TOTAL CO2 24.1 MEQ/L (24.0-28.0)
[2022-03-11 18:42] LABS: BASO # 0.1 10^3/uL (0.0-0.2); EOS # 0.1 10^3/uL (0.0-0.5); EOS % 1.6 % (0.0-3.0); HEMATOCRIT 34.4 % (36.0-47.0); HEMOGLOBIN 11.3 g/dl (12.0-15.5); LYMPH # 1.6 10^3/uL (1.5-5.0); LYMPH % 20.8 % (24.0-44.0); MEAN CORPUSCULAR HGB CONC 32.8 g/dl (32.0-36.5); MEAN CORPUSCULAR VOLUME 88.4 fl (80.0-96.0); MONO # 0.8 10^3/uL (0.0-0.8); MONO % 9.9 % (2.0-8.0); NEUTROPHILS # 5.2 10^3/uL (1.5-8.5); NEUTROPHILS % 65.9 % (36.0-66.0); PLATELET COUNT, AUTOMATED 422 10^3/uL (150-450); RED BLOOD COUNT 3.89 10^6/uL (4.00-5.40); WHITE BLOOD COUNT 7.9 10^3/uL (4.0-10.0)
[2022-03-11 19:16] LABS: ACETONE/KETONE 11.48 MG/DL (<2.81); ALBUMIN 2.4 GM/DL (3.2-5.2); ALT/SGPT 17 U/L (12-78); BILIRUBIN,DIRECT < 0.1 MG/DL (0.0-0.2); BILIRUBIN,TOTAL 0.3 MG/DL (0.2-1.0); LIPASE 225 U/L (73-393); TOTAL PROTEIN 6.2 GM/DL (6.4-8.2)
[2022-03-11] MEDS ORDERED: NS 1,000 ML IV ONE (19:20)
[2022-03-11 19:32] LABS: OSMOLALITY SERUM 304 MOSM/KG (280-301)
[2022-03-11] MEDS ORDERED: cefTRIAXone SOD 1 GM in D5W MINI-BAG PLUS 50 ML IV ONE (20:00)
[2022-03-11] MEDS ORDERED: HumuLIN R (REGULAR) INSULIN (NovoLIN R) **100U/ML** PER UNIT IV ONE (20:30)
[2022-03-11] MEDS ORDERED: HOME MED LIST COMPLETE! XX SCH (21:05)
[2022-03-12] VITALS (8 sets, daily range): BP systolic 117–176; BP diastolic 50–76
[2022-03-12] MEDS ORDERED: GLUCAGON INJ 1MG VIAL SC PRN (02:05)
[2022-03-12] MEDS ORDERED: GLUCOSE 4GM CHEW TABLET PO PRN (02:05)
[2022-03-12] MEDS ORDERED: DEXTROSE 50% 50 ML SYRINGE IV PRN (02:05)
[2022-03-12] MEDS: HEPARIN SOD (PORCINE) 5000UNITS/ML 1ML VIAL/SYRINGE SQ SCH ×3 (06:02→22:57)
[2022-03-12] MEDS ORDERED: INSULIN LISPRO (NovoLOG) PER UNIT SC SCH (07:30)
[2022-03-12] MEDS ORDERED: atenoloL 25 MG TAB PO ONE (08:05)
[2022-03-12] MEDS: INSULIN LISPRO (NovoLOG) PER UNIT SC SCH ×6 (08:05→20:36)
[2022-03-12] MEDS ORDERED: cloNIDine 0.1MG TABLET PO ONE (08:05)
[2022-03-12] MEDS ORDERED: LEVEMIR (INSULIN DETEMIR) 1 UNITS/0.01ML SC SCH (09:00)
[2022-03-12] MEDS ORDERED: TUBERCULIN PPD 5 UNITS/0.1 ML ID ONE (15:00)
[2022-03-12] MEDS ORDERED: cefTRIAXone SOD 1 GM in D5W MINI-BAG PLUS 50 ML IV SCH (20:00)
[2022-03-12] MEDS: LEVEMIR (INSULIN DETEMIR) 1 UNITS/0.01ML SC SCH (20:41)
[2022-03-13 02:00] VITALS: BP 118/50
[2022-03-13] MEDS: HEPARIN SOD (PORCINE) 5000UNITS/ML 1ML VIAL/SYRINGE SQ SCH ×3 (05:51→20:29)
[2022-03-13 05:55] VITALS: BP 145/74
[2022-03-13] MEDS: INSULIN LISPRO (NovoLOG) PER UNIT SC SCH ×7 (07:15→20:29)
[2022-03-13] MEDS: LEVEMIR (INSULIN DETEMIR) 1 UNITS/0.01ML SC SCH ×2 (08:46→20:28)
[2022-03-13] MEDS: ISOSORBIDE DIN. (ISORDIL) 20 MG TAB PO SCH ×2 (08:48→20:29)
[2022-03-13] MEDS: atenoloL 25 MG TAB PO SCH (08:49)
[2022-03-13] MEDS ORDERED: ISOS20TA4 PO (09:15)
[2022-03-13] MEDS ORDERED: INSUHUMDS SC (09:15)
[2022-03-13] MEDS ORDERED: AMLO1TAB25 PO (09:15)
[2022-03-13] MEDS ORDERED: ATEN25TA PO (09:15)
[2022-03-13] MEDS ORDERED: INSUDET SC (09:15)
[2022-03-13 10:00] VITALS: BP 125/55
[2022-03-13 14:00] VITALS: BP 129/59
[2022-03-14 05:21] VITALS: BP 138/62
[2022-03-14] MEDS: HEPARIN SOD (PORCINE) 5000UNITS/ML 1ML VIAL/SYRINGE SQ SCH ×3 (05:53→20:41)
[2022-03-14] MEDS: LEVEMIR (INSULIN DETEMIR) 1 UNITS/0.01ML SC SCH ×2 (08:28→20:43)
[2022-03-14] MEDS: INSULIN LISPRO (NovoLOG) PER UNIT SC SCH ×7 (08:28→20:42)
[2022-03-14] MEDS: ISOSORBIDE DIN. (ISORDIL) 20 MG TAB PO SCH ×2 (08:29→20:42)
[2022-03-14] MEDS: atenoloL 25 MG TAB PO SCH (08:30)
[2022-03-14] MEDS ORDERED: PPD DOCUMENTATION ENTRY MISC XX SCH (10:00)
[2022-03-14] MEDS ORDERED: PPD DOCUMENTATION ENTRY MISC XX ONE (14:00)
[2022-03-14 20:45] VITALS: BP 147/71
[2022-03-15] MEDS: HEPARIN SOD (PORCINE) 5000UNITS/ML 1ML VIAL/SYRINGE SQ SCH ×3 (05:45→22:37)
[2022-03-15 05:50] VITALS: BP 148/69
[2022-03-15 06:44] LABS: HEMATOCRIT 33.4 % (36.0-47.0); HEMOGLOBIN 10.8 g/dl (12.0-15.5); MEAN CORPUSCULAR HEMOGLOBIN 28.7 pg (27.0-33.0); MEAN CORPUSCULAR HGB CONC 32.3 g/dl (32.0-36.5); MEAN CORPUSCULAR VOLUME 88.8 fl (80.0-96.0); PLATELET COUNT, AUTOMATED 379 10^3/uL (150-450); RED BLOOD COUNT 3.76 10^6/uL (4.00-5.40); WHITE BLOOD COUNT 8.6 10^3/uL (4.0-10.0)
[2022-03-15] MEDS: ISOSORBIDE DIN. (ISORDIL) 20 MG TAB PO SCH ×2 (08:32→20:31)
[2022-03-15] MEDS: LEVEMIR (INSULIN DETEMIR) 1 UNITS/0.01ML SC SCH ×2 (08:33→20:30)
[2022-03-15] MEDS: atenoloL 25 MG TAB PO SCH (08:33)
[2022-03-15] MEDS: INSULIN LISPRO (NovoLOG) PER UNIT SC SCH ×7 (08:34→21:00)
[2022-03-16 04:51] VITALS: BP 136/61
[2022-03-16] MEDS: HEPARIN SOD (PORCINE) 5000UNITS/ML 1ML VIAL/SYRINGE SQ SCH (06:41)
[2022-03-16] MEDS: INSULIN LISPRO (NovoLOG) PER UNIT SC SCH ×2 (07:16→09:36)
[2022-03-16] MEDS ORDERED: LEVE1INJ5 SC (08:35)
[2022-03-16] MEDS ORDERED: AMLO1TAB25 PO (08:35)
[2022-03-16] MEDS ORDERED: ATEN25TA PO (08:35)
[2022-03-16] MEDS ORDERED: ISOS20TA4 PO (08:35)
[2022-03-16] MEDS ORDERED: INSUHUMDS SC (08:35)
[2022-03-16] MEDS: LEVEMIR (INSULIN DETEMIR) 1 UNITS/0.01ML SC SCH (09:36)
[2022-03-16 09:37] VITALS: BP 145/55
[2022-03-16] MEDS: atenoloL 25 MG TAB PO SCH (09:37)
[2022-03-16] MEDS: ISOSORBIDE DIN. (ISORDIL) 20 MG TAB PO SCH (09:40)
[2022-03-16] MEDS ORDERED: MAPA500C PO (10:17)
[2022-03-16] MEDS ORDERED: LIDO1CRE42 TOP (10:17)
== END 2022-03-16 11:54 | disposition home or self-care (01) | DRG 638 ==
LOC: M ED 15:22 → M ED INP 21:46 → CANRESERV 03-12 00:11 → ENRESERV 03-12 00:11 → M MSPAV 03-12 02:09
PROVIDERS: ADMIT Family Medicine; ATTEND General Practice
DX: E11.65 Type 2 diabetes mellitus with hyperglycemia (principal); N39.0 Urinary tract infection, site not specified; E78.5 Hyperlipidemia, unspecified; E11.42 Type 2 diabetes mellitus with diabetic polyneuropathy; I12.9 Hypertensive chronic kidney disease with stage 1 through stage 4 chronic kidney disease, or unspecified chronic kidney disease; E55.9 Vitamin D deficiency, unspecified; E11.29 Type 2 diabetes mellitus with other diabetic kidney complication; D64.9 Anemia, unspecified; Z90.49 Acquired absence of other specified parts of digestive tract; E11.22 Type 2 diabetes mellitus with diabetic chronic kidney disease; N18.30 Chronic kidney disease, stage 3 unspecified; Z74.1 Need for assistance with personal care; Z20.822 Contact with and (suspected) exposure to COVID-19; Z79.4 Long term (current) use of insulin; Z79.899 Other long term (current) drug therapy; Z91.14 Patient's other noncompliance with medication regimen; I16.0 Hypertensive urgency; I95.1 Orthostatic hypotension

== ENCOUNTER 2022-03-20 18:10 | Inpatient (IN) | payer MEDICARE, MEDICAID ==
[~2022-03-20] VITALS: Ht 152.4 cm; Wt 61.6 kg
[~2022-03-20 18:10] MED LIST changes: +ISOS20TA4 PO; +LIDO1CRE42 TOP; +MAPA500C PO
[2022-03-21] MEDS ORDERED: NS 500 ML IV ONE (11:45)
[2022-03-21] MEDS ORDERED: LIDOCAINE 5% (LIDODERM) PATCH TD ONE (11:45)
[2022-03-21] MEDS ORDERED: ACETAMINOPHEN 650MG ER TAB (TYLENOL ARTHRITIS) PO STA (11:45)
[2022-03-21 12:21] LABS: BASO # 0.1 10^3/uL (0.0-0.2); BASO % 0.6 % (0.0-1.0); EOS # 0.1 10^3/uL (0.0-0.5); EOS % 0.4 % (0.0-3.0); HEMATOCRIT 35.5 % (36.0-47.0); LYMPH % 8.5 % (24.0-44.0); MEAN CORPUSCULAR HEMOGLOBIN 28.7 pg (27.0-33.0); MEAN CORPUSCULAR VOLUME 92.7 fl (80.0-96.0); MONO # 1.2 10^3/uL (0.0-0.8); MONO % 9.7 % (2.0-8.0); NEUTROPHILS # 9.5 10^3/uL (1.5-8.5); NEUTROPHILS % 80.3 % (36.0-66.0); PLATELET COUNT, AUTOMATED 452 10^3/uL (150-450); RED BLOOD COUNT 3.83 10^6/uL (4.00-5.40); WHITE BLOOD COUNT 11.8 10^3/uL (4.0-10.0)
[2022-03-21 12:54] LABS: INR 1.02; PROTHROMBIN TIME 13.6 SECONDS (12.5-14.5)
[2022-03-21 12:55] LABS: PARTIAL THROMBOPLASTIN TIME 32.7 SECONDS (24.8-34.2)
[2022-03-21 13:09] LABS: ALBUMIN 2.3 GM/DL (3.2-5.2); BILIRUBIN,DIRECT 0.1 MG/DL (0.0-0.2); BILIRUBIN,TOTAL 0.4 MG/DL (0.2-1.0); CALCIUM LEVEL 8.1 MG/DL (8.8-10.2); CREATININE FOR GFR 1.74 MG/DL (0.55-1.30); FREE T4 1.12 NG/DL (0.76-1.46); GLOMERULAR FILTRATION RATE 30.6 (>39); POTASSIUM SERUM 4.9 MEQ/L (3.5-5.1); THYROID STIMULATING HORMONE 1.23 uIU/ML (0.358-3.740)
[2022-03-21 13:09] LABS: CK-MB VALUE MASS 1.3 NG/ML (<3.6); MB/CK RELATIVE INDEX 1.71 (< OR =4)
[2022-03-21] MEDS ORDERED: ISOVUE-370 76% 100ML VIAL As Ordered ONE (13:42)
[2022-03-21] MEDS ORDERED: ALBUTEROL SULFATE 2.5 MG/0.5 ML INH NEB SOLN NEB ONE (13:50)
[2022-03-21] MEDS ORDERED: LEVE1INJ5 SC (14:04)
[2022-03-21] MEDS ORDERED: INSUHUMDS SC (14:04)
[2022-03-21] MEDS ORDERED: HOME MED LIST COMPLETE! XX SCH (14:05)
[2022-03-21 14:08] LABS: CK-MB VALUE MASS < 1.0 NG/ML (<3.6); CPK CREATINE PHOSPHOKINASE 97 U/L (26-192); MB/CK RELATIVE INDEX 1.03 (< OR =4)
[2022-03-21] MEDS ORDERED: FUROSEMIDE 100MG/10ML VIAL (J1940) IV ONE (15:50)
[2022-03-21] MEDS ORDERED: ALBUTEROL SULFATE 2.5 MG/0.5 ML INH NEB SOLN NEB PRN (15:50)
[2022-03-21] MEDS ORDERED: GLUCOSE 4GM CHEW TABLET PO PRN (16:05)
[2022-03-21] MEDS ORDERED: DEXTROSE 50% 50 ML SYRINGE IV PRN (16:05)
[2022-03-21] MEDS ORDERED: GLUCAGON INJ 1MG VIAL SC PRN (16:05)
[2022-03-21 16:21] VITALS: BP 168/88
[2022-03-21 17:14] LABS: CK-MB VALUE MASS 1.5 NG/ML (<3.6); MB/CK RELATIVE INDEX 1.53 (< OR =4)
[2022-03-21] MEDS ORDERED: INSULIN LISPRO (NovoLOG) PER UNIT SC SCH (17:30)
[2022-03-21] MEDS: RIVAROXABAN 10MG TAB (XARELTO) PO SCH (18:33)
[2022-03-21] MEDS: INSULIN LISPRO (NovoLOG) PER UNIT SC SCH (18:34)
[2022-03-21 20:00] VITALS: BP 141/62
[2022-03-21] MEDS: ACETAMINOPHEN 500 MG TAB PO SCH (20:31)
[2022-03-21] MEDS: LEVEMIR (INSULIN DETEMIR) 1 UNITS/0.01ML SC SCH (20:31)
[2022-03-21] MEDS: traMADol 50 MG TAB PO SCH (20:32)
[2022-03-21 23:38] VITALS: BP 152/70
[2022-03-22] VITALS (9 sets, daily range): BP systolic 132–169; BP diastolic 62–75; O2SAT 93–95
[2022-03-22 05:47] LABS: BASO # 0.1 10^3/uL (0.0-0.2); BASO % 0.8 % (0.0-1.0); EOS # 0.3 10^3/uL (0.0-0.5); EOS % 3.2 % (0.0-3.0); HEMATOCRIT 31.8 % (36.0-47.0); HEMOGLOBIN 9.7 g/dl (12.0-15.5); LYMPH # 1.4 10^3/uL (1.5-5.0); LYMPH % 16.7 % (24.0-44.0); MEAN CORPUSCULAR HEMOGLOBIN 28.6 pg (27.0-33.0); MEAN CORPUSCULAR HGB CONC 30.5 g/dl (32.0-36.5); MEAN CORPUSCULAR VOLUME 93.8 fl (80.0-96.0); MONO # 1.2 10^3/uL (0.0-0.8); MONO % 14.3 % (2.0-8.0); NEUTROPHILS # 5.4 10^3/uL (1.5-8.5); NEUTROPHILS % 64.9 % (36.0-66.0); PLATELET COUNT, AUTOMATED 426 10^3/uL (150-450); RED BLOOD COUNT 3.39 10^6/uL (4.00-5.40); WHITE BLOOD COUNT 8.3 10^3/uL (4.0-10.0)
[2022-03-22 06:40] LABS: CALCIUM LEVEL 7.9 MG/DL (8.8-10.2); CREATININE FOR GFR 1.73 MG/DL (0.55-1.30); GLOMERULAR FILTRATION RATE 30.8 (>39); POTASSIUM SERUM 4.8 MEQ/L (3.5-5.1)
[2022-03-22] MEDS: INSULIN LISPRO (NovoLOG) PER UNIT SC SCH ×3 (07:30→17:29)
[2022-03-22] MEDS: LEVEMIR (INSULIN DETEMIR) 1 UNITS/0.01ML SC SCH ×2 (08:25→20:04)
[2022-03-22] MEDS: FUROSEMIDE 40MG/4ML VIAL (J1940) IV SCH ×2 (08:25→18:08)
[2022-03-22] MEDS: ACETAMINOPHEN 500 MG TAB PO SCH ×2 (08:25→20:03)
[2022-03-22] MEDS: traMADol 50 MG TAB PO SCH ×2 (08:25→20:04)
[2022-03-22] MEDS: RIVAROXABAN 10MG TAB (XARELTO) PO SCH (18:08)
[2022-03-23] VITALS (10 sets, daily range): BP systolic 138–181; BP diastolic 66–79; O2SAT 93–95
[2022-03-23 05:23] LABS: BASO # 0.1 10^3/uL (0.0-0.2); BASO % 1.2 % (0.0-1.0); EOS # 0.4 10^3/uL (0.0-0.5); EOS % 6.2 % (0.0-3.0); HEMATOCRIT 30.4 % (36.0-47.0); HEMOGLOBIN 9.4 g/dl (12.0-15.5); LYMPH # 1.5 10^3/uL (1.5-5.0); LYMPH % 21.8 % (24.0-44.0); MEAN CORPUSCULAR HEMOGLOBIN 28.7 pg (27.0-33.0); MEAN CORPUSCULAR HGB CONC 30.9 g/dl (32.0-36.5); MEAN CORPUSCULAR VOLUME 92.7 fl (80.0-96.0); MONO % 14.1 % (2.0-8.0); NEUTROPHILS # 3.8 10^3/uL (1.5-8.5); NEUTROPHILS % 56.4 % (36.0-66.0); PLATELET COUNT, AUTOMATED 430 10^3/uL (150-450); RED BLOOD COUNT 3.28 10^6/uL (4.00-5.40); WHITE BLOOD COUNT 6.8 10^3/uL (4.0-10.0)
[2022-03-23 06:00] LABS: CALCIUM LEVEL 8.5 MG/DL (8.8-10.2); CREATININE FOR GFR 2.18 MG/DL (0.55-1.30); GLOMERULAR FILTRATION RATE 23.6 (>39); POTASSIUM SERUM 4.3 MEQ/L (3.5-5.1)
[2022-03-23] MEDS: INSULIN LISPRO (NovoLOG) PER UNIT SC SCH ×3 (07:07→16:15)
[2022-03-23] MEDS: LEVEMIR (INSULIN DETEMIR) 1 UNITS/0.01ML SC SCH ×2 (07:07→20:58)
[2022-03-23] MEDS: ACETAMINOPHEN 500 MG TAB PO SCH ×2 (08:48→20:56)
[2022-03-23] MEDS: traMADol 50 MG TAB PO SCH ×2 (08:49→20:57)
[2022-03-23] MEDS: HEPARIN SOD (PORCINE) 5000UNITS/ML 1ML VIAL/SYRINGE SQ SCH (20:58)
[2022-03-24 04:00] VITALS: BP 180/79
[2022-03-24 07:14] LABS: BASO # 0.1 10^3/uL (0.0-0.2); BASO % 1.3 % (0.0-1.0); EOS # 0.4 10^3/uL (0.0-0.5); EOS % 6.7 % (0.0-3.0); HEMATOCRIT 31.3 % (36.0-47.0); HEMOGLOBIN 9.6 g/dl (12.0-15.5); LYMPH # 1.2 10^3/uL (1.5-5.0); LYMPH % 18.3 % (24.0-44.0); MEAN CORPUSCULAR HEMOGLOBIN 28.2 pg (27.0-33.0); MEAN CORPUSCULAR HGB CONC 30.7 g/dl (32.0-36.5); MEAN CORPUSCULAR VOLUME 92.1 fl (80.0-96.0); MONO # 0.8 10^3/uL (0.0-0.8); MONO % 12.3 % (2.0-8.0); NEUTROPHILS # 3.8 10^3/uL (1.5-8.5); NEUTROPHILS % 60.9 % (36.0-66.0); PLATELET COUNT, AUTOMATED 460 10^3/uL (150-450); WHITE BLOOD COUNT 6.3 10^3/uL (4.0-10.0)
[2022-03-24] MEDS: INSULIN LISPRO (NovoLOG) PER UNIT SC SCH ×3 (07:30→16:58)
[2022-03-24 07:47] VITALS: BP 157/74
[2022-03-24 08:16] LABS: CALCIUM LEVEL 8.5 MG/DL (8.8-10.2); CREATININE FOR GFR 1.73 MG/DL (0.55-1.30); GLOMERULAR FILTRATION RATE 30.8 (>39); POTASSIUM SERUM 4.9 MEQ/L (3.5-5.1)
[2022-03-24] MEDS: HEPARIN SOD (PORCINE) 5000UNITS/ML 1ML VIAL/SYRINGE SQ SCH ×2 (08:44→20:28)
[2022-03-24] MEDS: traMADol 50 MG TAB PO SCH ×2 (08:44→20:28)
[2022-03-24] MEDS: ACETAMINOPHEN 500 MG TAB PO SCH ×2 (08:44→20:27)
[2022-03-24] MEDS: LEVEMIR (INSULIN DETEMIR) 1 UNITS/0.01ML SC SCH ×2 (08:45→21:00)
[2022-03-24] MEDS ORDERED: FUROSEMIDE 20 MG TAB PO ONE (14:15)
[2022-03-24 14:48] LABS: APPEARANCE, URINE MANUAL TURBID (CLEAR); COLOR, URINE MANUAL YELLOW (YELLOW); GLUCOSE, URINE (UA) MANUAL NEGATIVE (NEGATIVE); PROTEIN, URINE MANUAL 3+ mg/dL (NEGATIVE)
[2022-03-24 14:49] LABS: BILIRUBIN, URINE MANUAL NEGATIVE (NEGATIVE); BLOOD URINE MANUAL POSITIVE (NEGATIVE); KETONE, URINE MANUAL NEGATIVE (NEGATIVE); LEUKOCYTE ESTERASE, URINE MAN POSITIVE (NEGATIVE); NITRITE, URINE MANUAL NEGATIVE (NEGATIVE); UROBILINOGEN, URINE MANUAL NORMAL (NORMAL)
[2022-03-24 14:59] LABS: WBC, URINE TNTC /hpf (0-3)
[2022-03-24 15:07] LABS: BACTERIA, URINE MOD AMOUNT; HYALINE CAST, URINE NONE SEEN /lpf (0-1); RBC, URINE NONE SEEN /hpf (0-3); SQUAMOUS EPITHELIAL CELL URINE MOD AMOUNT /hpf (SMALL AMT); YEAST, URINE MOD AMOUNT
[2022-03-24 15:56] VITALS: BP 146/67
[2022-03-24 20:00] VITALS: BP 161/72
[2022-03-25 04:00] VITALS: BP 148/66
[2022-03-25 06:05] LABS: BASO # 0.1 10^3/uL (0.0-0.2); BASO % 1.6 % (0.0-1.0); EOS # 0.5 10^3/uL (0.0-0.5); EOS % 6.5 % (0.0-3.0); HEMATOCRIT 33.6 % (36.0-47.0); HEMOGLOBIN 10.4 g/dl (12.0-15.5); LYMPH # 1.3 10^3/uL (1.5-5.0); LYMPH % 19.3 % (24.0-44.0); MEAN CORPUSCULAR VOLUME 90.6 fl (80.0-96.0); MONO # 0.7 10^3/uL (0.0-0.8); MONO % 9.9 % (2.0-8.0); NEUTROPHILS # 4.3 10^3/uL (1.5-8.5); NEUTROPHILS % 62.1 % (36.0-66.0); PLATELET COUNT, AUTOMATED 510 10^3/uL (150-450); RED BLOOD COUNT 3.71 10^6/uL (4.00-5.40); WHITE BLOOD COUNT 6.9 10^3/uL (4.0-10.0)
[2022-03-25 06:35] LABS: PERCENT SATURATION 17.3 % (13.2-45.0)
[2022-03-25 06:41] LABS: CALCIUM LEVEL 9.3 MG/DL (8.8-10.2); CREATININE FOR GFR 1.55 MG/DL (0.55-1.30); POTASSIUM SERUM 4.4 MEQ/L (3.5-5.1)
[2022-03-25 08:00] VITALS: BP 143/61
[2022-03-25 08:45] VITALS: BP 143/61
[2022-03-25] MEDS: ACETAMINOPHEN 500 MG TAB PO SCH (08:45)
[2022-03-25] MEDS: traMADol 50 MG TAB PO SCH (08:45)
[2022-03-25] MEDS: HEPARIN SOD (PORCINE) 5000UNITS/ML 1ML VIAL/SYRINGE SQ SCH (08:45)
[2022-03-25] MEDS: LEVEMIR (INSULIN DETEMIR) 1 UNITS/0.01ML SC SCH (08:46)
[2022-03-25] MEDS: INSULIN LISPRO (NovoLOG) PER UNIT SC SCH (08:46)
[2022-03-25] MEDS ORDERED: FUROSEMIDE 80 MG TAB PO ONE (09:45)
[2022-03-25] MEDS ORDERED: FURO80TA2 PO (10:16)
[2022-03-25] MEDS ORDERED: LEVE1INJ5 SC (10:16)
[2022-03-25] MEDS ORDERED: METO25TA PO (10:16)
[2022-03-25] MEDS ORDERED: K-TA10TA2 PO (10:16)
[2022-03-25] MEDS ORDERED: AMLO1TAB25 PO (10:16)
[2022-03-25] MEDS ORDERED: ACET-897 PO (10:16)
[2022-03-25] MEDS ORDERED: INSUHUMDS SC (10:16)
[2022-03-25] MEDS ORDERED: TRAM50TA2 PO (10:16)
[2022-03-25] MEDS ORDERED: FERR325T3 PO (13:17)
[2022-03-26] MEDS ORDERED: FUROSEMIDE 80 MG TAB PO SCH (09:00)
== END 2022-03-25 11:35 | DRG 291 ==
LOC: M ED 18:10 → EDBD 18:10 → M ED INP 03-21 14:28 → ENRESERV 03-21 14:56 → M PCU 03-21 15:57
PROVIDERS: ADMIT Internal Medicine Nephrology; ATTEND Internal Medicine
DX: I13.0 Hypertensive heart and chronic kidney disease with heart failure and stage 1 through stage 4 chronic kidney disease, or unspecified chronic kidney disease (principal); I50.33 Acute on chronic diastolic (congestive) heart failure; E11.42 Type 2 diabetes mellitus with diabetic polyneuropathy; N18.30 Chronic kidney disease, stage 3 unspecified; E11.22 Type 2 diabetes mellitus with diabetic chronic kidney disease; E78.5 Hyperlipidemia, unspecified; I95.1 Orthostatic hypotension; M47.812 Spondylosis without myelopathy or radiculopathy, cervical region; M47.816 Spondylosis without myelopathy or radiculopathy, lumbar region; R09.02 Hypoxemia; M48.14 Ankylosing hyperostosis [Forestier], thoracic region; E04.1 Nontoxic single thyroid nodule; M48.16 Ankylosing hyperostosis [Forestier], lumbar region; M48.12 Ankylosing hyperostosis [Forestier], cervical region; D63.1 Anemia in chronic kidney disease; H54.8 Legal blindness, as defined in USA; M47.814 Spondylosis without myelopathy or radiculopathy, thoracic region; Z79.4 Long term (current) use of insulin; Z86.16 Personal history of COVID-19; Z87.442 Personal history of urinary calculi; Z79.899 Other long term (current) drug therapy

== ENCOUNTER → 2022-05-01 | Outpatient (REF) | payer MEDICARE, MEDICAID ==
[~2022-05-01] MED LIST changes: +FERR325T3 PO; +FURO80TA2 PO; +K-TA10TA2 PO; +METO25TA PO; +TRAM50TA2 PO
== END ==
PROVIDERS: ATTEND Family Medicine
DX: Z20.822 Contact with and (suspected) exposure to COVID-19 (principal)

== ENCOUNTER → 2022-06-09 | Outpatient (REF) | payer MEDICARE, MEDICAID ==
[2022-06-09 10:46] LABS: HEMATOCRIT 32.3 % (36.0-47.0); HEMOGLOBIN 10.4 g/dl (12.0-15.5); MEAN CORPUSCULAR HGB CONC 32.2 g/dl (32.0-36.5); MEAN CORPUSCULAR VOLUME 86.8 fl (80.0-96.0); PLATELET COUNT, AUTOMATED 457 10^3/uL (150-450); RED BLOOD COUNT 3.72 10^6/uL (4.00-5.40); WHITE BLOOD COUNT 11.9 10^3/uL (4.0-10.0)
[2022-06-09 11:12] LABS: ALBUMIN 2.6 G/DL (3.2-5.2); BILIRUBIN,TOTAL 0.2 MG/DL (0.3-1.2); CALCIUM LEVEL 8.6 MG/DL (8.3-10.6); CHOLESTEROL RISK RATIO 4.73 (<5); CREATININE FOR GFR 1.61 MG/DL (0.55-1.30); GLOMERULAR FILTRATION RATE 33.5 (>39); HDL CHOLESTEROL 43.7 MG/DL (>40); LDL CHOLESTEROL 134.5 MG/DL (<100); POTASSIUM SERUM 4.9 MMOL/L (3.5-5.1)
[2022-06-09 11:17] LABS: HEMOGLOBIN A1c 9.8 % (4.0-6.0)
[2022-06-09 13:56] LABS: CREATININE, URINE 61.6 MG/DL
[2022-06-09 14:10] LABS: MAU/CREAT RATIO 2767.8 MCG/MG (0.0-30.0)
== END ==
LOC: SKLAB5 09:47
PROVIDERS: ATTEND Internal Medicine
DX: E11.9 Type 2 diabetes mellitus without complications (principal); I50.9 Heart failure, unspecified

== ENCOUNTER → 2022-06-22 | Outpatient (REF) | payer MEDICARE, MEDICAID ==
[2022-06-22 08:11] LABS: CALCIUM LEVEL 8.3 MG/DL (8.3-10.6); CREATININE FOR GFR 1.71 MG/DL (0.55-1.30); GLOMERULAR FILTRATION RATE 31.2 (>39); POTASSIUM SERUM 4.9 MMOL/L (3.5-5.1)
== END ==
LOC: SKLAB5 11:17
PROVIDERS: ATTEND Internal Medicine
DX: E11.9 Type 2 diabetes mellitus without complications (principal)

== ENCOUNTER → 2022-07-02 | Outpatient (REF) | payer MEDICARE, MEDICAID ==
[2022-07-02 14:20] LABS: PHOSPHORUS LEVEL 5.3 MG/DL (2.4-5.1); PTH INTACT 62.6 PG/ML (18.5-88.0)
[2022-07-02 14:23] LABS: TOTAL 25(OH) VITAMIN D 18.5 NG/ML (20.0-100.0)
== END ==
LOC: SKLAB5 11:59
PROVIDERS: ATTEND Nurse Practitioner Adult Health
DX: E21.3 Hyperparathyroidism, unspecified (principal)

== ENCOUNTER → 2022-07-31 | Outpatient (REF) | payer MEDICARE, MEDICAID ==
[~2022-07-31] MED LIST changes: +INSU100I6 SC; -LEVE1INJ5 SC
[2022-07-31 09:11] LABS: CALCIUM LEVEL 8.6 MG/DL (8.3-10.6); CREATININE FOR GFR 1.89 MG/DL (0.55-1.30); GLOMERULAR FILTRATION RATE 27.8 (>39)
== END ==
LOC: SKLAB5 10:09
PROVIDERS: ATTEND Nurse Practitioner Adult Health
DX: I50.9 Heart failure, unspecified (principal); E11.9 Type 2 diabetes mellitus without complications

== ENCOUNTER → 2022-08-07 | Outpatient (REF) | payer MEDICARE, MEDICAID ==
[2022-08-07 08:28] LABS: CALCIUM LEVEL 8.8 MG/DL (8.3-10.6); CREATININE FOR GFR 2.03 MG/DL (0.55-1.30); GLOMERULAR FILTRATION RATE 25.6 (>39); POTASSIUM SERUM 4.4 MMOL/L (3.5-5.1)
== END ==
LOC: SKLAB5 09:26
PROVIDERS: ATTEND Nurse Practitioner Adult Health
DX: E11.9 Type 2 diabetes mellitus without complications (principal)

== ENCOUNTER → 2022-08-14 | Outpatient (REF) | payer MEDICARE, MEDICAID ==
[2022-08-14 07:44] LABS: HEMATOCRIT 32.2 % (36.0-47.0); HEMOGLOBIN 9.9 g/dl (12.0-15.5); MEAN CORPUSCULAR HEMOGLOBIN 26.3 pg (27.0-33.0); MEAN CORPUSCULAR HGB CONC 30.7 g/dl (32.0-36.5); MEAN CORPUSCULAR VOLUME 85.4 fl (80.0-96.0); PLATELET COUNT, AUTOMATED 501 10^3/uL (150-450); RED BLOOD COUNT 3.77 10^6/uL (4.00-5.40); WHITE BLOOD COUNT 6.7 10^3/uL (4.0-10.0)
[2022-08-14 08:11] LABS: CALCIUM LEVEL 8.5 MG/DL (8.3-10.6); CREATININE FOR GFR 2.04 MG/DL (0.55-1.30); GLOMERULAR FILTRATION RATE 25.5 (>39); POTASSIUM SERUM 4.7 MMOL/L (3.5-5.1)
== END ==
LOC: SKLAB5 09:16
PROVIDERS: ATTEND Nurse Practitioner Adult Health
DX: N18.9 Chronic kidney disease, unspecified (principal)

== ENCOUNTER → 2022-09-04 | Outpatient (REF) | payer MEDICARE, MEDICAID ==
[2022-09-04 09:53] LABS: HEMOGLOBIN A1c 9.5 % (4.0-6.0)
[2022-09-04 09:58] LABS: CALCIUM LEVEL 8.3 MG/DL (8.3-10.6); CREATININE FOR GFR 1.98 MG/DL (0.55-1.30); GLOMERULAR FILTRATION RATE 26.4 (>39)
== END ==
LOC: SKLAB5 09:23
PROVIDERS: ATTEND Internal Medicine
DX: I50.9 Heart failure, unspecified (principal); Z79.899 Other long term (current) drug therapy

== ENCOUNTER → 2023-03-05 | Outpatient (REF) | payer MEDICARE, MEDICAID ==
[~2023-03-05] MED LIST changes: -K-TA10TA2 PO; -LIDO1CRE42 TOP; +LIDO30CR18 TOP; +POTA-165 PO
[2023-03-06 09:09] LABS: CALCIUM LEVEL 8.7 MG/DL (8.8-10.2); POTASSIUM SERUM 4.9 MEQ/L (3.6-5.0)
== END ==
LOC: SKLAB5 07:00
PROVIDERS: ATTEND Nurse Practitioner Adult Health
DX: I50.9 Heart failure, unspecified (principal)

== ENCOUNTER → 2023-06-04 | Outpatient (REF) | payer MEDICARE, MEDICAID ==
[2023-06-04 09:48] LABS: HEMATOCRIT 37.9 % (36.0-47.0); HEMOGLOBIN 12.4 g/dl (12.0-15.5); MEAN CORPUSCULAR HEMOGLOBIN 28.2 pg (27.0-33.0); MEAN CORPUSCULAR HGB CONC 32.7 g/dl (32.0-36.5); MEAN CORPUSCULAR VOLUME 86.1 fl (80.0-96.0); PLATELET COUNT, AUTOMATED 433 10^3/uL (150-450); WHITE BLOOD COUNT 7.2 10^3/uL (4.0-10.0)
[2023-06-04 09:49] LABS: HEMOGLOBIN A1c 9.2 % (4.0-6.0)
[2023-06-04 09:53] LABS: CALCIUM LEVEL 7.9 MG/DL (8.3-10.6); CREATININE FOR GFR 2.12 MG/DL (0.55-1.30); GLOMERULAR FILTRATION RATE 24.3 (>39); POTASSIUM SERUM 4.9 MMOL/L (3.5-5.1)
[2023-06-04 10:28] LABS: PHOSPHORUS LEVEL 4.6 MG/DL (2.4-5.1); TOTAL 25(OH) VITAMIN D 19.9 NG/ML (20.0-100.0)
== END ==
LOC: SKLAB5 08:39
PROVIDERS: ATTEND Nurse Practitioner Adult Health
DX: I50.9 Heart failure, unspecified (principal); E11.9 Type 2 diabetes mellitus without complications; Z79.899 Other long term (current) drug therapy

== ENCOUNTER → 2023-06-14 | Outpatient (REF) | payer MEDICARE, MEDICAID ==
[2023-06-14 02:34] LABS: HEMATOCRIT 37.5 % (36.0-47.0); HEMOGLOBIN 12.4 g/dl (12.0-15.5); MEAN CORPUSCULAR HEMOGLOBIN 28.4 pg (27.0-33.0); MEAN CORPUSCULAR HGB CONC 33.1 g/dl (32.0-36.5); PLATELET COUNT, AUTOMATED 432 10^3/uL (150-450); RED BLOOD COUNT 4.36 10^6/uL (4.00-5.40); WHITE BLOOD COUNT 8.1 10^3/uL (4.0-10.0)
[2023-06-14 02:58] LABS: CALCIUM LEVEL 7.9 MG/DL (8.3-10.6); CREATININE FOR GFR 2.11 MG/DL (0.55-1.30); GLOMERULAR FILTRATION RATE 24.4 (>39); POTASSIUM SERUM 4.9 MMOL/L (3.5-5.1)
== END ==
LOC: SKLAB5 00:26
PROVIDERS: ATTEND Internal Medicine
DX: R50.9 Fever, unspecified (principal); R53.81 Other malaise

== ENCOUNTER → 2023-06-15 | Outpatient (REF) | payer MEDICARE, MEDICAID ==
[2023-06-15 14:23] LABS: APPEARANCE, URINE TURBID (CLEAR); BACTERIA, URINE AUTO 3+ (NEGATIVE); BILIRUBIN, URINE AUTO NEGATIVE (NEGATIVE); BLOOD, URINE BLOOD 1+ (NEGATIVE); COLOR, URINE YELLOW (YELLOW); GLUCOSE, URINE (UA) AUTO 2+ mg/dL (NEGATIVE); KETONE, URINE AUTO TRACE mg/dL (NEGATIVE); LEUKOCYTE ESTERASE, URINE AUTO 2+ (NEGATIVE); NITRITE, URINE AUTO NEGATIVE (NEGATIVE); PROTEIN, URINE AUTO 2+ mg/dL (NEGATIVE); RBC, URINE AUTO 0 /HPF (0-3); SPECIFIC GRAVITY URINE AUTO 1.015 (1.002-1.035); SQUAMOUS EPITHELIAL CELL UR AU 0 /HPF (0-6); UROBILINOGEN, URINE AUTO 0.2 mg/dL (0.0-2.0); WBC, URINE AUTO TNTC /HPF (0-3)
== END ==
LOC: SKLAB5 13:49
PROVIDERS: ATTEND Nurse Practitioner Adult Health
DX: R53.83 Other fatigue (principal)

== ENCOUNTER → 2023-09-03 | Outpatient (REF) | payer MEDICARE, MEDICAID ==
[2023-09-03 12:16] LABS: HEMATOCRIT 37.2 % (36.0-47.0); HEMOGLOBIN 11.9 g/dl (12.0-15.5); MEAN CORPUSCULAR HEMOGLOBIN 27.8 pg (27.0-33.0); MEAN CORPUSCULAR VOLUME 86.9 fl (80.0-96.0); PLATELET COUNT, AUTOMATED 480 10^3/uL (150-450); RED BLOOD COUNT 4.28 10^6/uL (4.00-5.40); WHITE BLOOD COUNT 9.1 10^3/uL (4.0-10.0)
[2023-09-03 12:46] LABS: CALCIUM LEVEL 8.3 MG/DL (8.3-10.6); CREATININE FOR GFR 2.31 MG/DL (0.55-1.30); POTASSIUM SERUM 4.8 MMOL/L (3.5-5.1); PTH INTACT 272.8 PG/ML (18.5-88.0)
== END ==
LOC: SKLAB5 10:41
PROVIDERS: ATTEND Nurse Practitioner Adult Health
DX: E21.2 Other hyperparathyroidism (principal)

== ENCOUNTER → 2023-09-03 | Outpatient (REF) | payer MEDICARE, MEDICAID | LOC: SKLAB5 11:38 | PROVIDERS: ATTEND Internal Medicine | DX: R55 Syncope and collapse (principal); I44.0 Atrioventricular block, first degree; E21.2 Other hyperparathyroidism ==

== ENCOUNTER → 2023-10-26 | Outpatient (REF) | payer MEDICARE, MEDICAID ==
[~2023-10-26] MED LIST changes: -RAMI1CAP24; -RAMI1CAP24 PO; +RAMI5CAP60; +RAMI5CAP60 PO
[2023-10-26 10:42] LABS: HEMATOCRIT 38.8 % (36.0-47.0); HEMOGLOBIN 12.3 g/dl (12.0-15.5); MEAN CORPUSCULAR HGB CONC 31.7 g/dl (32.0-36.5); MEAN CORPUSCULAR VOLUME 88.2 fl (80.0-96.0); PLATELET COUNT, AUTOMATED 424 10^3/uL (150-450); WHITE BLOOD COUNT 7.8 10^3/uL (4.0-10.0)
[2023-10-26 10:49] LABS: APPEARANCE, URINE TURBID (CLEAR); BACTERIA, URINE AUTO 1+ (NEGATIVE); BILIRUBIN, URINE AUTO NEGATIVE (NEGATIVE); BLOOD, URINE BLOOD NEGATIVE (NEGATIVE); COLOR, URINE YELLOW (YELLOW); GLUCOSE, URINE (UA) AUTO 2+ mg/dL (NEGATIVE); KETONE, URINE AUTO NEGATIVE (NEGATIVE); LEUKOCYTE ESTERASE, URINE AUTO 2+ (NEGATIVE); MUCUS, URINE SMALL (NEGATIVE); NITRITE, URINE AUTO NEGATIVE (NEGATIVE); PROTEIN, URINE AUTO 3+ mg/dL (NEGATIVE); RBC, URINE AUTO 0 /HPF (0-3); SPECIFIC GRAVITY URINE AUTO 1.013 (1.002-1.035); SQUAMOUS EPITHELIAL CELL UR AU 17 /HPF (0-6); UROBILINOGEN, URINE AUTO 0.2 mg/dL (0.0-2.0); WBC, URINE AUTO TNTC /HPF (0-3)
[2023-10-26 11:10] LABS: ALBUMIN 2.2 G/DL (3.2-5.2); BILIRUBIN,TOTAL 0.2 MG/DL (0.3-1.2); CALCIUM LEVEL 8.5 MG/DL (8.3-10.6); CREATININE FOR GFR 2.2 MG/DL (0.55-1.30); GLOMERULAR FILTRATION RATE 23.3 (>39); POTASSIUM SERUM 5.1 MMOL/L (3.5-5.1); TOTAL PROTEIN 6.3 G/DL (5.7-8.2)
== END ==
LOC: SKLAB5 08:53
PROVIDERS: ATTEND Internal Medicine
DX: R41.82 Altered mental status, unspecified (principal)

== ENCOUNTER → 2023-11-02 | Outpatient (REF) | payer MEDICARE, MEDICAID ==
[~2023-11-02] MED LIST changes: +PIPE4.5F IV; -ZOSY1SOL6 IV
[2023-11-02 10:37] LABS: HEMOGLOBIN A1c 9.1 % (4.0-6.0)
== END ==
LOC: SKLAB5 08:57
PROVIDERS: ATTEND Internal Medicine
DX: E11.9 Type 2 diabetes mellitus without complications (principal)

== ENCOUNTER → 2023-11-05 | Outpatient (CLI) | payer MEDICARE, MEDICAID ==
[~2023-11-05] MED LIST changes: -PIPE4.5F IV; +ZOSY1SOL6 IV
== END ==
LOC: M CARPUL 08:07
PROVIDERS: ATTEND Internal Medicine Cardiovascular Disease
DX: I50.32 Chronic diastolic (congestive) heart failure (principal); I34.0 Nonrheumatic mitral (valve) insufficiency; R94.31 Abnormal electrocardiogram [ECG] [EKG]

== ENCOUNTER → 2023-11-09 | Outpatient (CLI) | payer MEDICARE, MEDICAID | LOC: M RAD 14:58 | PROVIDERS: ATTEND Internal Medicine | DX: R10.9 Unspecified abdominal pain (principal) ==

== ENCOUNTER → 2023-11-09 | Outpatient (REF) | payer MEDICARE, MEDICAID ==
[2023-11-09 11:49] LABS: BASO # 0.1 10^3/uL (0.0-0.2); BASO % 0.7 % (0.0-1.0); EOS # 0.2 10^3/uL (0.0-0.5); HEMATOCRIT 40.9 % (36.0-47.0); LYMPH # 1.7 10^3/uL (1.5-5.0); LYMPH % 18.9 % (24.0-44.0); MEAN CORPUSCULAR HGB CONC 31.8 g/dl (32.0-36.5); MEAN CORPUSCULAR VOLUME 88.1 fl (80.0-96.0); MONO # 0.8 10^3/uL (0.0-0.8); MONO % 9.1 % (2.0-8.0); NEUTROPHILS # 6.1 10^3/uL (1.5-8.5); NEUTROPHILS % 68.8 % (36.0-66.0); PLATELET COUNT, AUTOMATED 461 10^3/uL (150-450); RED BLOOD COUNT 4.64 10^6/uL (4.00-5.40); WHITE BLOOD COUNT 8.8 10^3/uL (4.0-10.0)
[2023-11-09 12:12] LABS: ALBUMIN 2.5 G/DL (3.2-5.2); CALCIUM LEVEL 8.7 MG/DL (8.3-10.6); CREATININE FOR GFR 2.92 MG/DL (0.55-1.30); GLOMERULAR FILTRATION RATE 16.8 (>39); PHOSPHORUS LEVEL 4.9 MG/DL (2.4-5.1)
[2023-11-09 12:13] LABS: PTH INTACT 265.4 PG/ML (18.5-88.0)
== END ==
LOC: SKLAB5 11:07
PROVIDERS: ATTEND Internal Medicine
DX: R63.8 Other symptoms and signs concerning food and fluid intake (principal); K59.00 Constipation, unspecified; R10.9 Unspecified abdominal pain

== ENCOUNTER → 2023-11-10 | Outpatient (REF) | payer MEDICARE, MEDICAID ==
[2023-11-10 10:54] LABS: APPEARANCE, URINE TURBID (CLEAR); BACTERIA, URINE AUTO 3+ (NEGATIVE); BILIRUBIN, URINE AUTO NEGATIVE (NEGATIVE); BLOOD, URINE BLOOD 2+ (NEGATIVE); COLOR, URINE AMBER (YELLOW); GLUCOSE, URINE (UA) AUTO 1+ mg/dL (NEGATIVE); KETONE, URINE AUTO NEGATIVE (NEGATIVE); LEUKOCYTE ESTERASE, URINE AUTO 3+ (NEGATIVE); MUCUS, URINE LARGE (NEGATIVE); NITRITE, URINE AUTO NEGATIVE (NEGATIVE); PROTEIN, URINE AUTO 3+ mg/dL (NEGATIVE); RBC, URINE AUTO 14 /HPF (0-3); SPECIFIC GRAVITY URINE AUTO 1.012 (1.002-1.035); SQUAMOUS EPITHELIAL CELL UR AU 30 /HPF (0-6); UROBILINOGEN, URINE AUTO 0.2 mg/dL (0.0-2.0); WBC, URINE AUTO TNTC /HPF (0-3)
== END ==
LOC: SKLAB5 10:19
PROVIDERS: ATTEND Internal Medicine
DX: R53.83 Other fatigue (principal)

== ENCOUNTER → 2023-11-10 | Outpatient (REF) | payer MEDICARE, MEDICAID ==
[2023-11-10 11:38] LABS: CALCIUM LEVEL 8.3 MG/DL (8.3-10.6); CREATININE FOR GFR 2.6 MG/DL (0.55-1.30); GLOMERULAR FILTRATION RATE 19.2 (>39); POTASSIUM SERUM 5.5 MMOL/L (3.5-5.1)
== END ==
LOC: SKLAB5 09:51
PROVIDERS: ATTEND Internal Medicine
DX: N18.9 Chronic kidney disease, unspecified (principal); R53.83 Other fatigue

== ENCOUNTER → 2023-11-11 | Outpatient (REF) | payer MEDICARE, MEDICAID ==
[~2023-11-11] MED LIST changes: +PIPE4.5F IV; -ZOSY1SOL6 IV
[2023-11-11 13:16] LABS: CALCIUM LEVEL 8.5 MG/DL (8.3-10.6); CREATININE FOR GFR 2.49 MG/DL (0.55-1.30); GLOMERULAR FILTRATION RATE 20.2 (>39); POTASSIUM SERUM 5.2 MMOL/L (3.5-5.1)
== END ==
LOC: SKLAB5 08:28
PROVIDERS: ATTEND Internal Medicine
DX: N18.9 Chronic kidney disease, unspecified (principal)

== ENCOUNTER → 2023-11-16 | Outpatient (REF) | payer MEDICARE, MEDICAID ==
[2023-11-16 10:27] LABS: CALCIUM LEVEL 8.4 MG/DL (8.3-10.6); CREATININE FOR GFR 2.28 MG/DL (0.55-1.30); GLOMERULAR FILTRATION RATE 22.4 (>39); POTASSIUM SERUM 5.8 MMOL/L (3.5-5.1)
== END ==
LOC: SKLAB5 08:45
PROVIDERS: ATTEND Internal Medicine
DX: N18.9 Chronic kidney disease, unspecified (principal)

== ENCOUNTER → 2023-11-22 | Outpatient (REF) | payer MEDICARE, MEDICAID ==
[2023-11-22 15:18] LABS: HEMATOCRIT 40.4 % (36.0-47.0); HEMOGLOBIN 12.7 g/dl (12.0-15.5); MEAN CORPUSCULAR HEMOGLOBIN 28.2 pg (27.0-33.0); MEAN CORPUSCULAR HGB CONC 31.4 g/dl (32.0-36.5); MEAN CORPUSCULAR VOLUME 89.8 fl (80.0-96.0); PLATELET COUNT, AUTOMATED 403 10^3/uL (150-450); WHITE BLOOD COUNT 8.9 10^3/uL (4.0-10.0)
[2023-11-22 15:41] LABS: CREATININE FOR GFR 2.45 MG/DL (0.55-1.30); GLOMERULAR FILTRATION RATE 20.6 (>39); POTASSIUM SERUM 5.3 MMOL/L (3.5-5.1)
== END ==
LOC: SKLAB5 14:15
PROVIDERS: ATTEND Internal Medicine
DX: N18.9 Chronic kidney disease, unspecified (principal); D63.1 Anemia in chronic kidney disease; E87.5 Hyperkalemia

== ENCOUNTER → 2023-12-07 | Outpatient (REF) | payer MEDICARE, MEDICAID ==
[2023-12-07 09:43] LABS: BASO # 0.1 10^3/uL (0.0-0.2); BASO % 0.8 % (0.0-1.0); EOS # 0.2 10^3/uL (0.0-0.5); EOS % 2.3 % (0.0-3.0); HEMATOCRIT 37.4 % (36.0-47.0); LYMPH # 1.8 10^3/uL (1.5-5.0); LYMPH % 20.4 % (24.0-44.0); MEAN CORPUSCULAR HEMOGLOBIN 28.2 pg (27.0-33.0); MEAN CORPUSCULAR HGB CONC 32.1 g/dl (32.0-36.5); MEAN CORPUSCULAR VOLUME 87.8 fl (80.0-96.0); MONO # 0.8 10^3/uL (0.0-0.8); MONO % 9.3 % (2.0-8.0); NEUTROPHILS # 5.8 10^3/uL (1.5-8.5); NEUTROPHILS % 66.6 % (36.0-66.0); PLATELET COUNT, AUTOMATED 430 10^3/uL (150-450); RED BLOOD COUNT 4.26 10^6/uL (4.00-5.40); WHITE BLOOD COUNT 8.7 10^3/uL (4.0-10.0)
[2023-12-07 10:08] LABS: ALBUMIN 2.2 G/DL (3.2-5.2); CALCIUM LEVEL 8.2 MG/DL (8.3-10.6); CREATININE FOR GFR 2.58 MG/DL (0.55-1.30); GLOMERULAR FILTRATION RATE 19.4 (>39); PHOSPHORUS LEVEL 5.1 MG/DL (2.4-5.1); POTASSIUM SERUM 5.6 MMOL/L (3.5-5.1); PTH INTACT 169.3 PG/ML (18.5-88.0)
[2023-12-07 15:07] LABS: APPEARANCE, URINE TURBID (CLEAR); BACTERIA, URINE AUTO 3+ (NEGATIVE); BILIRUBIN, URINE AUTO NEGATIVE (NEGATIVE); BLOOD, URINE BLOOD 1+ (NEGATIVE); COLOR, URINE YELLOW (YELLOW); GLUCOSE, URINE (UA) AUTO 2+ mg/dL (NEGATIVE); KETONE, URINE AUTO NEGATIVE (NEGATIVE); LEUKOCYTE ESTERASE, URINE AUTO 2+ (NEGATIVE); NITRITE, URINE AUTO NEGATIVE (NEGATIVE); PROTEIN, URINE AUTO 3+ mg/dL (NEGATIVE); RBC, URINE AUTO 27 /HPF (0-3); SPECIFIC GRAVITY URINE AUTO 1.014 (1.002-1.035); SQUAMOUS EPITHELIAL CELL UR AU 19 /HPF (0-6); UROBILINOGEN, URINE AUTO 0.2 mg/dL (0.0-2.0); WBC, URINE AUTO TNTC /HPF (0-3)
== END ==
LOC: SKLAB5 08:04
PROVIDERS: ATTEND Internal Medicine
DX: N18.9 Chronic kidney disease, unspecified (principal)

== ENCOUNTER → 2023-12-12 | Outpatient (REF) | payer MEDICARE, MEDICAID | LOC: SKLAB5 12-10 09:07 | PROVIDERS: ATTEND Internal Medicine | DX: N18.9 Chronic kidney disease, unspecified (principal) ==

== ENCOUNTER → 2023-12-21 | Outpatient (REF) | payer MEDICARE, MEDICAID ==
[2023-12-21 15:29] LABS: HEMATOCRIT 36.1 % (36.0-47.0); HEMOGLOBIN 11.9 g/dl (12.0-15.5); MEAN CORPUSCULAR HEMOGLOBIN 28.2 pg (27.0-33.0); MEAN CORPUSCULAR VOLUME 85.5 fl (80.0-96.0); PLATELET COUNT, AUTOMATED 435 10^3/uL (150-450); RED BLOOD COUNT 4.22 10^6/uL (4.00-5.40); WHITE BLOOD COUNT 7.6 10^3/uL (4.0-10.0)
[2023-12-21 15:56] LABS: CREATININE FOR GFR 2.27 MG/DL (0.55-1.30); GLOMERULAR FILTRATION RATE 22.5 (>39); POTASSIUM SERUM 5.4 MMOL/L (3.5-5.1)
== END ==
LOC: SKLAB5 12:27
PROVIDERS: ATTEND Internal Medicine
DX: U07.1 COVID-19 (principal); Z79.899 Other long term (current) drug therapy

== ENCOUNTER → 2023-12-24 | Outpatient (REF) | payer MEDICARE, MEDICAID ==
[2023-12-24 22:18] LABS: HEMATOCRIT 36.2 % (36.0-47.0); HEMOGLOBIN 11.7 g/dl (12.0-15.5); MEAN CORPUSCULAR HEMOGLOBIN 28.2 pg (27.0-33.0); MEAN CORPUSCULAR HGB CONC 32.3 g/dl (32.0-36.5); MEAN CORPUSCULAR VOLUME 87.2 fl (80.0-96.0); PLATELET COUNT, AUTOMATED 419 10^3/uL (150-450); RED BLOOD COUNT 4.15 10^6/uL (4.00-5.40); WHITE BLOOD COUNT 7.1 10^3/uL (4.0-10.0)
[2023-12-24 22:41] LABS: CALCIUM LEVEL 7.7 MG/DL (8.3-10.6); CREATININE FOR GFR 2.96 MG/DL (0.55-1.30); GLOMERULAR FILTRATION RATE 16.5 (>39); POTASSIUM SERUM 4.6 MMOL/L (3.5-5.1)
== END ==
LOC: SKLAB5 16:56
PROVIDERS: ATTEND Internal Medicine
DX: N18.9 Chronic kidney disease, unspecified (principal)

== ENCOUNTER → 2023-12-27 | Outpatient (REF) | payer MEDICARE, MEDICAID ==
[2023-12-27 11:16] LABS: HEMATOCRIT 36.8 % (36.0-47.0); HEMOGLOBIN 11.9 g/dl (12.0-15.5); MEAN CORPUSCULAR HEMOGLOBIN 27.7 pg (27.0-33.0); MEAN CORPUSCULAR HGB CONC 32.3 g/dl (32.0-36.5); MEAN CORPUSCULAR VOLUME 85.8 fl (80.0-96.0); PLATELET COUNT, AUTOMATED 464 10^3/uL (150-450); RED BLOOD COUNT 4.29 10^6/uL (4.00-5.40); WHITE BLOOD COUNT 9.1 10^3/uL (4.0-10.0)
[2023-12-27 11:38] LABS: CALCIUM LEVEL 8.5 MG/DL (8.3-10.6); CREATININE FOR GFR 3.16 MG/DL (0.55-1.30); GLOMERULAR FILTRATION RATE 15.3 (>39); POTASSIUM SERUM 4.9 MMOL/L (3.5-5.1)
== END ==
LOC: SKLAB5 10:17
PROVIDERS: ATTEND Internal Medicine
DX: N18.9 Chronic kidney disease, unspecified (principal)

== ENCOUNTER → 2023-12-28 | Outpatient (REF) | payer MEDICARE, MEDICAID ==
[2023-12-28 09:59] LABS: CREATININE FOR GFR 3.09 MG/DL (0.55-1.30); GLOMERULAR FILTRATION RATE 15.7 (>39)
== END ==
LOC: SKLAB5 08:28
PROVIDERS: ATTEND Internal Medicine
DX: N18.9 Chronic kidney disease, unspecified (principal)

== ENCOUNTER → 2024-01-03 | Outpatient (REF) | payer MEDICARE, MEDICAID ==
[2024-01-03 15:47] LABS: HEMATOCRIT 41.7 % (36.0-47.0); HEMOGLOBIN 13.3 g/dl (12.0-15.5); MEAN CORPUSCULAR HEMOGLOBIN 27.7 pg (27.0-33.0); MEAN CORPUSCULAR HGB CONC 31.9 g/dl (32.0-36.5); MEAN CORPUSCULAR VOLUME 86.7 fl (80.0-96.0); PLATELET COUNT, AUTOMATED 470 10^3/uL (150-450); RED BLOOD COUNT 4.81 10^6/uL (4.00-5.40); WHITE BLOOD COUNT 9.6 10^3/uL (4.0-10.0)
[2024-01-03 16:20] LABS: CALCIUM LEVEL 8.9 MG/DL (8.3-10.6); CREATININE FOR GFR 3.22 MG/DL (0.55-1.30); POTASSIUM SERUM 5.8 MMOL/L (3.5-5.1)
== END ==
LOC: SKLAB5 10:05
PROVIDERS: ATTEND Internal Medicine
DX: N18.9 Chronic kidney disease, unspecified (principal)

== ENCOUNTER → 2024-01-10 | Outpatient (REF) | payer MEDICARE, MEDICAID ==
[2024-01-10 14:13] LABS: APPEARANCE, URINE TURBID (CLEAR); BACTERIA, URINE AUTO 3+ (NEGATIVE); BILIRUBIN, URINE AUTO NEGATIVE (NEGATIVE); BLOOD, URINE BLOOD 1+ (NEGATIVE); COLOR, URINE YELLOW (YELLOW); GLUCOSE, URINE (UA) AUTO 2+ mg/dL (NEGATIVE); KETONE, URINE AUTO NEGATIVE (NEGATIVE); LEUKOCYTE ESTERASE, URINE AUTO 2+ (NEGATIVE); NITRITE, URINE AUTO NEGATIVE (NEGATIVE); PROTEIN, URINE AUTO 3+ mg/dL (NEGATIVE); RBC, URINE AUTO 35 /HPF (0-3); SPECIFIC GRAVITY URINE AUTO 1.013 (1.002-1.035); SQUAMOUS EPITHELIAL CELL UR AU 30 /HPF (0-6); UROBILINOGEN, URINE AUTO 0.2 mg/dL (0.0-2.0); WBC, URINE AUTO TNTC /HPF (0-3)
== END ==
LOC: SKLAB5 09:00
PROVIDERS: ATTEND Internal Medicine
DX: N18.9 Chronic kidney disease, unspecified (principal)

== ENCOUNTER → 2024-01-11 | Outpatient (REF) | payer MEDICARE, MEDICAID ==
[2024-01-18 15:29] LABS: HEMATOCRIT 35.5 % (36.0-47.0); HEMOGLOBIN 11.4 g/dl (12.0-15.5); MEAN CORPUSCULAR HEMOGLOBIN 27.7 pg (27.0-33.0); MEAN CORPUSCULAR VOLUME 86.4 fl (80.0-96.0); RED BLOOD COUNT 4.11 10^6/uL (4.00-5.40); WHITE BLOOD COUNT 9.6 10^3/uL (4.0-10.0)
[2024-01-18 15:30] LABS: BASO # 0.1 10^3/uL (0.0-0.2); BASO % 0.6 % (0.0-1.0); EOS # 0.2 10^3/uL (0.0-0.5); EOS % 1.6 % (0.0-3.0); LYMPH % 10.4 % (24.0-44.0); MEAN CORPUSCULAR HGB CONC 32.1 g/dl (32.0-36.5); MONO # 1.1 10^3/uL (0.0-0.8); MONO % 11.2 % (2.0-8.0); NEUTROPHILS # 7.3 10^3/uL (1.5-8.5); NEUTROPHILS % 75.9 % (36.0-66.0); PLATELET COUNT, AUTOMATED 472 10^3/uL (150-450)
[2024-01-18 15:31] LABS: CREATININE FOR GFR 2.96 MG/DL (0.55-1.30); GLOMERULAR FILTRATION RATE 16.5 (>39)
[2024-01-18 15:32] LABS: CALCIUM LEVEL 8.5 MG/DL (8.3-10.6); PHOSPHORUS LEVEL 5.2 MG/DL (2.4-5.1); POTASSIUM SERUM 5.8 MMOL/L (3.5-5.1); PTH INTACT 138.2 PG/ML (18.5-88.0)
== END ==
LOC: SKLAB5 07:00
PROVIDERS: ATTEND Internal Medicine
DX: N18.9 Chronic kidney disease, unspecified (principal); Z79.899 Other long term (current) drug therapy

== ENCOUNTER → 2024-01-12 | Outpatient (CLI) | payer MEDICARE, MEDICAID | LOC: M RAD 14:11 | PROVIDERS: ATTEND Nurse Practitioner Adult Health | DX: M25.512 Pain in left shoulder (principal) ==

== ENCOUNTER → 2024-01-19 | Outpatient (CLI) | payer MEDICARE, MEDICAID | LOC: M RAD 07:42 | PROVIDERS: ATTEND Nurse Practitioner Adult Health | DX: N18.9 Chronic kidney disease, unspecified (principal); Z86.73 Personal history of transient ischemic attack (TIA), and cerebral infarction without residual deficits; I25.89 Other forms of chronic ischemic heart disease ==

== ENCOUNTER → 2024-01-19 | Outpatient (REF) | payer MEDICARE, MEDICAID ==
[2024-01-19 19:30] LABS: HEMATOCRIT 41.2 % (36.0-47.0); HEMOGLOBIN 12.8 g/dl (12.0-15.5); MEAN CORPUSCULAR HEMOGLOBIN 27.8 pg (27.0-33.0); MEAN CORPUSCULAR HGB CONC 31.1 g/dl (32.0-36.5); MEAN CORPUSCULAR VOLUME 89.6 fl (80.0-96.0); PLATELET COUNT, AUTOMATED 245 10^3/uL (150-450); WHITE BLOOD COUNT 7.8 10^3/uL (4.0-10.0)
[2024-01-19 20:05] LABS: CALCIUM LEVEL 8.6 MG/DL (8.3-10.6); CREATININE FOR GFR 3.05 MG/DL (0.55-1.30); POTASSIUM SERUM 6.8 MMOL/L (3.5-5.1)
== END ==
LOC: SKLAB5 12:35
PROVIDERS: ATTEND Internal Medicine
DX: N18.9 Chronic kidney disease, unspecified (principal)

== ENCOUNTER → 2024-01-20 | Outpatient (REF) | payer MEDICARE, MEDICAID ==
[2024-01-20 11:43] LABS: CALCIUM LEVEL 8.9 MG/DL (8.3-10.6); CREATININE FOR GFR 2.92 MG/DL (0.55-1.30); GLOMERULAR FILTRATION RATE 16.8 (>39); POTASSIUM SERUM 5.6 MMOL/L (3.5-5.1)
== END ==
LOC: SKLAB5 08:44
PROVIDERS: ATTEND Internal Medicine
DX: E87.5 Hyperkalemia (principal)

== ENCOUNTER → 2024-01-21 | Outpatient (REF) | payer MEDICARE, MEDICAID ==
[2024-01-21 19:31] LABS: CALCIUM LEVEL 8.3 MG/DL (8.3-10.6); CREATININE FOR GFR 2.9 MG/DL (0.55-1.30); GLOMERULAR FILTRATION RATE 16.9 (>39); MAGNESIUM LEVEL 1.9 MG/DL (1.8-2.4); PHOSPHORUS LEVEL 5.4 MG/DL (2.4-5.1); POTASSIUM SERUM 5.4 MMOL/L (3.5-5.1)
== END ==
LOC: SKLAB5 08:26
PROVIDERS: ATTEND Internal Medicine
DX: N18.9 Chronic kidney disease, unspecified (principal)

== ENCOUNTER → 2024-01-23 | Outpatient (REF) | payer MEDICARE, MEDICAID ==
[2024-01-23 08:51] LABS: CALCIUM LEVEL 8.2 MG/DL (8.3-10.6); CREATININE FOR GFR 2.51 MG/DL (0.55-1.30); POTASSIUM SERUM 4.6 MMOL/L (3.5-5.1)
== END ==
LOC: SKLAB5 07:00
PROVIDERS: ATTEND Nurse Practitioner
DX: E87.8 Other disorders of electrolyte and fluid balance, not elsewhere classified (principal)

== ENCOUNTER → 2024-01-27 | Outpatient (REF) | payer MEDICARE, MEDICAID ==
[2024-01-27 09:49] LABS: HEMATOCRIT 33.9 % (36.0-47.0); MEAN CORPUSCULAR HEMOGLOBIN 27.9 pg (27.0-33.0); MEAN CORPUSCULAR HGB CONC 32.4 g/dl (32.0-36.5); PLATELET COUNT, AUTOMATED 517 10^3/uL (150-450); RED BLOOD COUNT 3.94 10^6/uL (4.00-5.40); WHITE BLOOD COUNT 9.9 10^3/uL (4.0-10.0)
[2024-01-27 10:19] LABS: CALCIUM LEVEL 8.3 MG/DL (8.3-10.6); CREATININE FOR GFR 2.81 MG/DL (0.55-1.30); GLOMERULAR FILTRATION RATE 17.5 (>39); POTASSIUM SERUM 5.2 MMOL/L (3.5-5.1)
== END ==
LOC: SKLAB5 08:11
PROVIDERS: ATTEND Internal Medicine
DX: N18.9 Chronic kidney disease, unspecified (principal)

== ENCOUNTER → 2024-02-01 | Outpatient (REF) | payer MEDICARE, MEDICAID | LOC: SKLAB5 08:24 | PROVIDERS: ATTEND Internal Medicine | DX: Z53.8 Procedure and treatment not carried out for other reasons (principal) ==

== ENCOUNTER → 2024-02-03 | Outpatient (REF) | payer MEDICARE, MEDICAID ==
[2024-02-03 10:36] LABS: CALCIUM LEVEL 8.2 MG/DL (8.3-10.6); CREATININE FOR GFR 2.83 MG/DL (0.55-1.30); GLOMERULAR FILTRATION RATE 17.4 (>39); POTASSIUM SERUM 4.8 MMOL/L (3.5-5.1)
== END ==
LOC: SKLAB5 06:44
PROVIDERS: ATTEND Internal Medicine
DX: N18.9 Chronic kidney disease, unspecified (principal)

== ENCOUNTER → 2024-02-07 | Outpatient (REF) | payer MEDICARE, MEDICAID | LOC: SKLAB5 11:26 | PROVIDERS: ATTEND Internal Medicine | DX: N39.0 Urinary tract infection, site not specified (principal) ==

== ENCOUNTER → 2024-02-07 | Outpatient (REF) | payer MEDICARE, MEDICAID ==
[2024-02-07 11:08] LABS: BASO # 0.1 10^3/uL (0.0-0.2); BASO % 1.2 % (0.0-1.0); EOS # 0.3 10^3/uL (0.0-0.5); EOS % 4.1 % (0.0-3.0); HEMOGLOBIN 10.9 g/dl (12.0-15.5); LYMPH # 1.3 10^3/uL (1.5-5.0); LYMPH % 17.3 % (24.0-44.0); MEAN CORPUSCULAR HEMOGLOBIN 27.9 pg (27.0-33.0); MEAN CORPUSCULAR HGB CONC 32.1 g/dl (32.0-36.5); MONO # 0.8 10^3/uL (0.0-0.8); MONO % 10.8 % (2.0-8.0); NEUTROPHILS # 4.9 10^3/uL (1.5-8.5); NEUTROPHILS % 65.8 % (36.0-66.0); PLATELET COUNT, AUTOMATED 480 10^3/uL (150-450); RED BLOOD COUNT 3.91 10^6/uL (4.00-5.40); WHITE BLOOD COUNT 7.4 10^3/uL (4.0-10.0)
[2024-02-07 11:21] LABS: CALCIUM LEVEL 7.9 MG/DL (8.3-10.6); CREATININE FOR GFR 3.02 MG/DL (0.55-1.30); GLOMERULAR FILTRATION RATE 16.1 (>39); PHOSPHORUS LEVEL 4.8 MG/DL (2.4-5.1); POTASSIUM SERUM 4.9 MMOL/L (3.5-5.1); PTH INTACT 98.8 PG/ML (18.5-88.0)
[2024-02-07 11:23] LABS: TOTAL 25(OH) VITAMIN D 19.4 NG/ML (20.0-100.0)
[2024-02-07 12:00] LABS: APPEARANCE, URINE TURBID (CLEAR); BACTERIA, URINE AUTO 3+ (NEGATIVE); BILIRUBIN, URINE AUTO NEGATIVE (NEGATIVE); BLOOD, URINE BLOOD 1+ (NEGATIVE); COLOR, URINE YELLOW (YELLOW); GLUCOSE, URINE (UA) AUTO 2+ mg/dL (NEGATIVE); KETONE, URINE AUTO NEGATIVE (NEGATIVE); LEUKOCYTE ESTERASE, URINE AUTO 2+ (NEGATIVE); NITRITE, URINE AUTO NEGATIVE (NEGATIVE); PROTEIN, URINE AUTO 2+ mg/dL (NEGATIVE); RBC, URINE AUTO 15 /HPF (0-3); SPECIFIC GRAVITY URINE AUTO 1.012 (1.002-1.035); SQUAMOUS EPITHELIAL CELL UR AU 20 /HPF (0-6); UROBILINOGEN, URINE AUTO 0.2 mg/dL (0.0-2.0); WBC, URINE AUTO TNTC /HPF (0-3)
== END ==
LOC: SKLAB5 08:53
PROVIDERS: ATTEND Internal Medicine
DX: N18.9 Chronic kidney disease, unspecified (principal); Z79.899 Other long term (current) drug therapy

== ENCOUNTER → 2024-02-11 | Outpatient (REF) | payer MEDICARE, MEDICAID | LOC: SKLAB5 08:20 | PROVIDERS: ATTEND Internal Medicine | DX: Z53.8 Procedure and treatment not carried out for other reasons (principal) ==

== ENCOUNTER → 2024-02-29 | Outpatient (REF) | payer MEDICARE, MEDICAID ==
[2024-02-29 12:03] LABS: HEMOGLOBIN A1c 8.5 % (4.0-6.0)
== END ==
LOC: SKLAB5 07:00
PROVIDERS: ATTEND Internal Medicine
DX: E11.9 Type 2 diabetes mellitus without complications (principal)

== ENCOUNTER → 2024-03-14 | Outpatient (REF) | payer MEDICARE, MEDICAID | LOC: SKLAB5 09:46 | PROVIDERS: ATTEND Internal Medicine | DX: N18.9 Chronic kidney disease, unspecified (principal); Z53.9 Procedure and treatment not carried out, unspecified reason ==

== ENCOUNTER 2024-04-11 20:28 | Emergency (ER) | payer MEDICARE, MEDICAID ==
[2024-04-12 02:27] VITALS: BP 161/70; TEMP 98; O2SAT 99
[2024-04-12] MEDS ORDERED: CEFD1CAP9 PO (02:44)
[2024-04-12] MEDS: CEFDINIR 300 MG CAP (OMNICEF) PO ONE (03:05)
== END 2024-04-12 03:05 | disposition home or self-care (01) ==
LOC: M ED 20:28
DX: N39.0 Urinary tract infection, site not specified (principal); S49.92XA Unspecified injury of left shoulder and upper arm, initial encounter; M54.50 Low back pain, unspecified; W19.XXXA Unspecified fall, initial encounter; Y92.128 Other place in nursing home as the place of occurrence of the external cause; Y93.89 Activity, other specified; K57.30 Diverticulosis of large intestine without perforation or abscess without bleeding; N13.30 Unspecified hydronephrosis; M19.012 Primary osteoarthritis, left shoulder; M47.896 Other spondylosis, lumbar region; K80.20 Calculus of gallbladder without cholecystitis without obstruction; Y99.9 Unspecified external cause status; I50.9 Heart failure, unspecified; E11.9 Type 2 diabetes mellitus without complications; F03.90 Unspecified dementia, unspecified severity, without behavioral disturbance, psychotic disturbance, mood disturbance, and anxiety; Z87.442 Personal history of urinary calculi

== ENCOUNTER → 2024-04-24 | Outpatient (REF) | payer MEDICARE, MEDICAID ==
[~2024-04-24] MED LIST changes: +CEFD1CAP9 PO
[2024-04-24 15:20] LABS: BASO # 0.1 10^3/uL (0.0-0.2); EOS # 0.2 10^3/uL (0.0-0.5); EOS % 2.4 % (0.0-3.0); HEMATOCRIT 35.2 % (36.0-47.0); LYMPH # 1.3 10^3/uL (1.5-5.0); MEAN CORPUSCULAR HEMOGLOBIN 28.3 pg (27.0-33.0); MEAN CORPUSCULAR HGB CONC 31.3 g/dl (32.0-36.5); MEAN CORPUSCULAR VOLUME 90.5 fl (80.0-96.0); MONO # 0.6 10^3/uL (0.0-0.8); MONO % 6.6 % (2.0-8.0); NEUTROPHILS # 6.4 10^3/uL (1.5-8.5); NEUTROPHILS % 74.7 % (36.0-66.0); PLATELET COUNT, AUTOMATED 439 10^3/uL (150-450); RED BLOOD COUNT 3.89 10^6/uL (4.00-5.40); WHITE BLOOD COUNT 8.6 10^3/uL (4.0-10.0)
[2024-04-24 15:50] LABS: ALBUMIN 2.4 G/DL (3.2-5.2); CALCIUM LEVEL 8.6 MG/DL (8.3-10.6); CREATININE FOR GFR 2.38 MG/DL (0.55-1.30); GLOMERULAR FILTRATION RATE 21.2 (>39); PHOSPHORUS LEVEL 4.6 MG/DL (2.4-5.1); POTASSIUM SERUM 5.4 MMOL/L (3.5-5.1)
[2024-04-24 15:51] LABS: PTH INTACT 149.9 PG/ML (18.5-88.0)
[2024-04-24 15:52] LABS: TOTAL 25(OH) VITAMIN D 22.5 NG/ML (20.0-100.0)
== END ==
LOC: SKLAB5 07:00
PROVIDERS: ATTEND Internal Medicine
DX: N18.9 Chronic kidney disease, unspecified (principal); Z79.899 Other long term (current) drug therapy

== ENCOUNTER → 2024-05-18 | Outpatient (REF) | payer MEDICARE ==
[2024-05-18 18:07] LABS: AMORPHOUS SEDIMENT SMALL (NEGATIVE); APPEARANCE, URINE TURBID (CLEAR); BACTERIA, URINE AUTO 3+ (NEGATIVE); BILIRUBIN, URINE AUTO NEGATIVE (NEGATIVE); BLOOD, URINE BLOOD 1+ (NEGATIVE); COLOR, URINE YELLOW (YELLOW); GLUCOSE, URINE (UA) AUTO 3+ mg/dL (NEGATIVE); KETONE, URINE AUTO NEGATIVE (NEGATIVE); LEUKOCYTE ESTERASE, URINE AUTO 2+ (NEGATIVE); NITRITE, URINE AUTO NEGATIVE (NEGATIVE); PROTEIN, URINE AUTO 2+ mg/dL (NEGATIVE); RBC, URINE AUTO 5 /HPF (0-3); SPECIFIC GRAVITY URINE AUTO 1.011 (1.002-1.035); SQUAMOUS EPITHELIAL CELL UR AU 10 /HPF (0-6); UROBILINOGEN, URINE AUTO 0.2 mg/dL (0.0-2.0); WBC, URINE AUTO TNTC /HPF (0-3)
== END ==
LOC: M SMT 16:52
PROVIDERS: ATTEND Nurse Practitioner Family
DX: N13.30 Unspecified hydronephrosis (principal); Z79.899 Other long term (current) drug therapy

== ENCOUNTER → 2024-05-22 | Outpatient (REF) | payer MEDICARE ==
[2024-05-22 14:27] LABS: BASO # 0.1 10^3/uL (0.0-0.2); EOS # 0.3 10^3/uL (0.0-0.5); EOS % 3.8 % (0.0-3.0); HEMATOCRIT 35.2 % (36.0-47.0); HEMOGLOBIN 10.9 g/dl (12.0-15.5); LYMPH # 1.7 10^3/uL (1.5-5.0); LYMPH % 24.4 % (24.0-44.0); MEAN CORPUSCULAR HEMOGLOBIN 27.7 pg (27.0-33.0); MEAN CORPUSCULAR VOLUME 89.3 fl (80.0-96.0); MONO # 0.6 10^3/uL (0.0-0.8); MONO % 7.9 % (2.0-8.0); NEUTROPHILS # 4.5 10^3/uL (1.5-8.5); NEUTROPHILS % 62.5 % (36.0-66.0); PLATELET COUNT, AUTOMATED 484 10^3/uL (150-450); RED BLOOD COUNT 3.94 10^6/uL (4.00-5.40); WHITE BLOOD COUNT 7.1 10^3/uL (4.0-10.0)
[2024-05-22 14:56] LABS: ALBUMIN 2.4 G/DL (3.2-5.2); CALCIUM LEVEL 8.6 MG/DL (8.3-10.6); CREATININE FOR GFR 2.29 MG/DL (0.55-1.30); GLOMERULAR FILTRATION RATE 22.2 (>39); PHOSPHORUS LEVEL 4.7 MG/DL (2.4-5.1); POTASSIUM SERUM 4.7 MMOL/L (3.5-5.1); PTH INTACT 122.9 PG/ML (18.5-88.0)
== END ==
LOC: SKLAB5 12:30 → EEVIPCON 12:30
PROVIDERS: ATTEND Internal Medicine
DX: N18.9 Chronic kidney disease, unspecified (principal); N13.30 Unspecified hydronephrosis; E55.9 Vitamin D deficiency, unspecified; Z79.899 Other long term (current) drug therapy

== ENCOUNTER → 2024-05-22 | Outpatient (REF) | payer MEDICARE ==
[2024-05-22 14:03] LABS: APPEARANCE, URINE TURBID (CLEAR); BACTERIA, URINE AUTO 3+ (NEGATIVE); BILIRUBIN, URINE AUTO NEGATIVE (NEGATIVE); BLOOD, URINE BLOOD 1+ (NEGATIVE); COLOR, URINE YELLOW (YELLOW); GLUCOSE, URINE (UA) AUTO 3+ mg/dL (NEGATIVE); KETONE, URINE AUTO NEGATIVE (NEGATIVE); LEUKOCYTE ESTERASE, URINE AUTO 2+ (NEGATIVE); MUCUS, URINE SMALL (NEGATIVE); NITRITE, URINE AUTO NEGATIVE (NEGATIVE); PROTEIN, URINE AUTO 3+ mg/dL (NEGATIVE); RBC, URINE AUTO 5 /HPF (0-3); SPECIFIC GRAVITY URINE AUTO 1.009 (1.002-1.035); SQUAMOUS EPITHELIAL CELL UR AU 20 /HPF (0-6); UROBILINOGEN, URINE AUTO 0.2 mg/dL (0.0-2.0); WBC, URINE AUTO TNTC /HPF (0-3)
== END ==
LOC: SKLAB5 09:41
PROVIDERS: ATTEND Nurse Practitioner
DX: N18.9 Chronic kidney disease, unspecified (principal); N13.30 Unspecified hydronephrosis

== ENCOUNTER → 2024-06-13 | Outpatient (REF) | payer MEDICARE ==
[2024-06-13 15:20] LABS: HEMOGLOBIN 11.4 g/dl (12.0-15.5); MEAN CORPUSCULAR HEMOGLOBIN 28.1 pg (27.0-33.0); MEAN CORPUSCULAR VOLUME 93.6 fl (80.0-96.0); PLATELET COUNT, AUTOMATED 392 10^3/uL (150-450); RED BLOOD COUNT 4.06 10^6/uL (4.00-5.40); WHITE BLOOD COUNT 6.6 10^3/uL (4.0-10.0)
[2024-06-13 16:46] LABS: CALCIUM LEVEL 8.2 MG/DL (8.3-10.6); CREATININE FOR GFR 2.39 MG/DL (0.55-1.30); GLOMERULAR FILTRATION RATE 21.1 (>39); POTASSIUM SERUM 5.5 MMOL/L (3.5-5.1)
[2024-06-13 16:49] LABS: TOTAL 25(OH) VITAMIN D 43.7 NG/ML (20.0-100.0)
== END ==
LOC: SKLAB5 07:00
PROVIDERS: ATTEND Internal Medicine
DX: E55.9 Vitamin D deficiency, unspecified (principal); I50.9 Heart failure, unspecified; E11.9 Type 2 diabetes mellitus without complications

== ENCOUNTER → 2024-06-14 | Outpatient (REF) | payer MEDICARE ==
[2024-06-14 11:26] LABS: CALCIUM LEVEL 8.7 MG/DL (8.3-10.6); CREATININE FOR GFR 2.47 MG/DL (0.55-1.30); GLOMERULAR FILTRATION RATE 20.3 (>39); POTASSIUM SERUM 5.3 MMOL/L (3.5-5.1)
== END ==
LOC: SKLAB5 10:27
PROVIDERS: ATTEND Internal Medicine
DX: N18.9 Chronic kidney disease, unspecified (principal)

== ENCOUNTER → 2024-06-23 | Outpatient (CLI) | payer MEDICAID, MEDICARE | LOC: M RAD 13:04 | PROVIDERS: ATTEND Nurse Practitioner Family | DX: N13.30 Unspecified hydronephrosis (principal) ==

== ENCOUNTER → 2024-06-28 | Outpatient (REF) | payer MEDICARE, MEDICAID ==
[2024-06-28 05:46] LABS: APPEARANCE, URINE MANUAL TURBID (CLEAR); COLOR, URINE MANUAL LT YELLOW (YELLOW)
[2024-06-28 05:47] LABS: PROTEIN, URINE MANUAL 3+ mg/dL (NEGATIVE); SPECIFIC GRAVITY,URINE MANUAL 1.015 (1.002-1.035)
[2024-06-28 05:48] LABS: BILIRUBIN, URINE MANUAL NEGATIVE (NEGATIVE); BLOOD URINE MANUAL POSITIVE (NEGATIVE); GLUCOSE, URINE (UA) MANUAL NEGATIVE (NEGATIVE); KETONE, URINE MANUAL NEGATIVE (NEGATIVE); NITRITE, URINE MANUAL NEGATIVE (NEGATIVE); UROBILINOGEN, URINE MANUAL NORMAL (NORMAL)
[2024-06-28 05:49] LABS: LEUKOCYTE ESTERASE, URINE MAN POSITIVE (NEGATIVE)
[2024-06-28 05:51] LABS: WBC, URINE TNTC /hpf (0-3)
[2024-06-28 05:52] LABS: BACTERIA, URINE SMALL AMOUNT; HYALINE CAST, URINE NONE SEEN /lpf (0-1); MUCUS, URINE SMALL AMOUNT (NEGATIVE); SQUAMOUS EPITHELIAL CELL URINE SMALL AMOUNT /hpf (SMALL AMT); YEAST, URINE MOD AMOUNT
== END ==
LOC: SKLAB5 06-27 14:01
PROVIDERS: ATTEND Internal Medicine
DX: N18.9 Chronic kidney disease, unspecified (principal); Z79.899 Other long term (current) drug therapy

== ENCOUNTER → 2024-07-13 | Outpatient (REF) | payer MEDICARE, MEDICAID | LOC: SKLAB5 11:19 | PROVIDERS: ATTEND Internal Medicine | DX: R05.9 Cough, unspecified (principal); R09.89 Other specified symptoms and signs involving the circulatory and respiratory systems ==

== ENCOUNTER → 2024-07-26 | Outpatient (CLI) | payer MEDICARE | LOC: M RAD 07:17 | PROVIDERS: ATTEND Nurse Practitioner Family | DX: N13.30 Unspecified hydronephrosis (principal); R93.421 Abnormal radiologic findings on diagnostic imaging of right kidney; R93.422 Abnormal radiologic findings on diagnostic imaging of left kidney ==

== ENCOUNTER → 2024-08-09 | Outpatient (CLI) | payer MEDICARE | LOC: M RAD 15:40 | PROVIDERS: ATTEND Nurse Practitioner Family | DX: N13.30 Unspecified hydronephrosis (principal) ==

== ENCOUNTER → 2024-08-18 | Outpatient (REF) | payer MEDICARE ==
[2024-08-18 14:28] LABS: APPEARANCE, URINE TURBID (CLEAR); BACTERIA, URINE AUTO 2+ (NEGATIVE); BILIRUBIN, URINE AUTO NEGATIVE (NEGATIVE); BLOOD, URINE BLOOD 1+ (NEGATIVE); COLOR, URINE YELLOW (YELLOW); GLUCOSE, URINE (UA) AUTO NEGATIVE (NEGATIVE); KETONE, URINE AUTO NEGATIVE (NEGATIVE); LEUKOCYTE ESTERASE, URINE AUTO 2+ (NEGATIVE); NITRITE, URINE AUTO NEGATIVE (NEGATIVE); PROTEIN, URINE AUTO 3+ mg/dL (NEGATIVE); RBC, URINE AUTO 7 /HPF (0-3); SQUAMOUS EPITHELIAL CELL UR AU 11 /HPF (0-6); UROBILINOGEN, URINE AUTO 0.2 mg/dL (0.0-2.0); WBC, URINE AUTO TNTC /HPF (0-3)
== END ==
LOC: SKLAB5 07:18
PROVIDERS: ATTEND Internal Medicine
DX: N13.30 Unspecified hydronephrosis (principal)

== ENCOUNTER 2024-09-10 14:45 | Inpatient (IN) | payer MEDICARE ==
[2024-09-10 15:52] LABS: BASO # 0.1 10^3/uL (0.0-0.2); BASO % 0.8 % (0.0-1.0); EOS # 0.2 10^3/uL (0.0-0.5); EOS % 1.7 % (0.0-3.0); HEMATOCRIT 31.9 % (36.0-47.0); HEMOGLOBIN 10.1 g/dl (12.0-15.5); LYMPH # 1.4 10^3/uL (1.5-5.0); LYMPH % 13.5 % (24.0-44.0); MEAN CORPUSCULAR HEMOGLOBIN 28.1 pg (27.0-33.0); MEAN CORPUSCULAR HGB CONC 31.7 g/dl (32.0-36.5); MEAN CORPUSCULAR VOLUME 88.6 fl (80.0-96.0); MONO # 0.6 10^3/uL (0.0-0.8); MONO % 5.7 % (2.0-8.0); NEUTROPHILS # 7.8 10^3/uL (1.5-8.5); NEUTROPHILS % 77.6 % (36.0-66.0); PLATELET COUNT, AUTOMATED 454 10^3/uL (150-450); WHITE BLOOD COUNT 10.1 10^3/uL (4.0-10.0)
[2024-09-10] MEDS: NS (Normal Saline) 0.9% 1,000 ML IV ONE ×2 (15:53→19:00)
[2024-09-10 15:59] LABS: ALBUMIN 2.4 G/DL (3.2-5.2); ALKALINE PHOSPHATASE 165 U/L (35-104); ALT/SGPT 45 U/L (7.0-40); AST/SGOT 31 U/L (<34); BILIRUBIN,DIRECT < 0.1 MG/DL (<0.4); BILIRUBIN,TOTAL < 0.2 MG/DL (0.3-1.2); BLOOD UREA NITROGEN 46 MG/DL (9-23); CALCIUM LEVEL 8.1 MG/DL (8.3-10.6); CARBON DIOXIDE LEVEL 17 MMOL/L (20-31); CHLORIDE LEVEL 109 MMOL/L (98-107); CREATININE FOR GFR 2.48 MG/DL (0.55-1.30); GLOMERULAR FILTRATION RATE 19.9 (>39); GLUCOSE, FASTING 335 MG/DL (74-106); MAGNESIUM LEVEL 2.1 MG/DL (1.8-2.4); PHOSPHORUS LEVEL 4.2 MG/DL (2.4-5.1); POTASSIUM SERUM 4.7 MMOL/L (3.5-5.1); SODIUM LEVEL 137 MMOL/L (136-145); TOTAL PROTEIN 6.9 G/DL (5.7-8.2)
[2024-09-10 16:40] LABS: APPEARANCE, URINE TURBID (CLEAR); BACTERIA, URINE AUTO 2+ (NEGATIVE); BILIRUBIN, URINE AUTO NEGATIVE (NEGATIVE); BLOOD, URINE BLOOD 3+ (NEGATIVE); COLOR, URINE AMBER (YELLOW); GLUCOSE, URINE (UA) AUTO 3+ mg/dL (NEGATIVE); KETONE, URINE AUTO NEGATIVE (NEGATIVE); LEUKOCYTE ESTERASE, URINE AUTO 2+ (NEGATIVE); NITRITE, URINE AUTO NEGATIVE (NEGATIVE); PROTEIN, URINE AUTO 2+ mg/dL (NEGATIVE); RBC, URINE AUTO TNTC /HPF (0-3); SQUAMOUS EPITHELIAL CELL UR AU 0 /HPF (0-6); UROBILINOGEN, URINE AUTO 0.2 mg/dL (0.0-2.0); WBC, URINE AUTO TNTC /HPF (0-3)
[2024-09-10] MEDS: cefTRIAXone SOD 2 GM in DEXTROSE 5% (D5W) ADV/MINI-BAG 50 ML IV ONE (17:38)
[2024-09-10] MEDS ORDERED: traMADol 50 MG TAB PO PRN (20:25)
[2024-09-10] MEDS ORDERED: MAALOX 30 ML SUSP *UDC PO PRN (20:25)
[2024-09-10] MEDS ORDERED: DEXTROSE 50% 50ML SYRINGE IV PRN (20:25)
[2024-09-10] MEDS ORDERED: ACETAMINOPHEN 325 MG TAB PO PRN (20:25)
[2024-09-10] MEDS ORDERED: MOM 30ML SUSPENSION UDC PO PRN (20:25)
[2024-09-10] MEDS ORDERED: GLUCOSE 4 GM CHEW PO PRN (20:25)
[2024-09-10] MEDS ORDERED: RAMELTEON 8 MG TAB (ROZEREM) PO PRN (20:25)
[2024-09-10] MEDS ORDERED: GLUCAGON INJ 1MG VIAL SC PRN (20:25)
[2024-09-10] MEDS: INSULIN LISPRO (NovoLOG) PER UNIT SC SCH (21:00)
[2024-09-10] MEDS: DOCUSATE SODIUM 100MG CAPSULE PO SCH (21:21)
[2024-09-10] MEDS ORDERED: BISA10SU4 PR (22:02)
[2024-09-10] MEDS ORDERED: LIPI20TA PO (22:02)
[2024-09-10] MEDS ORDERED: INSU100I24 SC (22:02)
[2024-09-10] MEDS ORDERED: CALC1CAP31 PO (22:02)
[2024-09-10] MEDS ORDERED: CEPH500C PO (22:02)
[2024-09-10] MEDS ORDERED: SERT25TA21 PO (22:02)
[2024-09-10] MEDS ORDERED: SODI650T PO (22:02)
[2024-09-10] MEDS ORDERED: VELT1POW3 PO (22:02)
[2024-09-10] MEDS ORDERED: VITA1CAP25 PO (22:02)
[2024-09-10] MEDS ORDERED: ACET-683 PO (22:02)
[2024-09-10] MEDS ORDERED: LANTINJ4 SC ×2 (22:02)
[2024-09-10 22:10] LABS: INR 0.93; PARTIAL THROMBOPLASTIN TIME 29.2 SECONDS (24.8-34.2); PROTHROMBIN TIME 12.8 SECONDS (12.5-14.5)
[2024-09-10] MEDS ORDERED: HOME MED LIST COMPLETE! XX SCH (22:10)
[2024-09-10] MEDS: LACTULOSE 20GM/30ML SYRUP UDC PO SCH (22:44)
[2024-09-10 23:55] VITALS: BP 158/92; TEMP 97.7; O2SAT 96
[2024-09-11] VITALS (7 sets, daily range): BP systolic 118–156; BP diastolic 51–76; TEMP 97–97.7; O2SAT 93–98
[2024-09-11 06:03] LABS: HEMATOCRIT 29.1 % (36.0-47.0); HEMOGLOBIN 9.3 g/dl (12.0-15.5); MEAN CORPUSCULAR HEMOGLOBIN 28.3 pg (27.0-33.0); MEAN CORPUSCULAR VOLUME 88.4 fl (80.0-96.0); PLATELET COUNT, AUTOMATED 386 10^3/uL (150-450); RED BLOOD COUNT 3.29 10^6/uL (4.00-5.40); WHITE BLOOD COUNT 9.6 10^3/uL (4.0-10.0)
[2024-09-11 06:30] LABS: ALKALINE PHOSPHATASE 134 U/L (35-104); ALT/SGPT 36 U/L (7.0-40); AST/SGOT 28 U/L (<34); BILIRUBIN,TOTAL < 0.2 MG/DL (0.3-1.2); BLOOD UREA NITROGEN 40 MG/DL (9-23); CALCIUM LEVEL 7.7 MG/DL (8.3-10.6); CARBON DIOXIDE LEVEL 16 MMOL/L (20-31); CHLORIDE LEVEL 116 MMOL/L (98-107); CREATININE FOR GFR 2.42 MG/DL (0.55-1.30); GLOMERULAR FILTRATION RATE 20.5 (>39); GLUCOSE, FASTING 78 MG/DL (74-106); MAGNESIUM LEVEL 1.9 MG/DL (1.8-2.4); POTASSIUM SERUM 4.5 MMOL/L (3.5-5.1); SODIUM LEVEL 144 MMOL/L (136-145); TOTAL PROTEIN 5.9 G/DL (5.7-8.2)
[2024-09-11] MEDS: INSULIN LISPRO (NovoLOG) PER UNIT SC SCH (07:30)
[2024-09-11] MEDS: HEPARIN SOD (PORCINE) 5000UNITS/ML 1ML VIAL/SYRINGE SC SCH (08:45)
[2024-09-11] MEDS: cefTRIAXone SOD 1 GM in DEXTROSE 5% (D5W) ADV/MINI-BAG 50 ML IV SCH (08:45)
[2024-09-11 16:52] LABS: HEMOGLOBIN 9.7 g/dl (12.0-15.5); MEAN CORPUSCULAR HEMOGLOBIN 27.8 pg (27.0-33.0); MEAN CORPUSCULAR HGB CONC 31.3 g/dl (32.0-36.5); MEAN CORPUSCULAR VOLUME 88.8 fl (80.0-96.0); PLATELET COUNT, AUTOMATED 417 10^3/uL (150-450); RED BLOOD COUNT 3.49 10^6/uL (4.00-5.40); WHITE BLOOD COUNT 10.8 10^3/uL (4.0-10.0)
[2024-09-11 17:19] LABS: C REACTIVE PROTEIN QUANTITATIV 2.84 MG/DL (<1.0); OSMOLALITY SERUM 317 MOSM/KG (280-301)
[2024-09-11 17:25] LABS: PROCALCITONIN 2.32 ng/ml
[2024-09-11 17:28] LABS: ALBUMIN 2.2 G/DL (3.2-5.2); ALKALINE PHOSPHATASE 153 U/L (35-104); ALT/SGPT 43 U/L (7.0-40); AST/SGOT 43 U/L (<34); BILIRUBIN,TOTAL < 0.2 MG/DL (0.3-1.2); BLOOD UREA NITROGEN 37 MG/DL (9-23); CALCIUM LEVEL 8.1 MG/DL (8.3-10.6); CARBON DIOXIDE LEVEL 18 MMOL/L (20-31); CHLORIDE LEVEL 115 MMOL/L (98-107); CREATININE FOR GFR 2.57 MG/DL (0.55-1.30); GLOMERULAR FILTRATION RATE 19.1 (>39); GLUCOSE, FASTING 151 MG/DL (74-106); POTASSIUM SERUM 4.9 MMOL/L (3.5-5.1); SODIUM LEVEL 145 MMOL/L (136-145); TOTAL PROTEIN 6.6 G/DL (5.7-8.2)
[2024-09-11] MEDS: SODIUM BICARBONATE 325 MG TAB PO SCH (17:43)
[2024-09-11 21:50] LABS: HEMATOCRIT 29.1 % (36.0-47.0); HEMOGLOBIN 9.3 g/dl (12.0-15.5); MEAN CORPUSCULAR HEMOGLOBIN 28.5 pg (27.0-33.0); MEAN CORPUSCULAR VOLUME 89.3 fl (80.0-96.0); PLATELET COUNT, AUTOMATED 386 10^3/uL (150-450); RED BLOOD COUNT 3.26 10^6/uL (4.00-5.40); WHITE BLOOD COUNT 10.2 10^3/uL (4.0-10.0)
[2024-09-12 01:15] VITALS: BP 169/90; TEMP 97.7; O2SAT 94
[2024-09-12] MEDS: ONDANSETRON 4MG 2ML VIAL IV PRN (03:58)
[2024-09-12 04:05] VITALS: BP 164/87; TEMP 97; O2SAT 94
[2024-09-12 04:16] LABS: HEMATOCRIT 29.6 % (36.0-47.0); HEMOGLOBIN 9.4 g/dl (12.0-15.5); MEAN CORPUSCULAR HEMOGLOBIN 28.2 pg (27.0-33.0); MEAN CORPUSCULAR HGB CONC 31.8 g/dl (32.0-36.5); MEAN CORPUSCULAR VOLUME 88.9 fl (80.0-96.0); PLATELET COUNT, AUTOMATED 383 10^3/uL (150-450); RED BLOOD COUNT 3.33 10^6/uL (4.00-5.40); WHITE BLOOD COUNT 9.4 10^3/uL (4.0-10.0)
[2024-09-12 04:56] LABS: ALBUMIN 2.1 G/DL (3.2-5.2); BILIRUBIN,TOTAL 0.2 MG/DL (0.3-1.2); CALCIUM LEVEL 7.8 MG/DL (8.3-10.6); CREATININE FOR GFR 2.68 MG/DL (0.55-1.30); GLOMERULAR FILTRATION RATE 18.1 (>39); POTASSIUM SERUM 5.1 MMOL/L (3.5-5.1); TOTAL PROTEIN 6.1 G/DL (5.7-8.2)
[2024-09-12 10:29] LABS: HEMATOCRIT 28.5 % (36.0-47.0); MEAN CORPUSCULAR HEMOGLOBIN 27.9 pg (27.0-33.0); MEAN CORPUSCULAR HGB CONC 31.6 g/dl (32.0-36.5); MEAN CORPUSCULAR VOLUME 88.2 fl (80.0-96.0); PLATELET COUNT, AUTOMATED 379 10^3/uL (150-450); RED BLOOD COUNT 3.23 10^6/uL (4.00-5.40); WHITE BLOOD COUNT 10.3 10^3/uL (4.0-10.0)
[2024-09-12 12:00] VITALS: BP 141/68; TEMP 98.1; O2SAT 92
[2024-09-12] MEDS: SODIUM BICARBONATE 75 MEQ in NS 0.45% 1,000 ML IV SCH (13:49)
[2024-09-12] MEDS: SODIUM BICARBONATE 325 MG TAB PO SCH (20:11)
[2024-09-12 20:41] VITALS: BP 141/67; TEMP 98.8; O2SAT 94
[2024-09-13] VITALS (8 sets, daily range): BP systolic 150–177; BP diastolic 74–89; TEMP 97.9–98.8; O2SAT 88–98
[2024-09-13 05:12] LABS: HEMATOCRIT 28.2 % (36.0-47.0); MEAN CORPUSCULAR HEMOGLOBIN 28.4 pg (27.0-33.0); MEAN CORPUSCULAR HGB CONC 31.9 g/dl (32.0-36.5); PLATELET COUNT, AUTOMATED 357 10^3/uL (150-450); RED BLOOD COUNT 3.17 10^6/uL (4.00-5.40); WHITE BLOOD COUNT 10.4 10^3/uL (4.0-10.0)
[2024-09-13 05:48] LABS: ALBUMIN 1.9 G/DL (3.2-5.2); BILIRUBIN,TOTAL 0.2 MG/DL (0.3-1.2); CALCIUM LEVEL 7.7 MG/DL (8.3-10.6); CREATININE FOR GFR 2.64 MG/DL (0.55-1.30); GLOMERULAR FILTRATION RATE 18.4 (>39); POTASSIUM SERUM 5.2 MMOL/L (3.5-5.1); TOTAL PROTEIN 5.9 G/DL (5.7-8.2)
[2024-09-13] MEDS: ASPIRIN 81MG ENTERIC TABLET PO SCH (11:53)
[2024-09-13] MEDS: FLUCONAZOLE 100 MG TAB PO SCH (11:54)
[2024-09-13] MEDS: PATIROMER SORBITEX CALCIUM 8.4 GM POWDER PACKET (VELTASSA) PO SCH (14:04)
[2024-09-13] MEDS: SODIUM BICARBONATE 325 MG TAB PO SCH (15:38)
[2024-09-14 04:13] VITALS: BP 142/64; TEMP 98.1; O2SAT 93
[2024-09-14 04:54] VITALS: O2SAT 93
[2024-09-14 08:47] VITALS: BP 138/62
[2024-09-14 09:00] LABS: HEMATOCRIT 27.1 % (36.0-47.0); HEMOGLOBIN 8.7 g/dl (12.0-15.5); MEAN CORPUSCULAR HEMOGLOBIN 28.4 pg (27.0-33.0); MEAN CORPUSCULAR HGB CONC 32.1 g/dl (32.0-36.5); MEAN CORPUSCULAR VOLUME 88.6 fl (80.0-96.0); PLATELET COUNT, AUTOMATED 355 10^3/uL (150-450); RED BLOOD COUNT 3.06 10^6/uL (4.00-5.40); WHITE BLOOD COUNT 10.6 10^3/uL (4.0-10.0)
[2024-09-14 09:24] LABS: ALBUMIN 1.9 G/DL (3.2-5.2); BILIRUBIN,TOTAL 0.3 MG/DL (0.3-1.2); CALCIUM LEVEL 7.6 MG/DL (8.3-10.6); CREATININE FOR GFR 2.55 MG/DL (0.55-1.30); GLOMERULAR FILTRATION RATE 19.2 (>39); POTASSIUM SERUM 5.1 MMOL/L (3.5-5.1)
[2024-09-14] MEDS ORDERED: SODI325T9 PO (10:58)
[2024-09-14] MEDS ORDERED: VELT1POW PO (10:58)
[2024-09-14] MEDS ORDERED: FLUC100T3 PO (10:58)
[2024-09-14] MEDS: DARBEPOETIN 100MCG/0.5ML *NON-DIALYSIS* SYRINGE SC ONE (12:25)
[2024-09-14 12:31] VITALS: BP 141/80; TEMP 98.8; O2SAT 91
[2024-09-14] MEDS ORDERED: FERRIC CARBOXYMALTOSE INJ 750 MG, VIAL MATE ADAPTER 1 EACH in NS 100 ML IV ONE (13:00)
== END 2024-09-14 12:54 | DRG 690 ==
LOC: M ED 14:45 → EDBD 14:45 → M ED INP 20:25 → M MSPAV 23:51
PROVIDERS: ADMIT Family Medicine; ATTEND Family Medicine
DX: N30.20 Other chronic cystitis without hematuria (principal); E72.20 Disorder of urea cycle metabolism, unspecified; I13.0 Hypertensive heart and chronic kidney disease with heart failure and stage 1 through stage 4 chronic kidney disease, or unspecified chronic kidney disease; E87.20 Acidosis, unspecified; N18.4 Chronic kidney disease, stage 4 (severe); N13.30 Unspecified hydronephrosis; B37.49 Other urogenital candidiasis; E11.40 Type 2 diabetes mellitus with diabetic neuropathy, unspecified; E78.5 Hyperlipidemia, unspecified; R56.9 Unspecified convulsions; M47.814 Spondylosis without myelopathy or radiculopathy, thoracic region; M47.816 Spondylosis without myelopathy or radiculopathy, lumbar region; E66.01 Morbid (severe) obesity due to excess calories; E11.22 Type 2 diabetes mellitus with diabetic chronic kidney disease; H54.8 Legal blindness, as defined in USA; E11.51 Type 2 diabetes mellitus with diabetic peripheral angiopathy without gangrene; H26.9 Unspecified cataract; I50.9 Heart failure, unspecified; G89.29 Other chronic pain; M54.9 Dorsalgia, unspecified; F03.90 Unspecified dementia, unspecified severity, without behavioral disturbance, psychotic disturbance, mood disturbance, and anxiety; M25.512 Pain in left shoulder; M79.89 Other specified soft tissue disorders; D64.9 Anemia, unspecified; G93.89 Other specified disorders of brain; Z79.4 Long term (current) use of insulin; Z86.16 Personal history of COVID-19; Z79.899 Other long term (current) drug therapy; Z88.8 Allergy status to other drugs, medicaments and biological substances; Z68.37 Body mass index [BMI] 37.0-37.9, adult

== ENCOUNTER → 2024-09-14 | Outpatient (REF) | payer MEDICARE ==
[~2024-09-14] MED LIST changes: +ACET-683 PO; +BISA10SU4 PR; +CALC1CAP31 PO; +FLUC100T3 PO; +INSU100I24 SC; +LANTINJ4 SC; +LIPI20TA PO; +SERT25TA21 PO; +SODI325T9 PO; +SODI650T PO; +VELT1POW PO; +VELT1POW3 PO; +VITA1CAP25 PO
[2024-09-14 09:16] LABS: HEMOGLOBIN A1c 7.7 % (4.0-6.0)
== END ==
LOC: SKLAB5 07:00
PROVIDERS: ATTEND Internal Medicine
DX: N18.9 Chronic kidney disease, unspecified (principal); Z79.899 Other long term (current) drug therapy

== ENCOUNTER → 2024-09-18 | Outpatient (REF) | payer MEDICARE ==
[2024-09-18 11:09] LABS: HEMATOCRIT 32.1 % (36.0-47.0); HEMOGLOBIN 10.3 g/dl (12.0-15.5); MEAN CORPUSCULAR HEMOGLOBIN 28.5 pg (27.0-33.0); MEAN CORPUSCULAR HGB CONC 32.1 g/dl (32.0-36.5); MEAN CORPUSCULAR VOLUME 88.9 fl (80.0-96.0); PLATELET COUNT, AUTOMATED 569 10^3/uL (150-450); RED BLOOD COUNT 3.61 10^6/uL (4.00-5.40); WHITE BLOOD COUNT 8.5 10^3/uL (4.0-10.0)
[2024-09-18 11:21] LABS: CALCIUM LEVEL 7.9 MG/DL (8.3-10.6); CREATININE FOR GFR 2.45 MG/DL (0.55-1.30); GLOMERULAR FILTRATION RATE 20.2 (>39); POTASSIUM SERUM 4.8 MMOL/L (3.5-5.1)
== END ==
LOC: SKLAB5 10:10
PROVIDERS: ATTEND Internal Medicine
DX: R53.1 Weakness (principal)

== ENCOUNTER → 2024-09-19 | Outpatient (REF) | payer MEDICARE ==
[2024-09-19 11:10] LABS: ALBUMIN 2.5 G/DL (3.2-5.2); BILIRUBIN,TOTAL 0.2 MG/DL (0.3-1.2); CALCIUM LEVEL 8.3 MG/DL (8.3-10.6); CREATININE FOR GFR 2.44 MG/DL (0.55-1.30); GLOMERULAR FILTRATION RATE 20.3 (>39); POTASSIUM SERUM 4.6 MMOL/L (3.5-5.1); TOTAL PROTEIN 7.3 G/DL (5.7-8.2)
== END ==
LOC: SKLAB5 09:57
PROVIDERS: ATTEND Internal Medicine
DX: R41.0 Disorientation, unspecified (principal)

== ENCOUNTER 2024-09-23 01:19 | Emergency (ER) | payer MEDICARE ==
[~2024-09-23] VITALS: Ht 154.9 cm; Wt 45.6 kg
[2024-09-23 01:48] VITALS: BP 166/76; TEMP 98.1; O2SAT 98
[2024-09-23 04:38] LABS: BASO # 0.1 10^3/uL (0.0-0.2); BASO % 0.9 % (0.0-1.0); EOS # 0.5 10^3/uL (0.0-0.5); EOS % 5.1 % (0.0-3.0); HEMATOCRIT 32.1 % (36.0-47.0); HEMOGLOBIN 9.9 g/dl (12.0-15.5); LYMPH # 1.8 10^3/uL (1.5-5.0); LYMPH % 20.5 % (24.0-44.0); MEAN CORPUSCULAR HEMOGLOBIN 28.3 pg (27.0-33.0); MEAN CORPUSCULAR HGB CONC 30.8 g/dl (32.0-36.5); MEAN CORPUSCULAR VOLUME 91.7 fl (80.0-96.0); MONO % 11.2 % (2.0-8.0); NEUTROPHILS # 5.5 10^3/uL (1.5-8.5); PLATELET COUNT, AUTOMATED 556 10^3/uL (150-450); WHITE BLOOD COUNT 8.9 10^3/uL (4.0-10.0)
[2024-09-23 05:02] LABS: ETHYL ALCOHOL (ETHANOL) < 0.003 % (0.000-0.010)
[2024-09-23 05:04] LABS: ALBUMIN 2.4 G/DL (3.2-5.2); ALKALINE PHOSPHATASE 193 U/L (35-104); ALT/SGPT 29 U/L (7.0-40); AST/SGOT 25 U/L (<34); BILIRUBIN,DIRECT < 0.1 MG/DL (<0.4); BILIRUBIN,TOTAL 0.2 MG/DL (0.3-1.2); BLOOD UREA NITROGEN 33 MG/DL (9-23); CARBON DIOXIDE LEVEL 21 MMOL/L (20-31); CHLORIDE LEVEL 111 MMOL/L (98-107); CREATININE FOR GFR 2.43 MG/DL (0.55-1.30); GLOMERULAR FILTRATION RATE 20.4 (>39); GLUCOSE, FASTING 144 MG/DL (74-106); SALICYLATE LEVEL < 3.0 MG/DL (<30); SODIUM LEVEL 142 MMOL/L (136-145); TOTAL PROTEIN 6.9 G/DL (5.7-8.2)
[2024-09-23 05:07] LABS: THYROID STIMULATING HORMONE 1.294 uIU/ML (0.55-4.78)
== END 2024-09-23 05:37 | disposition home or self-care (01) ==
LOC: M ED 01:19
DX: F03.911 Unspecified dementia, unspecified severity, with agitation (principal); E11.9 Type 2 diabetes mellitus without complications; N18.30 Chronic kidney disease, stage 3 unspecified; F41.9 Anxiety disorder, unspecified; F32.A Depression, unspecified; R56.9 Unspecified convulsions; Z91.81 History of falling; Z79.4 Long term (current) use of insulin; Z79.899 Other long term (current) drug therapy; Z88.8 Allergy status to other drugs, medicaments and biological substances